=== PATIENT | female | born 1940 | race African-American/Black ===

== ENCOUNTER 2016-09-29 19:12 | Emergency (ER) | payer MEDICARE, MEDICAID ==
[~2016-09-29 19:12] MED LIST: QUET1TAB7 PO
[2016-09-29 19:15] VITALS: BP 174/69; PULSE 69; RESP 18; TEMP 98.4; O2SAT 95
[2016-09-29 19:36] VITALS: BP 223/105; PULSE 62; RESP 18; O2SAT 94
[2016-09-29] MEDS ORDERED: ASPI81CH37 PO (19:42)
[2016-09-29] MEDS ORDERED: METO100T PO (19:42)
[2016-09-29] MEDS ORDERED: SYNT25TA PO (19:42)
[2016-09-29] MEDS ORDERED: LISI40TA PO (19:42)
[2016-09-29] MEDS ORDERED: LIDOCAINE VISCOUS 2% SOLN 15 ML UDC SWISH-SWAL ONE (19:45)
[2016-09-29] MEDS ORDERED: METOPROLOL TARTRATE 100 MG TAB PO ONE (19:45)
--- NOTE | 2016-09-29 19:51 | PD ---
HPI Chief Complaint: ENT Complaint Time Seen by Provider: 19:39 Travel History International Travel<30 days: No Contact w/Intl Traveler<30days: No Traveled to known affect area: No History of Present Illness HPI Patient is a 76-year-old female brought in by her family for evaluation of a sore throat and painful swallowing. Patient states her throat has been sore for one week but today it started to become painful when she swallowed. She denies nasal congestion, fever, chills, nausea, vomiting, chest pain. She states that she is short of breath but reports that his a chronic issue for her. Patient has been able to control her secretions, she is eating and drinking normally. She last ate at 2 PM, based to and potato chips. Patient's primary care provider is Dr. Gonzalez. [facility] Past Medical History Arthritis: Yes Asthma: Yes Blood Disorders: No Anxiety: No Depression: No Cancer: No High Cholesterol: Yes Chemotherapy: No Chest Pain: Yes Congestive Heart Failure: Yes COPD: Yes Diabetes: Yes (INSULIN DEPENDENT) Diminished Hearing: No Gastrointestinal Disorders: No Genitourinary: No Hypertension: Yes Immune Disorder: No Implanted Vascular Access Dvce: Yes (LOOP RECORDER) Neurologic: No Psychiatric: No Reproductive: No Radiation Therapy: No Sleep Apnea: Yes (has machine at home) Thyroid Disease: Yes Menopausal: Yes Past Surgical History Cardiac Surgery: Yes (implanted loop recorder) Hysterectomy: Yes Neurologic Surgery: Yes (C-spine fusion) Pacemaker: No Thoracic Surgery: No Tonsillectomy: Yes Other Surgery: Yes (HERNIA) Social History Alcohol Use: Yes (occassionally) Tobacco Use: No Substance Use: No Allergies-Medications (Allergen,Severity, Reaction): Coded Allergies: Ceftriaxone (Verified Allergy, Intermediate, Rash, 09/29/16) Morphine (Verified Allergy, Intermediate, Hallucinations, 09/29/16) Moxifloxacin (Verified Allergy, Intermediate, Rash, 09/29/16) Sulfa (Verified Allergy, Intermediate, Rash, 09/29/16) Vancomycin (Verified Allergy, Intermediate, Diarrhea, 09/29/16) Azithromycin (Verified Allergy, Unknown, 09/29/16) Ciprofloxacin (Verified Allergy, Unknown, 09/29/16) Dobutamine (Verified Allergy, Unknown, 09/29/16) Methadone (Verified Allergy, Unknown, 09/29/16) Penicillin (Verified Allergy, Unknown, 09/29/16) Prochlorperazine (Verified Allergy, Unknown, 09/29/16) Venlafaxine (Verified Allergy, Unknown, 09/29/16) Reported Meds & Prescriptions Reported Meds & Active Scripts Active Quetiapine (Quetiapine Fumarate) 25 Mg Tab 50 Mg PO BID@,12 Reported Aspirin Low Dose (Aspirin) 81 Mg Chew 81 Mg PO DAILY Metoprolol Tartrate 100 Mg Tab 100 Mg PO DAILY Synthroid (Levothyroxine Sodium) 25 Mcg Tab Unknown Dose PO DAILY Lisinopril 40 Mg Tab 40 Mg PO DAILY Review of Systems Except as stated in HPI: all other systems reviewed are Neg General / Constitutional: No: Fever Eyes: No: Blurred Vision HENT: Positive: Sore Throat, Neck Pain, No: Congestion Cardiovascular: No: Chest Pain or Discomfort Respiratory: Positive: Shortness of Breath Gastrointestinal: No: Nausea, Abdominal Pain Genitourinary: No: Dysuria Musculoskeletal: No: Myalgias Physical Exam Narrative GENERAL: Obese, well-developed, alert female. Resting comfortably in no acute distress. SKIN: Warm and dry. HEAD: Atraumatic. Normocephalic. EYES: Pupils equal and round. No scleral icterus. No injection or drainage. ENT: No nasal bleeding or discharge. Mucous membranes pink and moist. Posterior pharynx with cobblestoning appearance. Airway is patent. NECK: Trachea midline. No JVD. No palpable masses. Full range of motion with flexion, extension, rotation. No stridor noted. CARDIOVASCULAR: Regular rate and rhythm. RESPIRATORY: No accessory muscle use. Clear to auscultation. Breath sounds equal bilaterally. GASTROINTESTINAL: Abdomen soft, non-tender, nondistended. Hepatic and splenic margins not palpable. MUSCULOSKELETAL: Extremities without clubbing, cyanosis, or edema. No obvious deformities. NEUROLOGICAL: Awake and alert. No obvious cranial nerve deficits. Motor grossly within normal limits. Five out of 5 muscle strength in the arms and legs. Normal speech. PSYCHIATRIC: Appropriate mood and affect; insight and judgment normal. Data Data Last Documented VS Vital Signs Date Time Temp Pulse Resp B/P Pulse Ox O2 Delivery O2 Flow Rate FiO2 09/29/16 19:36 62 18 223/105 94 Nasal Cannula 3 09/29/16 19:15 98.4 Orders Lidocaine 2% Viscous (Xylocaine 2% Visco (09/29/16 19:45) Metoprolol Tartrate (Lopressor) (09/29/16 19:45) Group A Rapid Strep Screen (09/29/16 19:37) Strep Culture (Group A) (09/29/16 19:45) MDM Medical Decision Making Medical Screen Exam Complete: Yes Emergency Medical Condition: Yes Interpretation(s) Vital Signs Date Time Temp Pulse Resp B/P Pulse Ox O2 Delivery O2 Flow Rate FiO2 09/29/16 19:36 62 18 223/105 94 Nasal Cannula 3 09/29/16 19:15 98.4 69 18 174/69 95 Room Air Differential Diagnosis Pharyngitis versus esophageal strictures versus postnasal drip versus other Narrative Course Patient is a 76-year-old female presenting to emergency department evaluation of 1 week of sore throat with increased pain today. Patient is able tolerate food and fluids, she is controlling her secretions. Airway is patent on exam. Blood pressure is elevated, patient has not taken her nighttime dose of metoprolol. Patient is questioning whether or not she took her morning dose of metoprolol as well. Blood pressure has improved significantly after administration of metoprolol. Patient states that it continues to be irritated when she swallows after administration of viscous lidocaine. Strep was negative. Patient will be given antibiotics as well as ipratropium nasal spray as the areas has cobblestone appearance consistent with postnasal drip which is likely irritating her throat. Patient has been controlling her secretions and tolerating food and fluids. She has appointment with her primary doctor on Saturday. She is advised to keep this appointment. She was further advised to return to emergency department for any new or worsening symptoms in the interim. Patient and daughter verbalized understanding of these instructions. Patient is stable for discharge. Patient has multiple allergies to antibiotics, discussed with daughter at bedside. Daughter states the patient has tolerated Keflex in the past. Keflex was prescribed. Dr. Gonzalez called while patient was in the emergency department and stated that he would see patient on Saturday. Diagnosis Primary Impression: Sore throat Referrals: Ghassan Gonzalez MD 3 days As scheduled Patient Instructions: General Instructions, Pharyngitis (ED) Additional Instructions: Follow-up with Dr. Gonzalez on Saturday as scheduled Take medications as directed Return to emergency department for any new or worsening symptoms Med/Other Pt SpecificInfo: Prescription(s) given Scripts Cephalexin (Keflex)500 Mg Vop543 Mg PO Q12H 7 Days Ref 0 Prov:Oneyda Paige 09/29/16 Ipratropium Nasal 0.06% Spray1 [place] EACH NARE TID #1 BOTTLE Ref 0 Prov:Oneyda Paige 09/29/16 Disposition: 01 DISCHARGE HOME Condition: Stable Oneyda Paige Sep 29, 2016 19:51
[2016-09-29 20:30] VITALS: BP 158/104; PULSE 68; RESP 18; O2SAT 95
[2016-09-29] MEDS ORDERED: FURO40TA PO (20:35)
[2016-09-29] MEDS ORDERED: MECL-62 PO (20:35)
[2016-09-29] MEDS ORDERED: GABA300C5 PO (20:35)
[2016-09-29] MEDS ORDERED: ISOS30TA15 PO (20:35)
[2016-09-29] MEDS ORDERED: NOVOLOGP2 SQ (20:35)
[2016-09-29] MEDS ORDERED: POTA10CA PO (20:35)
[2016-09-29] MEDS ORDERED: NITR1SUB3 SL (20:35)
[2016-09-29] MEDS ORDERED: LANTUS2P SQ (20:35)
[2016-09-29] MEDS ORDERED: PARO30TA2 PO (20:35)
[2016-09-29] MEDS ORDERED: CEPH-460 PO (20:41)
[2016-09-29] MEDS ORDERED: IPRA0.06 EACH NARE (20:41)
== END 2016-09-29 21:00 | disposition home or self-care (01) ==
LOC: NEPA 19:12
DX: J02.9 Acute pharyngitis, unspecified (principal); J45.909 Unspecified asthma, uncomplicated; E78.00 Pure hypercholesterolemia, unspecified; I50.9 Heart failure, unspecified; J44.9 Chronic obstructive pulmonary disease, unspecified; E11.9 Type 2 diabetes mellitus without complications; I10 Essential (primary) hypertension; E07.9 Disorder of thyroid, unspecified
CPT/HCPCS: 87081; 87880

== ENCOUNTER 2016-12-05 12:03 | Emergency (ER) | payer MEDICARE, MEDICAID ==
[~2016-12-05] VITALS: Ht 160 cm; Wt 113.5 kg
[~2016-12-05 12:03] MED LIST changes: +ASPI81CH37 PO; +CEPH-460 PO; +FURO40TA PO; +GABA300C5 PO; +IPRA0.06 EACH NARE; +ISOS30TA15 PO; +LANTUS2P SQ; +LISI40TA PO; +MECL-62 PO; +METO100T PO; +NITR1SUB3 SL; +NOVOLOGP2 SQ; +PARO30TA2 PO; +POTA10CA PO; +SYNT25TA PO
[2016-12-05 12:05] VITALS: BP 160/70; PULSE 64; RESP 24; TEMP 98.1; O2SAT 96
--- NOTE | 2016-12-05 12:12 | PD ---
Physical Exam Time Seen by Provider: 12:10 Narrative 76yo F c/o R lower back pain, L arm pain, and headache after falling off her bed Saturday night. Hit her head. Unknown loss of consciousness. Patient seen in triage. VS reviewed. Awaiting bed placement. Data Data Last Documented VS Vital Signs Date Time Temp Pulse Resp B/P Pulse Ox O2 Delivery O2 Flow Rate FiO2 12/05/16 12:05 98.1 64 24 160/70 96 Nasal Cannula MDM Supervised Visit with ELLIE: Julite Bower December 05, 2016 12:12
--- NOTE | 2016-12-05 12:43 | PD ---
HPI Chief Complaint: Back/ Neck Pain or Injury Time Seen by Provider: 12:32 Travel History International Travel<30 days: No Contact w/Intl Traveler<30days: No Traveled to known affect area: No History of Present Illness HPI 76 her old female on aspirin presents with family member for evaluation after a fall. 2 days ago the patient was sleeping, rolled out of her bed, hit her head on the nightstand. According to the patient's daughter she sleeps on the very edge of the bed in order to let her dog have plenty of room on the bed. This is been causing her to fall out of bed a few different times and for this reason they're trying to get a hospital bed with railings installed in her house. Since then the patient has been complaining of some left-sided headache as well as left forearm pain, right flank pain and this is what prompted evaluation today. Pain is mild, aggravated by movement of the left forearm, palpation of the skin in the left nondenominational region. Denies any loss of consciousness, confusion or amnesia, nausea or vomiting, chest pain, abdominal pain, numbness or tingling or weakness in extremities. Last tetanus vaccination unknown. No other complaints. PFSH Past Medical History Arthritis: Yes Asthma: Yes Blood Disorders: No Anxiety: No Depression: No Cancer: No Cardiovascular Problems: Yes (CHF, HIGH CHOLESTEROL) High Cholesterol: Yes Chemotherapy: No Chest Pain: Yes Congestive Heart Failure: Yes COPD: Yes Diabetes: Yes Patient Takes Glucophage: No Diminished Hearing: No Gastrointestinal Disorders: No Genitourinary: No Hypertension: Yes Immune Disorder: No Implanted Vascular Access Dvce: Yes (LOOP RECORDER) Neurologic: No Psychiatric: No Reproductive: No Respiratory: Yes (COPD) Radiation Therapy: No Sleep Apnea: Yes (has machine at home) Thyroid Disease: Yes ?: Not Menopausal: Yes Past Surgical History Cardiac Surgery: Yes (implanted loop recorder) Hysterectomy: Yes Neurologic Surgery: Yes (C-spine fusion) Pacemaker: No Thoracic Surgery: No Tonsillectomy: Yes Other Surgery: Yes (HERNIA) Social History Alcohol Use: No Tobacco Use: No Substance Use: No Allergies-Medications (Allergen,Severity, Reaction): Coded Allergies: Ceftriaxone (Verified Allergy, Intermediate, Rash, 12/05/16) Morphine (Verified Allergy, Intermediate, Hallucinations, 12/05/16) Moxifloxacin (Verified Allergy, Intermediate, Rash, 12/05/16) Sulfa (Verified Allergy, Intermediate, Rash, 12/05/16) Vancomycin (Verified Allergy, Intermediate, Diarrhea, 12/05/16) Azithromycin (Verified Allergy, Unknown, 12/05/16) Ciprofloxacin (Verified Allergy, Unknown, 12/05/16) Dobutamine (Verified Allergy, Unknown, 12/05/16) Methadone (Verified Allergy, Unknown, 12/05/16) Penicillin (Verified Allergy, Unknown, 12/05/16) Prochlorperazine (Verified Allergy, Unknown, 12/05/16) Venlafaxine (Verified Allergy, Unknown, 12/05/16) Reported Meds & Prescriptions Reported Meds & Active Scripts Active Lidocaine Patch 12 HR (Lidocaine) 5 % Patch 1 Patch TOPICAL DAILY PRN Remove patch after 12 hours Reported Omeprazole 40 Mg Cap 40 Mg PO DAILY Gabapentin 100 Mg Cap 100 Mg PO TID Amlodipine (Amlodipine Besylate) 5 Mg Tab 5 Mg PO DAILY Paxil (Paroxetine HCl) 30 Mg Tab 30 Mg PO DAILY Novolog Inj (Insulin Aspart) 1,000 Unit/10 Ml Vial 0 SQ DIRECTED Sliding Scale as directed. Isosorbide Dinitrate 30 Mg Tab 30 Mg PO DAILY Potassium Chloride ER (Potassium Chloride) 10 Meq Cap 10 Meq PO DAILY Furosemide 40 Mg Tab 40 Mg PO DAILY Nitroglycerin SL (Nitroglycerin) 0.4 Mg Subl 0.4 Mg SL DIRECTED PRN ONE TABLET UNDER THE TONGUE NEEDED FOR CHEST PAIN, MAY REPEAT EVERY FIVE MINUTES FOR A TOTAL OF 3 DOSES OR CALL 911 IF NO RELIEF Meclizine (Meclizine HCl) 25 Mg Tab 25 Mg PO TID PRN Lantus Inj (Insulin Glargine) 1,000 Unit/10 Ml Vial 18 Units SQ BID Aspirin Low Dose (Aspirin) 81 Mg Chew 81 Mg PO DAILY Metoprolol Tartrate 100 Mg Tab 100 Mg PO DAILY Synthroid (Levothyroxine Sodium) 25 Mcg Tab 150 PO DAILY Lisinopril 40 Mg Tab 40 Mg PO DAILY Review of Systems Except as stated in HPI: all other systems reviewed are Neg Physical Exam Narrative GENERAL: Pleasant well-developed well-nourished female in no acute distress SKIN: Warm and dry. There is an abrasion to the left nondenominational, abrasion to the right flank. No significant ecchymosis or hematoma formation. HEAD: Normocephalic. Skin as noted above. EYES: Pupils equal and round. No scleral icterus. No injection or drainage. ENT: No nasal bleeding or discharge. Mucous membranes pink and moist. NECK: Trachea midline. No JVD. CARDIOVASCULAR: Regular rate and rhythm. No murmur appreciated. RESPIRATORY: No accessory muscle use. Clear to auscultation. Breath sounds equal bilaterally. GASTROINTESTINAL: Abdomen soft, non-tender, nondistended. Hepatic and splenic margins not palpable. MUSCULOSKELETAL: No obvious deformities. Tender to palpation right posterior rib cage. There is no tenderness to palpation along the cervical thoracic or lumbar midline spine. There is some tenderness to palpation to the mid left forearm with no obvious deformity. NEUROLOGICAL: Awake and alert. No obvious cranial nerve deficits. Motor grossly within normal limits. Normal speech. PSYCHIATRIC: Appropriate mood and affect; insight and judgment normal. Data Data Last Documented VS Vital Signs Date Time Temp Pulse Resp B/P Pulse Ox O2 Delivery O2 Flow Rate FiO2 12/05/16 12:05 98.1 64 24 160/[address] Brain W/O Iv Contrast(Rout) (12/05/16 ) Ribs, Uni (W/Exp Cxr-Min 3vw) (12/05/16 ) Tetanus/Diphtheria Tox Adult (Tetanus/Di (12/05/16 12:45) Forearm (2vws) (12/05/16 ) Acetaminophen (Tylenol) (12/05/16 14:00) MDM Medical Decision Making Medical Screen Exam Complete: Yes Emergency Medical Condition: Yes Medical Record Reviewed: Yes Differential Diagnosis Closed head injury, abrasion, contusion, skull fracture, intracranial hemorrhage , rib fracture, pneumothorax, hemothorax, retroperitoneal hematoma Narrative Course 76 year old female presents after mechanical fall 2 days ago with abrasion, pain on left side of her head, right posterior rib cage, left forearm. Plan is for x-ray imaging the ribs, left forearm, CT of the brain. Tetanus status updated. X-rays, CT imaging is negative. The patient is being discharged with Lidoderm patches for her posterior rib cage pain. Tylenol was administered here. Diagnosis Primary Impression: Abrasions of multiple sites Additional Impression: Multiple contusions Additional Instructions: Keep the wounds clean with soap and water and apply antibiotic cream daily. Take [id number] Tylenol as needed for discomfort per dosing instructions on the bottle. Lidoderm patches as needed. Follow up closely with primary care physician and return for any emergent medical conditions. Med/Other Pt SpecificInfo: Prescription(s) given Scripts Lidocaine Patch 12 HR 5 % Patch1 Patch TOPICAL DAILY PRN (PAIN) #1 BOX Ref 1 Remove patch after 12 hours Prov:Hipolito Kaminski MD 12/05/16 Disposition: 01 DISCHARGE HOME Condition: Stable Kadne Mijares December 05, 2016 12:43
[2016-12-05] MEDS ORDERED: TETANUS/DIPHTHERIA TOXOID ADULT 0.5 ML VIAL IM ONE (12:45)
[2016-12-05] MEDS ORDERED: PAXI30TA7 PO (12:57)
[2016-12-05] MEDS ORDERED: AMLO5TAB2 PO (12:57)
[2016-12-05] MEDS ORDERED: GABA100C4 PO (12:57)
[2016-12-05] MEDS ORDERED: OMEP40CA2 PO (12:57)
--- NOTE | 2016-12-05 13:45 | RADRPT ---
EXAM DATE/TIME: 12/05/2016 13:34 [facility] COMPARISON: CT BRAIN W/O CONTRAST, May 31, 2016, 17:35. INDICATIONS : Evaluate for contusion. RADIATION DOSE: 33.14 CTDIvol (mGy) MEDICAL HISTORY : Hypertension. Cardiovascular disease Diabetes mellitus type 2.CHF SURGICAL HISTORY : None. ENCOUNTER: Initial ACUITY: 3 days PAIN SCALE: 2/10 LOCATION: Bilateral cranial TECHNIQUE: Multiple contiguous axial images were obtained of the head. Using automated exposure control and adj ustment of the mA and/or kV according to patient size, radiation dose was kept as low as reasonably a chievable to obtain optimal diagnostic quality images. FINDINGS: CEREBRUM: The ventricles are normal for age. No evidence of midline shift, mass lesion, hemorrhage or acute in farction. No extra-axial fluid collections are seen. POSTERIOR FOSSA: The cerebellum and brainstem are intact. The 4th ventricle is midline. The cerebellopontine angle i s unremarkable. EXTRACRANIAL: The visualized portion of the orbits is intact. SKULL: The calvaria is intact. No evidence of skull fracture. CONCLUSION: Negative for acute process. Gerry Multani MD FACR on December 05, 2016 at 13:42 Board Certified Radiologist. This report was verified electronically.
--- NOTE | 2016-12-05 13:51 | RADRPT ---
EXAM DATE/TIME: 12/05/2016 13:21 [facility] COMPARISON: No previous studies available for comparison. INDICATIONS : Right rib pain after falling today. MEDICAL HISTORY : Congestive heart failure. Hypertension. Diabetes. SURGICAL HISTORY : Tonsillectomy. ENCOUNTER: Initial ACUITY: 1 day PAIN SCORE: 4/10 LOCATION: Right rib. FINDINGS: Cardiac event monitor is evident. The heart is enlarged. There is mild interstitial prominence. Th ere is no pneumothorax. I do not see displaced rib fractures. CONCLUSION: Mild interstitial prominence. There are no displaced rib fractures. Gerry Multani MD FACR on December 05, 2016 at 13:38 Board Certified Radiologist. This report was verified electronically.
--- NOTE | 2016-12-05 13:52 | RADRPT ---
EXAM DATE/TIME: 12/05/2016 13:26 [facility] COMPARISON: No previous studies available for comparison. INDICATIONS : Left forearm pain after falling today. MEDICAL HISTORY : Congestive heart failure. Hypertension. Diabetes. SURGICAL HISTORY : Tonsillectomy. ENCOUNTER: Initial ACUITY: 1 day PAIN SCORE: 3/10 LOCATION: Left forearm. FINDINGS: Degenerative changes are present in the carpus. Alignment is anatomic. Fracture is not appreciated. CONCLUSION: Degenerative change without fracture. Gerry Multani MD FACR on December 05, 2016 at 13:38 Board Certified Radiologist. This report was verified electronically.
[2016-12-05] MEDS ORDERED: LIDO1PAD52 TOPICAL (13:55)
[2016-12-05] MEDS ORDERED: ACETAMINOPHEN 325 MG TAB PO ONE (14:00)
== END 2016-12-05 14:15 | disposition home or self-care (01) ==
LOC: NEPD 12:03
DX: S00.81XA Abrasion of other part of head, initial encounter (principal); S30.811A Abrasion of abdominal wall, initial encounter; W06.XXXA Fall from bed, initial encounter; Y93.84 Activity, sleeping; Y92.009 Unspecified place in unspecified non-institutional (private) residence as the place of occurrence of the external cause; Z23 Encounter for immunization
CPT/HCPCS: 70450; 71101; 73090; 90471; 90714

== ENCOUNTER 2016-12-23 21:59 | Emergency (ER) | payer MEDICARE, MEDICAID ==
[~2016-12-23] VITALS: Ht 160 cm; Wt 114.0 kg
[~2016-12-23 21:59] MED LIST changes: +AMLO5TAB2 PO; -CEPH-460 PO; +GABA100C4 PO; -GABA300C5 PO; -IPRA0.06 EACH NARE; +LIDO1PAD52 TOPICAL; +OMEP40CA2 PO; -PARO30TA2 PO; +PAXI30TA7 PO; -QUET1TAB7 PO
[2016-12-23 22:00] VITALS: PULSE 60; RESP 18; TEMP 98.5; O2SAT 98
[2016-12-23 23:31] LABS: BASOPHIL % 0.5 % (0.0-2.0); EOSINOPHIL # 0.3 TH/MM3 (0-0.4); EOSINOPHIL % 3.9 % (0.0-4.0); HEMATOCRIT 31.5 % (35.0-46.0); HEMO FLAGS DIFF FINAL; LYMPH % 17.8 % (9.0-44.0); LYMPHOCYTE # 1.3 TH/MM3 (1.0-4.8); MEAN CELL VOLUME 76.5 FL (80.0-100.0); MEAN CORPUSCULAR HEMOGLOBIN 24.6 PG (27.0-34.0); MEAN CORPUSCULAR HGB CONC 32.2 % (32.0-36.0); NEUT % 71.8 % (16.0-70.0); PLATELET COUNT 164 TH/MM3 (150-450); RED BLOOD COUNT 4.12 MIL/MM3 (4.00-5.30); RED CELL DISTRIBUTION WIDTH 16.5 % (11.6-17.2)
--- NOTE | 2016-12-23 23:45 | RADRPT ---
EXAM DATE/TIME: 12/23/2016 23:17 [facility] COMPARISON: CHEST SINGLE AP, May 31, 2016, 17:07. INDICATIONS : Abdominal pain. MEDICAL HISTORY : Hypertension. Cardiovascular disease. Diabetes mellitus type II. CHF SURGICAL HISTORY : None. ENCOUNTER: Initial ACUITY: 1 day PAIN SCORE: 0/10 LOCATION: Bilateral chest FINDINGS: No infiltrate, effusion or pneumothorax demonstrated. Heart size stable, mildly enlarged. Implanted c ardiac loop recorder again seen. CONCLUSION: No acute cardiopulmonary disease demonstrated. Arpan Rust MD on December 23, 2016 at 23:43 Board Certified Radiologist. This report was verified electronically.
[2016-12-23 23:50] LABS: ANION GAP 10 MEQ/L (5-15); BICARBONATE 26.9 MEQ/L (21.0-32.0); BLOOD UREA NITROGEN 52 MG/DL (7-18); CHLORIDE 99 MEQ/L (98-107); GLOMERULAR FILTRATION RATE 27 ML/MIN (>89); SODIUM (NA) 136 MEQ/L (136-145)
[2016-12-23 23:51] LABS: POTASSIUM 4.7 MEQ/L (3.5-5.1)
[2016-12-24 00:02] LABS: ALKALINE PHOSPHATASE 111 U/L (45-117); ALT (GPT) 17 U/L (10-53); AST (GOT) 24 U/L (15-37); CREATINE KINASE 184 U/L (26-192); TOTAL BILIRUBIN ADULT 0.3 MG/DL (0.2-1.0)
--- NOTE | 2016-12-24 00:02 | PD ---
HPI Chief Complaint: Dizziness Time Seen by Provider: 23:00 Travel History International Travel<30 days: No Contact w/Intl Traveler<30days: No Traveled to known affect area: No History of Present Illness HPI The patient is a 76 year old female who presents to the [facility] emergency department with a history of shortness of breath, dizziness, nausea, and tremors that her daughter reports began again today. From reviewing the patient's electronic medical record, the patient has had similar complaints in the past. The patient's family reports that she has not recently been seen by the neurologist. From reviewing the electronic medical record in May she was admitted for similar concerns and was seen by Dr. Valdez. By the time she was seen by him, the dizziness and tremulousness seem to be resolving, therefore he recommended follow-up of her symptoms recurred. According to the patient's daughter the patient intermittently has chronic dizziness. She also has a history of congestive heart failure. She is unsure whether she had any increase in her weight recently. She reports that her shortness of breath does get worse when she tries to lie down. She denies having any vomiting. She denies having any chest pain or pressure. She denies having any calf pain or erythema. The patient reports that she is always cold and is concerned that she may be anemic. She reports that she has been anemic in the past, however she has not currently on an iron supplement. The patient denies any recent fevers, cough, congestion, neck pain, chest pain, abdominal pain, diarrhea, urinary symptoms, or other neurologic symptoms. FORMERLY [facility] Past Medical History Narrative Medical The patient's past medical history is significant for dizziness, bipolar disorder, renal insufficiency, COPD, obstructive sleep apnea, hypertension, diabetes mellitus, history of congestive heart failure, history of hypothyroid disorder, hyperlipidemia, insulin-dependent diabetes, peripheral diabetic neuropathy. Arthritis: Yes Asthma: Yes Blood Disorders: No Anxiety: No Depression: No Cancer: No Cardiovascular Problems: Yes (CHF) High Cholesterol: Yes Chemotherapy: No Chest Pain: Yes Congestive Heart Failure: Yes COPD: Yes Diabetes: Yes Patient Takes Glucophage: No Diminished Hearing: No Gastrointestinal Disorders: No Genitourinary: No Hypertension: Yes Immune Disorder: No Implanted Vascular Access Dvce: Yes (LOOP RECORDER) Neurologic: No Psychiatric: No Reproductive: No Respiratory: Yes (COPD) Radiation Therapy: No Sleep Apnea: Yes (has machine at home) Thyroid Disease: Yes Tetanus Vaccination: < 5 Years Influenza Vaccination: Yes Menopausal: Yes Past Surgical History Narrative Surgical The patient's past surgical history is significant for having a hernia repair, an implanted loop recorder, history of C-spine fusion, tonsillectomy, hysterectomy. Cardiac Surgery: Yes (implanted loop recorder) Hysterectomy: Yes Neurologic Surgery: Yes (C-spine fusion) Pacemaker: No Thoracic Surgery: No Tonsillectomy: Yes Other Surgery: Yes (HERNIA) Social History Alcohol Use: Yes (OCC) Tobacco Use: No (40YR AGO) Substance Use: No Allergies-Medications (Allergen,Severity, Reaction): Coded Allergies: Ceftriaxone (Verified Allergy, Intermediate, Rash, 12/23/16) Morphine (Verified Allergy, Intermediate, Hallucinations, 12/23/16) Moxifloxacin (Verified Allergy, Intermediate, Rash, 12/23/16) Sulfa (Verified Allergy, Intermediate, Rash, 12/23/16) Vancomycin (Verified Allergy, Intermediate, Diarrhea, 12/23/16) Azithromycin (Verified Allergy, Unknown, 12/23/16) Ciprofloxacin (Verified Allergy, Unknown, 12/23/16) Dobutamine (Verified Allergy, Unknown, 12/23/16) Methadone (Verified Allergy, Unknown, 12/23/16) Penicillin (Verified Allergy, Unknown, 12/23/16) Prochlorperazine (Verified Allergy, Unknown, 12/23/16) Venlafaxine (Verified Allergy, Unknown, 12/23/16) Reported Meds & Prescriptions Reported Meds & Active Scripts Active Lidocaine Patch 12 HR (Lidocaine) 5 % Patch 1 Patch TOPICAL DAILY PRN Remove patch after 12 hours Reported Omeprazole 40 Mg Cap 40 Mg PO DAILY Gabapentin 100 Mg Cap 100 Mg PO TID Amlodipine (Amlodipine Besylate) 5 Mg Tab 5 Mg PO DAILY Paxil (Paroxetine HCl) 30 Mg Tab 30 Mg PO DAILY Novolog Inj (Insulin Aspart) 1,000 Unit/10 Ml Vial 0 SQ DIRECTED Sliding Scale as directed. Isosorbide Dinitrate 30 Mg Tab 30 Mg PO DAILY Potassium Chloride ER (Potassium Chloride) 10 Meq Cap 10 Meq PO DAILY Furosemide 40 Mg Tab 40 Mg PO DAILY Nitroglycerin SL (Nitroglycerin) 0.4 Mg Subl 0.4 Mg SL DIRECTED PRN ONE TABLET UNDER THE TONGUE NEEDED FOR CHEST PAIN, MAY REPEAT EVERY FIVE MINUTES FOR A TOTAL OF 3 DOSES OR CALL 911 IF NO RELIEF Meclizine (Meclizine HCl) 25 Mg Tab 25 Mg PO TID PRN Lantus Inj (Insulin Glargine) 1,000 Unit/10 Ml Vial 18 Units SQ BID Aspirin Low Dose (Aspirin) 81 Mg Chew 81 Mg PO DAILY Metoprolol Tartrate 100 Mg Tab 100 Mg PO DAILY Synthroid (Levothyroxine Sodium) 25 Mcg Tab 150 PO DAILY Lisinopril 40 Mg Tab 40 Mg PO DAILY Review of Systems Except as stated in HPI: all other systems reviewed are Neg General / Constitutional: No: Fever Eyes: No: Visual changes HENT: No: Headaches, Rhinorrhea, Congestion, Neck Stiffness, Neck Pain Cardiovascular: Positive: Dyspnea on exertion, No: Chest Pain or Discomfort, Edema Respiratory: Positive: Shortness of Breath, No: Cough Gastrointestinal: Positive: Nausea, No: Vomiting, Diarrhea, Abdominal Pain, Changes in Bowel Habits, Indigestion, Loss of Appetite Genitourinary: No: Urgency, Frequency, Dysuria, Flank Pain Musculoskeletal: No: Pain Skin: No Rash Neurologic: Positive: Tremor, No: Weakness, Focal Abnormalities, Change in Mentation, Slurred Speech Psychiatric: No: Depression Endocrine: No: Polydipsia Hematologic/Lymphatic: No: Easy Bruising Physical Exam Narrative General: The patient is a well-developed well-nourished female in no acute distress. Head and Neck exam: Head is normocephalic atraumatic. Eyes: EOMI, pupils are equal round and reactive to light. Nose: Midline septum with pink mucous membranes Mouth: Dentition unremarkable. Moist mucus membranes. Posterior oropharynx is not erythematous. No tonsillar hypertrophy. Uvula midline. Airway patent. Neck: No palpable lymphadenopathy. No nuchal rigidity. No thyromegaly. Cardiovascular: Regular rate and rhythm without murmurs, gallops, or rubs. No pulse deficit to the extremities and simultaneous auscultation and palpation of her radial artery. Lungs: Clear to auscultation bilaterally. No wheezes, rhonchi, or rales. Abdomen: Soft, without tenderness to palpation in all 4 quadrants of the abdomen. No guarding, rebound, or rigidity. Normal bowel sounds are audible. No tenderness on palpation of McBurney's point. Negative Lance's sign. Extremities: No clubbing, cyanosis, or edema. 2+ pulses in all 4 extremities. No calf tenderness on palpation. Back: No costovertebral angle tenderness to palpation. Neurologic Exam: Cranial nerves 2-12 were intact on exam. Strength is 5/5 in all 4 extremities. No sensory deficits noted. No dysdiadochokinesis. Good finger to nose and Heel to nunez bilaterally. No tremor noted on examination at this time. Skin Exam: No rash noted. Intact skin that is warm and dry. Data Data Last Documented VS Vital Signs Date Time Temp Pulse Resp B/P Pulse Ox O2 Delivery O2 Flow Rate FiO2 12/23/16 22:00 98.5 60 18 98 Nasal Cannula Orders Electrocardiogram (12/23/16 23:12) Complete Blood Count With Diff (12/23/16 23:12) Comprehensive Metabolic Panel (12/23/16 23:12) Creatine Kinase (Cpk) (12/23/16 23:12) Ckmb (Isoenzyme) Profile (12/23/16 23:12) Troponin I (12/23/16 23:12) B-Type Natriuretic Peptide (12/23/16 23:12) Lipase (12/23/16 23:12) Urinalysis - C+S If Indicated (12/23/16 23:12) Magnesium (Mg) (12/23/16 23:12) Thyroid Stimulating Hormone (12/23/16 23:12) Chest, Single Ap (12/23/16 23:12) Iv Access Insert/Monitor (12/23/16 23:12) Ecg Monitoring (12/23/16 23:12) Oximetry (12/23/16 23:12) Ct Brain W/O Iv Contrast(Rout) (12/23/16 23:42) Orthostatic Vital Signs (12/23/16 23:42) CKMB (12/23/16 23:21) CKMB% (12/23/16 23:21) Ondansetron Inj (Zofran Inj) (12/24/16 00:15) Sodium Chlor 0.9% 250 Ml Inj (Ns 250 Ml (12/24/16 00:45) Cath For Specimen (12/24/16 00:38) Labs Laboratory Tests Test 12/23/16 23:21 B-Type Natriuretic Peptide 117 PG/ML White Blood Count 7.0 TH/MM3 Red Blood Count 4.12 MIL/MM3 Hemoglobin 10.2 GM/DL Hematocrit 31.5 % Mean Corpuscular Volume 76.5 FL Mean Corpuscular Hemoglobin 24.6 PG Mean Corpuscular Hemoglobin 32.2 % Concent Red Cell Distribution Width 16.5 % Platelet Count 164 TH/MM3 Mean Platelet Volume 9.5 FL Neutrophils (%) (Auto) 71.8 % Lymphocytes (%) (Auto) 17.8 % Monocytes (%) (Auto) 6.0 % Eosinophils (%) (Auto) 3.9 % Basophils (%) (Auto) 0.5 % Neutrophils # (Auto) 5.0 TH/MM3 Lymphocytes # (Auto) 1.3 TH/MM3 Monocytes # (Auto) 0.4 TH/MM3 Eosinophils # (Auto) 0.3 TH/MM3 Basophils # (Auto) 0.0 TH/MM3 CBC Comment DIFF FINAL Differential Comment Sodium Level 136 MEQ/L Potassium Level 4.7 MEQ/L Chloride Level 99 MEQ/L Carbon Dioxide Level 26.9 MEQ/L Anion Gap 10 MEQ/L Blood Urea Nitrogen 52 MG/DL Creatinine 2.13 MG/DL Estimat Glomerular Filtration 27 ML/MIN Rate Random Glucose 161 MG/DL Calcium Level 9.5 MG/DL Magnesium Level 2.0 MG/DL Total Bilirubin 0.3 MG/DL Aspartate Amino Transf 24 U/L (AST/SGOT) Alanine Aminotransferase 17 U/L (ALT/SGPT) Alkaline Phosphatase 111 U/L Total Creatine Kinase 184 U/L Creatine Kinase MB 1.0 NG/ML Troponin I LESS THAN 0.02 NG/ML Total Protein 8.3 GM/DL Albumin 3.6 GM/DL Lipase 87 U/L Thyroid Stimulating Hormone 0.921 uIU/ML [address] [place] [address] Medical Decision Making Medical Screen Exam Complete: Yes Emergency Medical Condition: Yes Medical Record Reviewed: Yes Interpretation(s) Last Impressions Head CT 12/23/162 Signed Impressions: Service Date/Time: Saturday, December 24, 2016 00:02 - CONCLUSION: Negative noncontrast head CT. Arpan Rust MD Chest X-Ray 12/23/16 2312 Signed Impressions: Service Date/Time: Friday, December 23, 2016 23:17 - CONCLUSION: No acute cardiopulmonary disease demonstrated. Arpan Rust MD Differential Diagnosis Congestive heart failure exacerbation, versus pneumonia, versus acute coronary syndrome, versus medication side effect, versus exacerbation of psychiatric disorder, versus symptomatic anemia, versus endocrine disorder Narrative Course During the course of the patients emergency department visit, the patients history, examination, and differential diagnosis were reviewed with the patient. The patient had IV access obtained and blood work sent for analysis. The patient was placed on a bus driver/monitor with oximetry and blood pressure monitoring. An EKG was done on arrival. The patient's EKG shows a sinus bradycardia with occasional supraventricular premature complexes, heart rate of 52, T waves inverted in lead 3, no acute ST segment elevation. QRS duration is 92 ms, QTc is 424 ms. Orthostatic vital signs were ordered. A CT scan of the brain was ordered. The patient was initially provided Zofran 4 mg IV times one for nausea. The patient has a history of renal sufficiency, however her renal function was slightly worse due to decreased by mouth intake today and her BMP was 117, therefore the patient was given a normal saline 250 mL bolus 1. The patients laboratory studies were reviewed and remarkable for a white count of 7, hemoglobin 10.2 which is at her baseline, however with a MCV of 76.5, therefore was recommended that the patient started on iron supplement again, neutrophils 71.8, CMP is remarkable for a BUN of 52, creatinine 2.13, glucose 161, CPK 184, troponin I less than 0.02, BNP 117, TSH 0.92, lipase 87. Radiology studies were reviewed and remarkable for a CT scan of the brain that shows no acute abnormality. A chest x-ray that shows no acute abnormality. The patient has remained stable during her evaluation. The patient was started back on an iron supplement. The patient was given a prescription for nausea. The patient was instructed to follow-up with the neurologist for consideration of additional testing. The patient is resting comfortably and feels better, is alert and in no distress. The patients results and examination findings were discussed with the patient. The repeat examination is unremarkable and benign. The history, exam, diagnostic testing, and current condition do not suggest any significant pathology to warrant further testing, continued ED treatment, admission, or surgical evaluation at this point. The vital signs have been stable. The patient does not have uncontrollable pain, intractable vomiting, or other significant symptoms. The patient's condition is stable and appropriate for discharge. The patient will pursue further outpatient evaluation with a primary care physician or other designated or consulting physician as indicated in the discharge instructions. The patient expressed understanding and was agreeable with this plan. Diagnosis Primary Impression: Dizziness, nonspecific Additional Impressions: Nausea alone Dyspnea on exertion Referrals: Min Valdez MD 1 week Primary Care Physician 2 days Patient Instructions: Dizziness (ED), General Instructions Med/Other Pt SpecificInfo: Prescription(s) given Scripts Ferrous Sulfate (Ferrousul)325 Mg Tab1 Tab PO q day 30 Days Prov:Maddi Rivas MD 12/24/16 Ondansetron Odt (Zofran Odt)4 Mg Tab4 Mg SL Q6HR PRN (Nausea/Vomiting) #7 TAB Ref 0 Prov:Maddi Rivas MD 12/24/16 Disposition: 01 DISCHARGE HOME Condition: Stable Maddi Rivas MD Dec 24, 2016 00:02
[2016-12-24] MEDS ORDERED: ONDANSETRON HCL 4 MG/2 ML VIAL IV ONE (00:15)
--- NOTE | 2016-12-24 00:25 | RADRPT ---
EXAM DATE/TIME: 12/24/2016 00:02 [facility] COMPARISON: CT BRAIN W/O CONTRAST, December 05, 2016, 13:34. INDICATIONS : Dizziness. RADIATION DOSE: 38.35 CTDIvol (mGy) MEDICAL HISTORY : Congestive heart failure. Hypertension. Chronic obstructive pulmonary disease.Diabetes. SURGICAL HISTORY : Tonsillectomy. Hysterectomy.Cervical fusion. ENCOUNTER: Initial ACUITY: 1 day PAIN SCALE: 0/10 LOCATION: cranial TECHNIQUE: Multiple contiguous axial images were obtained of the head. Using automated exposure control and adj ustment of the mA and/or kV according to patient size, radiation dose was kept as low as reasonably a chievable to obtain optimal diagnostic quality images. FINDINGS: CEREBRUM: The ventricles are normal for age. No evidence of midline shift, mass lesion, hemorrhage or acute in farction. No extra-axial fluid collections are seen. POSTERIOR FOSSA: The cerebellum and brainstem are intact. The 4th ventricle is midline. The cerebellopontine angle i s unremarkable. EXTRACRANIAL: The visualized portion of the orbits is intact. SKULL: The calvaria is intact. No evidence of skull fracture. CONCLUSION: Negative noncontrast head CT. Arpan Rust MD on December 24, 2016 at 0:22 Board Certified Radiologist. This report was verified electronically.
[2016-12-24] MEDS ORDERED: SODIUM CHLOR 0.9% 250 ML INJ 250 ML IV ONE (00:45)
[2016-12-24] MEDS ORDERED: FERR325T86 PO (01:38)
[2016-12-24] MEDS ORDERED: ZOFR4TAB3 SL (01:38)
[2016-12-24 02:25] VITALS: BP_SYST 189; BP_SYST 199; BP_DIAS 77; BP_DIAS 88; PULSE 54; PULSE 56; RESP 18; RESP 19; O2SAT 100; O2SAT 95
[2016-12-24 02:57] VITALS: O2SAT 95
[2016-12-24 02:58] VITALS: BP_SYST 191; BP_SYST 198; BP_DIAS 89; BP_DIAS 90; RESP 18
--- NOTE | 2016-12-24 14:27 | EKG ---
Date Performed: 12/23/2016 Time Performed: 23:18:16 PTAGE: 76 years EKG: SINUS BRADYCARDIA WITH OCCASIONAL SUPRAVENTRICULAR PREMATURE COMPLEXES NONSPECIFIC T-WAVE A BNORMALITY BORDERLINE ECG Since prior tracing, nonspecific changes are more prominent. PREVIOUS TRACING : 05/31/2016 18.25 DOCTOR: Satish Esqueda Interpretating Date/Time 12/24/2016 14:25:44
== END 2016-12-24 02:56 | disposition home or self-care (01) ==
LOC: NEPE 21:59
DX: R42 Dizziness and giddiness (principal); R11.0 Nausea; R06.00 Dyspnea, unspecified; R00.1 Bradycardia, unspecified; R06.02 Shortness of breath; I50.9 Heart failure, unspecified; J44.9 Chronic obstructive pulmonary disease, unspecified; E11.9 Type 2 diabetes mellitus without complications; I10 Essential (primary) hypertension
CPT/HCPCS: 70450; 71010; 80053; 82550; 82552; 83690; 83735; 83880; 84443; 84484; 85025; 93005; 96374; 99285; J2405; J7050; P9612

== ENCOUNTER 2016-12-31 21:00 | Emergency (ER) | payer MEDICARE, MEDICAID ==
[~2016-12-31 21:00] MED LIST changes: +FERR325T86 PO; +ZOFR4TAB3 SL
[2016-12-31 21:02] VITALS: BP 207/88; PULSE 67; RESP 16; TEMP 98.4; O2SAT 98
--- NOTE | 2016-12-31 21:24 | PD ---
Physical Exam Time Seen by Provider: 21:23 Narrative 76yo F c/o abd pain and blood in stool since yesterday. +N w/o vomiting. Denies fever. Patient seen in triage. VS reviewed. Awaiting bed placement. Data Data Last Documented VS Vital Signs Date Time Temp Pulse Resp B/P Pulse Ox O2 Delivery O2 Flow Rate FiO2 12/31/16 21:02 98.4 67 16 207/88 98 Room Air MDM Supervised Visit with ELLIE: Juliet Bower Dec 31, 2016 21:24
[2016-12-31] MEDS ORDERED: FAMOTIDINE 20 MG/2 ML VIAL IV PUSH ONE (21:45)
[2016-12-31] MEDS ORDERED: SODIUM CHLORIDE 0.9% FLUSH 10 ML FLUSH IVF PRN (21:45)
[2016-12-31 21:49] VITALS: RESP 16
--- NOTE | 2016-12-31 21:50 | PD ---
HPI Chief Complaint: GI Complaint Time Seen by Provider: 21:30 Travel History International Travel<30 days: No Contact w/Intl Traveler<30days: No Traveled to known affect area: No History of Present Illness HPI The patient is a 76-year-old [place] female who presents to the emergency department for rectal bleeding. The patient states that she had some bright red blood per rectum yesterday and then noticed some bright red blood per rectum today that was on top of the stool and appeared to be mixed with the stool. She also complained of a few darker clots in her stool. She does complain of some generalized abdominal pain and cramping. She does have a history of previous lower GI bleed with a history of diverticulosis and previous transfusion. The patient called her primary physician, Dr. Gonzalez, however did not hear back from him. Therefore, she came to the emergency department for further evaluation. She does complain of mild nausea but denies any vomiting. Her last normal bowel movement was earlier today, however, did have some bright red blood with her stool. She denies any painful defecation. She does note intermittent chest pain and shortness of breath which is been ongoing for several months, denies any acute orthostatic changes. She does take aspirin on a daily basis. PFSH Past Medical History Arthritis: Yes Asthma: Yes Blood Disorders: No Anxiety: No Depression: No Cancer: No Cardiovascular Problems: Yes (CHF) High Cholesterol: Yes Chemotherapy: No Chest Pain: Yes Congestive Heart Failure: Yes COPD: Yes Diabetes: Yes Patient Takes Glucophage: Yes Diminished Hearing: No Gastrointestinal Disorders: No Genitourinary: No Hypertension: Yes Immune Disorder: No Implanted Vascular Access Dvce: Yes (LOOP RECORDER) Neurologic: No Psychiatric: No Reproductive: No Respiratory: Yes (COPD) Radiation Therapy: No Sleep Apnea: Yes (has machine at home) Thyroid Disease: Yes Tetanus Vaccination: < 5 Years Influenza Vaccination: Yes Menopausal: Yes Past Surgical History Cardiac Surgery: Yes (implanted loop recorder) Hysterectomy: Yes Neurologic Surgery: Yes (C-spine fusion) Pacemaker: No Thoracic Surgery: No Tonsillectomy: Yes Other Surgery: Yes (HERNIA) Social History Alcohol Use: Yes (OCC) Tobacco Use: No (40YR AGO) Substance Use: No Allergies-Medications (Allergen,Severity, Reaction): Coded Allergies: Ceftriaxone (Verified Allergy, Intermediate, Rash, 12/31/16) Morphine (Verified Allergy, Intermediate, Hallucinations, 12/31/16) Moxifloxacin (Verified Allergy, Intermediate, Rash, 12/31/16) Sulfa (Verified Allergy, Intermediate, Rash, 12/31/16) Vancomycin (Verified Allergy, Intermediate, Diarrhea, 12/31/16) Azithromycin (Verified Allergy, Unknown, 12/31/16) Ciprofloxacin (Verified Allergy, Unknown, 12/31/16) Dobutamine (Verified Allergy, Unknown, 12/31/16) Methadone (Verified Allergy, Unknown, 12/31/16) Penicillin (Verified Allergy, Unknown, 12/31/16) Prochlorperazine (Verified Allergy, Unknown, 12/31/16) Venlafaxine (Verified Allergy, Unknown, 12/31/16) Reported Meds & Prescriptions Reported Meds & Active Scripts Active Ferrousul (Ferrous Sulfate) 325 Mg Tab 1 Tab PO Q DAY 30 Days Zofran Odt (Ondansetron Odt) 4 Mg Tab 4 Mg SL Q6HR PRN Lidocaine Patch 12 HR (Lidocaine) 5 % Patch 1 Patch TOPICAL DAILY PRN Remove patch after 12 hours Reported Omeprazole 40 Mg Cap 40 Mg PO DAILY Gabapentin 100 Mg Cap 100 Mg PO TID Amlodipine (Amlodipine Besylate) 5 Mg Tab 5 Mg PO DAILY Paxil (Paroxetine HCl) 30 Mg Tab 30 Mg PO DAILY Novolog Inj (Insulin Aspart) 1,000 Unit/10 Ml Vial 0 SQ DIRECTED Sliding Scale as directed. Isosorbide Dinitrate 30 Mg Tab 30 Mg PO DAILY Potassium Chloride ER (Potassium Chloride) 10 Meq Cap 10 Meq PO DAILY Furosemide 40 Mg Tab 40 Mg PO DAILY Nitroglycerin SL (Nitroglycerin) 0.4 Mg Subl 0.4 Mg SL DIRECTED PRN ONE TABLET UNDER THE TONGUE NEEDED FOR CHEST PAIN, MAY REPEAT EVERY FIVE MINUTES FOR A TOTAL OF 3 DOSES OR CALL 911 IF NO RELIEF Meclizine (Meclizine HCl) 25 Mg Tab 25 Mg PO TID PRN Lantus Inj (Insulin Glargine) 1,000 Unit/10 Ml Vial 18 Units SQ BID Aspirin Low Dose (Aspirin) 81 Mg Chew 81 Mg PO DAILY Metoprolol Tartrate 100 Mg Tab 100 Mg PO DAILY Synthroid (Levothyroxine Sodium) 25 Mcg Tab 150 PO DAILY Lisinopril 40 Mg Tab 40 Mg PO DAILY Review of Systems Except as stated in HPI: all other systems reviewed are Neg General / Constitutional: No: Fever HENT: No: Lightheadedness Cardiovascular: Positive: Chest Pain or Discomfort (intermittent) Respiratory: Positive: Shortness of Breath (intermittent) Gastrointestinal: Positive: Nausea, Abdominal Pain, Hematochezia, No: Vomiting Musculoskeletal: No: Weakness Neurologic: No: Dizziness Physical Exam Narrative GENERAL: Awake, alert, pleasant 76-year-old female who appears her stated age and is in no acute respiratory distress. SKIN: Focused skin assessment warm/dry. HEAD: Atraumatic. Normocephalic. EYES: Pupils equal and round. No scleral icterus. No injection or drainage. ENT: No nasal bleeding or discharge. Mucous membranes pink and moist. NECK: Trachea midline. No JVD. CARDIOVASCULAR: Regular rate and rhythm. No murmur appreciated. RESPIRATORY: No accessory muscle use. Clear to auscultation. Breath sounds equal bilaterally. GASTROINTESTINAL: Abdomen soft, obese, mild generalized tenderness. Rectal: The exam was performed in the presence of a female nurse. No gross blood. Guaiac negative. MUSCULOSKELETAL: No obvious deformities. No clubbing. No cyanosis. No edema. NEUROLOGICAL: Awake and alert. No obvious cranial nerve deficits. Motor grossly within normal limits. Normal speech. PSYCHIATRIC: Appropriate mood and affect; insight and judgment normal. Data Data Last Documented VS Vital Signs Date Time Temp Pulse Resp B/P Pulse Ox O2 Delivery O2 Flow Rate FiO2 12/31/16 21:49 16 12/31/16 21:02 98.4 67 207/88 98 Room Air Orders Complete Blood Count With Diff (12/31/16 21:38) Comprehensive Metabolic Panel (12/31/16 21:38) Lipase (12/31/16 21:38) Prothrombin Time / Inr (Pt) (12/31/16 21:38) Act Partial Throm Time (Ptt) (12/31/16 21:38) Ecg Monitoring (12/31/16 21:38) Iv Access Insert/Monitor (12/31/16 21:38) Oximetry (12/31/16 21:38) Sodium Chloride 0.9% Flush (Ns Flush) (12/31/16 21:45) Famotidine Inj (Pepcid Inj) (12/31/16 21:45) Ct Abd/Pel W/O Iv Contrast (12/31/16 ) Labs Laboratory Tests Test 12/31/16 21:45 White Blood Count 6.7 TH/MM3 Red Blood Count 4.33 MIL/MM3 Hemoglobin 10.7 GM/DL Hematocrit 33.5 % Mean Corpuscular Volume 77.4 FL Mean Corpuscular Hemoglobin 24.8 PG Mean Corpuscular Hemoglobin 32.0 % Concent Red Cell Distribution Width 16.5 % Platelet Count 168 TH/MM3 Mean Platelet Volume 9.3 FL Neutrophils (%) (Auto) 68.0 % Lymphocytes (%) (Auto) 21.0 % Monocytes (%) (Auto) 7.3 % Eosinophils (%) (Auto) 2.8 % Basophils (%) (Auto) 0.9 % Neutrophils # (Auto) 4.5 TH/MM3 Lymphocytes # (Auto) 1.4 TH/MM3 Monocytes # (Auto) 0.5 TH/MM3 Eosinophils # (Auto) 0.2 TH/MM3 Basophils # (Auto) 0.1 TH/MM3 CBC Comment DIFF FINAL Differential Comment Prothrombin Time 11.2 SEC Prothromb Time International 1.0 RATIO Ratio Activated Partial 26.2 SEC Thromboplast Time Sodium Level 136 MEQ/L Potassium Level 4.5 MEQ/L Chloride Level 101 MEQ/L Carbon Dioxide Level 28.0 MEQ/L Anion Gap 7 MEQ/L Blood Urea Nitrogen 28 MG/DL Creatinine 1.63 MG/DL Estimat Glomerular Filtration 37 ML/MIN Rate Random Glucose 148 MG/DL Calcium Level 10.1 MG/DL Total Bilirubin 0.5 MG/DL Aspartate Amino Transf 23 U/L (AST/SGOT) Alanine Aminotransferase 14 U/L (ALT/SGPT) Alkaline Phosphatase 105 U/L Total Protein 8.7 GM/DL Albumin 3.9 GM/DL Lipase 128 U/L [facility] Medical Decision Making Medical Screen Exam Complete: Yes Emergency Medical Condition: Yes Medical Record Reviewed: Yes Interpretation(s) Laboratory Tests Test 12/31/16 21:45 White Blood Count 6.7 TH/MM3 Red Blood Count 4.33 MIL/MM3 Hemoglobin 10.7 GM/DL Hematocrit 33.5 % Mean Corpuscular Volume 77.4 FL Mean Corpuscular Hemoglobin 24.8 PG Mean Corpuscular Hemoglobin 32.0 % Concent Red Cell Distribution Width 16.5 % Platelet Count 168 TH/MM3 Mean Platelet Volume 9.3 FL Neutrophils (%) (Auto) 68.0 % Lymphocytes (%) (Auto) 21.0 % Monocytes (%) (Auto) 7.3 % Eosinophils (%) (Auto) 2.8 % Basophils (%) (Auto) 0.9 % Neutrophils # (Auto) 4.5 TH/MM3 Lymphocytes # (Auto) 1.4 TH/MM3 Monocytes # (Auto) 0.5 TH/MM3 Eosinophils # (Auto) 0.2 TH/MM3 Basophils # (Auto) 0.1 TH/MM3 CBC Comment DIFF FINAL Differential Comment Prothrombin Time 11.2 SEC Prothromb Time International 1.0 RATIO Ratio Activated Partial 26.2 SEC Thromboplast Time Sodium Level 136 MEQ/L Potassium Level 4.5 MEQ/L Chloride Level 101 MEQ/L Carbon Dioxide Level 28.0 MEQ/L Anion Gap 7 MEQ/L Blood Urea Nitrogen 28 MG/DL Creatinine 1.63 MG/DL Estimat Glomerular Filtration 37 ML/MIN Rate Random Glucose 148 MG/DL Calcium Level 10.1 MG/DL Total Bilirubin 0.5 MG/DL Aspartate Amino Transf 23 U/L (AST/SGOT) Alanine Aminotransferase 14 U/L (ALT/SGPT) Alkaline Phosphatase 105 U/L Total Protein 8.7 GM/DL Albumin 3.9 GM/DL Lipase 128 U/L Last Impressions Abdomen/Pelvis CT 12/31/16 0000 Signed Impressions: Service Date/Time: Saturday, December 31, 2016 21:50 - CONCLUSION: 1. Mildly nonspecific, nonobstructive bowel gas pattern which may represent a mild ileus. No oral contrast was given limiting the sensitivity. 2. Small hiatal hernia. 3. Renal cysts. Filemon Regan MD Differential Diagnosis Differential diagnosis includes anal fissure, internal hemorrhoids, external hemorrhoids, diverticulosis, upper GI bleed, AV malformation, medication side effect. Narrative Course IV was established, labs are drawn and sent, and the patient was placed on cardiac telemetry monitoring and continuous pulse oximetry monitoring. Rectal exam was performed, there is no gross blood and exam was guaiac-negative. CBC was sent to lab. CT of the abdomen and pelvis was ordered. The patient's creatinine is mildly elevated 1.63, hemoglobin is 10.7, and an improvement from previous hemoglobin this month that was 10.2. CT reveals nonspecific gas bowel pattern, possibly early ileus. However patient had a normal bowel movement this morning, she was guaiac-negative, may have internal hemorrhoids versus diverticulosis. She is not tachycardic and has no orthostatic symptoms. Patient will be advised to follow-up with her primary physician, Dr. Gonzalez in the morning. She will be provided a copy of her CT results and lab results at discharge. HemaPrompt Point of Care Internal Pos. & Neg. Controls: Passed Fecal Specimen Occult Blood: Negative Diagnosis Primary Impression: Hematochezia Referrals: Awilda Bethea MD as needed Patient Instructions: General Instructions Additional Instructions: Please provide the patient a copy of her CT results and lab results at discharge. Follow-up with your primary physician, Dr. Gonzalez, tomorrow. Return if symptoms worsen or progress. Med/Other Pt SpecificInfo: No Change to Meds Disposition: 01 DISCHARGE HOME Condition: Stable Rustam Hinds MD Dec 31, 2016 21:50
[2016-12-31 21:52] LABS: AUTOMATED NEUTROPHIL # 4.5 TH/MM3 (1.8-7.7); BASOPHIL # 0.1 TH/MM3 (0-0.2); BASOPHIL % 0.9 % (0.0-2.0); EOSINOPHIL # 0.2 TH/MM3 (0-0.4); EOSINOPHIL % 2.8 % (0.0-4.0); HEMATOCRIT 33.5 % (35.0-46.0); HEMO FLAGS DIFF FINAL; LYMPHOCYTE # 1.4 TH/MM3 (1.0-4.8); MEAN CELL VOLUME 77.4 FL (80.0-100.0); MEAN CORPUSCULAR HEMOGLOBIN 24.8 PG (27.0-34.0); MONO % 7.3 % (0.0-8.0); PLATELET COUNT 168 TH/MM3 (150-450); RED BLOOD COUNT 4.33 MIL/MM3 (4.00-5.30); RED CELL DISTRIBUTION WIDTH 16.5 % (11.6-17.2); WHITE BLOOD COUNT 6.7 TH/MM3 (4.0-11.0)
[2016-12-31 22:07] LABS: APTT (PATIENT) 26.2 SEC (24.3-30.1); PROTHROMBIN TIME - PATIENT 11.2 SEC (9.8-11.6)
--- NOTE | 2016-12-31 22:10 | RADRPT ---
EXAM DATE/TIME: 12/31/2016 21:50 [facility] COMPARISON: No previous studies available for comparison. INDICATIONS : Blood in stool today. ORAL CONTRAST: No oral contrast ingested. RADIATION DOSE: 25.93 CTDIvol (mGy) MEDICAL HISTORY : Cardiovascular disease. Congestive heart failure. Chronic obstructive pulmonary disease.Hypertension. Chronic kidney disease. Diabetes. SURGICAL HISTORY : Tonsillectomy. Hysterectomy.Cervical fusion. ENCOUNTER: Initial ACUITY: 1 day PAIN SCALE: 0/10 LOCATION: Bilateral abdomen TECHNIQUE: Volumetric scanning of the abdomen and pelvis was performed. Using automated exposure control and ad justment of the mA and/or kV according to patient size, radiation dose was kept as low as reasonably achievable to obtain optimal diagnostic quality images. DICOM format image data is available electro nically for review and comparison. FINDINGS: LOWER LUNGS: The visualized lower lungs are clear. LIVER: Homogeneous density without lesion. There is no dilation of the biliary tree. No calcified gallston es. SPLEEN: Normal size without lesion. PANCREAS: Within normal limits. KIDNEYS: Normal in size and shape. There is no solid mass, stone, or hydronephrosis. There is a simple cyst i n left mid kidney. There is a smaller simple cyst in the lower pole the right kidney. ADRENAL GLANDS: Within normal limits. VASCULAR: There is no aortic aneurysm. BOWEL/MESENTERY: There is a small hiatal hernia. The stomach, small bowel, and colon demonstrate no acute abnormality. There is no free intraperitoneal air or fluid. ABDOMINAL WALL: Within normal limits. RETROPERITONEUM: There is no lymphadenopathy. BLADDER: No wall thickening or mass. REPRODUCTIVE: Within normal limits. INGUINAL: There is no lymphadenopathy or hernia. MUSCULOSKELETAL: Within normal limits for patient age. CONCLUSION: 1. Mildly nonspecific, nonobstructive bowel gas pattern which may represent a mild ileus. No oral con trast was given limiting the sensitivity. 2. Small hiatal hernia. 3. Renal cysts. Filemon Regan MD on December 31, 2016 at 22:05 Board Certified Radiologist. This report was verified electronically.
[2016-12-31 22:22] LABS: ALT (GPT) 14 U/L (10-53)
[2016-12-31 22:25] LABS: ALKALINE PHOSPHATASE 105 U/L (45-117); TOTAL BILIRUBIN ADULT 0.5 MG/DL (0.2-1.0)
[2016-12-31 22:29] LABS: ANION GAP 7 MEQ/L (5-15); AST (GOT) 23 U/L (15-37); BLOOD UREA NITROGEN 28 MG/DL (7-18); CHLORIDE 101 MEQ/L (98-107); GLOMERULAR FILTRATION RATE 37 ML/MIN (>89); POTASSIUM 4.5 MEQ/L (3.5-5.1); SODIUM (NA) 136 MEQ/L (136-145)
== END 2016-12-31 23:10 | disposition home or self-care (01) ==
LOC: NEPC 21:00
DX: K92.1 Melena (principal); K44.9 Diaphragmatic hernia without obstruction or gangrene; E11.9 Type 2 diabetes mellitus without complications; I10 Essential (primary) hypertension; J44.9 Chronic obstructive pulmonary disease, unspecified; I50.9 Heart failure, unspecified; J45.909 Unspecified asthma, uncomplicated; E78.00 Pure hypercholesterolemia, unspecified; M13.80 Other specified arthritis, unspecified site
CPT/HCPCS: 74176; 80053; 83690; 85025; 85610; 85730; 96374

== ENCOUNTER 2017-02-26 18:32 | Emergency (ER) | payer MEDICARE, MEDICAID ==
[~2017-02-26] VITALS: Ht 160 cm; Wt 111.5 kg
[2017-02-26 18:33] VITALS: BP 225/97; PULSE 63; RESP 18; TEMP 99.2; O2SAT 97
[2017-02-26 18:47] VITALS: O2SAT 95
--- NOTE | 2017-02-26 18:49 | PD ---
Physical Exam Date Seen by Provider: Feb 26, 2017 Time Seen by Provider: 18:47 Data Data Last Documented VS Vital Signs Date Time Temp Pulse Resp B/P (MAP) Pulse Ox O2 Delivery O2 Flow Rate FiO2 02/26/17 18:33 99.2 63 18 225/97 (139) 97 Room Air MDM Supervised Visit with LELIE: No Narrative Course 76 YO F with complaint of SOB, NICOLE x 4 days. Hx COPD, ARF, on nasal O2 continuously. + increased cough. --F/C, LE edema. Eloisa Moya Feb 26, 2017 18:49
[2017-02-26 19:20] VITALS: BP 177/74; PULSE 55; RESP 16; O2SAT 98
[2017-02-26] MEDS ORDERED: RESP: BUDESONIDE 0.5 MG/2 ML NEB NEB ONE (19:30)
[2017-02-26] MEDS ORDERED: SODIUM CHLORIDE 0.9% FLUSH 10 ML FLUSH IVF PRN (19:30)
[2017-02-26 19:35] VITALS: PULSE 57; RESP 16; O2SAT 97; O2SAT 98
[2017-02-26] MEDS: RESP: ALBUTEROL 2.5 MG/IPRATROPIUM 0.5 MG NEB (SCH) INH ×2 (19:35→19:36)
--- NOTE | 2017-02-26 19:41 | PD ---
HPI Chief Complaint: Respiratory Distress Time Seen by Provider: 19:15 Travel History International Travel<30 days: No Contact w/Intl Traveler<30days: No Traveled to known affect area: No History of Present Illness HPI Patient is a 76-year-old female presenting with her daughter for evaluation of shortness of breath. Daughter states that her symptoms started on Saturday or Saturday and since that time has felt progressively more short of breath. She short of breath with exertion and her activity tolerance has significantly decreased per daughter's report. Denies any fever, chills, chest pain,, nausea , vomiting. She does report a headache which is dull and intermittent in nature. Patient has a history of the same. PFSH Past Medical History Arthritis: Yes Asthma: Yes Heart Rhythm Problems: Yes (has loop recorder) High Cholesterol: Yes Chest Pain: Yes Congestive Heart Failure: Yes COPD: Yes Coronary Artery Disease: Yes Diabetes: Yes Hypertension: Yes Renal Failure: Yes (chronic kidney disease) Sleep Apnea: Yes (CPAP) Thyroid Disease: Yes Menopausal: Yes Past Surgical History Cardiac Surgery: Yes (implanted loop recorder) Hysterectomy: Yes Neurologic Surgery: Yes (C-spine fusion) Pacemaker: No Thoracic Surgery: No Tonsillectomy: Yes Other Surgery: Yes (HERNIA) Social History Alcohol Use: Yes (OCC) Tobacco Use: No (40YR AGO) Substance Use: No Allergies-Medications (Allergen,Severity, Reaction): Coded Allergies: Sulfa (Sulfonamide Antibiotics) (Unverified Allergy, Intermediate, Rash, ) ceftriaxone (Unverified Allergy, Intermediate, Rash, 02/26/17) morphine (Unverified Allergy, Intermediate, Hallucinations, 02/26/17) moxifloxacin (Unverified Allergy, Intermediate, Rash, 02/26/17) vancomycin (Unverified Allergy, Intermediate, Diarrhea, 02/26/17) azithromycin (Unverified Allergy, Unknown, 02/26/17) ciprofloxacin (Unverified Allergy, Unknown, 02/26/17) dobutamine (Unverified Allergy, Unknown, 02/26/17) methadone (Unverified Allergy, Unknown, 02/26/17) penicillin G (Unverified Allergy, Unknown, 02/26/17) prochlorperazine (Unverified Allergy, Unknown, 02/26/17) venlafaxine (Unverified Allergy, Unknown, 02/26/17) Reported Meds & Prescriptions Reported Meds & Active Scripts Active Reported Qnasl Nasal (Beclomethasone Nasal) 80 Mcg/Act Aero 2 [place] NASAL DAILY To each nostril. Norvasc (Amlodipine Besylate) 5 Mg Tab 5 Mg PO DAILY Albuterol Neb (Albuterol Sulfate) 2.5 Mg/0.5 Ml Neb 2.5 Mg NEB TID NEB PRN Note: The Albuterol Sulfate Inhalation Solution is concentrated and must be diluted. Read complete instructions carefully before using. Lorazepam 0.5 Mg Tab 0.5 Mg PO DAILY PRN Risperidone 0.5 Mg Tab 0.5 Mg PO DAILY Gabapentin 100 Mg Cap 100 Mg PO TID Paxil (Paroxetine HCl) 30 Mg Tab 30 Mg PO DAILY Furosemide 40 Mg Tab 40 Mg PO DAILY Nitroglycerin SL (Nitroglycerin) 0.4 Mg Subl 0.4 Mg SL DIRECTED PRN ONE TABLET UNDER THE TONGUE NEEDED FOR CHEST PAIN, MAY REPEAT EVERY FIVE MINUTES FOR A TOTAL OF 3 DOSES OR CALL 911 IF NO RELIEF Lantus Inj (Insulin Glargine) 1,000 Unit/10 Ml Vial 18 Units SQ BID Aspirin Low Dose (Aspirin) 81 Mg Chew 81 Mg PO DAILY Metoprolol Tartrate 100 Mg Tab 100 Mg PO DAILY Synthroid (Levothyroxine Sodium) 25 Mcg Tab 150 PO DAILY Review of Systems Except as stated in HPI: all other systems reviewed are Neg HENT: Positive: Headaches Cardiovascular: Positive: Dyspnea on exertion, No: Chest Pain or Discomfort Respiratory: Positive: Shortness of Breath, Wheezing Gastrointestinal: No: Nausea, Abdominal Pain Musculoskeletal: No: Myalgias Physical Exam Narrative GENERAL: Obese, well-developed, alert female. Resting comfortably in no acute distress. SKIN: Warm and dry. HEAD: Atraumatic. Normocephalic. EYES: Pupils equal and round. No scleral icterus. No injection or drainage. ENT: No nasal bleeding or discharge. Mucous membranes pink and moist. NECK: Trachea midline. No JVD. CARDIOVASCULAR: Regular rate and rhythm. RESPIRATORY: No accessory muscle use. Scattered expiratory wheezing throughout , diminished in bases. No increased work of breathing, no nasal flaring. GASTROINTESTINAL: Abdomen obese, soft, non-tender, nondistended. Hepatic and splenic margins not palpable. MUSCULOSKELETAL: Extremities without clubbing, cyanosis, or edema. No obvious deformities. NEUROLOGICAL: Awake and alert. No obvious cranial nerve deficits. Motor grossly within normal limits. Five out of 5 muscle strength in the arms and legs. Normal speech. PSYCHIATRIC: Appropriate mood and affect; insight and judgment normal. Data Data Last Documented VS Vital Signs Date Time Temp Pulse Resp B/P (MAP) Pulse Ox O2 Delivery O2 Flow Rate FiO2 02/26/17 19:35 98 Nasal Cannula 3.00 02/26/17 19:35 57 16 02/26/17 18:33 99.2 Orders Orders Complete Blood Count With Diff (02/26/17 19:22) Comprehensive Metabolic Panel (02/26/17 19:22) B-Type Natriuretic Peptide (02/26/17 19:22) Magnesium (Mg) (02/26/17:22) Iv Access Insert/Monitor (02/26/17 19:22) Ecg Monitoring (02/26/17 19:22) Oximetry (02/26/17 19:22) Oxygen Administration (02/26/17:22) Chest, Single Ap (02/26/17 19:22) Sodium Chloride 0.9% Flush (Ns Flush) (02/26/17 19:30) Albuterol-Ipratropium Neb (Duoneb Neb) (02/26/17 19:30) Budesonide Neb (Pulmicort Respule Neb) (02/26/17 19:30) Labs Laboratory Tests Test 02/26/17 19:45 White Blood Count 7.4 TH/MM3 Red Blood Count 3.81 MIL/MM3 Hemoglobin 9.6 GM/DL Hematocrit 30.6 % Mean Corpuscular Volume 80.3 FL Mean Corpuscular Hemoglobin 25.2 PG Mean Corpuscular Hemoglobin Concent 31.4 % Red Cell Distribution Width 18.6 % Platelet Count 203 TH/MM3 Mean Platelet Volume 9.1 FL Neutrophils (%) (Auto) 68.8 % Lymphocytes (%) (Auto) 20.6 % Monocytes (%) (Auto) 5.8 % Eosinophils (%) (Auto) 4.0 % Basophils (%) (Auto) 0.8 % Neutrophils # (Auto) 5.1 TH/MM3 Lymphocytes # (Auto) 1.5 TH/MM3 Monocytes # (Auto) 0.4 TH/MM3 Eosinophils # (Auto) 0.3 TH/MM3 Basophils # (Auto) 0.1 TH/MM3 CBC Comment DIFF FINAL Differential Comment MDM Medical Decision Making Medical Screen Exam Complete: Yes Emergency Medical Condition: Yes Medical Record Reviewed: Yes Interpretation(s) Vital Signs Date Time Temp Pulse Resp B/P (MAP) Pulse Ox O2 Delivery O2 Flow Rate FiO2 02/26/17 19:20 55 16 177/74 (108) 98 Nasal Cannula 3.00 02/26/17 18:47 95 02/26/17 18:33 99.2 63 18 225/97 (139) 97 Room Air Differential Diagnosis COPD exacerbation versus pneumonia versus CHF versus other Narrative Course Patient is a 76-year-old female presenting for evaluation of shortness breath and dyspnea with exertion. Patient's vital signs are stable, she is resting comfortably in no acute distress. She is oxygen dependent normally on 3 L via nasal cannula. Labs and imaging ordered and pending. IV access established, patient placed on telemetry monitoring and continuous pulse oximetry. Care of patient transferred to Dr. Garcia who will determine patients disposition. Oneyda Paige ENTRY MANAGER Feb 26, 2017 19:41
[2017-02-26] MEDS ORDERED: BECL80AE NASAL ×2 (19:45)
[2017-02-26] MEDS ORDERED: ALBU.5I NEB ×2 (19:45)
[2017-02-26] MEDS ORDERED: RISP0.5T2 PO ×2 (19:45)
[2017-02-26] MEDS ORDERED: LORA-373 PO ×2 (19:45)
[2017-02-26] MEDS ORDERED: AMLO5 PO ×2 (19:45)
[2017-02-26 20:18] LABS: AUTOMATED NEUTROPHIL # 5.1 TH/MM3 (1.8-7.7); BASOPHIL # 0.1 TH/MM3 (0-0.2); BASOPHIL % 0.8 % (0.0-2.0); EOSINOPHIL # 0.3 TH/MM3 (0-0.4); HEMATOCRIT 30.6 % (35.0-46.0); HEMO FLAGS DIFF FINAL; LYMPH % 20.6 % (9.0-44.0); LYMPHOCYTE # 1.5 TH/MM3 (1.0-4.8); MEAN CELL VOLUME 80.3 FL (80.0-100.0); MEAN CORPUSCULAR HEMOGLOBIN 25.2 PG (27.0-34.0); MEAN CORPUSCULAR HGB CONC 31.4 % (32.0-36.0); MONO % 5.8 % (0.0-8.0); NEUT % 68.8 % (16.0-70.0); PLATELET COUNT 203 TH/MM3 (150-450); RED BLOOD COUNT 3.81 MIL/MM3 (4.00-5.30); RED CELL DISTRIBUTION WIDTH 18.6 % (11.6-17.2); WHITE BLOOD COUNT 7.4 TH/MM3 (4.0-11.0)
--- NOTE | 2017-02-26 20:34 | RADRPT ---
EXAM DATE/TIME: 02/26/2017 19:53 [facility] COMPARISON: CHEST SINGLE AP, December 23, 2016, 23:17. INDICATIONS : Short of breath for 4 days. MEDICAL HISTORY : Cardiovascular disease. Congestive heart failure. Chronic obstructive pulmonary disease.Hypertension. Chronic kidney disease. Diabetes. SURGICAL HISTORY : Tonsillectomy. Hysterectomy.Cervical fusion. ENCOUNTER: Initial ACUITY: 4 - 6 days PAIN SCORE: 0/10 LOCATION: Bilateral chest FINDINGS: Portable AP view of the chest demonstrates enlargement of the cardiac silhouette. Lungs are underinfl ated. No effusion, consolidation, or pneumothorax is identified. There is interstitial prominence in the lung bases bilaterally. Bones and soft tissues demonstrate no acute finding. CONCLUSION: 1. Interstitial opacities in the lower lung zones bilaterally could represent atelectasis given the u nderinflation or could represent interstitial edema in the appropriate clinical setting. 2. Stable enlargement of the cardiac silhouette. Arpan Rolon MD on February 26, 2017 at 20:31 Board Certified Radiologist. This report was verified electronically.
[2017-02-26 20:36] LABS: ALT (GPT) 15 U/L (10-53)
[2017-02-26 20:39] LABS: ALKALINE PHOSPHATASE 133 U/L (45-117); TOTAL BILIRUBIN ADULT 0.4 MG/DL (0.2-1.0)
--- NOTE | 2017-02-26 20:40 | PD ---
Data Data Last Documented VS Vital Signs Date Time Temp Pulse Resp B/P (MAP) Pulse Ox O2 Delivery O2 Flow Rate FiO2 02/26/17 21:53 02/26/17 19:35 98 Nasal Cannula 3.00 02/26/17 19:35 57 16 02/26/17 18:33 99.2 Orders Orders Complete Blood Count With Diff (02/26/17 19:22) Comprehensive Metabolic Panel (02/26/17 19:22) B-Type Natriuretic Peptide (02/26/17 19:22) Magnesium (Mg) (02/26/17 19:22) Iv Access Insert/Monitor (02/26/17 19:22) Ecg Monitoring (02/26/17:22) Oximetry (02/26/17 19:22) Oxygen Administration (02/26/17:22) Chest, Single Ap (02/26/17 19:22) Sodium Chloride 0.9% Flush (Ns Flush) (02/26/17 19:30) Albuterol-Ipratropium Neb (Duoneb Neb) (02/26/17 19:30) Budesonide Neb (Pulmicort Respule Neb) (02/26/17 19:30) Albuterol Hfa Inh (Proair Hfa Inh) (02/26/17 21:30) Albuterol Hfa Inh (Ventolin Hfa Inh) (02/26/17 22:00) Albuterol Hfa Inh (Proair Hfa Inh) (02/26/17 22:30) Labs Laboratory Tests Test 02/26/17 19:45 White Blood Count 7.4 TH/MM3 Red Blood Count 3.81 MIL/MM3 Hemoglobin 9.6 GM/DL Hematocrit 30.6 % Mean Corpuscular Volume 80.3 FL Mean Corpuscular Hemoglobin 25.2 PG Mean Corpuscular Hemoglobin Concent 31.4 % Red Cell Distribution Width 18.6 % Platelet Count 203 TH/MM3 Mean Platelet Volume 9.1 FL Neutrophils (%) (Auto) 68.8 % Lymphocytes (%) (Auto) 20.6 % Monocytes (%) (Auto) 5.8 % Eosinophils (%) (Auto) 4.0 % Basophils (%) (Auto) 0.8 % Neutrophils # (Auto) 5.1 TH/MM3 Lymphocytes # (Auto) 1.5 TH/MM3 Monocytes # (Auto) 0.4 TH/MM3 Eosinophils # (Auto) 0.3 TH/MM3 Basophils # (Auto) 0.1 TH/MM3 CBC Comment DIFF FINAL Differential Comment Blood Urea Nitrogen 13 MG/DL Creatinine 1.41 MG/DL Random Glucose 112 MG/DL Total Protein 8.0 GM/DL Albumin 3.5 GM/DL Calcium Level 9.3 MG/DL Magnesium Level 1.7 MG/DL Alkaline Phosphatase 133 U/L Aspartate Amino Transf (AST/SGOT) 35 U/L Alanine Aminotransferase (ALT/SGPT) 15 U/L Total Bilirubin 0.4 MG/DL Sodium Level 138 MEQ/L Potassium Level 4.1 MEQ/L Chloride Level 102 MEQ/L Carbon Dioxide Level 28.3 MEQ/L Anion Gap 8 MEQ/L Estimat Glomerular Filtration Rate 44 ML/MIN B-Type Natriuretic Peptide 189 PG/ML MDM Supervised Visit with ELLIE: Yes Narrative Course Patient care assumed from Oneyda Paige at 2100. This is a 76-year-old female who is oxygen dependent at home 2 L usually presents emergency department short of breath. She followed by Dr. Palacios who recommended that she come into the emergency department to be seen for her shortness of breath. At this time the patient is feeling better after breathing treatments. Minimal pleural edema on chest x-ray BMP is at baseline. Patient is saturating 98% of the liters nasal cannula. Discussed that she could be admitted for further workup and she would like to go home to follow-up with her primary care physicians. We'll treat empirically for pneumonia. She is stable for discharge. She was issued albuterol inhaler as she is out. Diagnosis Primary Impression: COPD exacerbation Med/Other Pt SpecificInfo: Prescription(s) given Scripts Doxycycline (Monohydrate) (Doxycycline) 100 Mg Cap 100 MG PO BID for 7 Days Prov: Harry Garcia MD 02/26/17 Albuterol 8.5 GM Inh (Proair Hfa 8.5 GM Inh) 90 Mcg/Act Aer 2 PUFF INH Q4-6H Y for SHORTNESS OF BREATH, #1 INHALER 1 Refill 108 mcg/actuation Prov: Harry Garcia MD 02/26/17 Disposition: 01 DISCHARGE HOME Condition: Stable Harry Garcia MD Feb 26, 2017 20:40
[2017-02-26 20:49] LABS: ANION GAP 8 MEQ/L (5-15); AST (GOT) 35 U/L (15-37); BICARBONATE 28.3 MEQ/L (21.0-32.0); BLOOD UREA NITROGEN 13 MG/DL (7-18); CHLORIDE 102 MEQ/L (98-107); GLOMERULAR FILTRATION RATE 44 ML/MIN (>89); MAGNESIUM 1.7 MG/DL (1.5-2.5); POTASSIUM 4.1 MEQ/L (3.5-5.1); SODIUM (NA) 138 MEQ/L (136-145)
[2017-02-26] MEDS ORDERED: DOXY1CAP91 PO (21:29)
[2017-02-26] MEDS ORDERED: ALBUAER3 INH (21:29)
[2017-02-26] MEDS ORDERED: ALBUTEROL SULFATE 90 MCG/ACT HFA 8 GM INHALER INH ONE ×2 (21:30→22:30)
[2017-02-26] MEDS ORDERED: ALBUTEROL SULFATE 90 MCG/ACT HFA 18 GM INHALER INH ONE (22:00)
== END 2017-02-26 22:29 | disposition home or self-care (01) ==
LOC: NEPD 18:32
DX: J44.1 Chronic obstructive pulmonary disease with (acute) exacerbation (principal); E11.22 Type 2 diabetes mellitus with diabetic chronic kidney disease; I12.9 Hypertensive chronic kidney disease with stage 1 through stage 4 chronic kidney disease, or unspecified chronic kidney disease; N18.9 Chronic kidney disease, unspecified; E78.00 Pure hypercholesterolemia, unspecified; I25.10 Atherosclerotic heart disease of native coronary artery without angina pectoris; E07.9 Disorder of thyroid, unspecified
CPT/HCPCS: 71010; 80053; 83735; 83880; 85025; 94640; 94664; 99285; J7626

== ENCOUNTER 2017-03-01 17:00 | Inpatient (IN) | payer MEDICARE, MEDICAID ==
[~2017-03-01] VITALS: Ht 160 cm; Wt 109.0 kg
[2017-03-01] VITALS (7 sets, daily range): BP systolic 167–230; BP diastolic 71–98; PULSE 57–62; RESP 16–20; TEMP 97.6–97.7; O2SAT 94–100
[~2017-03-01 17:00] MED LIST changes: +ALBU.5I NEB; +ALBUAER3 INH; +AMLO5 PO; +BECL80AE NASAL; +DOXY1CAP91 PO; +LORA-373 PO; +RISP0.5T2 PO
--- NOTE | 2017-03-01 17:12 | PD ---
Physical Exam Date Seen by Provider: Mar 01, 2017 Time Seen by Provider: 17:11 Narrative 76- year old female complaining of a cough and chills, but denies any fever. States that she is having trouble breathing, has a history of CHF and COPD. She uses 3L of oxygen. Awaiting bed placement. Chest x-ray ordered in triage. Data Data Last Documented VS Vital Signs Date Time Temp Pulse Resp B/P (MAP) Pulse Ox O2 Delivery O2 Flow Rate FiO2 03/01/17 17:04 97.7 62 17 230/98 (142) 96 Nasal Cannula 3.00 MDM Medical Record Reviewed: Yes Supervised Visit with ELLIE: No Condition: Stable Taty Celeste Mar 01, 2017 17:12
--- NOTE | 2017-03-01 18:11 | PD ---
HPI Chief Complaint: Respiratory Symptoms Time Seen by Provider: 18:02 Travel History International Travel<30 days: No Contact w/Intl Traveler<30days: No Traveled to known affect area: No History of Present Illness HPI 76-year-old female with history of COPD, CHF, on 3 L nasal cannula home O2, here for evaluation of shortness of breath. The patient was seen here 3 days ago for the same and was discharged home with a prescription for doxycycline as well as albuterol for empiric treatment of pneumonia. She reports that her shortness of breath is not improving. Short use of breath is at rest, worse with exertion. She is also having orthopnea. Cough is nonproductive. No history of DVT or PE. PFSH Past Medical History Arthritis: Yes Asthma: Yes Heart Rhythm Problems: Yes (has loop recorder) Cardiovascular Problems: Yes High Cholesterol: Yes Chest Pain: Yes Congestive Heart Failure: Yes COPD: Yes Coronary Artery Disease: Yes Diabetes: Yes Patient Takes Glucophage: No Diminished Hearing: No Endocrine: Yes (diabetic) Hypertension: Yes Implanted Vascular Access Dvce: Yes (LOOP RECORDER) Musculoskeletal: Yes Respiratory: Yes Renal Failure: Yes (chronic kidney disease) Sleep Apnea: Yes (CPAP) Thyroid Disease: Yes ?: Not Menopausal: Yes Past Surgical History AICD: Yes (loop recorder to left chest) Cardiac Surgery: Yes (implanted loop recorder) Hysterectomy: Yes Neurologic Surgery: Yes (C-spine fusion) Pacemaker: No Thoracic Surgery: No Tonsillectomy: Yes Other Surgery: Yes (HERNIA) Social History Alcohol Use: Yes (OCC) Tobacco Use: No (40YR AGO) Substance Use: No Allergies-Medications (Allergen,Severity, Reaction): Coded Allergies: Sulfa (Sulfonamide Antibiotics) (Unverified Allergy, Intermediate, Rash, ) ceftriaxone (Unverified Allergy, Intermediate, Rash, 03/01/17) morphine (Unverified Allergy, Intermediate, Hallucinations, 03/01/17) moxifloxacin (Unverified Allergy, Intermediate, Rash, 03/01/17) vancomycin (Unverified Allergy, Intermediate, Diarrhea, 03/01/17) azithromycin (Unverified Allergy, Unknown, 03/01/17) ciprofloxacin (Unverified Allergy, Unknown, 03/01/17) dobutamine (Unverified Allergy, Unknown, 03/01/17) methadone (Unverified Allergy, Unknown, 03/01/17) penicillin G (Unverified Allergy, Unknown, 03/01/17) prochlorperazine (Unverified Allergy, Unknown, 03/01/17) venlafaxine (Unverified Allergy, Unknown, 03/01/17) Reported Meds & Prescriptions Reported Meds & Active Scripts Active Proair Hfa 8.5 GM Inh (Albuterol Sulfate) 90 Mcg/Act Aer 2 Puff INH Q4-6H PRN 108 mcg/actuation Doxycycline (Doxycycline (Monohydrate)) 100 Mg Cap 100 Mg PO BID 7 Days Reported Qnasl Nasal (Beclomethasone Nasal) 80 Mcg/Act Aero 2 Sikes NASAL DAILY To each nostril. Norvasc (Amlodipine Besylate) 5 Mg Tab 5 Mg PO DAILY Albuterol Neb (Albuterol Sulfate) 2.5 Mg/0.5 Ml Neb 2.5 Mg NEB TID NEB PRN Note: The Albuterol Sulfate Inhalation Solution is concentrated and must be diluted. Read complete instructions carefully before using. Lorazepam 0.5 Mg Tab 0.5 Mg PO DAILY PRN Risperidone 0.5 Mg Tab 0.5 Mg PO DAILY Gabapentin 100 Mg Cap 100 Mg PO TID Paxil (Paroxetine HCl) 30 Mg Tab 30 Mg PO DAILY Furosemide 40 Mg Tab 40 Mg PO DAILY Nitroglycerin SL (Nitroglycerin) 0.4 Mg Subl 0.4 Mg SL DIRECTED PRN ONE TABLET UNDER THE TONGUE NEEDED FOR CHEST PAIN, MAY REPEAT EVERY FIVE MINUTES FOR A TOTAL OF 3 DOSES OR CALL 911 IF NO RELIEF Lantus Inj (Insulin Glargine) 1,000 Unit/10 Ml Vial 18 Units SQ BID Aspirin Low Dose (Aspirin) 81 Mg Chew 81 Mg PO DAILY Metoprolol Tartrate 100 Mg Tab 100 Mg PO DAILY Synthroid (Levothyroxine Sodium) 25 Mcg Tab 150 PO DAILY Review of Systems Except as stated in HPI: all other systems reviewed are Neg Physical Exam Narrative GENERAL: Well-developed, well-nourished, overweight, sitting comfortably at end of stretcher, no apparent distress. SKIN: Focused skin assessment warm/dry. HEAD: Atraumatic. Normocephalic. EYES: Pupils equal and round. No scleral icterus. No injection or drainage. ENT: Mucous membranes pink and moist. NECK: Trachea midline. No JVD. CARDIOVASCULAR: Regular rate and rhythm. No murmur appreciated. RESPIRATORY: No accessory muscle use. Slight bibasilar rales. No wheezes or rhonchi. Breath sounds equal bilaterally. GASTROINTESTINAL: Abdomen soft, non-tender, nondistended. Hepatic and splenic margins not palpable. MUSCULOSKELETAL: No obvious deformities. No clubbing. No cyanosis. No edema. NEUROLOGICAL: Awake and alert. No obvious cranial nerve deficits. Motor grossly within normal limits. Normal speech. PSYCHIATRIC: Appropriate mood and affect; insight and judgment normal. Data Data Last Documented VS Vital Signs Date Time Temp Pulse Resp B/P (MAP) Pulse Ox O2 Delivery O2 Flow Rate FiO2 03/01/17 19:14 61 17 98 Room Air 03/01/17 19:13 182/77 (112) 3.00 03/01/17 17:04 97.7 Orders Orders Chest, Pa & Lat (03/01/17 17:13) Complete Blood Count With Diff (03/01/17 18:05) Comprehensive Metabolic Panel (03/01/17 18:05) B-Type Natriuretic Peptide (03/01/17 18:05) Act Partial Throm Time (Ptt) (03/01/17 18:05) Prothrombin Time / Inr (Pt) (03/01/17 18:05) Ckmb (Isoenzyme) Profile (03/01/17 18:05) Troponin I (03/01/17 18:05) Blood Culture (03/01/17 18:05) Iv Access Insert/Monitor (03/01/17 18:05) Electrocardiogram (03/01/17 18:05) Ecg Monitoring (03/01/17 18:05) Oximetry (03/01/17 18:05) Oxygen Administration (03/01/17 18:05) Sodium Chloride 0.9% Flush (Ns Flush) (03/01/17 18:15) Methylprednisolone So Succ Inj (Solumedr (03/01/17 18:15) Albuterol-Ipratropium Neb (Duoneb Neb) (03/01/17 18:15) Clindamycin Inj (Cleocin Inj) (03/01/17 20:45) Aztreonam Inj (Azactam Inj) (03/01/17 20:45) Labs Laboratory Tests Test 03/01/17 18:50 White Blood Count 7.7 TH/MM3 Red Blood Count 3.91 MIL/MM3 Hemoglobin 10.1 GM/DL Hematocrit 31.1 % Mean Corpuscular Volume 79.6 FL Mean Corpuscular Hemoglobin 25.8 PG Mean Corpuscular Hemoglobin Concent 32.4 % Red Cell Distribution Width 18.3 % Platelet Count 209 TH/MM3 Mean Platelet Volume 9.1 FL Neutrophils (%) (Auto) 66.9 % Lymphocytes (%) (Auto) 23.5 % Monocytes (%) (Auto) 6.7 % Eosinophils (%) (Auto) 2.4 % Basophils (%) (Auto) 0.5 % Neutrophils # (Auto) 5.1 TH/MM3 Lymphocytes # (Auto) 1.8 TH/MM3 Monocytes # (Auto) 0.5 TH/MM3 Eosinophils # (Auto) 0.2 TH/MM3 Basophils # (Auto) 0.0 TH/MM3 CBC Comment DIFF FINAL Differential Comment Prothrombin Time 11.0 SEC Prothromb Time International Ratio 1.0 RATIO Activated Partial Thromboplast Time 26.8 SEC Blood Urea Nitrogen 11 MG/DL Creatinine 1.18 MG/DL Random Glucose 119 MG/DL Total Protein 7.7 GM/DL Albumin 3.5 GM/DL Calcium Level 8.7 MG/DL Alkaline Phosphatase 122 U/L Aspartate Amino Transf (AST/SGOT) 12 U/L Alanine Aminotransferase (ALT/SGPT) 13 U/L Total Bilirubin 0.4 MG/DL Sodium Level 139 MEQ/L Potassium Level 3.4 MEQ/L Chloride Level 103 MEQ/L Carbon Dioxide Level 27.3 MEQ/L Anion Gap 9 MEQ/L Estimat Glomerular Filtration Rate 54 ML/MIN Total Creatine Kinase 88 U/L Troponin I LESS THAN 0.02 NG/ML B-Type Natriuretic Peptide 234 PG/ML [facility] Medical Decision Making Medical Screen Exam Complete: Yes Emergency Medical Condition: Yes Medical Record Reviewed: Yes Differential Diagnosis CHF exacerbation, COPD exacerbation, pneumonia, pneumothorax, PE, ACS Narrative Course Vital signs show heart rate 62, blood pressure 182/77, pulse ox 98% on 3 L nasal cannula, oral temp of 97.7F. CBC shows WBC 7.7, hemoglobin 10.1, hematocrit 31.1, platelets 209. CMP is remarkable for creatinine 1.1, GFR 54. Cardiac enzymes are negative. BNP is 234. Chest x-ray: Modestly improved bilateral perihilar and right midlung infiltrates. Patient was given 3 DuoNeb treatments and IV Solu-Medrol. On reassessment she states she feels somewhat improved. She still feels too short of breath to be able to go home. She has been on doxycycline for 3 days. She will be admitted for bilateral pneumonia with failed outpatient therapy. The patient is a patient of Dr. Gonzalez, however because it is the weekend, the patient will be admitted to the [facility] service. Case discussed with hospitalist Dr. Decker who will admit the patient to her service. Diagnosis Primary Impression: Pneumonia Qualified Codes: J18.9 - Pneumonia, unspecified organism Additional Impression: COPD exacerbation Admitting Information Admitting Physician Requests: Admit Condition: Stable Caleb Frnaklin MD Mar 01, 2017 18:11
[2017-03-01] MEDS ORDERED: SODIUM CHLORIDE 0.9% FLUSH 10 ML FLUSH IVF PRN (18:15)
[2017-03-01] MEDS ORDERED: methylPREDNISolone SOD SUCC 125 MG/2 ML VIAL IVP ONE (18:15)
--- NOTE | 2017-03-01 18:17 | RADRPT ---
EXAM DATE/TIME: 03/01/2017 17:42 [facility] COMPARISON: CHEST SINGLE AP, February 26, 2017, 19:53. INDICATIONS : Cough and short of breath. MEDICAL HISTORY : Chronic obstructive pulmonary disease. Hypertension Congestive heart failure. Chronic kidney dise ase. Diabetes.Cardiovascular disease. SURGICAL HISTORY : Tonsillectomy. Hysterectomy.Cervical fusion. Heart recorder. ENCOUNTER: Initial ACUITY: 1 day PAIN SCORE: 0/10 LOCATION: Bilateral chest FINDINGS: Bilateral perihilar and right midlung infiltrates are slightly improved. No pleural effusion seen. No pneumothorax. Heart size stable, within normal limits. CONCLUSION: Modestly improved bilateral perihilar and right midlung infiltrates. Arpan Rust MD on March 01, 2017 at 18:14 Board Certified Radiologist. This report was verified electronically.
[2017-03-01] MEDS: RESP: ALBUTEROL 2.5 MG/IPRATROPIUM 0.5 MG NEB (SCH) INH ×2 (18:25→18:30)
[2017-03-01 19:05] LABS: AUTOMATED NEUTROPHIL # 5.1 TH/MM3 (1.8-7.7); BASOPHIL % 0.5 % (0.0-2.0); EOSINOPHIL # 0.2 TH/MM3 (0-0.4); EOSINOPHIL % 2.4 % (0.0-4.0); HEMATOCRIT 31.1 % (35.0-46.0); HEMO FLAGS DIFF FINAL; LYMPH % 23.5 % (9.0-44.0); LYMPHOCYTE # 1.8 TH/MM3 (1.0-4.8); MEAN CELL VOLUME 79.6 FL (80.0-100.0); MEAN CORPUSCULAR HEMOGLOBIN 25.8 PG (27.0-34.0); MEAN CORPUSCULAR HGB CONC 32.4 % (32.0-36.0); MONO % 6.7 % (0.0-8.0); NEUT % 66.9 % (16.0-70.0); PLATELET COUNT 209 TH/MM3 (150-450); RED BLOOD COUNT 3.91 MIL/MM3 (4.00-5.30); RED CELL DISTRIBUTION WIDTH 18.3 % (11.6-17.2); WHITE BLOOD COUNT 7.7 TH/MM3 (4.0-11.0)
[2017-03-01 19:18] LABS: APTT (PATIENT) 26.8 SEC (24.3-30.1)
[2017-03-01 19:24] LABS: ANION GAP 9 MEQ/L (5-15); AST (GOT) 12 U/L (15-37); BICARBONATE 27.3 MEQ/L (21.0-32.0); BLOOD UREA NITROGEN 11 MG/DL (7-18); CHLORIDE 103 MEQ/L (98-107); GLOMERULAR FILTRATION RATE 54 ML/MIN (>89); POTASSIUM 3.4 MEQ/L (3.5-5.1); SODIUM (NA) 139 MEQ/L (136-145)
[2017-03-01 19:25] LABS: ALT (GPT) 13 U/L (10-53)
[2017-03-01 19:28] LABS: ALKALINE PHOSPHATASE 122 U/L (45-117); TOTAL BILIRUBIN ADULT 0.4 MG/DL (0.2-1.0)
[2017-03-01 19:35] LABS: CREATINE KINASE 88 U/L (26-192)
[2017-03-01] MEDS ORDERED: DEXTROSE 50% IN WATER 50 ML VIAL(D50) IV PRN (20:45)
[2017-03-01] MEDS ORDERED: CLINDAMYCIN INJ 600 MG in SODIUM CHLORIDE 0.9% INJ 100 ML IV ONE (20:45)
[2017-03-01] MEDS ORDERED: LORazepam 0.5 MG TAB PO PRN (20:45)
[2017-03-01] MEDS ORDERED: BISACODYL 10 MG SUPP RECTAL PRN (20:45)
[2017-03-01] MEDS ORDERED: SODIUM CHLORIDE 0.9% FLUSH 10 ML FLUSH IV FLUSH PRN (20:45)
[2017-03-01] MEDS ORDERED: LACTULOSE SYRUP 20 GM/30 ML CUP PO PRN (20:45)
[2017-03-01] MEDS ORDERED: GLUCAGON 1 MG/ML VIAL OTHER PRN (20:45)
[2017-03-01] MEDS ORDERED: ONDANSETRON HCL 4 MG/2 ML VIAL IVP PRN (20:45)
[2017-03-01] MEDS ORDERED: AZTREONAM INJ 1,000 MG in SODIUM CHLORIDE 0.9% INJ 100 ML IV ONE (20:45)
[2017-03-01] MEDS ORDERED: SENNOSIDES 8.6 MG TAB PO PRN (20:45)
[2017-03-01] MEDS ORDERED: RESP: ALBUTEROL 2.5 MG/IPRATROPIUM 0.5 MG NEB (PRN) NEB (20:45)
[2017-03-01] MEDS ORDERED: ACETAMINOPHEN 325 MG TAB PO PRN (20:45)
[2017-03-01] MEDS ORDERED: MAGNESIUM HYDROXIDE SUSP 30 ML CUP PO PRN (20:45)
--- NOTE | 2017-03-01 20:45 | HHI.HP ---
[facility] Ghass[facility] MD Admission Diagnosis pneumonia with failed outpatient therapy, COPD exacerbation Diagnoses: (1) COPD (chronic obstructive pulmonary disease) Diagnosis: Principal (2) PNA (pneumonia) Diagnosis: Principal (3) Failure of outpatient treatment Diagnosis: Principal (4) Renal insufficiency Diagnosis: Principal (5) HTN (hypertension) Diagnosis: Principal (6) Bipolar disorder Diagnosis: Principal (7) DM (diabetes mellitus) Diagnosis: Principal Travel History International Travel<30 Days: No Contact w/Intl Traveler <30 Da: No Traveled to Known Affected Are: No History of Present Illness This is a 76-year-old female with a PMH of HTN, CHF (Echo 01/01/16 w/ EF 55-60%) , COPD, O2 Dependent on 3L NC, Bipolar Disorder, DM and CKD who presented to the ER secondary to c/o SOB. Recent ER presentation on 02/26/17 for similar complaints, CXR 02/26/17 w/ bilateral lower lobe opacities, d/c'd home on Doxycycline 100mg bid. Returns now w/ ongoing complaints. Denies fever or chills. On arrival, BP 230/98, HR 62, O2 sat 96% on 3LC, Afebrile. CBC at baseline. Creatinine 1.18, previously 1.41 on 02/26/17. Troponin negative. BNP 234. INR 1.0. CXR with modestly improved bilateral perihilar and right midlung infiltrates. S/p Clinda/Azactam in ER. Review of Systems Except as stated in HPI: all other systems reviewed are Neg ROS: 14 point review of systems otherwise negative. Past Family Social History Past Medical History PMH: HTN, CHF (Echo 01/01/16 w/ EF 55-60%), COPD, O2 Dependent on 3L NC, Bipolar Disorder, DM and CKD Past Surgical History PAST SURGICAL HISTORY: Loop Recorder, Hysterectomy, Cervical Spine Fusion, Tonsillectomy, Hernia Repair Allergies: Coded Allergies: Sulfa (Sulfonamide Antibiotics) (Unverified Allergy, Intermediate, Rash, ) ceftriaxone (Unverified Allergy, Intermediate, Rash, 03/01/17) morphine (Unverified Allergy, Intermediate, Hallucinations, 03/01/17) moxifloxacin (Unverified Allergy, Intermediate, Rash, 03/01/17) vancomycin (Unverified Allergy, Intermediate, Diarrhea, 03/01/17) azithromycin (Unverified Allergy, Unknown, 03/01/17) ciprofloxacin (Unverified Allergy, Unknown, 03/01/17) dobutamine (Unverified Allergy, Unknown, 03/01/17) methadone (Unverified Allergy, Unknown, 03/01/17) penicillin G (Unverified Allergy, Unknown, 03/01/17) prochlorperazine (Unverified Allergy, Unknown, 03/01/17) venlafaxine (Unverified Allergy, Unknown, 03/01/17) Family History PAST FAMILY HISTORY: Reviewed, positive for DM and CAD. Social History PAST SOCIAL HISTORY: Occasional alcohol. Negative for tobacco or drugs. Physical Exam Vital Signs Vital Signs Date Time Temp Pulse Resp B/P (MAP) Pulse Ox O2 Delivery O2 Flow Rate FiO2 03/01/17 19:14 61 17 98 Room Air 03/01/17 19:13 62 17 182/77 (112) 98 Nasal Cannula 3.00 03/01/17 18:55 59 20 186/84 (118) 97 Nasal Cannula 3.00 03/01/17 18:55 97 Nasal Cannula 3.00 03/01/17 18:15 100 Nasal Cannula 3.00 03/01/17 17:56 61 20 97 Nasal Cannula 3.00 03/01/17 17:04 97.7 62 17 230/98 (142) 96 Nasal Cannula 3.00 Physical Exam PE: GENERAL: Very pleasant elderly black female in no acute distress. HEENT: PERRLA, EOMI. No scleral icterus or conjunctival pallor. No lid lag or facial droop. CARDIOVASCULAR: Regular rate and rhythm. No obvious murmurs to auscultation. No chest tenderness to palpation. RESPIRATORY: No obvious rhonchi or wheezing. Clear to auscultation. Breath sounds equal bilaterally. GASTROINTESTINAL: Abdomen soft, non-tender, nondistended. BS normal. MUSCULOSKELETAL: Extremities without clubbing, cyanosis, or edema. No obvious deformities. NEUROLOGICAL: Awake, alert and oriented x4. No focal neurologic deficits. Moving both upper and lower extremities spontaneously. Laboratory Laboratory Tests Test 03/01/17 18:50 White Blood Count 7.7 Red Blood Count 3.91 Hemoglobin 10.1 Hematocrit 31.1 Mean Corpuscular Volume 79.6 Mean Corpuscular Hemoglobin 25.8 Mean Corpuscular Hemoglobin Concent 32.4 Red Cell Distribution Width 18.3 Platelet Count 209 Mean Platelet Volume 9.1 Neutrophils (%) (Auto) 66.9 Lymphocytes (%) (Auto) 23.5 Monocytes (%) (Auto) 6.7 Eosinophils (%) (Auto) 2.4 Basophils (%) (Auto) 0.5 Neutrophils # (Auto) 5.1 Lymphocytes # (Auto) 1.8 Monocytes # (Auto) 0.5 Eosinophils # (Auto) 0.2 Basophils # (Auto) 0.0 CBC Comment DIFF FINAL Differential Comment Prothrombin Time 11.0 Prothromb Time International Ratio 1.0 Activated Partial Thromboplast Time 26.8 Blood Urea Nitrogen 11 Creatinine 1.18 Random Glucose 119 Total Protein 7.7 Albumin 3.5 Calcium Level 8.7 Alkaline Phosphatase 122 Aspartate Amino Transf (AST/SGOT) 12 Alanine Aminotransferase (ALT/SGPT) 13 Total Bilirubin 0.4 Sodium Level 139 Potassium Level 3.4 Chloride Level 103 Carbon Dioxide Level 27.3 Anion Gap 9 Estimat Glomerular Filtration Rate 54 Total Creatine Kinase 88 Troponin I LESS THAN 0.02 B-Type Natriuretic Peptide 234 Date/Time Source Procedure Growth Status 03/01/17 18:55 Blood Peripheral Aerobic Blood Culture Pending Received 03/01/17 18:55 Blood Peripheral Anaerobic Blood Culture Pending Received Result Diagram: 03/01/17184903/01/171849 Caprini VTE Risk Assessment Caprini VTE Risk Assessment: Mod/High Risk (score >= 2) Caprini Risk Assessment Model Point Value = 1 Point Value = 2 Point Value = 3 Point Value = 5 Age 41-60 Minor surgery BMI > 25 kg/m2 Swollen legs Varicose veins or History of unexplained or recurrent spontaneous Oral contraceptives or hormone replacement Sepsis (< 1 month) Serious lung disease, including pneumonia (< 1 month) Abnormal pulmonary function Acute myocardial infarction Congestive heart failure (< 1 month) History of inflammatory bowel disease Medical patient at bed rest Age 61-74 Arthroscopic surgery Major open surgery (> 45 min) Laparoscopic surgery (> 45 min) Malignancy Confined to bed (> 72 hours) Immobilizing plaster cast Central venous access Age >= 75 History of VTE Family history of VTE Factor V Leiden Prothrombin [id number] Lupus anticoagulant Anticardiolipin antibodies Elevated serum homocysteine Heparin-induced thrombocytopenia Other congenital or acquired thrombophilia Stroke (< 1 month) Elective arthroplasty Hip, pelvis, or leg fracture Acute spinal cord injury (< 1 month) Prophylaxis Regimen Total Risk Factor Score Risk Level Prophylaxis Regimen 0-1 Low Early ambulation 2 Moderate Order ONE of the following: *Sequential Compression Device (SCD) *Heparin 5000 units SQ BID 3-4 Higher Order ONE of the following medications: *Heparin 5000 units SQ TID *Enoxaparin/Lovenox 40 mg SQ daily (WT < 150 kg, CrCl > 30 mL/min) *Enoxaparin/Lovenox 30 mg SQ daily (WT < 150 kg, CrCl > 10-29 mL/min) *Enoxaparin/Lovenox 30 mg SQ BID (WT < 150 kg, CrCl > 30 mL/min) AND/OR *Sequential Compression Device (SCD) 5 or more Highest Order ONE of the following medications: *Heparin 5000 units SQ TID (Preferred with Epidurals) *Enoxaparin/Lovenox 40 mg SQ daily (WT < 150 kg, CrCl > 30 mL/min) *Enoxaparin/Lovenox 30 mg SQ daily (WT < 150 kg, CrCl > 10-29 mL/min) *Enoxaparin/Lovenox 30 mg SQ BID (WT < 150 kg, CrCl > 30 mL/min) AND *Sequential Compression Device (SCD) Assessment and Plan Problem List: (1) COPD (chronic obstructive pulmonary disease) ICD Code: J44.9 - Chronic obstructive pulmonary disease, unspecified Status: Acute (2) PNA (pneumonia) ICD Code: J18.9 - Pneumonia, unspecified organism (3) Failure of outpatient treatment ICD Code: Z78.9 - Other specified health status (4) Bipolar disorder ICD Code: F31.9 - Bipolar disorder, unspecified (5) Renal insufficiency ICD Code: N28.9 - Disorder of kidney and ureter, unspecified (6) HTN (hypertension) ICD Code: I10 - Essential (primary) hypertension Status: Acute (7) DM (diabetes mellitus) ICD Code: E11.9 - Type 2 diabetes mellitus without complications Status: Acute Assessment and Plan A/P: 1. COPD: Chronic Respiratory Failure w/ Acute Exacerbation, O2 Dependent on 3L NC. S/p Solu-Medrol and DuoNeb in ER, will continue w/ Solu-Medrol, DuoNeb, Symbicort, Mucinex, monitor O2. 2. PNA: CXR w/ modestly improved infiltrates in comparison to previous CXR from 02/26/17, images reviewed by me. Pt w/ Multiple ALLERGIES to antibiotics, s /p Azactam/Clinda in ER, will continue w/ IV Abx. 3. Failed Outpt Tx: Recent ER presentation 02/26/17 for similar complaints, CXR w/ bilateral opacities, possibly infiltrates, d/c'd home on Doxycycline 100mg bid, now w/ improved but persistent PNA. Continue w/ treatment as above. 4. Renal Insufficiency: Chronic. Creatinine 1.18, producing 1.41 on 02/26/17. Repeat labs in a.m. 5. HTN: Uncontrolled. BP on arrival to 30/98, HR 62, likely compounded by SOB. BP currently 167/71, HR 58. Resume home medications. Monitor BP. 6. DM: Sliding scale with Accu-Cheks. Resume home Lantus. 7. Bipolar Disorder: Stable. Resume home medications. 8. DVT Prophylaxis: Heparin sq 9. Social work for DC planning as needed. 10. Case discussed at length with ER physician. Physician Certification 2 Midnight Certification Type: Admission for Inpatient Services Order for Inpatient Services The services are ordered in accordance with Medicare regulations or non- Medicare payer requirements, as applicable. In the case of services not specified as inpatient-only, they are appropriately provided as inpatient services in accordance with the 2-midnight benchmark. Estimated LOS (days): 2 days is the estimated time the patient will need to remain in the hospital, assuming treatment plan goals are met and no additional complications. Post-Hospital Plan: Home Felicita Decker MD Mar 01, 2017 20:45
[2017-03-01] MEDS: HEPARIN SODIUM - SQ 10,000 UNITS/ML VIAL SQ SCH (22:59)
[2017-03-01] MEDS: DOCUSATE SODIUM 50 MG/SENNA 8.6 MG TAB PO SCH (23:00)
[2017-03-01] MEDS: guaiFENesin E.R. 600 MG TAB PO SCH (23:00)
[2017-03-01] MEDS: BUDESONIDE-FORMOTEROL 160/4.5 MCG INHALER INH SCH (23:00)
[2017-03-01] MEDS: SODIUM CHLORIDE 0.9% FLUSH 10 ML FLUSH IV FLUSH SCH (23:01)
[2017-03-01] MEDS: INSULIN DETEMIR 100 UNITS/ML VIAL SQ SCH (23:01)
[2017-03-01] MEDS: INSULIN ASPART SUPPLEMENTAL SCALE SQ SCH (23:07)
[2017-03-02] VITALS (10 sets, daily range): BP systolic 156–209; BP diastolic 72–92; PULSE 61–64; RESP 17–19; TEMP 96.1–97.9; O2SAT 94–99
[2017-03-02] MEDS: methylPREDNISolone SOD SUCC 40 MG/1 ML VIAL IV PUSH SCH ×4 (00:09→18:10)
[2017-03-02] MEDS: CLINDAMYCIN INJ 900 MG in SODIUM CHLORIDE 0.9% INJ 100 ML IV SCH ×3 (04:57→20:46)
[2017-03-02] MEDS: AZTREONAM INJ 1,000 MG in SODIUM CHLORIDE 0.9% INJ 100 ML IV SCH ×3 (04:57→21:07)
[2017-03-02 06:44] LABS: AUTOMATED NEUTROPHIL # 6.8 TH/MM3 (1.8-7.7); BASOPHIL % 0.3 % (0.0-2.0); HEMO FLAGS DIFF FINAL; LYMPH % 5.9 % (9.0-44.0); LYMPHOCYTE # 0.4 TH/MM3 (1.0-4.8); MEAN CELL VOLUME 79.4 FL (80.0-100.0); MEAN CORPUSCULAR HGB CONC 31.5 % (32.0-36.0); MONO % 0.6 % (0.0-8.0); NEUT % 93.2 % (16.0-70.0); PLATELET COUNT 237 TH/MM3 (150-450); RED BLOOD COUNT 4.16 MIL/MM3 (4.00-5.30); RED CELL DISTRIBUTION WIDTH 18.6 % (11.6-17.2); WHITE BLOOD COUNT 7.3 TH/MM3 (4.0-11.0)
[2017-03-02 07:22] LABS: ALKALINE PHOSPHATASE 138 U/L (45-117); ALT (GPT) 13 U/L (10-53); ANION GAP 11 MEQ/L (5-15); AST (GOT) 11 U/L (15-37); BICARBONATE 25.8 MEQ/L (21.0-32.0); BLOOD UREA NITROGEN 15 MG/DL (7-18); CHLORIDE 103 MEQ/L (98-107); GLOMERULAR FILTRATION RATE 44 ML/MIN (>89); POTASSIUM 3.7 MEQ/L (3.5-5.1); SODIUM (NA) 140 MEQ/L (136-145); TOTAL BILIRUBIN ADULT 0.5 MG/DL (0.2-1.0)
[2017-03-02] MEDS: GABAPENTIN 100 MG CAP PO SCH ×3 (08:08→18:10)
[2017-03-02] MEDS: DOCUSATE SODIUM 50 MG/SENNA 8.6 MG TAB PO SCH ×2 (08:08→20:47)
[2017-03-02] MEDS: guaiFENesin E.R. 600 MG TAB PO SCH ×2 (08:08→20:47)
[2017-03-02] MEDS: ASPIRIN 81 MG CHEW TAB PO SCH (08:08)
[2017-03-02] MEDS: PARoxetine HCL 20 MG TAB PO SCH (08:09)
[2017-03-02] MEDS: SODIUM CHLORIDE 0.9% FLUSH 10 ML FLUSH IV FLUSH SCH ×2 (08:09→20:48)
[2017-03-02] MEDS: BUDESONIDE-FORMOTEROL 160/4.5 MCG INHALER INH SCH ×2 (08:13→21:07)
--- NOTE | 2017-03-02 08:20 | HHI.PR ---
Subjective Remarks This is a pleasant 76-year-old female with Hypertension, CHF Echocardiogram EF 55-60%, COPD on Oxygen dependency Bipolar disorder, DM II, CKD who came to ER on 02/26/17 for similar complaint of SOB, CXR 02/26/17 w/ bilateral lower lobe opacities, d/c'd home on Doxycycline 100mg bid. Returns now w/ ongoing complaints. Denies fever or chills. On arrival, BP 230/98, HR 62, O2 sat 96% on 3LC, Afebrile. CBC at baseline. Creatinine 1.18, previously 1.41 on 02/26/17. Troponin negative. BNP 234. INR 1.0. CXR with modestly improved bilateral perihilar and right midlung infiltrates. S/p Clinda/Azactam in ER. 03/02/17: Stable in her bedroom seen in the presence of her Daughter Mrs. Brittney Torrez, she has confusion, also Issues with blood pressure for months, she is not able to walk at home, has obesity and continuous Oxygen dependency, came to ER with Hypertensive Urgency, continued her home Medicines and following, continue management for Hypothyroidism, optimize her respiratory medicines and follow blood pressure closely. Objective Vital Signs Date Time Temp Pulse Resp B/P (MAP) Pulse Ox O2 Delivery O2 Flow Rate FiO2 03/02/17 03:00 97.9 61 17 172/88 (116) 94 03/01/17 22:14 03/01/17 21:55 97.6 57 16 184/78 (113) 94 03/01/17 21:34 58 18 167/71 (103) 98 Nasal Cannula 3.00 03/01/17 21:10 97 Nasal Cannula 3.00 03/01/17 19:14 61 17 98 Room Air 03/01/17 19:13 62 17 182/77 (112) 98 Nasal Cannula 3.00 03/01/17 18:55 59 20 186/84 (118) 97 Nasal Cannula 3.00 03/01/17 18:55 97 Nasal Cannula 3.00 03/01/17 18:15 100 Nasal Cannula 3.00 03/01/17 17:56 61 20 97 Nasal Cannula 3.00 03/01/17 17:04 97.7 62 17 230/98 (142) 96 Nasal Cannula 3.00 I/O 8/25/17 03/01/17 03/01/17 03/02/17 03/02/17 03/02/17 07:00 15:00 23:00 07:00 15:00 23:00 Intake Total 240 ml Balance 240 ml Intake Oral 240 ml # Voids 1 Result Diagram: 03/02/17 0604 03/02/17 0604 Imaging Last Impressions Chest X-Ray 03/01/17 1713 Signed Impressions: Service Date/Time: Wednesday, March 01, 2017 17:42 - CONCLUSION: Modestly improved bilateral perihilar and right midlung infiltrates. Arpan Rust MD Procedures None Other Results Laboratory Tests Test 03/01/17 18:50 03/02/17 06:04 Prothrombin Time 11.0 SEC Prothromb Time International Ratio 1.0 RATIO Activated Partial Thromboplast Time 26.8 SEC Total Creatine Kinase 88 U/L Troponin I LESS THAN 0.02 NG/ML B-Type Natriuretic Peptide 234 PG/ML White Blood Count 7.3 TH/MM3 Red Blood Count 4.16 MIL/MM3 Hemoglobin 10.4 GM/DL Hematocrit 33.0 % Mean Corpuscular Volume 79.4 FL Mean Corpuscular Hemoglobin 25.0 PG Mean Corpuscular Hemoglobin Concent 31.5 % Red Cell Distribution Width 18.6 % Platelet Count 237 TH/MM3 Mean Platelet Volume 9.2 FL Neutrophils (%) (Auto) 93.2 % Lymphocytes (%) (Auto) 5.9 % Monocytes (%) (Auto) 0.6 % Eosinophils (%) (Auto) 0.0 % Basophils (%) (Auto) 0.3 % Neutrophils # (Auto) 6.8 TH/MM3 Lymphocytes # (Auto) 0.4 TH/MM3 Monocytes # (Auto) 0.0 TH/MM3 Eosinophils # (Auto) 0.0 TH/MM3 Basophils # (Auto) 0.0 TH/MM3 CBC Comment DIFF FINAL Differential Comment Blood Urea Nitrogen 15 MG/DL Creatinine 1.42 MG/DL Random Glucose 263 MG/DL Total Protein 8.8 GM/DL Albumin 3.7 GM/DL Calcium Level 9.3 MG/DL Alkaline Phosphatase 138 U/L Aspartate Amino Transf (AST/SGOT) 11 U/L Alanine Aminotransferase (ALT/SGPT) 13 U/L Total Bilirubin 0.5 MG/DL Sodium Level 140 MEQ/L Potassium Level 3.7 MEQ/L Chloride Level 103 MEQ/L Carbon Dioxide Level 25.8 MEQ/L Anion Gap 11 MEQ/L Estimat Glomerular Filtration Rate 44 ML/MIN Objective Remarks PE: No acute distress. obesity. GENERAL: Very pleasant elderly black female in no acute distress. HEENT: PERRLA, EOMI. No scleral icterus or conjunctival pallor. No lid lag or facial droop. CARDIOVASCULAR: Regular rate and rhythm. No obvious murmurs to auscultation. No chest tenderness to palpation. RESPIRATORY: No obvious rhonchi or wheezing. Clear to auscultation. Breath sounds equal bilaterally. GASTROINTESTINAL: Abdomen soft, non-tender, nondistended. BS normal. MUSCULOSKELETAL: Extremities without clubbing, cyanosis, or edema. No obvious deformities. NEUROLOGICAL: Awake, alert and oriented x4. No focal neurologic deficits. Moving both upper and lower extremities spontaneously. Medications and IVs Current Medications Medications (Trade) Dose Ordered Sig/Bo Route Start Time Stop Time Status Last Admin (NS Flush) 2 ml UNSCH PRN IVF 03/01/17 18:15 (SoluMEDROL INJ) 40 mg Q6HR IV PUSH 03/02/17 00:00 03/02/17 05:52 (Duoneb Neb) 1 ampule Q4HR WHILE AWAKE NEB NEB 03/02/17 08:00 (Duoneb Neb) 1 ampule Q2HR NEB PRN NEB 03/01/17 20:45 (Mucinex Er) 600 mg BID PO 03/01/17 21:00 03/01/17 23:00 (Symbicort 160-4.5 Inh) 2 puff Q12HR INH 03/01/17 21:00 03/01/17 23:00 (D50w (Vial) Inj) 50 ml UNSCH PRN IV 03/01/17 20:45 (Glucagon Inj) 1 mg UNSCH PRN OTHER 03/01/17 20:45 (NovoLOG SUPPLEMENTAL SCALE) 1 ACHS SLIDING SCALE SQ 03/01/17 21:00 03/01/17 23:07 (NS Flush) 2 ml UNSCH PRN IV FLUSH 03/01/17 20:45 (NS Flush) 2 ml BID IV FLUSH 03/01/17 21:00 03/01/17 23:01 (Zofran Inj) 4 mg Q6H PRN IVP 03/01/17 20:45 (Heparin Inj) 5,000 units Q12H SQ 03/01/17 22:00 03/01/17 22:59 (Tylenol) 650 mg Q6H PRN PO 03/01/17 20:45 (Irina-Colace) 1 tab BID PO 03/01/17 21:00 (Milk Of Magnesia Liq) 30 ml Q12H PRN PO 03/01/17 20:45 (Senokot) 17.2 mg Q12H PRN PO 03/01/17 20:45 (Dulcolax Supp) 10 mg DAILY PRN RECTAL 03/01/17 20:45 (Lactulose Liq) 30 ml DAILY PRN PO 03/01/17 20:45 (Aspirin Chew) 81 mg DAILY PO 03/02/17 09:00 (Neurontin) 100 mg TID PO 03/02/17 09:00 (Levemir Inj) 18 units BID SQ 03/01/17 21:00 03/01/17 23:01 (Ativan) 0.5 mg DAILY PRN PO 03/01/17 20:45 (risperDAL) 0.5 mg DAILY PO 03/02/17 09:00 (Paxil) 30 mg DAILY PO 03/02/17 09:00 Clindamycin Phosphate 900 mg/ Sodium Chloride 106 ml @ 212 mls/hr Q8H IV 03/02/17 05:00 03/02/17 04:57 Aztreonam 1000 mg/ Sodium Chloride 100 ml @ 200 mls/hr Q8H IV 03/02/17 05:00 03/02/17 04:57 (Norvasc) 5 mg DAILY PO 03/02/17 09:00 UNV (Lasix) 40 mg DAILY PO 03/02/17 09:00 UNV (Lopressor) 100 mg DAILY PO 03/02/17 09:00 UNV A/P Assessment and Plan 1. COPD: Chronic Respiratory Failure w/ Acute Exacerbation, O2 Dependent on 3L NC. S/p Solu-Medrol and DuoNeb in ER, will continue w/ Solu-Medrol, DuoNeb, Symbicort, Mucinex, monitor O2. continue Bronchodilator, Mucolytic and incentive spirometry. 2. PNA: CXR w/ modestly improved infiltrates in comparison to previous CXR from 02/26/17, images reviewed by me. Pt w/ Multiple ALLERGIES to antibiotics, s /p Azactam/Clinda in ER, will continue w/ IV Abx. 3. Failed Outpt Tx: Recent ER presentation 02/26/17 for similar complaints, CXR w/ bilateral opacities, possibly infiltrates, d/c'd home on Doxycycline 100mg bid, now w/ improved but persistent PNA. Continue w/ treatment as above. 4. Renal Insufficiency: Chronic. Creatinine 1.18, producing 1.41 on 02/26/17. worsening today will follow in am tomorrow. 5. Hypertensive Urgency continue Home medicines, will switch from Metoprolol to Coreg 3.125 mg bid. 6. DM: Sliding scale with Accu-Cheks. Resume Levemir today switched from low dose to medium dose sliding scale. Hemoglobin A1C 7. Bipolar Disorder: Stable. Resume home medications. she states she does not take Risperdal but uses Seroquel 100 mg at bedtime. 8. CARMEN on CPAP Respiratory therapy to follow. 9. Obesity strongly recommended diet and exercise manager supply PT eval RT optimize respiratory therapy Optimize blood pressure medicines. follow closely renal function may need Nephrology consult if continue worsening renal function Follow Chest x ray PA and Lateral in am tomorrow. DVT Prophylaxis: Heparin sq Discussed with Patient, Nurse Miss Song and her Daughter Mrs. Brittney Torrez. Discharge Planning Expected in two to three days. Josh Berkowitz MD Mar 02, 2017 8:20 am
[2017-03-02] MEDS: INSULIN ASPART SUPPLEMENTAL SCALE SQ SCH (08:41)
[2017-03-02] MEDS: RESP: ALBUTEROL 2.5 MG/IPRATROPIUM 0.5 MG NEB (SCH) INH (08:52)
[2017-03-02] MEDS: INSULIN DETEMIR 100 UNITS/ML VIAL SQ SCH ×2 (09:00→20:56)
[2017-03-02] MEDS ORDERED: risperiDONE 0.5 MG TAB PO SCH (09:00)
[2017-03-02] MEDS: amLODIPine BESYLATE 5 MG TAB PO SCH (09:24)
[2017-03-02] MEDS: FUROSEMIDE 40 MG TAB PO SCH (09:24)
[2017-03-02] MEDS: METOPROLOL TARTRATE 100 MG TAB PO SCH (09:25)
[2017-03-02] MEDS: HEPARIN SODIUM - SQ 10,000 UNITS/ML VIAL SQ SCH ×2 (09:25→22:01)
[2017-03-02] MEDS ORDERED: SERO100T PO ×2 (09:36)
[2017-03-02] MEDS ORDERED: INSULIN DETEMIR 100 UNITS/ML VIAL SQ SCH (10:15)
[2017-03-02] MEDS: INSULIN NovoLIN REGULAR SUPPLEMENTAL SCALE SQ SCH ×3 (11:00→21:00)
[2017-03-02] MEDS: RESP: ALBUTEROL 2.5 MG/IPRATROPIUM 0.5 MG NEB (SCH) NEB ×4 (11:42→20:36)
[2017-03-02] MEDS: cloNIDine HCL 0.1 MG TAB PO PRN (12:38)
[2017-03-02] MEDS: LEVOTHYROXINE SODIUM 150 MCG TAB PO SCH (12:38)
[2017-03-02 13:29] LABS: HEMOGLOBIN A1a 1.1 %; HEMOGLOBIN A1b 1.1 %; HEMOGLOBIN Ao 82.2 %; HEMOGLOBIN F 1.3 %; HEMOGLOBIN LA1C 3.4 %; HEMOGLOBIN P3 4.4 %
--- NOTE | 2017-03-02 18:26 | EKG ---
Date Performed: 03/01/2017 Time Performed: 19:01:33 PTAGE: 76 years EKG: Sinus rhythm WITH FIRST DEGREE AV BLOCK NONSPECIFIC ST & T-WAVE ABNORMALITY ABNORMAL ECG PREVIOUS TRACING : 12/23/2016 23.18 Compared to the previous tracing rate faster DOCTOR: Karen Kelly Interpretating Date/Time 03/02/2017 18:25:24
[2017-03-02] MEDS: QUEtiapine FUMARATE 100 MG TAB PO SCH (20:47)
[2017-03-03] MEDS: methylPREDNISolone SOD SUCC 40 MG/1 ML VIAL IV PUSH SCH ×3 (00:01→12:28)
[2017-03-03 00:15] VITALS: BP 125/56; PULSE 58; RESP 19; TEMP 98.2; O2SAT 93
[2017-03-03 04:10] VITALS: BP 169/71; PULSE 59; RESP 18; TEMP 98.2; O2SAT 94
[2017-03-03] MEDS: CLINDAMYCIN INJ 900 MG in SODIUM CHLORIDE 0.9% INJ 100 ML IV SCH ×3 (05:33→21:35)
[2017-03-03] MEDS: LEVOTHYROXINE SODIUM 150 MCG TAB PO SCH (05:34)
[2017-03-03] MEDS: AZTREONAM INJ 1,000 MG in SODIUM CHLORIDE 0.9% INJ 100 ML IV SCH ×3 (06:31→21:46)
[2017-03-03] MEDS: INSULIN NovoLIN REGULAR SUPPLEMENTAL SCALE SQ SCH ×4 (06:34→21:41)
[2017-03-03 08:00] VITALS: BP_SYST 166; BP_SYST 193; BP_DIAS 68; BP_DIAS 79; PULSE 53; RESP 18; TEMP 97.2; O2SAT 94
[2017-03-03] MEDS: RESP: ALBUTEROL 2.5 MG/IPRATROPIUM 0.5 MG NEB (SCH) NEB ×4 (08:00→20:00)
[2017-03-03] MEDS: PARoxetine HCL 20 MG TAB PO SCH (08:46)
[2017-03-03] MEDS: ASPIRIN 81 MG CHEW TAB PO SCH (08:46)
[2017-03-03] MEDS: METOPROLOL TARTRATE 100 MG TAB PO SCH (08:47)
[2017-03-03] MEDS: amLODIPine BESYLATE 5 MG TAB PO SCH (08:47)
[2017-03-03] MEDS: GABAPENTIN 100 MG CAP PO SCH ×3 (08:47→18:00)
[2017-03-03] MEDS: SODIUM CHLORIDE 0.9% FLUSH 10 ML FLUSH IV FLUSH SCH ×2 (08:47→21:35)
[2017-03-03] MEDS: guaiFENesin E.R. 600 MG TAB PO SCH ×2 (08:47→21:34)
[2017-03-03] MEDS: FUROSEMIDE 40 MG TAB PO SCH (08:47)
[2017-03-03] MEDS: HEPARIN SODIUM - SQ 10,000 UNITS/ML VIAL SQ SCH ×2 (08:47→21:34)
[2017-03-03] MEDS: DOCUSATE SODIUM 50 MG/SENNA 8.6 MG TAB PO SCH ×2 (08:48→21:34)
[2017-03-03] MEDS: BUDESONIDE-FORMOTEROL 160/4.5 MCG INHALER INH SCH ×2 (08:48→21:35)
[2017-03-03] MEDS: INSULIN DETEMIR 100 UNITS/ML VIAL SQ SCH ×2 (08:55→21:42)
[2017-03-03 08:58] LABS: BICARBONATE 25.1 MEQ/L (21.0-32.0); MAGNESIUM 2.1 MG/DL (1.5-2.5); POTASSIUM 3.8 MEQ/L (3.5-5.1)
--- NOTE | 2017-03-03 09:35 | HHI.PR ---
Subjective Remarks This is a pleasant 76-year-old female with Hypertension, CHF Echocardiogram EF 55-60%, COPD on Oxygen dependency Bipolar disorder, DM II, CKD who came to ER on 02/26/17 for similar complaint of SOB, CXR 02/26/17 w/ bilateral lower lobe opacities, d/c'd home on Doxycycline 100mg bid. Returns now w/ ongoing complaints. Denies fever or chills. On arrival, BP 230/98, HR 62, O2 sat 96% on 3LC, Afebrile. CBC at baseline. Creatinine 1.18, previously 1.41 on 02/26/17. Troponin negative. BNP 234. INR 1.0. CXR with modestly improved bilateral perihilar and right midlung infiltrates. S/p Clinda/Azactam in ER. 03/02/17: Stable in her bedroom seen in the presence of her Daughter Mrs. Brittney Torrez, she has confusion, also Issues with blood pressure for months, she is not able to walk at home, has obesity and continuous Oxygen dependency, came to ER with Hypertensive Urgency, continued her home Medicines and following, continue management for Hypothyroidism, optimize her respiratory medicines and follow blood pressure closely. 03/03: Again today in her bedroom in the presence of her Daughter, she states increased her Oxygen demand for this admission also she has a new Pneumonia, she has Doctor Harry Miller and she wants to see her Primary plant controls specialist while hospitalized I agree was consulted. no nausea, vomit or diarrhea, at this time in sitting position is more active. Objective Vital Signs Date Time Temp Pulse Resp B/P (MAP) Pulse Ox O2 Delivery O2 Flow Rate FiO2 03/03/17 04:10 98.2 59 18 169/71 (103) 94 03/03/17 00:15 98.2 58 19 125/56 (79) 93 03/02/17 20:36 99 Nasal Cannula 2.00 03/02/17 19:20 97.0 64 19 156/77 (103) 98 03/02/17 16:00 97.7 62 18 177/75 (109) 94 03/02/17 12:30 160/79 (106) 03/02/17 11:52 96.1 62 18 183/72 (109) 95 03/02/17 10:10 185/77 (113) I/O 03/02/17 03/02/17 03/02/17 03/03/17 03/03/17 03/03/17 07:00 15:00 23:00 07:00 15:00 23:00 Intake Total 445 ml 720 ml 240 ml 240 ml Balance 445 ml 720 ml 240 ml 240 ml Intake Oral 240 ml 720 ml 240 ml 240 ml IV Total 205 ml # Voids 1 5 4 1 # Bowel Movements 0 0 0 Result Diagram: 03/02/17 0604 03/03/17 0650 Imaging Last Impressions Chest X-Ray 03/01/17 1713 Signed Impressions: Service Date/Time: Wednesday, March 01, 2017 17:42 - CONCLUSION: Modestly improved bilateral perihilar and right midlung infiltrates. Arpan Rust MD Procedures None Other Results Laboratory Tests Test 03/01/17 18:50 03/02/17 06:04 03/03/17 06:50 Prothrombin Time 11.0 SEC Prothromb Time International Ratio 1.0 RATIO Activated Partial Thromboplast Time 26.8 SEC Total Creatine Kinase 88 U/L Troponin I LESS THAN 0.02 NG/ML B-Type Natriuretic Peptide 234 PG/ML White Blood Count 7.3 TH/MM3 Red Blood Count 4.16 MIL/MM3 Hemoglobin 10.4 GM/DL Hematocrit 33.0 % Mean Corpuscular Volume 79.4 FL Mean Corpuscular Hemoglobin 25.0 PG Mean Corpuscular Hemoglobin Concent 31.5 % Red Cell Distribution Width 18.6 % Platelet Count 237 TH/MM3 Mean Platelet Volume 9.2 FL Neutrophils (%) (Auto) 93.2 % Lymphocytes (%) (Auto) 5.9 % Monocytes (%) (Auto) 0.6 % Eosinophils (%) (Auto) 0.0 % Basophils (%) (Auto) 0.3 % Neutrophils # (Auto) 6.8 TH/MM3 Lymphocytes # (Auto) 0.4 TH/MM3 Monocytes # (Auto) 0.0 TH/MM3 Eosinophils # (Auto) 0.0 TH/MM3 Basophils # (Auto) 0.0 TH/MM3 CBC Comment DIFF FINAL Differential Comment Hemoglobin A1c 6.3 % Blood Urea Nitrogen 15 MG/DL 23 MG/DL Creatinine 1.42 MG/DL 1.50 MG/DL Random Glucose 263 MG/DL 193 MG/DL Total Protein 8.8 GM/DL Albumin 3.7 GM/DL Calcium Level 9.3 MG/DL 8.7 MG/DL Alkaline Phosphatase 138 U/L Aspartate Amino Transf (AST/SGOT) 11 U/L Alanine Aminotransferase (ALT/SGPT) 13 U/L Total Bilirubin 0.5 MG/DL Sodium Level 140 MEQ/L 141 MEQ/L Potassium Level 3.7 MEQ/L 3.8 MEQ/L Chloride Level 103 MEQ/L 104 MEQ/L Carbon Dioxide Level 25.8 MEQ/L 25.1 MEQ/L Phosphorus Level 3.9 MG/DL Magnesium Level 2.1 MG/DL Anion Gap 12 MEQ/L Estimat Glomerular Filtration Rate 41 ML/MIN Objective Remarks PE: No acute distress. obesity. GENERAL: Very pleasant elderly black female in no acute distress. HEENT: PERRLA, EOMI. No scleral icterus or conjunctival pallor. No lid lag or facial droop. CARDIOVASCULAR: Regular rate and rhythm. No obvious murmurs to auscultation. No chest tenderness to palpation. RESPIRATORY: No obvious rhonchi or wheezing. Clear to auscultation. Breath sounds equal bilaterally. GASTROINTESTINAL: Abdomen soft, non-tender, nondistended. BS normal. MUSCULOSKELETAL: Extremities without clubbing, cyanosis, or edema. No obvious deformities. NEUROLOGICAL: Awake, alert and oriented x4. No focal neurologic deficits. Moving both upper and lower extremities spontaneously. Medications and IVs Current Medications Medications (Trade) Dose Ordered Sig/Bo Route Start Time Stop Time Status Last Admin (SoluMEDROL INJ) 40 mg Q6HR IV PUSH 03/02/17 00:00 03/03/17 05:35 (Duoneb Neb) 1 ampule Q4HR WHILE AWAKE NEB NEB 03/02/17 08:00 03/02/17 20:36 (Duoneb Neb) 1 ampule Q2HR NEB PRN NEB 03/01/17 20:45 (Mucinex Er) 600 mg BID PO 03/01/17 21:00 03/03/17 08:47 (Symbicort 160-4.5 Inh) 2 puff Q12HR INH 03/01/17 21:00 03/03/17 08:48 (D50w (Vial) Inj) 50 ml UNSCH PRN IV 03/01/17 20:45 (Glucagon Inj) 1 mg UNSCH PRN OTHER 03/01/17 20:45 (NS Flush) 2 ml UNSCH PRN IV FLUSH 03/01/17 20:45 (NS Flush) 2 ml BID IV FLUSH 03/01/17 21:00 03/03/17 08:47 (Zofran Inj) 4 mg Q6H PRN IVP 03/01/17 20:45 03/02/17 08:09 (Heparin Inj) 5,000 units Q12H SQ 03/01/17 22:00 03/03/17 08:47 (Tylenol) 650 mg Q6H PRN PO 03/01/17 20:45 03/02/17 08:09 (Irina-Colace) 1 tab BID PO 03/01/17 21:00 03/02/17 20:47 (Milk Of Magnesia Liq) 30 ml Q12H PRN PO 03/01/17 20:45 (Senokot) 17.2 mg Q12H PRN PO 03/01/17 20:45 (Dulcolax Supp) 10 mg DAILY PRN RECTAL 03/01/17 20:45 (Lactulose Liq) 30 ml DAILY PRN PO 03/01/17 20:45 (Aspirin Chew) 81 mg DAILY PO 03/02/17 09:00 03/03/17 08:46 (Neurontin) 100 mg TID PO 03/02/17 09:00 03/03/17 08:47 (Levemir Inj) 18 units BID SQ 03/01/17 21:00 03/03/17 08:55 (Ativan) 0.5 mg DAILY PRN PO 03/01/17 20:45 03/02/17 09:24 (Paxil) 30 mg DAILY PO 03/02/17 09:00 03/03/17 08:46 Clindamycin Phosphate 900 mg/ Sodium Chloride 106 ml @ 212 mls/hr Q8H IV 03/02/17 05:00 03/03/17 05:33 Aztreonam 1000 mg/ Sodium Chloride 100 ml @ 200 mls/hr Q8H IV 03/02/17 05:00 03/03/17 06:31 (Lasix) 40 mg DAILY PO 03/02/17 09:00 03/03/17 08:47 (Catapres) 0.1 mg Q6H PRN PO 03/02/17 09:45 03/02/17 12:38 (Synthroid) 150 mcg DAILY@0600 PO 03/02/17 10:00 03/03/17 05:34 (SEROquel) 100 mg HS PO 03/02/17 21:00 03/02/17 20:47 (NovoLIN R SUPPLEMENTAL SCALE) 1 ACHS SLIDING SCALE SQ 03/02/17 11:00 03/03/17 06:34 (Coreg) 3.125 mg Q12HR PO 03/04/17 09:00 (Norvasc) 10 mg DAILY PO 03/04/17 09:00 A/P Assessment and Plan 1. COPD: Chronic Respiratory Failure w/ Acute Exacerbation, O2 Dependent on 3L NC. S/p Solu-Medrol and DuoNeb in ER, will continue w/ Solu-Medrol, DuoNeb, Symbicort, Mucinex, monitor O2. continue Bronchodilator, Mucolytic and incentive spirometry. titrate down Steroids, and consulted her Primary plant controls specialist physician Doctor Miller. 2. PNA: CXR w/ modestly improved infiltrates in comparison to previous CXR from 02/26/17, images reviewed by me. Pt w/ Multiple ALLERGIES to antibiotics, s /p Azactam/Clinda in ER. 3. Failed Outpt Tx: Recent ER presentation 02/26/17 for similar complaints, CXR w/ bilateral opacities, possibly infiltrates, d/c'd home on Doxycycline 100mg bid, now w/ improved but persistent PNA. Continue w/ treatment as above. 4. Renal Insufficiency: Chronic. Creatinine 1.18, producing 1.41 on 02/26/17. worsening today will follow in am tomorrow. 5. Hypertensive Urgency continue Home medicines, will switch from Metoprolol to Coreg 3.125 mg bid. 6. DM: Sliding scale with Accu-Cheks. Resume Levemir today switched from low dose to medium dose sliding scale. Hemoglobin A1C 6.3 she is uncontrolled due to the use of Steroids, will decrease steroids to 40 mg BID and also increased and adjusted Insulin Levemir to 22 units BID and continue sliding scale medium and 5 units pre meal. 7. Bipolar Disorder: Stable. Resume home medications. she states she does not take Risperdal but uses Seroquel 100 mg at bedtime. 8. CARMEN on CPAP Respiratory therapy to follow. 9. Obesity strongly recommended diet and exercise Continue PT Consult plant controls specialist Doctor Gerry Miller. DVT Prophylaxis: Heparin sq Discussed with Patient, Nurse Miss Mcbride and her Daughter Mrs. Brittney Torrez. all questions answered to the best of my abilities. Discharge Planning Expected in two to three days. Josh Berkowitz MD Mar 03, 2017 09:35
[2017-03-03] MEDS ORDERED: amLODIPine BESYLATE 5 MG TAB PO ONE (14:15)
[2017-03-03 16:00] VITALS: BP 154/73; PULSE 61; RESP 18; TEMP 98.1; O2SAT 97
[2017-03-03] MEDS: INSULIN ASPART 1,000 UNITS/10 ML VIAL SQ SCH (17:00)
--- NOTE | 2017-03-03 17:39 | MB ---
cc: KATYA CRUM DATE OF CONSULTATION 03/03/[address] Mace REASON FOR CONSULTATION COPD exacerbation. HISTORY OF PRESENT ILLNESS Ms. Nava is a 76-year-old -Turkish female with history of hypertension, COPD, bipolar disorder, diabetes mellitus. The patient was living in [place]. She moved over here to live with her daughter. She came to the hospital with a history of worsening of shortness of breath for at least 1-2 weeks. The patient was seen in the emergency room twice and was given antibiotic and sent home. She was complaining of increasing shortness of breath, occasional wheezing. Does not have fever or chills. No night sweats. The patient was using inhaler treatment which she quit using four months ago because she felt that she was doing well. She had a workup done in the hospital. Her chest x-ray shows she has a moderately improved perihilar and right mid lung infiltrate. LABORATORY DATA WBC was 7.3, hemoglobin 10.3, hematocrit 33, MCV 79, platelet count 237. Sodium 141, potassium 3.8, chloride 104, CO2 25, BUN 23, creatinine 1.50. INR 1.0. PAST MEDICAL HISTORY Significant for: 1. A history of COPD. 2. Hypertension. 3. Diabetes mellitus. 4. Multiple episodes of passing out. 5. She had a device in her chest to monitor her heart. 6. History of myoclonus disorder. 7. History of knee surgery. 8. History of both hands surgery. MEDICATIONS She is currently takin. Coreg 3.125 mg twice a day. 2. Amlodipine 10 mg a day. 3. Solu-Medrol 40 mg q.12 h. 4. She is on insulin Levemir 22 units twice a day. 5. NovoLog 5 units three times a day. 6. Seroquel 100 milligrams at nighttime. 7. Levothyroxine 150 micrograms daily. 8. Flonase 0.1 milligrams as needed. 9. Neurontin 100 mg 3 times a day. 10. Paxil 30 milligrams daily. 11. Lasix 40 milligrams daily. 12. Albuterol Atrovent nebulizer treatment. 13. Clindamycin IV. 14. Aztreonam 1 gram q.8h. 15. Symbicort 160/4.5 two puffs twice a day. ALLERGIES SHE IS ALLERGIC TO AZITHROMYCIN, ROCEPHIN, CIPROFLOXACIN, DOBUTAMINE, METHADONE, MORPHINE, MOXIFLOXACIN, PENICILLIN, PROCHLORPERAZINE, VANCOMYCIN, VENLAFAXINE AND SULFA. SOCIAL HISTORY She is . 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 FAMILY HISTORY She had three children, one son with inflammation in the brain. She has two daughters. The patient lives with her daughter. REVIEW OF SYSTEMS Normally she is up, around and active. Denies any weight loss. No malignancy. No DVT or pulmonary embolism. No seizure, stroke, epilepsy. PHYSICAL EXAMINATION GENERAL: Obese female, anxious, not in any acute distress. VITAL SIGNS: Blood pressure 166/68, heart rate 53, respirations 18, temperature 97.2. HEENT: Pupils are equal and reactive to light. Oral mucosa, nasal mucosa normal. NECK: Supple. JVP not raised. CHEST: Air entry equal bilaterally. No rhonchi. CARDIOVASCULAR: S1, S2 normal. ABDOMEN: Benign. EXTREMITIES: No edema. IMPRESSION 1. COPD with mild exacerbation, it is improving. 2. Right lung infiltrate. 3. Chronic obstructive pulmonary disease. 4. Bipolar disorder. 5. Hypertension. 6. Diabetes mellitus. PLAN I discussed with the patient. We will continue her antibiotics. Aerosol treatment with albuterol and Atrovent. Supplement her oxygen. She uses oxygen 3 liters at home. Monitor her blood sugar and electrolytes. She is on insulin. Continue Symbicort twice a day. Albuterol/Atrovent nebulizer four times a day. Further treatment will depend on the course in the hospital. The patient is known to Dr. Gerry Miller who will follow the patient tomorrow. MD MARIE Vivas/JAMEEL /3:04 PM /5:16 PM ROLANDO
[2017-03-03 19:50] VITALS: BP 168/60; PULSE 67; RESP 20; TEMP 97.1; O2SAT 95
[2017-03-03 20:59] VITALS: O2SAT 94
[2017-03-03] MEDS ORDERED: methylPREDNISolone SOD SUCC 40 MG/1 ML VIAL IV PUSH SCH (21:00)
[2017-03-03] MEDS: QUEtiapine FUMARATE 100 MG TAB PO SCH (21:34)
[2017-03-04] VITALS (8 sets, daily range): BP systolic 138–178; BP diastolic 60–80; PULSE 55–65; RESP 17–20; TEMP 97.3–97.6; O2SAT 94–100
[2017-03-04] MEDS: CLINDAMYCIN INJ 900 MG in SODIUM CHLORIDE 0.9% INJ 100 ML IV SCH ×3 (04:48→22:57)
[2017-03-04] MEDS: LEVOTHYROXINE SODIUM 150 MCG TAB PO SCH (06:29)
[2017-03-04] MEDS: INSULIN NovoLIN REGULAR SUPPLEMENTAL SCALE SQ SCH ×4 (06:35→21:00)
[2017-03-04] MEDS: AZTREONAM INJ 1,000 MG in SODIUM CHLORIDE 0.9% INJ 100 ML IV SCH ×3 (06:36→21:30)
--- NOTE | 2017-03-04 07:08 | HHI.FPPN ---
Subjective Remarks C/O UNABLE TO STAND C/O COUGH C/O WEAKNESS Objective Vitals Vital Signs Date Time Temp Pulse Resp B/P (MAP) Pulse Ox O2 Delivery O2 Flow Rate FiO2 03/04/17 00:00 97.6 57 20 145/80 (101) 94 03/03/17 20:59 94 Nasal Cannula 2.00 03/03/17 19:50 97.1 67 20 168/60 (96) 95 03/03/17 16:00 98.1 61 18 154/73 (100) 97 03/03/17 11:50 Nasal Cannula 2.00 03/03/17 08:00 97.2 53 18 193/79 (117) 94 166/68 (100) I/O 03/03/17 03/03/17 03/03/17 03/04/17 03/04/17 03/04/17 07:00 15:00 23:00 07:00 15:00 23:00 Intake Total 240 ml 205 ml 1440 ml 240 ml Balance 240 ml 205 ml 1440 ml 240 ml Intake Oral 240 ml 1440 ml 240 ml IV Total 205 ml # Voids 1 7 1 # Bowel Movements 0 1 0 Result Diagram: 03/02/17 0604 03/03/17 0650 Objective Remarks GENERAL: SKIN: Warm and dry. HEAD: Atraumatic. Normocephalic. EYES: Pupils equal and round. No scleral icterus. No injection or drainage. ENT: No nasal bleeding or discharge. Mucous membranes pink and moist. NECK: Trachea midline. No JVD. CARDIOVASCULAR: Regular rate and rhythm. RESPIRATORY: No accessory muscle use. B R/R. Breath sounds equal bilaterally. GASTROINTESTINAL: Abdomen soft, non-tender, nondistended. Hepatic and splenic margins not palpable. MUSCULOSKELETAL: Extremities without clubbing, cyanosis, or edema. No obvious deformities. NEUROLOGICAL: Awake and alert. No obvious cranial nerve deficits. Motor grossly within normal limits. Five out of 5 muscle strength in the arms and legs. Normal speech. PSYCHIATRIC: Appropriate mood and affect; insight and judgment normal. Medications and IVs Current Medications Medications (Trade) Dose Ordered Sig/Bo Route Start Time Stop Time Status Last Admin (Duoneb Neb) 1 ampule Q4HR WHILE AWAKE NEB NEB 03/02/17 08:00 03/03/17 11:49 (Duoneb Neb) 1 ampule Q2HR NEB PRN NEB 03/01/17 20:45 (Mucinex Er) 600 mg BID PO 03/01/17 21:00 03/03/17 21:34 (Symbicort 160-4.5 Inh) 2 puff Q12HR INH 03/01/17 21:00 03/03/17 21:35 (D50w (Vial) Inj) 50 ml UNSCH PRN IV 03/01/17 20:45 (Glucagon Inj) 1 mg UNSCH PRN OTHER 03/01/17 20:45 (NS Flush) 2 ml UNSCH PRN IV FLUSH 03/01/17 20:45 (NS Flush) 2 ml BID IV FLUSH 03/01/17 21:00 03/03/17 21:35 (Zofran Inj) 4 mg Q6H PRN IVP 03/01/17 20:45 03/02/17 08:09 (Heparin Inj) 5,000 units Q12H SQ 03/01/17 22:00 03/03/17 21:34 (Tylenol) 650 mg Q6H PRN PO 03/01/17 20:45 03/02/17 08:09 (Irina-Colace) 1 tab BID PO 03/01/17 21:00 03/03/17 21:34 (Milk Of Magnesia Liq) 30 ml Q12H PRN PO 03/01/17 20:45 (Senokot) 17.2 mg Q12H PRN PO 03/01/17 20:45 (Dulcolax Supp) 10 mg DAILY PRN RECTAL 03/01/17 20:45 (Lactulose Liq) 30 ml DAILY PRN PO 03/01/17 20:45 (Aspirin Chew) 81 mg DAILY PO 03/02/17 09:00 03/03/17 08:46 (Neurontin) 100 mg TID PO 03/02/17 09:00 03/03/17 18:00 (Ativan) 0.5 mg DAILY PRN PO 03/01/17 20:45 03/02/17 09:24 (Paxil) 30 mg DAILY PO 03/02/17 09:00 03/03/17 08:46 Clindamycin Phosphate 900 mg/ Sodium Chloride 106 ml @ 212 mls/hr Q8H IV 03/02/17 05:00 03/04/17 04:48 Aztreonam 1000 mg/ Sodium Chloride 100 ml @ 200 mls/hr Q8H IV 03/02/17 05:00 03/04/17 06:36 (Lasix) 40 mg DAILY PO 03/02/17 09:00 03/03/17 08:47 (Catapres) 0.1 mg Q6H PRN PO 03/02/17 09:45 03/02/17 12:38 (Synthroid) 150 mcg DAILY@0600 PO 03/02/17 10:00 03/04/17 06:29 (SEROquel) 100 mg HS PO 03/02/17 21:00 03/03/17 21:34 (NovoLIN R SUPPLEMENTAL SCALE) 1 ACHS SLIDING SCALE SQ 03/02/17 11:00 03/04/17 06:35 (Coreg) 3.125 mg Q12HR PO 03/04/17 09:00 (Norvasc) 10 mg DAILY PO 03/04/17 09:00 (SoluMEDROL INJ) 40 mg Q12HR IV PUSH 03/03/17 21:00 03/07/17 23:59 03/03/17 21:36 (NovoLOG INJ) 5 units TIDAC SQ 03/03/17 17:00 03/03/17 17:00 (Levemir Inj) 22 units BID SQ 03/03/17 21:00 03/03/17 21:42 A/P Assessment and Plan 1. COPD: Chronic Respiratory Failure w/ Acute Exacerbation, O2 Dependent on 3L NC. S/p Solu-Medrol and DuoNeb in ER, will continue w/ Solu-Medrol, DuoNeb, Symbicort, Mucinex, monitor O2. continue Bronchodilator, Mucolytic and incentive spirometry. Steroids, consulted Primary account management specialist physician Doctor Miller. 2. PNA: Pt w/ Multiple ALLERGIES to antibiotics, s/p Azactam/Clinda in ER. 3. Failed Outpt Tx: Recent ER presentation 02/26/17 for similar complaints, CXR w/ bilateral opacities, possibly infiltrates, d/c'd home on Doxycycline 100mg bid, now w/ improved but persistent PNA. Continue w/ treatment as above. 4. Renal Insufficiency: Chronic. Creatinine 1.18, producing 1.41 on 02/26/17. follow in am tomorrow. 5. Hypertensive Urgency continue Home medicines, will switch from Metoprolol to Coreg 3.125 mg bid. 6. DM: Sliding scale with Accu-Cheks. medium dose sliding scale. uncontrolled due to the use of Steroids 7. Bipolar Disorder: Stable. Seroquel 100 mg at bedtime. 8. CARMEN on CPAP Respiratory therapy to follow. 9. Obesity - diet and exercise PT Ghassan Gonzalez MD Mar 04, 2017 07:08
[2017-03-04] MEDS: CARVEDILOL 3.125 MG TAB PO SCH ×2 (09:00→21:31)
[2017-03-04] MEDS: DOCUSATE SODIUM 50 MG/SENNA 8.6 MG TAB PO SCH ×2 (09:00→21:00)
--- NOTE | 2017-03-04 09:13 | HHI.PR ---
Subjective Remarks This is a pleasant 76-year-old female with Hypertension, CHF Echocardiogram EF 55-60%, COPD on Oxygen dependency Bipolar disorder, DM II, CKD who came to ER on 02/26/17 for similar complaint of SOB, CXR 02/26/17 w/ bilateral lower lobe opacities, d/c'd home on Doxycycline 100mg bid. Returns now w/ ongoing complaints. Denies fever or chills. On arrival, BP 230/98, HR 62, O2 sat 96% on 3LC, Afebrile. CBC at baseline. Creatinine 1.18, previously 1.41 on 02/26/17. Troponin negative. BNP 234. INR 1.0. CXR with modestly improved bilateral perihilar and right midlung infiltrates. S/p Clinda/Azactam in ER. 03/02/17: Stable in her bedroom seen in the presence of her Daughter Mrs. Brittney Torrez, she has confusion, also Issues with blood pressure for months, she is not able to walk at home, has obesity and continuous Oxygen dependency, came to ER with Hypertensive Urgency, continued her home Medicines and following, continue management for Hypothyroidism, optimize her respiratory medicines and follow blood pressure closely. 03/03: Again today in her bedroom in the presence of her Daughter, she states increased her Oxygen demand for this admission also she has a new Pneumonia, she has Doctor Harry Miller and she wants to see her Primary range management specialist while hospitalized I agree was consulted. more active today. 03/04: Seen in her bedroom no nausea, vomit or diarrhea. Objective Vital Signs Date Time Temp Pulse Resp B/P (MAP) Pulse Ox O2 Delivery O2 Flow Rate FiO2 03/04/17 04:20 97.4 60 20 168/70 (102) 94 03/04/17 00:00 97.6 57 20 145/80 (101) 94 03/03/17 20:59 94 Nasal Cannula 2.00 03/03/17 19:50 97.1 67 20 168/60 (96) 95 03/03/17 16:00 98.1 61 18 154/73 (100) 97 03/03/17 11:50 Nasal Cannula 2.00 I/O 03/03/17 03/03/17 03/03/17 03/04/17 03/04/17 03/04/17 06:59 14:59 22:59 06:59 14:59 22:59 Intake Total 240 ml 205 ml 1440 ml 240 ml Balance 240 ml 205 ml 1440 ml 240 ml Intake Oral 240 ml 1440 ml 240 ml IV Total 205 ml # Voids 1 7 1 # Bowel Movements 0 1 0 Result Diagram: 03/02/17 0604 03/03/17 0650 Imaging Last Impressions Chest X-Ray 03/01/17 1753 Signed Impressions: Service Date/Time: Wednesday, March 01, 2017 17:42 - CONCLUSION: Modestly improved bilateral perihilar and right midlung infiltrates. Arpan Rust MD Procedures None Other Results Laboratory Tests Test 03/01/17 18:50 03/02/17 06:04 03/03/17 06:50 Prothrombin Time 11.0 SEC Prothromb Time International Ratio 1.0 RATIO Activated Partial Thromboplast Time 26.8 SEC Total Creatine Kinase 88 U/L Troponin I LESS THAN 0.02 NG/ML B-Type Natriuretic Peptide 234 PG/ML White Blood Count 7.3 TH/MM3 Red Blood Count 4.16 MIL/MM3 Hemoglobin 10.4 GM/DL Hematocrit 33.0 % Mean Corpuscular Volume 79.4 FL Mean Corpuscular Hemoglobin 25.0 PG Mean Corpuscular Hemoglobin Concent 31.5 % Red Cell Distribution Width 18.6 % Platelet Count 237 TH/MM3 Mean Platelet Volume 9.2 FL Neutrophils (%) (Auto) 93.2 % Lymphocytes (%) (Auto) 5.9 % Monocytes (%) (Auto) 0.6 % Eosinophils (%) (Auto) 0.0 % Basophils (%) (Auto) 0.3 % Neutrophils # (Auto) 6.8 TH/MM3 Lymphocytes # (Auto) 0.4 TH/MM3 Monocytes # (Auto) 0.0 TH/MM3 Eosinophils # (Auto) 0.0 TH/MM3 Basophils # (Auto) 0.0 TH/MM3 CBC Comment DIFF FINAL Differential Comment Hemoglobin A1c 6.3 % Blood Urea Nitrogen 15 MG/DL 23 MG/DL Creatinine 1.42 MG/DL 1.50 MG/DL Random Glucose 263 MG/DL 193 MG/DL Total Protein 8.8 GM/DL Albumin 3.7 GM/DL Calcium Level 9.3 MG/DL 8.7 MG/DL Alkaline Phosphatase 138 U/L Aspartate Amino Transf (AST/SGOT) 11 U/L Alanine Aminotransferase (ALT/SGPT) 13 U/L Total Bilirubin 0.5 MG/DL Sodium Level 140 MEQ/L 141 MEQ/L Potassium Level 3.7 MEQ/L 3.8 MEQ/L Chloride Level 103 MEQ/L 104 MEQ/L Carbon Dioxide Level 25.8 MEQ/L 25.1 MEQ/L Phosphorus Level 3.9 MG/DL Magnesium Level 2.1 MG/DL Anion Gap 12 MEQ/L Estimat Glomerular Filtration Rate 41 ML/MIN Objective Remarks PE: No acute distress. obesity. GENERAL: Very pleasant elderly black female in no acute distress. HEENT: PERRLA, EOMI. No scleral icterus or conjunctival pallor. No lid lag or facial droop. CARDIOVASCULAR: Regular rate and rhythm. No obvious murmurs to auscultation. No chest tenderness to palpation. RESPIRATORY: No obvious rhonchi or wheezing. Clear to auscultation. Breath sounds equal bilaterally. GASTROINTESTINAL: Abdomen soft, non-tender, nondistended. BS normal. MUSCULOSKELETAL: Extremities without clubbing, cyanosis, or edema. No obvious deformities. NEUROLOGICAL: Awake, alert and oriented x4. No focal neurologic deficits. Moving both upper and lower extremities spontaneously. Medications and IVs Current Medications Medications (Trade) Dose Ordered Sig/Bo Route Start Time Stop Time Status Last Admin (Duoneb Neb) 1 ampule Q4HR WHILE AWAKE NEB NEB 03/02/17 08:00 03/03/17 11:49 (Duoneb Neb) 1 ampule Q2HR NEB PRN NEB 03/01/17 20:45 (Mucinex Er) 600 mg BID PO 03/01/17 21:00 03/03/17 21:34 (Symbicort 160-4.5 Inh) 2 puff Q12HR INH 03/01/17 21:00 03/03/17 21:35 (D50w (Vial) Inj) 50 ml UNSCH PRN IV 03/01/17 20:45 (Glucagon Inj) 1 mg UNSCH PRN OTHER 03/01/17 20:45 (NS Flush) 2 ml UNSCH PRN IV FLUSH 03/01/17 20:45 (NS Flush) 2 ml BID IV FLUSH 03/01/17 21:00 03/03/17 21:35 (Zofran Inj) 4 mg Q6H PRN IVP 03/01/17 20:45 03/02/17 08:09 (Heparin Inj) 5,000 units Q12H SQ 03/01/17 22:00 03/03/17 21:34 (Tylenol) 650 mg Q6H PRN PO 03/01/17 20:45 03/02/17 08:09 (Irina-Colace) 1 tab BID PO 03/01/17 21:00 03/03/17 21:34 (Milk Of Magnesia Liq) 30 ml Q12H PRN PO 03/01/17 20:45 (Senokot) 17.2 mg Q12H PRN PO 03/01/17 20:45 (Dulcolax Supp) 10 mg DAILY PRN RECTAL 03/01/17 20:45 (Lactulose Liq) 30 ml DAILY PRN PO 03/01/17 20:45 (Aspirin Chew) 81 mg DAILY PO 03/02/17 09:00 03/03/17 08:46 (Neurontin) 100 mg TID PO 03/02/17 09:00 03/03/17 18:00 (Ativan) 0.5 mg DAILY PRN PO 03/01/17 20:45 03/02/17 09:24 (Paxil) 30 mg DAILY PO 03/02/17 09:00 03/03/17 08:46 Clindamycin Phosphate 900 mg/ Sodium Chloride 106 ml @ 212 mls/hr Q8H IV 03/02/17 05:00 03/04/17 04:48 Aztreonam 1000 mg/ Sodium Chloride 100 ml @ 200 mls/hr Q8H IV 03/02/17 05:00 03/04/17 06:36 (Lasix) 40 mg DAILY PO 03/02/17 09:00 03/03/17 08:47 (Catapres) 0.1 mg Q6H PRN PO 03/02/17 09:45 03/02/17 12:38 (Synthroid) 150 mcg DAILY@0600 PO 03/02/17 10:00 03/04/17 06:29 (SEROquel) 100 mg HS PO 03/02/17 21:00 03/03/17 21:34 (NovoLIN R SUPPLEMENTAL SCALE) 1 ACHS SLIDING SCALE SQ 03/02/17 11:00 03/04/17 06:35 (Coreg) 3.125 mg Q12HR PO 03/04/17 09:00 (Norvasc) 10 mg DAILY PO 03/04/17 09:00 (SoluMEDROL INJ) 40 mg Q12HR IV PUSH 03/03/17 21:00 03/07/17 23:59 03/03/17 21:36 (NovoLOG INJ) 5 units TIDAC SQ 03/03/17 17:00 03/03/17 17:00 (Levemir Inj) 22 units BID SQ 03/03/17 21:00 03/03/17 21:42 A/P Assessment and Plan 1. COPD: Chronic Respiratory Failure w/ Acute Exacerbation, O2 Dependent on 3L NC. S/p Solu-Medrol and DuoNeb in ER, will continue w/ Solu-Medrol, DuoNeb, Symbicort, Mucinex, monitor O2. continue Bronchodilator, Mucolytic and incentive spirometry. titrate down Steroids, and consulted her Primary range management specialist physician Doctor Miller. 2. PNA: CXR w/ modestly improved infiltrates in comparison to previous CXR from 02/26/17, images reviewed by me. Pt w/ Multiple ALLERGIES to antibiotics, s /p Azactam/Clinda in ER. 3. Failed Outpt Tx: Recent ER presentation 02/26/17 for similar complaints, CXR w/ bilateral opacities, possibly infiltrates, d/c'd home on Doxycycline 100mg bid, now w/ improved but persistent PNA. Continue w/ treatment as above. 4. Renal Insufficiency: Chronic. Creatinine 1.18, producing 1.41 on 02/26/17. worsening today will follow in am tomorrow. 5. Hypertensive Urgency continue Home medicines, will switch from Metoprolol to Coreg 3.125 mg bid. 6. DM: Sliding scale with Accu-Cheks. Resume Levemir today switched from low dose to medium dose sliding scale. Hemoglobin A1C 6.3 she is uncontrolled due to the use of Steroids, will decrease steroids to 40 mg BID and also increased and adjusted Insulin Levemir to 22 units BID and continue sliding scale medium and 5 units pre meal. 7. Bipolar Disorder: Stable. Resume home medications. she states she does not take Risperdal but uses Seroquel 100 mg at bedtime. 8. CARMEN on CPAP Respiratory therapy to follow. 9. Obesity strongly recommended diet and exercise Continue PT Consult range management specialist Doctor Gerry Miller. DVT Prophylaxis: Heparin sq Discussed with Patient, Nurse Miss Mcbride and her Daughter Mrs. Brittney Torrez. all questions answered to the best of my abilities. Discharge Planning Expected by tomorrow. Josh Berkowitz MD Mar 04, 2017 09:13
[2017-03-04] MEDS: RESP: ALBUTEROL 2.5 MG/IPRATROPIUM 0.5 MG NEB (SCH) NEB ×2 (09:20→12:07)
[2017-03-04] MEDS: GABAPENTIN 100 MG CAP PO SCH ×3 (09:33→17:56)
[2017-03-04] MEDS: guaiFENesin E.R. 600 MG TAB PO SCH ×2 (09:34→21:31)
[2017-03-04] MEDS: PARoxetine HCL 20 MG TAB PO SCH (09:34)
[2017-03-04] MEDS: amLODIPine BESYLATE 5 MG TAB PO SCH (09:35)
[2017-03-04] MEDS: SODIUM CHLORIDE 0.9% FLUSH 10 ML FLUSH IV FLUSH SCH ×2 (09:35→21:32)
[2017-03-04] MEDS: HEPARIN SODIUM - SQ 10,000 UNITS/ML VIAL SQ SCH ×2 (09:36→21:31)
[2017-03-04] MEDS: BUDESONIDE-FORMOTEROL 160/4.5 MCG INHALER INH SCH (09:39)
[2017-03-04] MEDS: ASPIRIN 81 MG CHEW TAB PO SCH (09:39)
[2017-03-04] MEDS: FUROSEMIDE 40 MG TAB PO SCH (09:41)
[2017-03-04] MEDS: INSULIN ASPART 1,000 UNITS/10 ML VIAL SQ SCH ×3 (09:45→17:58)
[2017-03-04] MEDS: INSULIN DETEMIR 100 UNITS/ML VIAL SQ SCH ×2 (09:46→21:00)
[2017-03-04] MEDS: predniSONE 20 MG TAB PO SCH (13:26)
[2017-03-04] MEDS ORDERED: RESP: ALBUTEROL 2.5 MG/IPRATROPIUM 0.5 MG NEB (SCH) INH (14:00)
[2017-03-04] MEDS: RESP: ALBUTEROL 2.5 MG/IPRATROPIUM 0.5 MG NEB (SCH) INH (20:28)
[2017-03-04] MEDS: QUEtiapine FUMARATE 100 MG TAB PO SCH (21:31)
[2017-03-05] VITALS: BP 141/62; PULSE 103; RESP 19; TEMP 97.6; O2SAT 92
[2017-03-05 04:00] VITALS: BP 162/63; PULSE 118; RESP 19; TEMP 98.6; O2SAT 92
[2017-03-05] MEDS: AZTREONAM INJ 1,000 MG in SODIUM CHLORIDE 0.9% INJ 100 ML IV SCH (04:15)
[2017-03-05] MEDS: CLINDAMYCIN INJ 900 MG in SODIUM CHLORIDE 0.9% INJ 100 ML IV SCH (05:54)
[2017-03-05] MEDS: LEVOTHYROXINE SODIUM 150 MCG TAB PO SCH (05:54)
[2017-03-05] MEDS: cloNIDine HCL 0.1 MG TAB PO PRN (05:54)
[2017-03-05] MEDS: INSULIN NovoLIN REGULAR SUPPLEMENTAL SCALE SQ SCH (07:00)
[2017-03-05 08:00] VITALS: BP 185/83; PULSE 60; RESP 18; TEMP 97.7; O2SAT 93
[2017-03-05] MEDS: RESP: ALBUTEROL 2.5 MG/IPRATROPIUM 0.5 MG NEB (SCH) INH (08:00)
[2017-03-05 08:05] LABS: AUTOMATED NEUTROPHIL # 5.8 TH/MM3 (1.8-7.7); BASOPHIL % 0.2 % (0.0-2.0); EOSINOPHIL % 0.2 % (0.0-4.0); HEMATOCRIT 28.3 % (35.0-46.0); LYMPH % 18.3 % (9.0-44.0); LYMPHOCYTE # 1.5 TH/MM3 (1.0-4.8); MEAN CORPUSCULAR HEMOGLOBIN 25.7 PG (27.0-34.0); MEAN CORPUSCULAR HGB CONC 32.5 % (32.0-36.0); MONO % 9.9 % (0.0-8.0); NEUT % 71.4 % (16.0-70.0); PLATELET COUNT 174 TH/MM3 (150-450); RED BLOOD COUNT 3.58 MIL/MM3 (4.00-5.30); WHITE BLOOD COUNT 8.1 TH/MM3 (4.0-11.0)
[2017-03-05 08:18] LABS: HEMO FLAGS AUTO DIFF
[2017-03-05 08:33] LABS: BICARBONATE 29.1 MEQ/L (21.0-32.0); POTASSIUM 3.1 MEQ/L (3.5-5.1)
--- NOTE | 2017-03-05 08:56 | HHI.DCPOC ---
Discharge Care Plan Diagnosis: (1) Cough (2) CHF (congestive heart failure) (3) Hyperglycemia (4) Bipolar and related disorder due to another medical condition with manic features (5) PNA (pneumonia) (6) Failure of outpatient treatment (7) Hypertensive urgency, malignant Goals to Promote Your Health * To prevent worsening of your condition and complications * To maintain your health at the optimal level Directions to Meet Your Goals Take your medications as prescribed Follow your dietary instruction Follow activity as directed Keep your appointments as scheduled Take your immunizations and boosters as scheduled If your symptoms worsen call your PCP, if no PCP go to Urgent Care Center or Emergency Room Smoking is Dangerous to Your Health. Avoid second hand smoke Call the 24-hour hour crisis hotline for domestic abuse at Ghassan Gonzalez MD Mar 05, 2017 08:56
--- NOTE | 2017-03-05 08:57 | HHI.DS ---
Discharge Summary Admission Date Mar 01, 2017 at 20:44 Discharge Date: Mar 05, 2017 Admitting Diagnosis pneumonia with failed outpatient therapy, COPD exacerbation (1) COPD (chronic obstructive pulmonary disease) ICD Codes: J44.9 - Chronic obstructive pulmonary disease, unspecified Status: Acute (2) PNA (pneumonia) ICD Codes: J18.9 - Pneumonia, unspecified organism (3) Failure of outpatient treatment ICD Codes: Z78.9 - Other specified health status (4) Bipolar disorder ICD Codes: F31.9 - Bipolar disorder, unspecified (5) Renal insufficiency ICD Codes: N28.9 - Disorder of kidney and ureter, unspecified (6) HTN (hypertension) ICD Codes: I10 - Essential (primary) hypertension Status: Acute (7) DM (diabetes mellitus) ICD Codes: E11.9 - Type 2 diabetes mellitus without complications Status: Acute Procedures None CBC/BMP: 03/05/17 0739 03/05/17 0739 Significant Findings Laboratory Tests Test 03/03/17 06:50 03/05/17 07:39 Blood Urea Nitrogen 23 MG/DL (7-18) 23 MG/DL (7-18) Creatinine 1.50 MG/DL (0.50-1.00) 1.09 MG/DL (0.50-1.00) Random Glucose 193 MG/DL (74-106) Estimat Glomerular Filtration Rate 41 ML/MIN (>89) 59 ML/MIN (>89) Red Blood Count 3.58 MIL/MM3 (4.00-5.30) Hemoglobin 9.2 GM/DL (11.6-15.3) Hematocrit 28.3 % (35.0-46.0) Mean Corpuscular Volume 79.0 FL (80.0-100.0) Mean Corpuscular Hemoglobin 25.7 PG (27.0-34.0) Red Cell Distribution Width 19.0 % (11.6-17.2) Neutrophils (%) (Auto) 71.4 % (16.0-70.0) Monocytes (%) (Auto) 9.9 % (0.0-8.0) Calcium Level 7.9 MG/DL (8.5-10.1) Potassium Level 3.1 MEQ/L (3.5-5.1) PE at Discharge GENERAL: SKIN: Warm and dry. HEAD: Atraumatic. Normocephalic. EYES: Pupils equal and round. No scleral icterus. No injection or drainage. ENT: No nasal bleeding or discharge. Mucous membranes pink and moist. NECK: Trachea midline. No JVD. CARDIOVASCULAR: Regular rate and rhythm. RESPIRATORY: No accessory muscle use. Clear to auscultation. Breath sounds equal bilaterally. GASTROINTESTINAL: Abdomen soft, non-tender, nondistended. Hepatic and splenic margins not palpable. MUSCULOSKELETAL: Extremities without clubbing, cyanosis, or edema. No obvious deformities. NEUROLOGICAL: Awake and alert. No obvious cranial nerve deficits. Motor grossly within normal limits. Five out of 5 muscle strength in the arms and legs. Normal speech. PSYCHIATRIC: Appropriate mood and affect; insight and judgment normal. Hospital Course 1. COPD: Chronic Respiratory Failure w/ Acute Exacerbation, O2 Dependent on 3L NC. S/p Solu-Medrol and DuoNeb in ER, will continue w/ Solu-Medrol, DuoNeb, Symbicort, Mucinex, monitor O2. continue Bronchodilator, Mucolytic and incentive spirometry. Steroids, consulted Primary exhibition specialist physician Doctor Miller. 2. PNA: Pt w/ Multiple ALLERGIES to antibiotics, s/p Azactam/Clinda in ER. 3. Failed Outpt Tx: Recent ER presentation 02/26/17 for similar complaints, CXR w/ bilateral opacities, possibly infiltrates, d/c'd home on Doxycycline 100mg bid, now w/ improved but persistent PNA. Continue w/ treatment as above. 4. Renal Insufficiency: Chronic. Creatinine 1.18, producing 1.41 on 02/26/17. follow in am tomorrow. 5. Hypertensive Urgency continue Home medicines, will switch from Metoprolol to Coreg 3.125 mg bid. 6. DM: Sliding scale with Accu-Cheks. medium dose sliding scale. uncontrolled due to the use of Steroids 7. Bipolar Disorder: Stable. Seroquel 100 mg at bedtime. 8. CARMEN on CPAP Respiratory therapy to follow. 9. Obesity - diet and exercise HYPO K, REPLACE K. DC HOME W PT Discharge Disposition: Disch w/ Home Health Serv Discharge Instructions DIET: Follow Instructions for: Diabetic Diet Activities you can perform: Regular-No Restrictions Continued Medications: Albuterol 8.5 GM Inh (Proair Hfa 8.5 GM Inh) 90 Mcg/Act Aer 2 PUFF INH Q4-6H PRN for SHORTNESS OF BREATH, #1 INHALER 1 Refill 108 mcg/actuation Albuterol Neb (Albuterol Neb) 2.5 Mg/0.5 Ml Neb 2.5 MG NEB TID NEB PRN for SHORTNESS OF BREATH, #90 NEBULE 0 Refills Note: The Albuterol Sulfate Inhalation Solution is concentrated and must be diluted. Read complete instructions carefully before using. Amlodipine (Norvasc) 5 Mg Tab 5 MG PO DAILY for Blood Pressure Management, #30 TAB 0 Refills Aspirin (Aspirin Low Dose) 81 Mg Chew 81 MG PO DAILY, TAB 0 Refills Beclomethasone Nasal (Qnasl Nasal) 80 Mcg/Act Aero 2 SPRAY NASAL DAILY for Allergies, #1 INHALER 0 Refills To each nostril. Furosemide (Furosemide) 40 Mg Tab 40 MG PO DAILY, #30 TAB 0 Refills Gabapentin (Gabapentin) 100 Mg Cap 100 MG PO TID, #90 CAP 0 Refills Insulin Glargine Inj (Lantus Inj) 1,000 Unit/10 Ml Vial 18 UNITS SQ BID for Blood Sugar Management, VIAL 0 Refills Levothyroxine (Synthroid) 25 Mcg Tab 150 PO DAILY for Thyroid, #30 TAB 0 Refills Lorazepam (Lorazepam) 0.5 Mg Tab 0.5 MG PO DAILY PRN for ANXIETY, TAB 0 Refills Metoprolol Tartrate (Metoprolol Tartrate) 100 Mg Tab 100 MG PO DAILY, #30 TAB 0 Refills Nitroglycerin SL (Nitroglycerin SL) 0.4 Mg Subl 0.4 MG SL DIRECTED PRN for CHEST PAIN, #100 TAB.SL 0 Refills ONE TABLET UNDER THE TONGUE NEEDED FOR CHEST PAIN, MAY REPEAT EVERY FIVE MINUTES FOR A TOTAL OF 3 DOSES OR CALL 911 IF NO RELIEF Paroxetine (Paxil) 30 Mg Tab 30 MG PO DAILY, #30 TAB 0 Refills Quetiapine (Seroquel) 100 Mg Tab 100 MG PO HS, TAB 0 Refills Risperidone (Risperidone) 0.5 Mg Tab 0.5 MG PO DAILY, #30 TAB 0 Refills Ghassan Gonzalez MD Mar 05, 2017 08:57
[2017-03-05] MEDS ORDERED: POTASSIUM CHLORIDE 20 MEQ CONTROLLED RELEASE TAB PO ONE (09:00)
--- NOTE | 2017-03-05 09:01 | HHI.FF ---
Face to Face Verification Diagnosis: (1) Pneumonia (2) COPD exacerbation (3) Bipolar disorder (4) Renal insufficiency (5) Cough (6) CHF (congestive heart failure) (7) Hyperglycemia (8) Hypertensive urgency Physical Therapy Order: Evaluate and Treat, Improve ambulation, Strength and gait training Occupational Therapy Order: Evaluate and Treat, Improve ADL, Gross motor coordination Home Health Nursing Order: Medical education Diabetic education CHF education Medication education-adverse effect Nursing assessment with vital signs Telehealth Home Health Aide Order: To Assist In: Bathing and personal care, supervisor of guidance and testing and meal prep Check Embosser Order: To Evaluate: Living conditions/environment, Support services Order: To Provide: Long range planning, Community services I have seen patient Rylee Nava on 03/05/17. My clinical findings support the need for the requested home health care services because: Ltd mobility - disease progression Patient has SOB Deconditioned w/ increased weakness Med compliance is questionable Limited ability to care for self Need for psychosocial assistance Impaired cognition/judgement High risk of falls Infection w/ risk of complications I certify that my clinical findings support that this patient is homebound because: Impaired cognitive ability/safety Hx COPD- exertion dyspnea/weakness Unsteady gait/balance Unsafe to leave home unassisted Need for psychosocial assistance Unable to use public transportation Poor cardiac reserve Ghassan Gonzalez MD Mar 05, 2017 09:01
[2017-03-05 09:02] LABS: SCAN/DIFF AUTO DIFF CONFIRMED
[2017-03-05] MEDS: FUROSEMIDE 40 MG TAB PO SCH (09:27)
[2017-03-05] MEDS: ASPIRIN 81 MG CHEW TAB PO SCH (09:27)
[2017-03-05] MEDS: amLODIPine BESYLATE 5 MG TAB PO SCH (09:28)
[2017-03-05] MEDS: PARoxetine HCL 20 MG TAB PO SCH (09:28)
[2017-03-05] MEDS: predniSONE 20 MG TAB PO SCH (09:28)
[2017-03-05] MEDS: guaiFENesin E.R. 600 MG TAB PO SCH (09:28)
[2017-03-05] MEDS: DOCUSATE SODIUM 50 MG/SENNA 8.6 MG TAB PO SCH (09:29)
[2017-03-05] MEDS: CARVEDILOL 3.125 MG TAB PO SCH (09:29)
[2017-03-05] MEDS: GABAPENTIN 100 MG CAP PO SCH (09:29)
[2017-03-05] MEDS: HEPARIN SODIUM - SQ 10,000 UNITS/ML VIAL SQ SCH (09:29)
[2017-03-05] MEDS: INSULIN DETEMIR 100 UNITS/ML VIAL SQ SCH (09:31)
[2017-03-05] MEDS: INSULIN ASPART 1,000 UNITS/10 ML VIAL SQ SCH (09:32)
[2017-03-05] MEDS: SODIUM CHLORIDE 0.9% FLUSH 10 ML FLUSH IV FLUSH SCH (09:33)
== END 2017-03-05 12:10 | disposition home health service (06) | DRG 190 ==
LOC: NEPD 17:00 → NEDA 20:44 → N06B 21:50
PROVIDERS: ADMIT Family Medicine; ATTEND Family Medicine
PROC: 3E0F7GC Introduction of Other Therapeutic Substance into Respiratory Tract, Via Natural or Artificial Opening (ICD-10-PCS; principal; 2017-03-01)
DX: J44.0 Chronic obstructive pulmonary disease with (acute) lower respiratory infection (principal); J18.9 Pneumonia, unspecified organism; J96.20 Acute and chronic respiratory failure, unspecified whether with hypoxia or hypercapnia; I13.0 Hypertensive heart and chronic kidney disease with heart failure and stage 1 through stage 4 chronic kidney disease, or unspecified chronic kidney disease; E11.22 Type 2 diabetes mellitus with diabetic chronic kidney disease; I50.9 Heart failure, unspecified; E11.65 Type 2 diabetes mellitus with hyperglycemia; J44.1 Chronic obstructive pulmonary disease with (acute) exacerbation; N18.9 Chronic kidney disease, unspecified; I25.10 Atherosclerotic heart disease of native coronary artery without angina pectoris; Z99.81 Dependence on supplemental oxygen; M19.90 Unspecified osteoarthritis, unspecified site; E78.00 Pure hypercholesterolemia, unspecified; Z98.1 Arthrodesis status; Z87.891 Personal history of nicotine dependence; F31.9 Bipolar disorder, unspecified; Z88.1 Allergy status to other antibiotic agents; E66.9 Obesity, unspecified; G47.33 Obstructive sleep apnea (adult) (pediatric); I16.0 Hypertensive urgency; E03.9 Hypothyroidism, unspecified; E87.6 Hypokalemia
CPT/HCPCS: 71010; 71020; 80048; 80053; 82550; 82948; 83036; 83735; 83880; 84100; 84484; 85025; 85610; 85730; 86403; 87040; 87186; 87205; 93005; 94640; 94664; 96374; 99285; J1644; J1815; J2405; J2920; J2930; J7512; J7626

== ENCOUNTER 2017-03-19 14:16 | Emergency (ER) | payer MEDICARE, MEDICAID ==
[~2017-03-19 14:16] MED LIST changes: -AMLO5TAB2 PO; -DOXY1CAP91 PO; -FERR325T86 PO; -ISOS30TA15 PO; -LIDO1PAD52 TOPICAL; -LISI40TA PO; -MECL-62 PO; -NOVOLOGP2 SQ; -OMEP40CA2 PO; -POTA10CA PO; +SERO100T PO; -ZOFR4TAB3 SL
[2017-03-19 14:17] VITALS: BP 204/92; PULSE 89; RESP 20; TEMP 97.8; O2SAT 97
--- NOTE | 2017-03-19 14:22 | PD ---
HPI Chief Complaint: Medical Clearance Time Seen by Provider: 14:22 Travel History International Travel<30 days: No Contact w/Intl Traveler<30days: No Traveled to known affect area: No History of Present Illness HPI 76-year-old female with history of COPD, oxygen dependent, presents to the emergency department requesting oxygen refill. Patient has contacted her company but they have been unable to deliver oxygen and did not know when they will be able to. She denies any acute symptoms at this time. Patient states she is on 3 L nasal cannula at home and her take is about to run empty. She has no other symptoms reported. Patient does states she forgot to take her antihypertensives this morning. History Past Medical Histgory Menopausal: Yes Hx Cancer: No Hx Chemotherapy: No Hx Radiation Therapy: No Social History Alcohol Use: Yes (OCC) Tobacco Use: No (40YR AGO) Allergies-Medications (Allergen,Severity, Reaction): Coded Allergies: Sulfa (Sulfonamide Antibiotics) (Unverified Allergy, Intermediate, Rash, ) ceftriaxone (Unverified Allergy, Intermediate, Rash, 03/01/17) morphine (Unverified Allergy, Intermediate, Hallucinations, 03/01/17) moxifloxacin (Unverified Allergy, Intermediate, Rash, 03/01/17) vancomycin (Unverified Allergy, Intermediate, Diarrhea, 03/01/17) azithromycin (Unverified Allergy, Unknown, 03/01/17) ciprofloxacin (Unverified Allergy, Unknown, 03/01/17) dobutamine (Unverified Allergy, Unknown, 03/01/17) methadone (Unverified Allergy, Unknown, 03/01/17) penicillin G (Unverified Allergy, Unknown, 03/01/17) prochlorperazine (Unverified Allergy, Unknown, 03/01/17) venlafaxine (Unverified Allergy, Unknown, 03/01/17) Reported Meds & Prescriptions Reported Meds & Active Scripts Active Proair Hfa 8.5 GM Inh (Albuterol Sulfate) 90 Mcg/Act Aer 2 Puff INH Q4-6H PRN 108 mcg/actuation Reported Seroquel (Quetiapine Fumarate) 100 Mg Tab 100 Mg PO HS Qnasl Nasal (Beclomethasone Nasal) 80 Mcg/Act Aero 2 [place] NASAL DAILY To each nostril. Norvasc (Amlodipine Besylate) 5 Mg Tab 5 Mg PO DAILY Albuterol Neb (Albuterol Sulfate) 2.5 Mg/0.5 Ml Neb 2.5 Mg NEB TID NEB PRN Note: The Albuterol Sulfate Inhalation Solution is concentrated and must be diluted. Read complete instructions carefully before using. Lorazepam 0.5 Mg Tab 0.5 Mg PO DAILY PRN Risperidone 0.5 Mg Tab 0.5 Mg PO DAILY Gabapentin 100 Mg Cap 100 Mg PO TID Paxil (Paroxetine HCl) 30 Mg Tab 30 Mg PO DAILY Furosemide 40 Mg Tab 40 Mg PO DAILY Nitroglycerin SL (Nitroglycerin) 0.4 Mg Subl 0.4 Mg SL DIRECTED PRN ONE TABLET UNDER THE TONGUE NEEDED FOR CHEST PAIN, MAY REPEAT EVERY FIVE MINUTES FOR A TOTAL OF 3 DOSES OR CALL 911 IF NO RELIEF Lantus Inj (Insulin Glargine) 1,000 Unit/10 Ml Vial 18 Units SQ BID Aspirin Low Dose (Aspirin) 81 Mg Chew 81 Mg PO DAILY Metoprolol Tartrate 100 Mg Tab 100 Mg PO DAILY Synthroid (Levothyroxine Sodium) 25 Mcg Tab 150 PO DAILY Review of Systems Except as stated in HPI: all other systems reviewed are Neg Physical Exam Narrative GENERAL: Well-nourished, well-developed elderly female patient, sitting in a wheelchair, in no acute distress SKIN: Focused skin assessment warm/dry. HEAD: Normocephalic. EYES: No scleral icterus. No injection or drainage. NECK: Supple, trachea midline. No JVD or lymphadenopathy. CARDIOVASCULAR: Regular rate and rhythm without murmurs, gallops, or rubs. RESPIRATORY: Breath sounds diminished equal bilaterally. No accessory muscle use. GASTROINTESTINAL: Abdomen soft, non-tender, nondistended. MUSCULOSKELETAL: No cyanosis, or edema. BACK: Nontender without obvious deformity. No CVA tenderness. Data Data Last Documented VS Vital Signs Date Time Temp Pulse Resp B/P (MAP) Pulse Ox O2 Delivery O2 Flow Rate FiO2 03/19/17 14:17 97.8 89 20 204/92 (129) 97 Nasal Cannula 3.00 MDM Medical Screen Exam Complete: Yes Emergency Medical Condition: No Differential Diagnosis Oxygen refill Narrative Course 76 year female presents to emergency department requesting a refill of her oxygen. Patient appears without distress. She is on 3 L nasal cannula at home and is about to run out. I have discussed the patient with my attending as well as directed the ED. We'll be able to supply patient with an oxygen tank. With no significant need for medical intervention identify, patient will be screened out nonemergency, to follow-up with her primary care provider and return immediately with any acute worsening of symptoms. A medical screening exam was performed: At the time of evaluation the presenting medical condition was determined not to be of an emergent nature. The patient was given the option of receiving additional care, but declined. Patient was given options for additional community resources from which to obtain care. The Patient Has Been advised to seek medical attention for their presenting complaint. The patient has been advised to return to the ER at any time if an emergent condition develops. Primary Impression: Encounter for medical screening examination Condition: Kayleen Wayne Mar 19, 2017 14:22
== END 2017-03-19 15:34 | disposition left against medical advice (07) ==
LOC: NETRI 14:16
DX: Z76.0 Encounter for issue of repeat prescription (principal); J44.9 Chronic obstructive pulmonary disease, unspecified; Z99.81 Dependence on supplemental oxygen; Z79.51 Long term (current) use of inhaled steroids; Z79.899 Other long term (current) drug therapy; Z88.2 Allergy status to sulfonamides; Z88.5 Allergy status to narcotic agent; Z88.0 Allergy status to penicillin; Z88.8 Allergy status to other drugs, medicaments and biological substances
CPT/HCPCS: 99281

== ENCOUNTER 2017-06-11 00:27 | Emergency (ER) | payer MEDICARE, MEDICAID ==
[~2017-06-11] VITALS: Ht 160 cm; Wt 110.0 kg
[~2017-06-11 00:27] MED LIST changes: -ASPI81CH37 PO; +ASPI81CH6 PO; -LORA-373 PO; +LORA0.5T PO
[2017-06-11 00:30] VITALS: BP 185/74; PULSE 56; RESP 22; TEMP 97.8; O2SAT 96
--- NOTE | 2017-06-11 02:05 | PD ---
HPI Chief Complaint: Respiratory Symptoms Time Seen by Provider: 01:59 Travel History International Travel<30 days: No Contact w/Intl Traveler<30days: No Traveled to known affect area: No History of Present Illness HPI 76 showed female with history of COPD, CHF, here for evaluation of shortness of breath and cough. The patient reports his symptoms have been going on for last 2 days, and has kept her from sleeping tonight. No chest pain. Cough is productive, however she states she has been swallowing the sputum and has not seen what it looks like. No fevers or chills. PFSH Past Medical History Arthritis: Yes Asthma: Yes Anxiety: No Depression: No Heart Rhythm Problems: Yes (has loop recorder) Cancer: No Cardiovascular Problems: Yes High Cholesterol: Yes Chemotherapy: No Chest Pain: Yes Congestive Heart Failure: Yes COPD: Yes Coronary Artery Disease: Yes Diabetes: Yes Patient Takes Glucophage: Yes Diminished Hearing: No Endocrine: Yes (diabetic) Genitourinary: No Hypertension: Yes Immune Disorder: No Implanted Vascular Access Dvce: Yes (LOOP RECORDER) Musculoskeletal: Yes Neurologic: No Psychiatric: No Reproductive: No Respiratory: Yes Radiation Therapy: No Renal Failure: Yes (chronic kidney disease) Sleep Apnea: Yes (CPAP) Thyroid Disease: Yes Tetanus Vaccination: < 5 Years Influenza Vaccination: Yes Menopausal: Yes Past Surgical History AICD: Yes (loop recorder to left chest) Cardiac Surgery: Yes (implanted loop recorder) Hysterectomy: Yes Neurologic Surgery: Yes (C-spine fusion) Pacemaker: No Thoracic Surgery: No Tonsillectomy: Yes Other Surgery: Yes (HERNIA) Social History Alcohol Use: Yes (OCC) Tobacco Use: No (40YR AGO) Substance Use: No Allergies-Medications (Allergen,Severity, Reaction): Coded Allergies: Sulfa (Sulfonamide Antibiotics) (Unverified Allergy, Intermediate, Rash, 06/11/17) ceftriaxone (Unverified Allergy, Intermediate, Rash, 06/11/17) morphine (Unverified Allergy, Intermediate, Hallucinations, 06/11/17) moxifloxacin (Unverified Allergy, Intermediate, Rash, 06/11/17) vancomycin (Unverified Allergy, Intermediate, Diarrhea, 06/11/17) azithromycin (Unverified Allergy, Unknown, 06/11/17) ciprofloxacin (Unverified Allergy, Unknown, 06/11/17) dobutamine (Unverified Allergy, Unknown, 06/11/17) methadone (Unverified Allergy, Unknown, 06/11/17) penicillin G (Unverified Allergy, Unknown, 06/11/17) prochlorperazine (Unverified Allergy, Unknown, 06/11/17) venlafaxine (Unverified Allergy, Unknown, 06/11/17) Reported Meds & Prescriptions Reported Meds & Active Scripts Active Proair Hfa 8.5 GM Inh (Albuterol Sulfate) 90 Mcg/Act Aer 2 Puff INH Q4-6H PRN 108 mcg/actuation Reported Seroquel (Quetiapine Fumarate) 100 Mg Tab 100 Mg PO HS Qnasl Nasal (Beclomethasone Nasal) 80 Mcg/Act Aero 2 [place] NASAL DAILY To each nostril. Norvasc (Amlodipine Besylate) 5 Mg Tab 5 Mg PO DAILY Albuterol Neb (Albuterol Sulfate) 2.5 Mg/0.5 Ml Neb 2.5 Mg NEB TID NEB PRN Note: The Albuterol Sulfate Inhalation Solution is concentrated and must be diluted. Read complete instructions carefully before using. Lorazepam 0.5 Mg Tab 0.5 Mg PO DAILY PRN Risperidone 0.5 Mg Tab 0.5 Mg PO DAILY Gabapentin 100 Mg Cap 100 Mg PO TID Paxil (Paroxetine HCl) 30 Mg Tab 30 Mg PO DAILY Furosemide 40 Mg Tab 40 Mg PO DAILY Nitroglycerin SL (Nitroglycerin) 0.4 Mg Subl 0.4 Mg SL DIRECTED PRN ONE TABLET UNDER THE TONGUE NEEDED FOR CHEST PAIN, MAY REPEAT EVERY FIVE MINUTES FOR A TOTAL OF 3 DOSES OR CALL 911 IF NO RELIEF Lantus Inj (Insulin Glargine) 1,000 Unit/10 Ml Vial 18 Units SQ BID Aspirin Low Dose (Aspirin) 81 Mg Chew 81 Mg PO DAILY Metoprolol Tartrate 100 Mg Tab 100 Mg PO DAILY Synthroid (Levothyroxine Sodium) 25 Mcg Tab 150 PO DAILY Review of Systems Except as stated in HPI: all other systems reviewed are Neg Physical Exam Narrative GENERAL: Well-developed, well-nourished, overweight, coughing SKIN: Focused skin assessment warm/dry. HEAD: Atraumatic. Normocephalic. EYES: Pupils equal and round. No scleral icterus. No injection or drainage. ENT: Mucous membranes pink and moist. NECK: Trachea midline. No JVD. CARDIOVASCULAR: Regular rate and rhythm. No murmur appreciated. RESPIRATORY: No accessory muscle use. Mild intertriginous returned wheezes bilaterally. No rales or rhonchi. Breath sounds equal bilaterally. GASTROINTESTINAL: Abdomen soft, non-tender, nondistended. Hepatic and splenic margins not palpable. MUSCULOSKELETAL: No obvious deformities. No clubbing. No cyanosis. No edema. NEUROLOGICAL: Awake and alert. No obvious cranial nerve deficits. Motor grossly within normal limits. Normal speech. PSYCHIATRIC: Appropriate mood and affect; insight and judgment normal. Data Data Last Documented VS Vital Signs Date Time Temp Pulse Resp B/P (MAP) Pulse Ox O2 Delivery O2 Flow Rate FiO2 06/11/17 02:32 95 Nasal Cannula 2.00 06/11/17 02:32 55 23 190/89 (122) 06/11/17 00:30 97.8 Orders Orders Complete Blood Count With Diff (06/11/17 02:02) Comprehensive Metabolic Panel (06/11/17 02:02) B-Type Natriuretic Peptide (06/11/17 02:02) Act Partial Throm Time (Ptt) (06/11/17 02:02) Prothrombin Time / Inr (Pt) (06/11/17 02:02) Ckmb (Isoenzyme) Profile (06/11/17 02:02) Troponin I (06/11/17 02:02) Influenzae A/B Antigen (06/11/17 02:02) Iv Access Insert/Monitor (06/11/17 02:02) Electrocardiogram (06/11/17 02:02) Ecg Monitoring (06/11/17 02:02) Oximetry (06/11/17 02:02) Oxygen Administration (06/11/17 02:02) Chest, Single Ap (06/11/17 02:02) Sodium Chloride 0.9% Flush (Ns Flush) (06/11/17 02:15) Methylprednisolone So Succ Inj (Solumedr (06/11/17 02:15) Albuterol-Ipratropium Neb (Duoneb Neb) (06/11/17 02:15) CKMB (06/11/17 02:25) CKMB% (06/11/17 02:25) Labs Laboratory Tests Test 06/11/17 02:25 White Blood Count 6.5 TH/MM3 Red Blood Count 4.04 MIL/MM3 Hemoglobin 10.1 GM/DL Hematocrit 31.7 % Mean Corpuscular Volume 78.5 FL Mean Corpuscular Hemoglobin 25.0 PG Mean Corpuscular Hemoglobin Concent 31.9 % Red Cell Distribution Width 16.4 % Platelet Count 166 TH/MM3 Mean Platelet Volume 9.6 FL Neutrophils (%) (Auto) 59.7 % Lymphocytes (%) (Auto) 28.5 % Monocytes (%) (Auto) 7.3 % Eosinophils (%) (Auto) 4.1 % Basophils (%) (Auto) 0.4 % Neutrophils # (Auto) 3.9 TH/MM3 Lymphocytes # (Auto) 1.9 TH/MM3 Monocytes # (Auto) 0.5 TH/MM3 Eosinophils # (Auto) 0.3 TH/MM3 Basophils # (Auto) 0.0 TH/MM3 CBC Comment DIFF FINAL Differential Comment Prothrombin Time 10.2 SEC Prothromb Time International Ratio 1.0 RATIO Activated Partial Thromboplast Time 25.4 SEC Blood Urea Nitrogen 24 MG/DL Creatinine 1.38 MG/DL Random Glucose 90 MG/DL Total Protein 7.8 GM/DL Albumin 3.5 GM/DL Calcium Level 9.1 MG/DL Alkaline Phosphatase 184 U/L Aspartate Amino Transf (AST/SGOT) 18 U/L Alanine Aminotransferase (ALT/SGPT) 16 U/L Total Bilirubin 0.2 MG/DL Sodium Level 143 MEQ/L Potassium Level 4.0 MEQ/L Chloride Level 107 MEQ/L Carbon Dioxide Level 29.9 MEQ/L Anion Gap 6 MEQ/L Estimat Glomerular Filtration Rate 45 ML/MIN Total Creatine Kinase 202 U/L Creatine Kinase MB 2.4 NG/ML Creatine Kinase MB % 1.2 % Troponin I LESS THAN 0.02 NG/ML B-Type Natriuretic Peptide 175 PG/ML [facility] Medical Decision Making Medical Screen Exam Complete: Yes Emergency Medical Condition: Yes Medical Record Reviewed: Yes Differential Diagnosis COPD exacerbation, pneumonia, pneumothorax, PE, ACS, pulmonary edema/CHF Narrative Course Initial vital signs show heart rate 56, blood pressure 185/74, pulse ox 96% on room air, oral temp of 97.8F. CBC is remarkable for hemoglobin 10.1, hematocrit 31.7 which is around her baseline, otherwise unremarkable. CMP is essentially unremarkable. BNP is 175. Cardiac enzymes are negative. Influenza is negative. Chest x-ray: Moderate cardiomegaly again noted with no definite evidence of pulmonary edema or pneumonia. The patient was given 3 DuoNeb treatments and IV Solu-Medrol, and on reassessment she is sleeping comfortably. She is no longer wheezing and his not in any respiratory distress. Both the patient and the patient's family member were made aware of all findings. She is stable for discharge home with outpatient follow-up with her primary care physician whom she has an appointment with this Saturday. She was informed on when to return to the emergency department. She verbalizes understanding and agreement with plan. Diagnosis Primary Impression: COPD exacerbation Referrals: Primary Care Physician 3 days Additional Instructions: Follow-up with your primary care physician this week as scheduled. Return to the emergency department for worsening symptoms or any other concerns. Scripts Prednisone (Prednisone) 50 Mg Tab 50 MG PO DAILY for 5 Days, #5 TAB 0 Refills Prov: Caleb Franklin MD 06/11/17 Disposition: 01 DISCHARGE HOME Condition: Stable Caleb Franklin MD Jun 11, 2017 02:05
[2017-06-11] MEDS ORDERED: methylPREDNISolone SOD SUCC 125 MG/2 ML VIAL IV PUSH ONE (02:15)
[2017-06-11] MEDS ORDERED: SODIUM CHLORIDE 0.9% FLUSH 10 ML FLUSH IVF PRN (02:15)
[2017-06-11] MEDS: RESP: ALBUTEROL 2.5 MG/IPRATROPIUM 0.5 MG NEB (SCH) INH (02:29)
[2017-06-11 02:32] VITALS: BP 190/89; PULSE 55; RESP 23
--- NOTE | 2017-06-11 02:36 | RADRPT ---
EXAM DATE/TIME: 06/11/2017 02:16 [facility] COMPARISON: CHEST SINGLE AP, February 26, 2017, 19:53. INDICATIONS : Cough. MEDICAL HISTORY : Chronic obstructive pulmonary disease. Congestive heart failure. SURGICAL HISTORY : Tonsillectomy. Hysterectomy. Cervical fusion. ENCOUNTER: Initial ACUITY: 1 day PAIN SCORE: 0/10 LOCATION: Bilateral chest FINDINGS: A single view of the chest demonstrates the lungs to be symmetrically aerated without evidence of mas s, infiltrate or effusion. The heart size remains moderately enlarged with globular heart configurat ion. Osseous structures are intact. CONCLUSION: Moderate cardiomegaly again noted with no definite evidence of pulmonary edema or pne umonia. Filemon Regan MD on June 11, 2017 at 2:34 Board Certified Radiologist. This report was verified electronically.
[2017-06-11 03:12] LABS: AUTOMATED NEUTROPHIL # 3.9 TH/MM3 (1.8-7.7); BASOPHIL % 0.4 % (0.0-2.0); EOSINOPHIL # 0.3 TH/MM3 (0-0.4); EOSINOPHIL % 4.1 % (0.0-4.0); HEMATOCRIT 31.7 % (35.0-46.0); HEMO FLAGS DIFF FINAL; LYMPH % 28.5 % (9.0-44.0); LYMPHOCYTE # 1.9 TH/MM3 (1.0-4.8); MEAN CELL VOLUME 78.5 FL (80.0-100.0); MEAN CORPUSCULAR HGB CONC 31.9 % (32.0-36.0); MONO % 7.3 % (0.0-8.0); NEUT % 59.7 % (16.0-70.0); PLATELET COUNT 166 TH/MM3 (150-450); RED BLOOD COUNT 4.04 MIL/MM3 (4.00-5.30); RED CELL DISTRIBUTION WIDTH 16.4 % (11.6-17.2); WHITE BLOOD COUNT 6.5 TH/MM3 (4.0-11.0)
[2017-06-11 03:34] LABS: APTT (PATIENT) 25.4 SEC (24.3-30.1); PROTHROMBIN TIME - PATIENT 10.2 SEC (9.8-11.6)
[2017-06-11 03:37] LABS: ALKALINE PHOSPHATASE 184 U/L (45-117); ALT (GPT) 16 U/L (10-53); AST (GOT) 18 U/L (15-37); BLOOD UREA NITROGEN 24 MG/DL (7-18); CHLORIDE 107 MEQ/L (98-107); CREATINE KINASE 202 U/L (26-192); GLOMERULAR FILTRATION RATE 45 ML/MIN (>89); TOTAL BILIRUBIN ADULT 0.2 MG/DL (0.2-1.0)
[2017-06-11 03:38] LABS: ANION GAP 6 MEQ/L (5-15); BICARBONATE 29.9 MEQ/L (21.0-32.0); SODIUM (NA) 143 MEQ/L (136-145)
[2017-06-11 03:48] LABS: CKMB 2.4 NG/ML (0.5-3.6)
[2017-06-11] MEDS ORDERED: PRED50 PO (04:12)
--- NOTE | 2017-06-11 14:40 | EKG ---
Date Performed: 06/11/2017 Time Performed: 02:32:20 PTAGE: 76 years EKG: SINUS BRADYCARDIA WITH SINUS ARRHYTHMIA WITH FIRST DEGREE AV BLOCK NONSPECIFIC T-WAVE ABNOR MALITY ABNORMAL ECG Compared to prior tracing no significant change PREVIOUS TRACING : 03/01/2017 19.01 DOCTOR: Mirella Aldridge Interpretating Date/Time 06/11/2017 14:35:38
== END 2017-06-11 04:46 | disposition home or self-care (01) ==
LOC: NEPE 00:27
DX: J44.1 Chronic obstructive pulmonary disease with (acute) exacerbation (principal); R00.1 Bradycardia, unspecified; I49.8 Other specified cardiac arrhythmias; I44.0 Atrioventricular block, first degree; R94.31 Abnormal electrocardiogram [ECG] [EKG]; I13.0 Hypertensive heart and chronic kidney disease with heart failure and stage 1 through stage 4 chronic kidney disease, or unspecified chronic kidney disease; I50.9 Heart failure, unspecified; N18.9 Chronic kidney disease, unspecified; E11.22 Type 2 diabetes mellitus with diabetic chronic kidney disease
CPT/HCPCS: 71010; 80053; 82550; 82552; 83880; 84484; 85025; 85610; 85730; 87804; 93005; 94640; 94664; 96374; 99285; J2930

== ENCOUNTER 2017-09-06 05:01 | Observation (INO) | payer MEDICARE, MEDICAID ==
[~2017-09-06] VITALS: Ht 160 cm; Wt 5.0 kg
[2017-09-06] VITALS (15 sets, daily range): BP systolic 141–216; BP diastolic 63–90; PULSE 49–68; RESP 14–22; TEMP 97.5–98.5; O2SAT 96–100
[~2017-09-06 05:01] MED LIST changes: +PRED50 PO
[2017-09-06] MEDS ORDERED: PERC10TA27 PO (05:29)
[2017-09-06 05:52] LABS: BASOPHIL % 0.4 % (0.0-2.0); EOSINOPHIL # 0.3 TH/MM3 (0-0.4); EOSINOPHIL % 3.7 % (0.0-4.0); HEMATOCRIT 32.7 % (35.0-46.0); HEMOGLOBIN 10.4 GM/DL (11.6-15.3); LYMPH % 19.2 % (9.0-44.0); LYMPHOCYTE # 1.4 TH/MM3 (1.0-4.8); MEAN CELL VOLUME 78.8 FL (80.0-100.0); MEAN CORPUSCULAR HEMOGLOBIN 25.1 PG (27.0-34.0); MEAN CORPUSCULAR HGB CONC 31.9 % (32.0-36.0); MEAN PLATELET VOLUME 9.3 FL (7.0-11.0); MONO % 8.3 % (0.0-8.0); MONOCYTE # 0.6 TH/MM3 (0-0.9); NEUT % 68.4 % (16.0-70.0); PLATELET COUNT 161 TH/MM3 (150-450); RED BLOOD COUNT 4.15 MIL/MM3 (4.00-5.30); RED CELL DISTRIBUTION WIDTH 16.8 % (11.6-17.2); WHITE BLOOD COUNT 7.3 TH/MM3 (4.0-11.0)
[2017-09-06 06:14] LABS: ALBUMIN 3.8 GM/DL (3.4-5.0); AST (GOT) 21 U/L (15-37); BICARBONATE 25.1 MEQ/L (21.0-32.0); BLOOD UREA NITROGEN 42 MG/DL (7-18); CALCIUM 9.3 MG/DL (8.5-10.1); CHLORIDE 104 MEQ/L (98-107); CREATININE 2.24 MG/DL (0.50-1.00); GLOMERULAR FILTRATION RATE 26 ML/MIN (>89); GLUCOSE,RANDOM 89 MG/DL (74-106); SODIUM (NA) 139 MEQ/L (136-145)
[2017-09-06 06:15] LABS: ALT (GPT) 13 U/L (10-53)
[2017-09-06 06:25] LABS: ALKALINE PHOSPHATASE 124 U/L (45-117); TOTAL BILIRUBIN ADULT 0.3 MG/DL (0.2-1.0); TROPONIN I LESS THAN 0.02 NG/ML (0.02-0.05)
--- NOTE | 2017-09-06 06:44 | RADRPT ---
EXAM DATE/TIME: 09/06/2017 06:03 [facility] COMPARISON: CHEST SINGLE AP, June 11, 2017, 2:16. INDICATIONS : Short of breath. MEDICAL HISTORY : Diabetes mellitus type II. Hypertension Chronic obstructive pulmonary disease. Hypothyroid.Conges tive heart failure. SURGICAL HISTORY : Tonsillectomy. Hysterectomy. Cervical fusion. Loop recorder. ENCOUNTER: Initial ACUITY: 1 day PAIN SCORE: 0/10 LOCATION: Bilateral chest FINDINGS: Moderately severe cardiomegaly is stable from prior. There is some indistinctness of bronchopulmonar y markings in the right infrahilar region which is unchanged from prior exam. Mild amount of fluid t racking along the right minor fissure. Both hemidiaphragms are well delineated. Left lung is clear. Loop recorder device in place. CONCLUSION: 1. Stable cardiomegaly. 2. Small right infrahilar infiltrate and possible fluid tracking along the right minor fissure. Fredo Alcocer MD on September 06, 2017 at 6:41 Board Certified Radiologist. This report was verified electronically.
--- NOTE | 2017-09-06 07:11 | PD ---
HPI Chief Complaint: Edema Time Seen by Provider: 05:27 Travel History International Travel<30 days: No Contact w/Intl Traveler<30days: No Traveled to known affect area: No History of Present Illness HPI Patient is a 77-year-old female with multiple allergies to medications she is insulin-dependent diabetic with hypertension and she is for the last few days not been very well feeling listless not hungry not urinating very much not wanting to eat daughter is worried that she is not doing well patient is home O2 2 L constantly for COPD she uses inhalers she does not have a nebulizer patient sleeps with a CPAP machine and patient in the ER is listless but awake and alert and able to give full history daughter provides better history of pt having listless and poor po intake and these symptoms have been progressively getting worse over the last 3 days PFSH Past Medical History Arthritis: Yes Asthma: Yes Anxiety: No Depression: No Heart Rhythm Problems: Yes Cancer: No Cardiovascular Problems: Yes (HTN, CHF) High Cholesterol: Yes Chemotherapy: No Chest Pain: Yes Congestive Heart Failure: Yes COPD: Yes Coronary Artery Disease: Yes Diabetes: Yes Patient Takes Glucophage: No Diminished Hearing: No Endocrine: Yes (diabetic) Genitourinary: No Hypertension: Yes Immune Disorder: No Implanted Vascular Access Dvce: Yes (LOOP RECORDER) Musculoskeletal: Yes Neurologic: No Psychiatric: No Reproductive: No Radiation Therapy: No Renal Failure: Yes (chronic kidney disease) Sleep Apnea: Yes (CPAP) Thyroid Disease: Yes Tetanus Vaccination: < 5 Years Influenza Vaccination: Yes Menopausal: Yes Past Surgical History AICD: Yes (loop recorder to left chest) Cardiac Surgery: Yes (implanted loop recorder) Hysterectomy: Yes Neurologic Surgery: Yes (C-spine fusion) Pacemaker: No Thoracic Surgery: No Tonsillectomy: Yes Other Surgery: Yes (HERNIA) Social History Alcohol Use: Yes (OCC) Tobacco Use: No (40YR AGO) Substance Use: No Allergies-Medications (Allergen,Severity, Reaction): Coded Allergies: Sulfa (Sulfonamide Antibiotics) (Unverified Allergy, Intermediate, Rash, 06/11/17) ceftriaxone (Unverified Allergy, Intermediate, Rash, 06/11/17) morphine (Unverified Allergy, Intermediate, Hallucinations, 06/11/17) moxifloxacin (Unverified Allergy, Intermediate, Rash, 06/11/17) vancomycin (Unverified Allergy, Intermediate, Diarrhea, 06/11/17) azithromycin (Unverified Allergy, Unknown, 06/11/17) ciprofloxacin (Unverified Allergy, Unknown, 06/11/17) dobutamine (Unverified Allergy, Unknown, 06/11/17) methadone (Unverified Allergy, Unknown, 06/11/17) penicillin G (Unverified Allergy, Unknown, 06/11/17) prochlorperazine (Unverified Allergy, Unknown, 06/11/17) venlafaxine (Unverified Allergy, Unknown, 06/11/17) Reported Meds & Prescriptions Reported Meds & Active Scripts Active Proair Hfa 8.5 GM Inh (Albuterol Sulfate) 90 Mcg/Act Aer 2 Puff INH Q4-6H PRN 108 mcg/actuation Reported Percocet (Oxycodone-Acetaminophen) 10-325 mg Tab 1 Tab PO Q4H PRN Seroquel (Quetiapine Fumarate) 100 Mg Tab 100 Mg PO HS Norvasc (Amlodipine Besylate) 5 Mg Tab 5 Mg PO DAILY Lorazepam 0.5 Mg Tab 0.5 Mg PO DAILY PRN Gabapentin 100 Mg Cap 100 Mg PO TID Paxil (Paroxetine HCl) 30 Mg Tab 30 Mg PO DAILY Nitroglycerin SL (Nitroglycerin) 0.4 Mg Subl 0.4 Mg SL DIRECTED PRN ONE TABLET UNDER THE TONGUE NEEDED FOR CHEST PAIN, MAY REPEAT EVERY FIVE MINUTES FOR A TOTAL OF 3 DOSES OR CALL 911 IF NO RELIEF Lantus Inj (Insulin Glargine) 1,000 Unit/10 Ml Vial 18 Units SQ BID Aspirin Low Dose (Aspirin) 81 Mg Chew 81 Mg PO DAILY Metoprolol Tartrate 100 Mg Tab 100 Mg PO DAILY Synthroid (Levothyroxine Sodium) 25 Mcg Tab 150 PO DAILY Physical Exam Narrative GENERAL: Awake alert nontoxic appearing SKIN: Warm and dry. HEAD: Atraumatic. Normocephalic. EYES: Pupils equal and round. No scleral icterus. No injection or drainage. ENT: No nasal bleeding or discharge. Mucous membranes pink and moist. NECK: Trachea midline. No JVD. CARDIOVASCULAR: Regular rate and rhythm. RESPIRATORY: No accessory muscle use. Clear to auscultation. Breath sounds equal bilaterally. GASTROINTESTINAL: Abdomen soft, non-tender, nondistended. Hepatic and splenic margins not palpable. MUSCULOSKELETAL: Extremities without clubbing, cyanosis, or edema. No obvious deformities. NEUROLOGICAL: Awake and alert. No obvious cranial nerve deficits. Motor grossly within normal limits. Five out of 5 muscle strength in the arms and legs. Normal speech. PSYCHIATRIC: Appropriate mood and affect; insight and judgment normal. Data Data Last Documented VS Orders Orders Complete Blood Count With Diff (09/06/17 05:27) Comprehensive Metabolic Panel (09/06/17 05:27) Ckmb (Isoenzyme) Profile (09/06/17 05:27) Troponin I (09/06/17 05:27) Lipase (09/06/17 05:27) Ua Includes Microscopic (09/06/17 05:27) Thyroid Stimulating Hormone (09/06/17 05:27) Chest, Single Ap (09/06/17 05:27) B-Type Natriuretic Peptide (09/06/17 05:31) CKMB (09/06/17 05:20) CKMB% (09/06/17 05:20) Clonidine (Catapres) (09/06/17 07:15) Amlodipine (Norvasc) (09/06/17 07:15) Sodium Chlor 0.9% 250 Ml Inj (Ns 250 Ml (09/06/17 07:30) Aztreonam Inj (Azactam Inj) (09/06/17 07:30) Albuterol-Ipratropium Neb (Duoneb Neb) (09/06/17 07:30) Admit Order (Ed Use Only) (09/06/17 07:26) Labs Laboratory Tests Test 09/06/17 05:20 White Blood Count 7.3 TH/MM3 Red Blood Count 4.15 MIL/MM3 Hemoglobin 10.4 GM/DL Hematocrit 32.7 % Mean Corpuscular Volume 78.8 FL Mean Corpuscular Hemoglobin 25.1 PG Mean Corpuscular Hemoglobin Concent 31.9 % Red Cell Distribution Width 16.8 % Platelet Count 161 TH/MM3 Mean Platelet Volume 9.3 FL Neutrophils (%) (Auto) 68.4 % Lymphocytes (%) (Auto) 19.2 % Monocytes (%) (Auto) 8.3 % Eosinophils (%) (Auto) 3.7 % Basophils (%) (Auto) 0.4 % Neutrophils # (Auto) 5.0 TH/MM3 Lymphocytes # (Auto) 1.4 TH/MM3 Monocytes # (Auto) 0.6 TH/MM3 Eosinophils # (Auto) 0.3 TH/MM3 Basophils # (Auto) 0.0 TH/MM3 CBC Comment DIFF FINAL Differential Comment Blood Urea Nitrogen 42 MG/DL Creatinine 2.24 MG/DL Random Glucose 89 MG/DL Total Protein 8.0 GM/DL Albumin 3.8 GM/DL Calcium Level 9.3 MG/DL Alkaline Phosphatase 124 U/L Aspartate Amino Transf (AST/SGOT) 21 U/L Alanine Aminotransferase (ALT/SGPT) 13 U/L Total Bilirubin 0.3 MG/DL Sodium Level 139 MEQ/L Potassium Level 3.8 MEQ/L Chloride Level 104 MEQ/L Carbon Dioxide Level 25.1 MEQ/L Anion Gap 10 MEQ/L Estimat Glomerular Filtration Rate 26 ML/MIN Total Creatine Kinase 352 U/L Creatine Kinase MB 2.4 NG/ML Creatine Kinase MB % 0.7 % Troponin I LESS THAN 0.02 NG/ML B-Type Natriuretic Peptide 276 PG/ML Lipase 56 U/L Thyroid Stimulating Hormone 3rd Gen 0.990 uIU/ML MDM Medical Decision Making Medical Screen Exam Complete: Yes Emergency Medical Condition: Yes Differential Diagnosis dehydration , vs CVA issue vs UTI with listless , vs other infection causing failure to thrive Narrative Course fluid hydration , UA and CXR evaluated and admitted to Dr Gonzalez Diagnosis Primary Impression: Dehydration, mild Admitting Information Admitting Physician Requests: Observation Scripts Doxycycline Hyclate (Doxycycline Hyclate) 100 Mg Cap 100 MG PO BID for Infection for 5 Days, #10 CAP 0 Refills Prov: Ghassan Gonzalez MD 09/10/17 Jerald Tellez MD Sep 06, 2017 07:11
[2017-09-06] MEDS ORDERED: amLODIPine BESYLATE 5 MG TAB PO ONE (07:15)
[2017-09-06] MEDS: cloNIDine HCL 0.2 MG TAB PO ONE ×2 (07:15→11:17)
[2017-09-06] MEDS ORDERED: RESP: ALBUTEROL 2.5 MG/IPRATROPIUM 0.5 MG NEB (SCH) NEB ONE (07:30)
[2017-09-06] MEDS ORDERED: SODIUM CHLOR 0.9% 250 ML INJ 250 ML IV ONE (07:30)
[2017-09-06] MEDS ORDERED: AZTREONAM INJ 1,000 MG in SODIUM CHLORIDE 0.9% INJ 100 ML IV ONE (07:30)
[2017-09-06] MEDS ORDERED: ACETAMINOPHEN 325 MG TAB PO PRN (07:45)
[2017-09-06] MEDS ORDERED: BISACODYL 10 MG SUPP RECTAL PRN (07:45)
[2017-09-06] MEDS ORDERED: NALOXONE HCL 0.4 MG/ML AMP IV PUSH PRN (07:45)
[2017-09-06] MEDS ORDERED: LACTULOSE SYRUP 20 GM/30 ML CUP PO PRN (07:45)
[2017-09-06] MEDS ORDERED: SODIUM CHLORIDE 0.9% FLUSH 10 ML FLUSH IV FLUSH PRN (07:45)
[2017-09-06] MEDS ORDERED: MAGNESIUM HYDROXIDE SUSP 30 ML CUP PO PRN (07:45)
[2017-09-06] MEDS ORDERED: SENNOSIDES 8.6 MG TAB PO PRN (07:45)
[2017-09-06] MEDS ORDERED: ONDANSETRON HCL 4 MG/2 ML VIAL IVP PRN (07:45)
[2017-09-06] MEDS: DOCUSATE SODIUM 50 MG/SENNA 8.6 MG TAB PO SCH ×2 (09:00→21:00)
[2017-09-06 09:09] LABS: BACTERIA, URINE RARE /hpf; BILIRUBIN, URINE NEG (NEG); BLOOD, URINE TRACE (NEG); GLUCOSE,URINE NEG (NEG); KETONE, URINE NEG (NEG); NITRITE,URINE NEG (NEG); SQUAMOUS EPITHELIAL CELL URINE <1 /hpf (0-5); URINE COLOR LIGHT-YELLOW (YELLW/STRAW); URINE LEUKOCYTE ESTERASE NEG (NEG)
[2017-09-06] MEDS: HEPARIN SODIUM - SQ 10,000 UNITS/ML VIAL SQ SCH ×2 (09:30→23:25)
[2017-09-06] MEDS: SODIUM CHLORIDE 0.9% FLUSH 10 ML FLUSH IV FLUSH SCH ×2 (09:30→21:00)
[2017-09-06] MEDS ORDERED: LORazepam 0.5 MG TAB PO PRN ×2 (09:45)
[2017-09-06] MEDS ORDERED: hydrALAZINE HCL 20 MG/ML VIAL IV PUSH PRN (10:00)
--- NOTE | 2017-09-06 11:09 | MH ---
cc: Ghassan Gonzalez MD DATE OF ADMISSION: 09/06/2017 CHIEF COMPLAINT: Shortness of breath and weakness. HISTORY OF PRESENT ILLNESS: Rylee Nava is a 77-year-old female with severe bipolar disease, who lives at home with her daughter. She has a recurrent history of altered mental status and syncopal reports and admissions for COPD. She has been in my office every few weeks, mainly for bipolar exacerbations and recurrent COPD and congestion. She had been pretty stable recently on Ativan and Seroquel at home. She apparently, for the last several days, has been not eating or urinating much. She presented to the emergency room and was found to be in renal failure and with pneumonia. She was given by the emergency room physician aztreonam and clindamycin. Patient now seen in the emergency room and she appears much weaker. She is able to sit up and she states that she feels like she is dehydrated and has been coughing more. PAST MEDICAL HISTORY: 1. COPD with chronic respiratory failure, on home O2. 2. Pneumonia. 3. Chronic kidney disease. 4. Diabetes. 5. Bipolar. 6. Sleep apnea. 7. Obesity. 8. Hypokalemia. SURGICAL HISTORY: 1. Loop recorder in the left chest. 2. Cervical spine fusion. 3. Hysterectomy. 4. Tonsillectomy. 5. Herniorrhaphy. SOCIAL HISTORY: No alcohol, tobacco or illicit drug usage. She drinks an occasional beer. She lives at home with her daughter, has help from other family members and is overall retired and/or disabled from bipolar and COPD. ALLERGIES: SULFA, ROCEPHIN, MORPHINE, MOXIFLOXACIN, VANCOMYCIN, AZITHROMYCIN, CIPRO, DOBUTAMINE, METHADONE, PENICILLIN G, PROCHLORPERAZINE, VENLAFAXINE. HOME MEDICATIONS: 1. Percocet 10 mg p.r.n. 2. Seroquel 100 at bedtime. 3. Norvasc 5 mg daily. 4. Lorazepam 0.5 daily p.r.n. 5. Gabapentin 100 t.i.d. 6. Paxil 30 daily. 7. Furosemide 40 daily. 8. Nitroglycerin p.r.n. 9. Lantus. 10. Aspirin 81. 11. Metoprolol tartrate 100 daily. 12. Levothyroxine 25 mcg daily. REVIEW OF SYSTEMS: Shortness of breath, weakness and dehydration. She has had variable mood changes. Negative 14-point review of systems otherwise. LABORATORIES: WBC is 7.3, hemoglobin 10.4, platelets 161. INR 1.0. Creatinine 2.24, BUN 42, alk phos 124. CK 352. BNP 276. IMAGING: Chest x-ray shows cardiomegaly, right side infiltrate. VITALS: Pulse 64, respirations 18. Blood pressure was 216/89, now recheck 162/83. O2 is 99% on 2 L. PHYSICAL EXAMINATION: GENERAL: She is an alert elder female. She is sleeping. She arouses to voice. She is able to sit up with some assistance. HEENT: Oropharynx is clear. No JVD. Normocephalic, atraumatic. CHEST: Right mid and lower crackles and patchy rhonchi otherwise in all robles. Slight end expiratory wheeze. Harsh weak cough. CARDIOVASCULAR: Regular rate and rhythm. No murmurs, rubs, clicks or gallops. ABDOMEN: Obese, nontender. Normoactive bowel sounds. No organomegaly. EXTREMITIES: No edema. Good pulses. SKIN: Clear. NEUROLOGIC: A and O x 3. She is in slight distress due to coughing. Cranial nerves are intact. Sensation is intact. Strength is 5/5 in the upper and lower extremities. MUSCULOSKELETAL: Pain with range of motion of her neck, mid and low back. ASSESSMENT: 1. Healthcare-associated pneumonia. 2. Acute kidney injury on chronic kidney disease stage III. 3. Rhabdomyolysis. 4. Chronic obstructive pulmonary disease. 5. Sleep apnea. 6. Dehydration. 7. Uncontrolled diabetes. 8. Bipolar. 9. Urgent hypertension. PLAN: 1. IV fluids and monitor for fluid overload. 2. Check a.m. BMP and CBC. 3. IV doxycycline b.i.d. as she has numerous drug allergies and are quite limited due to her numerous allergies. 4. IV Solu-Medrol. 5. Consult pulmonology. 6. DuoNeb q.i.d. 7. P.r.n. antihypertensives for her urgent hypertension. 8. GI prophylaxis, Protonix 40 IV q.12 hours. 9. DVT prophylaxis, heparin 5000 units b.i.d. 10. Seroquel 100 mg at bedtime and p.r.n. Ativan. 11. Telemetry. 12. Physical therapy. 13. Observation admission. If patient rapidly improves, she could possibly go home within 1-2 days, if her kidney function turns around and her chest is clear. MD DAXA Mcintyre/MERCEDEZ , 09:58 AM , 11:07 AM
[2017-09-06] MEDS: METOPROLOL TARTRATE 100 MG TAB PO SCH (13:45)
[2017-09-06] MEDS: amLODIPine BESYLATE 5 MG TAB PO SCH (13:45)
[2017-09-06] MEDS: GABAPENTIN 100 MG CAP PO SCH ×2 (13:45→17:29)
[2017-09-06] MEDS ORDERED: PILL SPLITTER OTHER PRN (14:15)
[2017-09-06] MEDS: methylPREDNISolone SOD SUCC 40 MG/1 ML VIAL IV PUSH SCH ×2 (14:51→23:25)
[2017-09-06] MEDS: PANTOPRAZOLE SODIUM 40 MG VIAL IV PUSH SCH (14:51)
[2017-09-06] MEDS: SODIUM CHLOR 0.9% 1000 ML INJ 1,000 ML IV SCH (14:51)
[2017-09-06] MEDS: RESP: ALBUTEROL 2.5 MG/IPRATROPIUM 0.5 MG NEB (SCH) NEB ×2 (15:36→19:33)
[2017-09-06] MEDS: DOXYCYCLINE INJ 100 MG in SODIUM CHLORIDE 0.9% INJ 100 ML IV SCH (15:52)
[2017-09-06] MEDS: QUEtiapine FUMARATE 100 MG TAB PO SCH (23:23)
[2017-09-06] MEDS: INSULIN DETEMIR 100 UNITS/ML VIAL SQ SCH (23:24)
[2017-09-07] VITALS (19 sets, daily range): BP systolic 162–210; BP diastolic 70–90; PULSE 52–66; RESP 17–20; TEMP 97.7–98.7; O2SAT 97–100
[2017-09-07] MEDS: cloNIDine HCL 0.1 MG TAB PO PRN ×2 (01:09→18:04)
[2017-09-07] MEDS ORDERED: hydrALAZINE HCL 25 MG TAB PO ONE (02:45)
[2017-09-07] MEDS: DOXYCYCLINE INJ 100 MG in SODIUM CHLORIDE 0.9% INJ 100 ML IV SCH ×2 (02:51→15:17)
[2017-09-07] MEDS ORDERED: cloNIDine HCL 0.1 MG TAB PO ONE (05:30)
[2017-09-07] MEDS: methylPREDNISolone SOD SUCC 40 MG/1 ML VIAL IV PUSH SCH ×3 (05:55→23:05)
[2017-09-07] MEDS: RESP: ALBUTEROL 2.5 MG/IPRATROPIUM 0.5 MG NEB (SCH) NEB ×4 (08:00→20:11)
[2017-09-07 08:19] LABS: ALBUMIN 3.4 GM/DL (3.4-5.0); ALKALINE PHOSPHATASE 106 U/L (45-117); ALT (GPT) 13 U/L (10-53); AST (GOT) 16 U/L (15-37); BICARBONATE 23.9 MEQ/L (21.0-32.0); BLOOD UREA NITROGEN 36 MG/DL (7-18); CALCIUM 9.2 MG/DL (8.5-10.1); CHLORIDE 107 MEQ/L (98-107); CREATININE 1.81 MG/DL (0.50-1.00); GLOMERULAR FILTRATION RATE 33 ML/MIN (>89); GLUCOSE,RANDOM 233 MG/DL (74-106); SODIUM (NA) 139 MEQ/L (136-145); TOTAL BILIRUBIN ADULT 0.4 MG/DL (0.2-1.0); TOTAL PROTEIN 7.5 GM/DL (6.4-8.2)
[2017-09-07] MEDS: INSULIN ASPART SUPPLEMENTAL SCALE SQ SCH ×4 (10:55→20:53)
[2017-09-07] MEDS: INSULIN DETEMIR 100 UNITS/ML VIAL SQ SCH ×2 (10:55→20:43)
[2017-09-07] MEDS: DOCUSATE SODIUM 50 MG/SENNA 8.6 MG TAB PO SCH ×2 (10:56→20:43)
[2017-09-07] MEDS: ASPIRIN 81 MG CHEW TAB PO SCH (10:56)
[2017-09-07] MEDS: HEPARIN SODIUM - SQ 10,000 UNITS/ML VIAL SQ SCH ×2 (10:56→20:42)
[2017-09-07] MEDS: PARoxetine HCL 20 MG TAB PO SCH (10:56)
[2017-09-07] MEDS: GABAPENTIN 100 MG CAP PO SCH ×3 (10:56→18:05)
[2017-09-07] MEDS: amLODIPine BESYLATE 5 MG TAB PO SCH (10:57)
[2017-09-07] MEDS: METOPROLOL TARTRATE 100 MG TAB PO SCH (10:57)
[2017-09-07] MEDS: SODIUM CHLORIDE 0.9% FLUSH 10 ML FLUSH IV FLUSH SCH ×2 (10:57→20:44)
[2017-09-07] MEDS: PANTOPRAZOLE SODIUM 40 MG VIAL IV PUSH SCH (14:27)
[2017-09-07] MEDS: SODIUM CHLOR 0.9% 1000 ML INJ 1,000 ML IV SCH (14:35)
--- NOTE | 2017-09-07 14:45 | HHI.PR ---
Subjective Remarks Follow-up visit H CAP pneumonia, COPD, bipolar disorder. Patient seen and examined today lying in bed. On 2 L nasal cannula. Reports she is tired but doing okay. Patient was very conversant talking about how she moved to [place] from [place] and how she loves low-salt food and we could and also [employer] donuts. The patient started to cry talking about how her son Quinton' s had happened prior to his . Patient complains about food and how she wants her dinner to be done. Denies any fevers, chills, nausea, vomiting, diarrhea. Denies increasing shortness of breath or dyspnea. Denies chest pain or palpitations. Objective Vitals Vital Signs Date Time Temp Pulse Resp B/P (MAP) Pulse Ox O2 Delivery O2 Flow Rate FiO2 09/07/17 11:28 98.7 63 20 199/86 (123) 100 09/07/17 08:56 65 09/07/17 07:21 97.7 60 20 189/85 (119) 100 09/07/17 05:21 17 178/74 (108) 09/07/17 05:17 () 09/07/17 04:58 162/70 (100) 09/07/17 04:54 61 20 210/90 (130) 97 09/07/17 03:31 66 20 189/82 (117) 99 09/07/17 03:30 62 194/83 (120) 98 09/07/17 02:49 59 20 195/82 (119) 98 09/07/17 02:22 61 175/79 (111) 100 09/07/17 00:59 60 186/77 (113) 97 09/07/17 00:56 206/85 (125) 09/07/17 00:11 63 09/06/17 23:46 97.9 60 17 162/70 (100) 96 09/06/17 20:10 68 09/06/17 20:07 98.0 68 19 151/67 (95) 98 09/06/17 19:33 98 Nasal Cannula 2.00 09/06/17 15:59 97.5 52 20 154/65 (94) 100 I/O 09/06/17 09/06/17 09/06/17 09/07/17 09/07/17 09/07/17 07:00 15:00 23:00 07:00 15:00 23:00 Intake Total 350 ml 100 ml 250 ml Balance 350 ml 100 ml 250 ml Intake Oral 250 ml IV Total 350 ml 100 ml # Voids 1 2 # Bowel Movements 1 Result Diagram: 09/06/17 0520 09/07/17 0630 Imaging Last Impressions Chest X-Ray 09/06/17 0527 Signed Impressions: Service Date/Time: Wednesday, September 06, 2017 06:03 - CONCLUSION: 1. Stable cardiomegaly. 2. Small right infrahilar infiltrate and possible fluid tracking along the right minor fissure. Fredo Alcocer MD Objective Remarks GENERAL: This is an obese, well-developed patient, in no apparent distress. SKIN: Warm and dry. HEENT: Normocephalic. Pupils equal round and reactive. Nose without bleeding. Airway patent. NECK: Trachea midline. CARDIOVASCULAR: Regular rate and rhythm without murmurs, gallops, or rubs. RESPIRATORY: Diminished bases. No wheezes, rales, or rhonchi. 2 L nasal cannula. GASTROINTESTINAL: Abdomen soft, non-tender, obese. Bowel Sounds normoactive x4. MUSCULOSKELETAL: Extremities without clubbing, cyanosis, or edema. NEUROLOGICAL: Awake and alert. Moves all extremities. Normal speech. A/P Problem List: (1) DM (diabetes mellitus) ICD Code: E11.9 - Type 2 diabetes mellitus without complications Status: Acute (2) HTN (hypertension) ICD Code: I10 - Essential (primary) hypertension Status: Acute (3) Hypertensive urgency ICD Code: I16.0 - Hypertensive urgency Status: Acute (4) Bipolar and related disorder due to another medical condition with manic features ICD Code: F06.33 - Mood disorder due to known physiological condition with manic features Status: Acute Assessment and Plan Patient is a 77-year-old -[place] female with severe bipolar disease who lives at home with her daughter who came into the hospital for renal failure and pneumonia. Pneumonia Underlying COPD -Chest x-ray showed 1. Stable cardiomegaly. 2. Small right infrahilar infiltrate and possible fluid tracking along the right minor fissure -Patient was placed on Solu-Medrol IV, IV doxycycline, DuoNeb's schedule and as needed -O2 dependent continue nasal cannula. -Monitor respiratory status -Pulmonology consulted for further recommendation -Physical therapy eval and treat Acute renal failure -IV fluid for hydration. Monitor for fluid overload. History of CHF -Avoid nephrotoxins. Monitor renal indices. Bipolar disorder -Continue with home medications Seroquel, Ativan HTN -Continue with antihypertensives, including as needed DVT prop heparin Discharge Planning If patient clinically improves will DC in 1-2 days. Dk Delaney Sep 07, 2017 2:45 pm
--- NOTE | 2017-09-07 16:16 | HHI.PR ---
Subjective Remarks 77 YOAA female with SOB,DM,HTN,Pn Breathing better On NC No fever, cough or sp No CP Objective Vital Signs Vital Signs Date Time Temp Pulse Resp B/P (MAP) Pulse Ox O2 Delivery O2 Flow Rate FiO2 09/07/17 15:36 98.6 56 20 180/72 (108) 100 09/07/17 11:28 98.7 63 20 199/86 (123) 100 09/07/17 08:56 65 09/07/17 07:21 97.7 60 20 189/85 (119) 100 09/07/17 05:21 17 178/74 (108) 09/07/17 05:17 () 09/07/17 04:58 162/70 (100) 09/07/17 04:54 61 20 210/90 (130) 97 09/07/17 03:31 66 20 189/82 (117) 99 09/07/17 03:30 62 194/83 (120) 98 09/07/17 02:49 59 20 195/82 (119) 98 09/07/17 02:22 61 175/79 (111) 100 09/07/17 00:59 60 186/77 (113) 97 09/07/17 00:56 206/85 (125) 09/07/17 00:11 63 09/06/17 23:46 97.9 60 17 162/70 (100) 96 09/06/17 20:10 68 09/06/17 20:07 98.0 68 19 151/67 (95) 98 09/06/17 19:33 98 Nasal Cannula 2.00 I/O 09/06/17 09/06/17 09/06/17 09/07/17 09/07/17 09/07/17 07:00 15:00 23:00 07:00 15:00 23:00 Intake Total 350 ml 100 ml 250 ml Balance 350 ml 100 ml 250 ml Intake Oral 250 ml IV Total 350 ml 100 ml # Voids 1 2 # Bowel Movements 1 Result Diagram: 09/06/17 0520 09/07/17 0630 Objective Remarks GENERAL: Morbidly obese AA female,NAD SKIN: Warm and dry. HEAD: Normocephalic. EYES: No scleral icterus. No injection or drainage. NECK: Supple, trachea midline. No JVD or lymphadenopathy. CARDIOVASCULAR: Regular rate and rhythm without murmurs, gallops, or rubs. RESPIRATORY: Breath sounds equal bilaterally. No accessory muscle use. GASTROINTESTINAL: Abdomen soft, non-tender, nondistended. MUSCULOSKELETAL: No cyanosis, or edema. BACK: Nontender without obvious deformity. No CVA tenderness. A/P Assessment and Plan Pneumonia DM HTN ANTONINO Morbid obesity Bipolar disorder PLAN: Aerosol nebs Cont abx monitor BS Monitor Lytes Supplement 02 to keep sat >90% Loco Lua MD Sep 07, 2017 16:16
[2017-09-07] MEDS: oxyCODONE/ACETAMINOPHEN 10 MG/325 MG TAB PO PRN (18:09)
[2017-09-07] MEDS: hydrALAZINE HCL 25 MG TAB PO SCH (20:42)
[2017-09-07] MEDS: QUEtiapine FUMARATE 100 MG TAB PO SCH (20:43)
[2017-09-08] VITALS (10 sets, daily range): BP systolic 130–199; BP diastolic 58–81; PULSE 51–58; RESP 17–18; TEMP 97.7–98; O2SAT 95–99
[2017-09-08] MEDS: DOXYCYCLINE INJ 100 MG in SODIUM CHLORIDE 0.9% INJ 100 ML IV SCH ×2 (03:03→16:28)
[2017-09-08] MEDS: methylPREDNISolone SOD SUCC 40 MG/1 ML VIAL IV PUSH SCH ×3 (07:25→20:55)
[2017-09-08] MEDS: hydrALAZINE HCL 25 MG TAB PO SCH (07:26)
[2017-09-08] MEDS: RESP: ALBUTEROL 2.5 MG/IPRATROPIUM 0.5 MG NEB (SCH) NEB ×4 (07:54→19:42)
[2017-09-08] MEDS: INSULIN ASPART SUPPLEMENTAL SCALE SQ SCH ×4 (08:58→21:00)
[2017-09-08] MEDS: INSULIN DETEMIR 100 UNITS/ML VIAL SQ SCH ×2 (08:58→21:00)
[2017-09-08] MEDS: DOCUSATE SODIUM 50 MG/SENNA 8.6 MG TAB PO SCH ×2 (08:59→20:56)
[2017-09-08] MEDS: HEPARIN SODIUM - SQ 10,000 UNITS/ML VIAL SQ SCH ×2 (08:59→20:56)
[2017-09-08] MEDS: METOPROLOL TARTRATE 100 MG TAB PO SCH (08:59)
[2017-09-08] MEDS: ASPIRIN 81 MG CHEW TAB PO SCH (08:59)
[2017-09-08] MEDS: PARoxetine HCL 20 MG TAB PO SCH (08:59)
[2017-09-08] MEDS: GABAPENTIN 100 MG CAP PO SCH ×3 (08:59→18:24)
[2017-09-08] MEDS: amLODIPine BESYLATE 5 MG TAB PO SCH (08:59)
[2017-09-08] MEDS: SODIUM CHLORIDE 0.9% FLUSH 10 ML FLUSH IV FLUSH SCH ×2 (09:00→20:56)
[2017-09-08] MEDS: SODIUM CHLOR 0.9% 1000 ML INJ 1,000 ML IV SCH (09:09)
--- NOTE | 2017-09-08 09:24 | HHI.PR ---
Subjective Remarks Follow-up visit H CAP pneumonia, COPD, bipolar disorder. Patient seen and examined today. States she is feeling okay. No worsening shortness of breath or dyspnea. Denies any chest pain, palpitations, headaches, dizziness. Denies any abdominal pain, nausea, vomiting, diarrhea. Denies any fevers or chills. Denies dysuria. Continued on O2 nasal cannula. Objective Vitals Vital Signs Date Time Temp Pulse Resp B/P (MAP) Pulse Ox O2 Delivery O2 Flow Rate FiO2 09/08/17 07:54 97 Nasal Cannula 2.00 09/08/17 07:36 97.7 54 18 199/81 (120) 98 09/08/17 03:07 98.0 54 17 170/75 (106) 97 09/07/17 22:15 98.2 56 18 168/72 (104) 97 09/07/17 20:12 98 Nasal Cannula 2.00 09/07/17 20:08 98.2 52 18 193/72 (112) 97 09/07/17 19:00 59 09/07/17 15:36 98.6 56 20 180/72 (108) 100 09/07/17 11:28 98.7 63 20 199/86 (123) 100 I/O 09/07/17 09/07/17 09/07/17 09/08/17 09/08/17 09/08/17 07:00 15:00 23:00 07:00 15:00 23:00 Intake Total 250 ml 100 ml Balance 250 ml 100 ml Intake Oral 250 ml IV Total 100 ml # Voids 2 # Bowel Movements 1 Result Diagram: 09/06/17 0520 09/07/17 0630 Imaging Last Impressions Chest X-Ray 09/06/17 0527 Signed Impressions: Service Date/Time: Wednesday, September 06, 2017 06:03 - CONCLUSION: 1. Stable cardiomegaly. 2. Small right infrahilar infiltrate and possible fluid tracking along the right minor fissure. Fredo Alcocer MD Objective Remarks GENERAL: This is an obese, well-developed patient, in no apparent distress. SKIN: Warm and dry. HEENT: Normocephalic. Pupils equal round and reactive. Nose without bleeding. Airway patent. NECK: Trachea midline. CARDIOVASCULAR: Regular rate and rhythm without murmurs, gallops, or rubs. RESPIRATORY: CTA. No wheezes, rales, or rhonchi. 2 L nasal cannula. GASTROINTESTINAL: Abdomen soft, non-tender, obese. Bowel Sounds normoactive x4. MUSCULOSKELETAL: Extremities without clubbing, cyanosis, or edema. NEUROLOGICAL: Awake and alert. Moves all extremities. Normal speech. 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 Pneumonia Underlying COPD -Chest x-ray showed 1. Stable cardiomegaly. 2. Small right infrahilar infiltrate and possible fluid tracking along the right minor fissure -Patient was placed on Solu-Medrol IV, IV doxycycline, DuoNeb's schedule and as needed -O2 dependent continue nasal cannula. -Monitor respiratory status -Pulmonology consulted for further recommendation -Physical therapy eval and treat Acute renal failure -IV fluid for hydration. Monitor for fluid overload. History of CHF -Avoid nephrotoxins. Monitor renal indices. 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 Will increase amlodipine to 10 mg daily. Add hydralazine if necessary. Limited metoprolol use as patient has bradycardia -Noncompliant with diet. DVT prop heparin Discharge Planning May possibly DC tomorrow Dk Delaney Sep 08, 2017 09:24
[2017-09-08] MEDS: oxyCODONE/ACETAMINOPHEN 10 MG/325 MG TAB PO PRN (12:18)
[2017-09-08] MEDS: PANTOPRAZOLE SODIUM 40 MG VIAL IV PUSH SCH (13:48)
[2017-09-08] MEDS ORDERED: hydrALAZINE HCL 25 MG TAB PO SCH (14:00)
--- NOTE | 2017-09-08 17:53 | HHI.PR ---
Subjective Remarks 77 YOAA female with SOB,DM,HTN,Pn Breathing better On NC No fever, cough or sp No CP Anxious to go home Objective Vital Signs Vital Signs Date Time Temp Pulse Resp B/P (MAP) Pulse Ox O2 Delivery O2 Flow Rate FiO2 09/08/17 16:51 51 09/08/17 16:40 98.0 52 18 147/72 (97) 98 09/08/17 10:55 97.8 58 18 130/58 (82) 99 09/08/17 08:45 55 09/08/17 07:54 97 Nasal Cannula 2.00 09/08/17 07:36 97.7 54 18 199/81 (120) 98 09/08/17 03:07 98.0 54 17 170/75 (106) 97 09/07/17 22:15 98.2 56 18 168/72 (104) 97 09/07/17 20:12 98 Nasal Cannula 2.00 09/07/17 20:08 98.2 52 18 193/72 (112) 97 09/07/17 19:00 59 I/O 09/07/17 09/07/17 09/07/17 09/08/17 09/08/17 09/08/17 07:00 15:00 23:00 07:00 15:00 23:00 Intake Total 250 ml 100 ml Balance 250 ml 100 ml Intake Oral 250 ml IV Total 100 ml # Voids 2 1 # Bowel Movements 1 Result Diagram: 09/06/17 0520 09/07/17 0630 Objective Remarks GENERAL: Morbidly obese AA female,NAD SKIN: Warm and dry. HEAD: Normocephalic. EYES: No scleral icterus. No injection or drainage. NECK: Supple, trachea midline. No JVD or lymphadenopathy. CARDIOVASCULAR: Regular rate and rhythm without murmurs, gallops, or rubs. RESPIRATORY: Breath sounds equal bilaterally. No accessory muscle use. GASTROINTESTINAL: Abdomen soft, non-tender, nondistended. MUSCULOSKELETAL: No cyanosis, or edema. BACK: Nontender without obvious deformity. No CVA tenderness. A/P Assessment and Plan Pneumonia DM HTN ANTONINO Morbid obesity Bipolar disorder PLAN: Aerosol nebs Cont abx monitor BS Monitor Lytes Supplement 02 to keep sat >90% DC Plans for home. Loco Lua MD Sep 08, 2017 17:53
[2017-09-08] MEDS: QUEtiapine FUMARATE 100 MG TAB PO SCH (20:56)
[2017-09-08] MEDS: hydrALAZINE HCL 25 MG TAB PO PRN (20:56)
[2017-09-08] MEDS ORDERED: METOPROLOL TARTRATE 100 MG TAB PO SCH (21:00)
[2017-09-09] VITALS (9 sets, daily range): BP systolic 153–224; BP diastolic 69–93; PULSE 49–61; RESP 15–20; TEMP 97.4–98.2; O2SAT 96–100
[2017-09-09] MEDS: DOXYCYCLINE INJ 100 MG in SODIUM CHLORIDE 0.9% INJ 100 ML IV SCH ×2 (03:12→17:11)
[2017-09-09] MEDS: methylPREDNISolone SOD SUCC 40 MG/1 ML VIAL IV PUSH SCH ×3 (05:35→23:18)
[2017-09-09] MEDS: RESP: ALBUTEROL 2.5 MG/IPRATROPIUM 0.5 MG NEB (SCH) NEB ×4 (07:10→20:00)
[2017-09-09] MEDS: hydrALAZINE HCL 25 MG TAB PO PRN (07:29)
[2017-09-09] MEDS: GABAPENTIN 100 MG CAP PO SCH ×3 (09:05→19:15)
[2017-09-09] MEDS: amLODIPine BESYLATE 5 MG TAB PO SCH (09:06)
[2017-09-09] MEDS: METOPROLOL TARTRATE 100 MG TAB PO SCH (09:06)
[2017-09-09] MEDS: ASPIRIN 81 MG CHEW TAB PO SCH (09:06)
[2017-09-09] MEDS: PARoxetine HCL 20 MG TAB PO SCH (09:07)
[2017-09-09] MEDS: HEPARIN SODIUM - SQ 10,000 UNITS/ML VIAL SQ SCH ×2 (09:07→23:21)
[2017-09-09] MEDS: INSULIN DETEMIR 100 UNITS/ML VIAL SQ SCH ×2 (09:08→23:23)
[2017-09-09] MEDS: DOCUSATE SODIUM 50 MG/SENNA 8.6 MG TAB PO SCH ×2 (09:08→19:43)
[2017-09-09] MEDS: INSULIN ASPART SUPPLEMENTAL SCALE SQ SCH ×4 (09:08→23:23)
[2017-09-09] MEDS: SODIUM CHLORIDE 0.9% FLUSH 10 ML FLUSH IV FLUSH SCH ×2 (09:08→19:44)
--- NOTE | 2017-09-09 09:42 | HHI.FPPN ---
Subjective Remarks c/o SOB C/O COUGH C/O WEAKNESS D/W RN Objective Vitals Vital Signs Date Time Temp Pulse Resp B/P (MAP) Pulse Ox O2 Delivery O2 Flow Rate FiO2 09/09/17 07:20 97.4 61 18 215/88 (130) 99 224/93 (136) 09/09/17 07:11 Nasal Cannula 2.00 09/09/17 04:13 97.8 54 16 190/81 (117) 98 09/09/17 04:00 54 09/09/17 00:02 97.6 54 15 171/72 (105) 96 09/09/17 00:00 60 09/08/17 20:01 54 09/08/17 19:53 97.9 56 17 183/77 (112) 95 09/08/17 19:42 96 Nasal Cannula 2.00 09/08/17 16:51 51 09/08/17 16:40 98.0 52 18 147/72 (97) 98 09/08/17 10:55 97.8 58 18 130/58 (82) 99 I/O 09/08/17 09/08/17 09/08/17 09/09/17 09/09/17 09/09/17 07:00 15:00 23:00 07:00 15:00 23:00 Intake Total 100 ml Balance 100 ml IV Total 100 ml # Voids 1 Result Diagram: 09/06/17 0520 09/07/17 0630 Objective Remarks GENERAL: SKIN: Warm and dry. HEAD: Atraumatic. Normocephalic. EYES: Pupils equal and round. No scleral icterus. No injection or drainage. ENT: No nasal bleeding or discharge. Mucous membranes pink and moist. NECK: Trachea midline. No JVD. CARDIOVASCULAR: Regular rate and rhythm. RESPIRATORY: bibasilar ronchi, harsh cough, GASTROINTESTINAL: Abdomen soft, non-tender, nondistended. Hepatic and splenic margins not palpable. MUSCULOSKELETAL: Extremities without clubbing, cyanosis, or edema. No obvious deformities. NEUROLOGICAL: Awake and alert. No obvious cranial nerve deficits. Motor grossly within normal limits. 3 out of 5 muscle strength in the arms and legs. Normal speech. PSYCHIATRIC: Appropriate mood and affect; insight and judgment normal. Medications and IVs Current Medications Medications (Trade) Dose Ordered Sig/Bo Route Start Time Stop Time Status Last Admin (NS Flush) 2 ml UNSCH PRN IV FLUSH 09/06/17 07:45 (NS Flush) 2 ml BID IV FLUSH 09/06/17 09:00 09/09/17 09:08 (Tylenol) 650 mg Q4H PRN PO 09/06/17 07:45 09/07/17 11:32 (Zofran Inj) 4 mg Q6H PRN IVP 09/06/17 07:45 (Heparin Inj) 5,000 units Q12H SQ 09/06/17 09:00 09/09/17 09:07 (Narcan Inj) 0.4 mg UNSCH PRN IV PUSH 09/06/17 07:45 (Irina-Colace) 1 tab BID PO 09/06/17 09:00 09/08/17 20:56 (Milk Of Magnesia Liq) 30 ml Q12H PRN PO 09/06/17 07:45 (Senokot) 17.2 mg Q12H PRN PO 09/06/17 07:45 (Dulcolax Supp) 10 mg DAILY PRN RECTAL 09/06/17 07:45 (Lactulose Liq) 30 ml DAILY PRN PO 09/06/17 07:45 (Aspirin Chew) 81 mg DAILY PO 09/07/17 09:00 09/09/17 09:06 (Neurontin) 100 mg TID PO 09/06/17 13:45 09/09/17 09:05 (Levemir Inj) 18 units BID SQ 09/06/17 21:00 09/09/17 09:08 (Ativan) 0.5 mg DAILY PRN PO 09/06/17 09:45 (Percocet 10-325 Mg) 1 tab Q4H PRN PO 09/06/17 09:45 09/08/17 12:18 (SEROquel) 100 mg HS PO 09/06/17 21:00 09/08/17 20:56 (Paxil) 30 mg DAILY PO 09/07/17 09:00 09/09/17 09:07 (Duoneb Neb) 1 ampule QID NEB NEB 09/06/17 16:00 09/09/17 07:10 (Ativan) 0.5 mg Q8H PRN PO 09/06/17 09:45 (Catapres) 0.1 mg Q6H PRN PO 09/06/17 09:45 09/07/17 18:04 (SoluMEDROL INJ) 40 mg Q8HR IV PUSH 09/06/17 14:00 09/09/17 05:35 (Protonix Inj) 40 mg Q24H IV PUSH 09/06/17 14:00 09/08/17 13:48 Doxycycline Hyclate 100 mg/ Sodium Chloride 100 ml @ 100 mls/hr Q12H IV 09/06/17 15:00 09/09/17 03:12 Sodium Chloride 1,000 ml @ 30 mls/hr Q24H IV 09/06/17 14:00 09/08/17 09:09 (Pill Splitter) 1 ea UNSCH PRN OTHER 09/06/17 14:15 (NovoLOG SUPPLEMENTAL SCALE) 1 ACHS SLIDING SCALE SQ 09/07/17 08:00 09/09/17 09:08 (Norvasc) 10 mg DAILY PO 09/09/17 09:00 09/09/17 09:06 (Apresoline) 25 mg Q8HR PRN PO 09/08/17 14:00 09/09/17 07:29 (Lopressor) 100 mg DAILY PO 09/09/17 09:00 09/09/17 09:06 A/P Assessment and Plan Patient is a 77-year-old -English female with severe bipolar disease who lives at home with her daughter who came into the hospital for renal failure and pneumonia. Pneumonia Underlying COPD -Chest x-ray showed 1. Stable cardiomegaly. 2. Small right infrahilar infiltrate and possible fluid tracking along the right minor fissure -Patient was placed on Solu-Medrol IV, IV doxycycline, DuoNeb's schedule and as needed -O2 dependent continue nasal cannula. -Monitor respiratory status -Pulmonology consulted for further recommendation -Physical therapy eval and treat Acute renal failure -IV fluid for hydration. Monitor for fluid overload. History of CHF. check labs... -Avoid nephrotoxins. Monitor renal indices. 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 Will increase amlodipine to 10 mg daily. Add hydralazine if necessary. Limited metoprolol use as patient has bradycardia -Noncompliant with diet. DVT prop heparin Discharge Planning May possibly DC tomorrow Ghassan Gonzalez MD Sep 09, 2017 09:42
[2017-09-09 12:56] LABS: BICARBONATE 24.4 MEQ/L (21.0-32.0); CALCIUM 9.2 MG/DL (8.5-10.1); CREATININE 1.92 MG/DL (0.50-1.00)
[2017-09-09] MEDS: cloNIDine HCL 0.1 MG TAB PO PRN (13:11)
[2017-09-09] MEDS: PANTOPRAZOLE SODIUM 40 MG VIAL IV PUSH SCH (13:12)
[2017-09-09] MEDS: oxyCODONE/ACETAMINOPHEN 10 MG/325 MG TAB PO PRN (13:12)
--- NOTE | 2017-09-09 13:56 | MB ---
cc: Loco Lua MD DATE OF CONSULT: 09/06/2017 REQUESTING PHYSICIAN: Dr. Ghassan Gonzalez REASON FOR CONSULTATION: Evaluation for pneumonia. HISTORY OF PRESENT ILLNESS: Rylee Nava is a 77-year-old obese female with history of bipolar disorder, COPD. She is oxygen dependent, uses oxygen 2 L nasal cannula. She was brought to the hospital and admitted for shortness of breath as well as symptoms of bipolar disorder. She has cough, has some chills. Did not have any fever. No nausea and vomiting. She is not able to bring up any phlegm. She was admitted to the hospital. She had a workup done. Her chest x-ray shows small right infrahilar infiltrate, possible fluid in the minor fissure. Her WBC count is 7.3, hemoglobin 10.4, hematocrit 32.7, MCV 78, platelet count 161. Sodium 139, potassium 3.8, chloride 104, CO2 25, BUN 42, creatinine 2.24. PAST MEDICAL HISTORY: Significant for history of COPD. She is oxygen dependent. Bipolar disorder, diabetes mellitus, sleep apnea, loop recorder placement, tonsillectomy, hernia surgery and hysterectomy. MEDICATIONS: She is currently taking aspirin 81 mg a day, Paxil 30 mg a day, levemir insulin 18 units twice a day, Seroquel 100 mg at nighttime, albuterol and Atrovent nebulizer treatment, doxycycline 100 mg q. 12 hours, Solu-Medrol 40 mg q. 8 hours, Protonix 40 mg a day, amlodipine 5 mg, Neurontin 400 mg 3x a day, hydralazine p.r.n., heparin 5000 q. 12 hours. ALLERGIES: SHE IS ALLERGIC TO SULFA, AZITHROMYCIN, CEFTRIAXONE, CIPROFLOXACIN, DOBUTAMINE, METHADONE, MORPHINE, MOXIFLOXACIN AND PENICILLIN, PROCHLORPERAZINE, VANCOMYCIN, VENLAFAXINE. SOCIAL HISTORY: She has history of smoking in the past, no alcohol abuse. She used to work for [employer]. FAMILY HISTORY: She has 3 children, 1 recently from heart disease. She lives with her daughter and grandchildren. REVIEW OF SYSTEMS: Patient is able to ambulate, she uses oxygen. No headache or dizziness, no seizure or epilepsy. PHYSICAL EXAMINATION: GENERAL: Morbidly obese female, not in any acute distress. VITAL SIGNS: Blood pressure 151/67, heart rate 60, respirations 19, temperature 98. HEENT: Unremarkable. She has prominent eyes. NECK: Supple, JVP not raised. CHEST: Air entry equal bilaterally, no rhonchi. CARDIOVASCULAR: S1 and S2 normal. ABDOMEN: Benign. EXTREMITIES: No edema. IMPRESSION: 1. Basal infiltrate likely pneumonia. 2. Small pleural effusion. 3. Hypertension. 4. Diabetes mellitus. 5. Bipolar disorder. PLAN: Will continue the antibiotics. Supplement the oxygen and aerosol treatments. Subcu heparin for DVT prophylaxis. She is on IV Solu-Medrol. Further treatment will depend on the course in the hospital. Thank you very much Dr. Ghassan Gonzalez for this consult. Loco Lua MD ADA/rt , 08:19 PM , 01:26 AM
[2017-09-09] MEDS: SODIUM CHLOR 0.9% 1000 ML INJ 1,000 ML IV SCH (17:11)
--- NOTE | 2017-09-09 19:10 | HHI.PR ---
Subjective Remarks 77 YOAA female with SOB,DM,HTN,Pn Breathing better On NC No fever, cough or sp No CP renal functions improving Objective Vital Signs Vital Signs Date Time Temp Pulse Resp B/P (MAP) Pulse Ox O2 Delivery O2 Flow Rate FiO2 09/09/17 15:07 98.2 49 18 171/72 (105) 98 09/09/17 12:48 98.0 53 20 180/79 (112) 100 Manual Cuff/Auscultation 09/09/17 07:20 97.4 61 18 215/88 (130) 99 224/93 (136) 09/09/17 07:11 Nasal Cannula 2.00 09/09/17 04:13 97.8 54 16 190/81 (117) 98 09/09/17 04:00 54 09/09/17 00:02 97.6 54 15 171/72 (105) 96 09/09/17 00:00 60 09/08/17 20:01 54 09/08/17 19:53 97.9 56 17 183/77 (112) 95 09/08/17 19:42 96 Nasal Cannula 2.00 I/O 09/08/17 09/08/17 09/08/17 09/09/17 09/09/17 09/09/17 07:00 15:00 23:00 07:00 15:00 23:00 Intake Total 100 ml Balance 100 ml IV Total 100 ml # Voids 1 Result Diagram: 09/06/17 0520 09/09/17 1226 Objective Remarks GENERAL: Morbidly obese AA female,NAD SKIN: Warm and dry. HEAD: Normocephalic. EYES: No scleral icterus. No injection or drainage. NECK: Supple, trachea midline. No JVD or lymphadenopathy. CARDIOVASCULAR: Regular rate and rhythm without murmurs, gallops, or rubs. RESPIRATORY: Breath sounds equal bilaterally. No accessory muscle use. GASTROINTESTINAL: Abdomen soft, non-tender, nondistended. MUSCULOSKELETAL: No cyanosis, or edema. BACK: Nontender without obvious deformity. No CVA tenderness. A/P Assessment and Plan Pneumonia DM HTN ANTONINO Morbid obesity Bipolar disorder PLAN: Aerosol nebs Cont abx monitor BS Monitor Lytes Supplement 02 to keep sat >90% DW Dr.Potts Lua,Loco Pan MD Sep 09, 2017 19:10
[2017-09-09] MEDS: QUEtiapine FUMARATE 100 MG TAB PO SCH (23:22)
[2017-09-10] VITALS (7 sets, daily range): BP systolic 147–186; BP diastolic 65–80; PULSE 46–59; RESP 16; TEMP 97.7–97.9; O2SAT 98–99
[2017-09-10] MEDS: DOXYCYCLINE INJ 100 MG in SODIUM CHLORIDE 0.9% INJ 100 ML IV SCH (03:47)
[2017-09-10] MEDS: cloNIDine HCL 0.1 MG TAB PO PRN (05:12)
[2017-09-10] MEDS: methylPREDNISolone SOD SUCC 40 MG/1 ML VIAL IV PUSH SCH (05:13)
[2017-09-10] MEDS: hydrALAZINE HCL 25 MG TAB PO PRN (06:12)
[2017-09-10] MEDS: RESP: ALBUTEROL 2.5 MG/IPRATROPIUM 0.5 MG NEB (SCH) NEB ×2 (07:26→11:35)
[2017-09-10 08:11] LABS: AUTOMATED NEUTROPHIL # 5.5 TH/MM3 (1.8-7.7); BASOPHIL % 0.1 % (0.0-2.0); HEMATOCRIT 33.7 % (35.0-46.0); LYMPH % 9.2 % (9.0-44.0); LYMPHOCYTE # 0.6 TH/MM3 (1.0-4.8); MEAN CELL VOLUME 77.7 FL (80.0-100.0); MEAN CORPUSCULAR HEMOGLOBIN 25.4 PG (27.0-34.0); MEAN CORPUSCULAR HGB CONC 32.6 % (32.0-36.0); MEAN PLATELET VOLUME 9.1 FL (7.0-11.0); MONO % 3.6 % (0.0-8.0); MONOCYTE # 0.2 TH/MM3 (0-0.9); NEUT % 87.1 % (16.0-70.0); PLATELET COUNT 137 TH/MM3 (150-450); RED BLOOD COUNT 4.33 MIL/MM3 (4.00-5.30); RED CELL DISTRIBUTION WIDTH 16.2 % (11.6-17.2); WHITE BLOOD COUNT 6.3 TH/MM3 (4.0-11.0)
[2017-09-10 08:26] LABS: BICARBONATE 25.7 MEQ/L (21.0-32.0); CALCIUM 8.9 MG/DL (8.5-10.1); CREATININE 1.86 MG/DL (0.50-1.00)
[2017-09-10 08:47] LABS: OVALOCYTES 1+ (NORMAL)
--- NOTE | 2017-09-10 09:44 | HHI.DS ---
Discharge Summary Admission Date Sep 06, 2017 at 07:28 Discharge Date: Sep 10, 2017 Admitting Diagnosis PNA RLL , reanl insuffuciency weakness (1) DM (diabetes mellitus) ICD Codes: E11.9 - Type 2 diabetes mellitus without complications Status: Acute (2) HTN (hypertension) ICD Codes: I10 - Essential (primary) hypertension Status: Acute (3) Hypertensive urgency ICD Codes: I16.0 - Hypertensive urgency Status: Acute (4) Bipolar and related disorder due to another medical condition with manic features ICD Codes: F06.33 - Mood disorder due to known physiological condition with manic features Status: Acute CBC/BMP: 09/10/17 0755 09/10/17 0755 Significant Findings Laboratory Tests Test 09/09/17 12:26 09/10/17 07:55 Blood Urea Nitrogen 42 MG/DL (7-18) 46 MG/DL (7-18) Creatinine 1.92 MG/DL (0.50-1.00) 1.86 MG/DL (0.50-1.00) Random Glucose 240 MG/DL (74-106) 207 MG/DL (74-106) Chloride Level 108 MEQ/L (98-107) Estimat Glomerular Filtration Rate 31 ML/MIN (>89) 32 ML/MIN (>89) Hemoglobin 11.0 GM/DL (11.6-15.3) Hematocrit 33.7 % (35.0-46.0) Mean Corpuscular Volume 77.7 FL (80.0-100.0) Mean Corpuscular Hemoglobin 25.4 PG (27.0-34.0) Platelet Count 137 TH/MM3 (150-450) Neutrophils (%) (Auto) 87.1 % (16.0-70.0) Lymphocytes # (Auto) 0.6 TH/MM3 (1.0-4.8) Platelet Estimate LOW (NORMAL) Ovalocytes 1+ (NORMAL) PE at Discharge GENERAL: SKIN: Warm and dry. HEAD: Atraumatic. Normocephalic. EYES: Pupils equal and round. No scleral icterus. No injection or drainage. ENT: No nasal bleeding or discharge. Mucous membranes pink and moist. NECK: Trachea midline. No JVD. CARDIOVASCULAR: Regular rate and rhythm. RESPIRATORY: No accessory muscle use. Clear to auscultation. Breath sounds equal bilaterally. GASTROINTESTINAL: Abdomen soft, non-tender, nondistended. Hepatic and splenic margins not palpable. MUSCULOSKELETAL: Extremities without clubbing, cyanosis, or edema. No obvious deformities. NEUROLOGICAL: Awake and alert. No obvious cranial nerve deficits. Motor grossly within normal limits. Five out of 5 muscle strength in the arms and legs. Normal speech. PSYCHIATRIC: Appropriate mood and affect; insight and judgment normal. Hospital Course 77-year-old -[place] female with severe bipolar disease who lives at home with her daughter who came into the hospital for renal failure and pneumonia. Pneumonia Underlying COPD -Chest x-ray showed 1. Stable cardiomegaly. 2. Small right infrahilar infiltrate and possible fluid tracking along the right minor fissure -Patient was placed on Solu-Medrol IV, IV doxycycline, DuoNeb's schedule and as needed -O2 dependent continue nasal cannula. -Monitor respiratory status -Pulmonology consulted for further recommendation -Physical therapy eval and treat Acute renal failure -IV fluid for hydration. Monitor for fluid overload. History of CHF. check labs... -Avoid nephrotoxins. Monitor renal indices. 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 Will increase amlodipine to 10 mg daily. Add hydralazine if necessary. Limited metoprolol use as patient has bradycardia -Noncompliant with diet. DVT prop heparin Discharge Discharge Instructions Follow up Referrals: PCP Follow-up - 2-3 Days New Orders: BASIC METABOLIC PROF - 2 Days @ [facility] New Medications: Doxycycline Hyclate (Doxycycline Hyclate) 100 Mg Cap 100 MG PO BID for Infection for 5 Days, #10 CAP 0 Refills Continued Medications: Albuterol 8.5 GM Inh (Proair Hfa 8.5 GM Inh) 90 Mcg/Act Aer 2 PUFF INH Q4-6H PRN for SHORTNESS OF BREATH, #1 INHALER 1 Refill 108 mcg/actuation Amlodipine (Norvasc) 5 Mg Tab 5 MG PO DAILY for Blood Pressure Management, #30 TAB 0 Refills Aspirin (Aspirin Low Dose) 81 Mg Chew 81 MG PO DAILY, TAB 0 Refills Gabapentin (Gabapentin) 100 Mg Cap 100 MG PO TID, #90 CAP 0 Refills Insulin Glargine Inj (Lantus Inj) 1,000 Unit/10 Ml Vial 18 UNITS SQ BID for Blood Sugar Management, VIAL 0 Refills Levothyroxine (Synthroid) 25 Mcg Tab 150 PO DAILY for Thyroid, #30 TAB 0 Refills Lorazepam (Lorazepam) 0.5 Mg Tab 0.5 MG PO DAILY PRN for ANXIETY, TAB 0 Refills Metoprolol Tartrate (Metoprolol Tartrate) 100 Mg Tab 100 MG PO DAILY, #30 TAB 0 Refills Nitroglycerin SL (Nitroglycerin SL) 0.4 Mg Subl 0.4 MG SL DIRECTED PRN for CHEST PAIN, #100 TAB.SL 0 Refills ONE TABLET UNDER THE TONGUE NEEDED FOR CHEST PAIN, MAY REPEAT EVERY FIVE MINUTES FOR A TOTAL OF 3 DOSES OR CALL 911 IF NO RELIEF Oxycodone-Acetaminophen (Percocet) 10-325 mg Tab 1 TAB PO Q4H PRN for PAIN, TAB 0 Refills Paroxetine (Paxil) 30 Mg Tab 30 MG PO DAILY, #30 TAB 0 Refills Quetiapine (Seroquel) 100 Mg Tab 100 MG PO HS, TAB 0 Refills Discontinued Medications: Furosemide (Furosemide) 40 Mg Tab 40 MG PO DAILY, #30 TAB 0 Refills Ghassan Gonzalez MD Sep 10, 2017 09:44
[2017-09-10] MEDS ORDERED: DOXY100C PO (09:48)
--- NOTE | 2017-09-10 09:49 | HHI.DCPOC ---
Discharge Care Plan Diagnosis: (1) Acute renal failure (2) Dehydration, mild (3) Altered mental status, unspecified (4) Dizziness, nonspecific (5) COPD (chronic obstructive pulmonary disease) (6) Bipolar disorder (7) Renal insufficiency (8) PNA (pneumonia) (9) Cough (10) CHF (congestive heart failure) (11) Hyperglycemia (12) HTN (hypertension) (13) DM (diabetes mellitus) Goals to Promote Your Health * To prevent worsening of your condition and complications * To maintain your health at the optimal level Directions to Meet Your Goals Take your medications as prescribed Follow your dietary instruction Follow activity as directed Keep your appointments as scheduled Take your immunizations and boosters as scheduled If your symptoms worsen call your PCP, if no PCP go to Urgent Care Center or Emergency Room Smoking is Dangerous to Your Health. Avoid second hand smoke Call the 24-hour hour crisis hotline for domestic abuse at Ghassan Gonzalez MD Sep 10, 2017 09:49
[2017-09-10] MEDS: SODIUM CHLORIDE 0.9% FLUSH 10 ML FLUSH IV FLUSH SCH (09:50)
[2017-09-10] MEDS: DOCUSATE SODIUM 50 MG/SENNA 8.6 MG TAB PO SCH ×2 (09:51→09:57)
[2017-09-10] MEDS: HEPARIN SODIUM - SQ 10,000 UNITS/ML VIAL SQ SCH (09:51)
[2017-09-10] MEDS: GABAPENTIN 100 MG CAP PO SCH (09:51)
[2017-09-10] MEDS: PARoxetine HCL 20 MG TAB PO SCH (09:51)
--- NOTE | 2017-09-10 09:51 | HHI.FF ---
Face to Face Verification Diagnosis: (1) Hypertensive urgency, malignant (2) PNA (pneumonia) (3) Altered mental status, unspecified (4) Dizziness, nonspecific (5) Dehydration, mild (6) Renal insufficiency (7) Hyperglycemia (8) CHF (congestive heart failure) (9) Bipolar disorder Physical Therapy Order: Evaluate and Treat, Improve ambulation, Strength and gait training Home Health Nursing Order: Medical education Signs/symptoms of disease process Diabetic education CHF education Oxygen administration education Medication education-adverse effect Nursing assessment with vital signs Telehealth Home Health Aide Order: To Assist In: Bathing and personal care, mobile lounge driver and meal prep Acidizer Helper Order: To Evaluate: Living conditions/environment, Support services Order: To Provide: Long range planning, Community services I have seen patient Rylee Nava on 09/10/17. My clinical findings support the need for the requested home health care services because: Ltd mobility - disease progression Patient has SOB Deconditioned w/ increased weakness Med compliance is questionable Limited ability to care for self Need for psychosocial assistance Impaired cognition/judgement High risk of falls Infection w/ risk of complications I certify that my clinical findings support that this patient is homebound because: Impaired cognitive ability/safety Hx COPD- exertion dyspnea/weakness Unsteady gait/balance Unsafe to leave home unassisted Need for psychosocial assistance [id number] bed/chair Unable to use public transportation Poor cardiac reserve Ghassan Gonzalez MD Sep 10, 2017 09:51
[2017-09-10] MEDS: ASPIRIN 81 MG CHEW TAB PO SCH (09:52)
[2017-09-10] MEDS: amLODIPine BESYLATE 5 MG TAB PO SCH (09:52)
[2017-09-10] MEDS: INSULIN DETEMIR 100 UNITS/ML VIAL SQ SCH (09:53)
[2017-09-10] MEDS: INSULIN ASPART SUPPLEMENTAL SCALE SQ SCH (09:53)
[2017-09-10] MEDS: METOPROLOL TARTRATE 100 MG TAB PO SCH (09:53)
--- NOTE | 2017-09-10 11:19 | HHI.PR ---
Subjective Remarks 77 YOAA female with SOB,DM,HTN,Pn Breathing better On NC No fever, cough or sp No CP renal functions improving Objective Vital Signs Vital Signs Date Time Temp Pulse Resp B/P (MAP) Pulse Ox O2 Delivery O2 Flow Rate FiO2 09/10/17 08:26 97.8 59 16 178/80 (112) 99 09/10/17 07:29 99 Nasal Cannula 2.00 09/10/17 05:46 55 16 186/79 (114) 99 09/10/17 04:36 97.7 55 16 164/70 (101) 99 09/10/17 03:55 46 09/10/17 00:26 97.9 55 16 147/65 (92) 98 09/10/17 00:11 52 09/09/17 20:19 97.9 55 20 153/69 (97) 98 09/09/17 20:03 56 09/09/17 15:07 98.2 49 18 171/72 (105) 98 09/09/17 12:48 98.0 53 20 180/79 (112) 100 Manual Cuff/Auscultation I/O 09/09/17 09/09/17 09/09/17 09/10/17 09/10/17 09/10/17 07:00 15:00 23:00 07:00 15:00 23:00 Intake Total 750 ml Balance 750 ml Intake Oral 750 ml Result Diagram: 09/10/17 0755 09/10/17 0755 Objective Remarks GENERAL: Morbidly obese AA female,NAD SKIN: Warm and dry. HEAD: Normocephalic. EYES: No scleral icterus. No injection or drainage. NECK: Supple, trachea midline. No JVD or lymphadenopathy. CARDIOVASCULAR: Regular rate and rhythm without murmurs, gallops, or rubs. RESPIRATORY: Breath sounds equal bilaterally. No accessory muscle use. GASTROINTESTINAL: Abdomen soft, non-tender, nondistended. MUSCULOSKELETAL: No cyanosis, or edema. BACK: Nontender without obvious deformity. No CVA tenderness. A/P Assessment and Plan Pneumonia DM HTN ANTONINO Morbid obesity Bipolar disorder PLAN: Aerosol nebs Cont abx monitor BS Monitor Lytes Supplement 02 to keep sat >90% Stable from pulm standpoint DC plans underway Loco Lua MD Sep 10, 2017 11:19
== END 2017-09-10 12:29 | disposition home or self-care (01) ==
LOC: NEPC 05:01 → INTOOBSV 07:28 → NEDA 07:28 → NEPFCDU 13:51 → NEPGCP 09-08 17:25
PROVIDERS: ADMIT Family Medicine; ATTEND Family Medicine
DX: N17.9 Acute kidney failure, unspecified (principal); E86.0 Dehydration; I16.0 Hypertensive urgency; I13.0 Hypertensive heart and chronic kidney disease with heart failure and stage 1 through stage 4 chronic kidney disease, or unspecified chronic kidney disease; I50.9 Heart failure, unspecified; N18.3 Chronic kidney disease, stage 3 (moderate); E11.22 Type 2 diabetes mellitus with diabetic chronic kidney disease; J44.0 Chronic obstructive pulmonary disease with (acute) lower respiratory infection; J96.10 Chronic respiratory failure, unspecified whether with hypoxia or hypercapnia; F06.33 Mood disorder due to known physiological condition with manic features; M62.82 Rhabdomyolysis; J18.9 Pneumonia, unspecified organism; I25.10 Atherosclerotic heart disease of native coronary artery without angina pectoris; E78.00 Pure hypercholesterolemia, unspecified; F31.9 Bipolar disorder, unspecified; G47.30 Sleep apnea, unspecified; E66.01 Morbid (severe) obesity due to excess calories; Y95 Nosocomial condition; Z99.81 Dependence on supplemental oxygen; Z79.4 Long term (current) use of insulin; Z79.82 Long term (current) use of aspirin; Z79.899 Other long term (current) drug therapy; Z87.891 Personal history of nicotine dependence; Z91.11 Patient's noncompliance with dietary regimen; Z98.1 Arthrodesis status; Z90.710 Acquired absence of both cervix and uterus
CPT/HCPCS: 71045; 80048; 80053; 81001; 82550; 82552; 82948; 83690; 83880; 84443; 84484; 85025; 94640; 94664; 96361; 96365; 96366; 96367; 96372; 96375; 96376; 97163; 99285; C9113; G0378; G8987; G8988; J1644; J1815; J2920; J7030; J7050

== ENCOUNTER 2017-09-16 21:36 | Emergency (ER) | payer MEDICARE, MEDICAID ==
[~2017-09-16] VITALS: Ht 160 cm; Wt 110.5 kg
[~2017-09-16 21:36] MED LIST changes: -ALBU.5I NEB; -BECL80AE NASAL; +DOXY100C PO; -FURO40TA PO; +PERC10TA27 PO; -PRED50 PO; -RISP0.5T2 PO
[2017-09-16 21:46] VITALS: BP 178/77; PULSE 47; RESP 20; TEMP 98.3; O2SAT 97
--- NOTE | 2017-09-16 22:39 | RADRPT ---
EXAM DATE/TIME: 09/16/2017 22:02 [facility] COMPARISON: CHEST SINGLE AP, September 06, 2017, 6:03. CHEST SINGLE AP, December 23, 2016, 23:17. INDICATIONS : Short of breath MEDICAL HISTORY : Diabetes mellitus type II. Hypertension Chronic obstructive pulmonary disease. Hypothyroid.Congestive heart failure. SURGICAL HISTORY : Tonsillectomy. Hysterectomy. Cervical fusion. Loop recorder ENCOUNTER: Initial ACUITY: 1 week PAIN SCORE: 0/10 LOCATION: chest FINDINGS: PA and lateral views of the chest demonstrate the lungs to be symmetrically aerated without evidence of mass, infiltrate or effusion. Mild scarring in the right mid lung again noted. Mild, stable and compensated apparent cardiomegaly. CONCLUSION: No evidence of acute cardiopulmonary disease. Mild cardiomegaly and chronic right midlung scarring ag ain noted. Arpan Rust MD on September 16, 2017 at 22:36 Board Certified Radiologist. This report was verified electronically.
[2017-09-16 22:47] LABS: AUTOMATED NEUTROPHIL # 6.3 TH/MM3 (1.8-7.7); BASOPHIL # 0.1 TH/MM3 (0-0.2); BASOPHIL % 0.7 % (0.0-2.0); EOSINOPHIL # 0.3 TH/MM3 (0-0.4); EOSINOPHIL % 3.3 % (0.0-4.0); HEMATOCRIT 32.7 % (35.0-46.0); HEMOGLOBIN 10.6 GM/DL (11.6-15.3); LYMPH % 25.4 % (9.0-44.0); LYMPHOCYTE # 2.6 TH/MM3 (1.0-4.8); MEAN CELL VOLUME 79.3 FL (80.0-100.0); MEAN CORPUSCULAR HEMOGLOBIN 25.6 PG (27.0-34.0); MEAN CORPUSCULAR HGB CONC 32.3 % (32.0-36.0); MONOCYTE # 0.8 TH/MM3 (0-0.9); NEUT % 62.6 % (16.0-70.0); PLATELET COUNT 145 TH/MM3 (150-450); RED BLOOD COUNT 4.13 MIL/MM3 (4.00-5.30); RED CELL DISTRIBUTION WIDTH 17.1 % (11.6-17.2); WHITE BLOOD COUNT 10.1 TH/MM3 (4.0-11.0)
[2017-09-16 23:07] LABS: BICARBONATE 24.9 MEQ/L (21.0-32.0); BLOOD UREA NITROGEN 39 MG/DL (7-18); CHLORIDE 106 MEQ/L (98-107); CREATININE 1.94 MG/DL (0.50-1.00); GLOMERULAR FILTRATION RATE 30 ML/MIN (>89); GLUCOSE,RANDOM 129 MG/DL (74-106); MAGNESIUM 1.5 MG/DL (1.5-2.5); SODIUM (NA) 139 MEQ/L (136-145); TROPONIN I LESS THAN 0.02 NG/ML (0.02-0.05)
[2017-09-16 23:34] LABS: ACANTHOCYTES OCC (NORMAL); KERATOCYTES OCC (NORMAL); OVALOCYTES 1+ (NORMAL); TOXIC VACUOLATION PRESENT (NONE SEEN)
--- NOTE | 2017-09-17 19:53 | EKG ---
Date Performed: 09/16/2017 Time Performed: 22:28:01 PTAGE: 77 years EKG: SINUS BRADYCARDIA BORDERLINE ECG PREVIOUS TRACING : 06/11/2017 02.32 Since the previous tracing, no significant change noted DOCTOR: Karen Kelly Interpretating Date/Time 09/17/2017 19:53:01
--- NOTE | 2017-09-21 10:14 | PD ---
Physical Exam Date Seen by Provider: Sep 16, 2017 Time Seen by Provider: 21:46 Narrative 77-year-old female presents to the emergency department for evaluation of wheezing and shortness of breath. She states she was discharged last week from the hospital after being diagnosed with pneumonia. She states that her home healthcare nurse came today and instructed her to come the emergency department. She reports associated vomiting, chest pain, sore throat. She denies any pain at this time. Data Data Orders Orders Complete Blood Count With Diff (09/16/17:53) Basic Metabolic Panel (Bmp) (09/16/17 21:53) B-Type Natriuretic Peptide (09/16/17:53) Magnesium (Mg) (09/16/17:53) Ckmb (Isoenzyme) Profile (09/16/17:53) Troponin I (09/16/17:53) Electrocardiogram (09/16/17:53) Chest, Pa & Lat (09/16/17:53) CKMB (09/16/17 22:25) CKMB% (09/16/17 22:25) Labs Laboratory Tests Test 09/16/17 22:25 White Blood Count 10.1 TH/MM3 Red Blood Count 4.13 MIL/MM3 Hemoglobin 10.6 GM/DL Hematocrit 32.7 % Mean Corpuscular Volume 79.3 FL Mean Corpuscular Hemoglobin 25.6 PG Mean Corpuscular Hemoglobin Concent 32.3 % Red Cell Distribution Width 17.1 % Platelet Count 145 TH/MM3 Mean Platelet Volume 11.0 FL Neutrophils (%) (Auto) 62.6 % Lymphocytes (%) (Auto) 25.4 % Monocytes (%) (Auto) 8.0 % Eosinophils (%) (Auto) 3.3 % Basophils (%) (Auto) 0.7 % Neutrophils # (Auto) 6.3 TH/MM3 Lymphocytes # (Auto) 2.6 TH/MM3 Monocytes # (Auto) 0.8 TH/MM3 Eosinophils # (Auto) 0.3 TH/MM3 Basophils # (Auto) 0.1 TH/MM3 CBC Comment AUTO DIFF Differential Comment AUTO DIFF CONFIRMED Toxic Vacuolation PRESENT Platelet Estimate LOW Platelet Morphology Comment ENLARGED Ovalocytes 1+ Acanthocytes OCC Keratocytes OCC Blood Urea Nitrogen 39 MG/DL Creatinine 1.94 MG/DL Random Glucose 129 MG/DL Calcium Level 9.0 MG/DL Magnesium Level 1.5 MG/DL Sodium Level 139 MEQ/L Potassium Level 4.4 MEQ/L Chloride Level 106 MEQ/L Carbon Dioxide Level 24.9 MEQ/L Anion Gap 8 MEQ/L Estimat Glomerular Filtration Rate 30 ML/MIN Total Creatine Kinase 107 U/L Creatine Kinase MB 0.9 NG/ML Troponin I LESS THAN 0.02 NG/ML B-Type Natriuretic Peptide 102 PG/ML [facility] Supervised Visit with ELLIE: No Narrative Course 77-year-old female presents to the emergency department for evaluation of shortness of breath after being diagnosed with pneumonia. Patient is initially seen in triage and workup is initiated. The patient did leave AGAINST MEDICAL ADVICE before she could be moved to medical bed. Diagnosis Primary Impression: Left against medical advice Patient Instructions: General Instructions Departure Forms: Tests/Procedures Disposition: 07 AGAINST MEDICAL ADVICE Elham Ramirez Sep 21, 2017 10:14
== END 2017-09-17 00:20 | disposition left against medical advice (07) ==
LOC: NED 21:36
DX: J18.9 Pneumonia, unspecified organism (principal); R11.10 Vomiting, unspecified; R00.1 Bradycardia, unspecified; I51.7 Cardiomegaly; Z53.21 Procedure and treatment not carried out due to patient leaving prior to being seen by health care provider
CPT/HCPCS: 71046; 80048; 82550; 82552; 83735; 83880; 84484; 85025; 85610; 85730; 93005; 99281

== ENCOUNTER 2017-10-07 16:40 | Emergency (ER) | payer MEDICARE, MEDICAID ==
[~2017-10-07] VITALS: Ht 160 cm; Wt 110.5 kg
[2017-10-07 17:11] VITALS: BP 144/82; PULSE 64; RESP 24; TEMP 98; O2SAT 99
[2017-10-07 18:24] VITALS: BP 213/86; PULSE 61; RESP 20; O2SAT 99
[2017-10-07 18:53] LABS: AUTOMATED NEUTROPHIL # 3.3 TH/MM3 (1.8-7.7); BASOPHIL % 0.4 % (0.0-2.0); EOSINOPHIL # 0.2 TH/MM3 (0-0.4); EOSINOPHIL % 4.3 % (0.0-4.0); HEMATOCRIT 32.3 % (35.0-46.0); HEMOGLOBIN 10.6 GM/DL (11.6-15.3); LYMPH % 27.6 % (9.0-44.0); LYMPHOCYTE # 1.6 TH/MM3 (1.0-4.8); MEAN CORPUSCULAR HEMOGLOBIN 25.9 PG (27.0-34.0); MEAN CORPUSCULAR HGB CONC 32.8 % (32.0-36.0); MEAN PLATELET VOLUME 10.2 FL (7.0-11.0); MONO % 9.9 % (0.0-8.0); MONOCYTE # 0.6 TH/MM3 (0-0.9); NEUT % 57.8 % (16.0-70.0); PLATELET COUNT 171 TH/MM3 (150-450); RED BLOOD COUNT 4.09 MIL/MM3 (4.00-5.30); WHITE BLOOD COUNT 5.7 TH/MM3 (4.0-11.0)
--- NOTE | 2017-10-07 18:57 | RADRPT ---
EXAM DATE/TIME: 10/07/2017 17:25 [facility] COMPARISON: CHEST PA & LAT, September 16, 2017, 22:02. INDICATIONS : Shortness of breath. MEDICAL HISTORY : Chronic obstructive pulmonary disease. Congestive heart failure. SURGICAL HISTORY : None. ENCOUNTER: Initial ACUITY: 1 day PAIN SCORE: 0/10 LOCATION: Bilateral chest FINDINGS: PA and lateral views of the chest demonstrate linear atelectasis and scarring at the lung bases. No e ffusion. No pneumothorax. Cardiomegaly. Tortuous aorta. CONCLUSION: 1. Linear atelectasis and scarring at the lung bases. Tortuous aorta. Judson Madrid MD on October 07, 2017 at 18:53 Board Certified Radiologist. This report was verified electronically.
[2017-10-07 19:04] LABS: PROTHROMBIN TIME - PATIENT 10.2 SEC (9.8-11.6)
--- NOTE | 2017-10-07 19:12 | PD ---
HPI Chief Complaint: Respiratory Distress Time Seen by Provider: 18:15 Travel History International Travel<30 days: No Contact w/Intl Traveler<30days: No Traveled to known affect area: No History of Present Illness HPI Patient comes to the emergency department complaining of dyspnea ongoing for 4 days. Patient reports symptoms began after going out and running errands. Patient states her symptoms are better today but decided to come to the emergency department for treatment and evaluation. Patient also reports some swelling of her bilateral lower extremities. Patient reports she used to be on diuretic but was taken off secondary to her poor kidney function. Patient reports using her nebulizers at home with minimal improvement of symptoms. Patient wears 2 L O2 at home. Dyspnea is worse on exertion. Reports associated cough has been ongoing for several months. Patient denies any chest pain, fevers, nausea, vomiting, abdominal pain, back pain, or loss change in bowel or bladder. Severity mild. PFSH Past Medical History Arthritis: Yes Asthma: Yes Blood Disorders: No Anxiety: No Depression: No Heart Rhythm Problems: Yes Cancer: No Cardiovascular Problems: Yes (HTN, CHF) High Cholesterol: Yes Chemotherapy: No Chest Pain: Yes Congestive Heart Failure: Yes COPD: Yes Coronary Artery Disease: Yes Diabetes: Yes Patient Takes Glucophage: No Diminished Hearing: No Endocrine: Yes (diabetic) Genitourinary: No Hypertension: Yes Immune Disorder: No Implanted Vascular Access Dvce: Yes (LOOP RECORDER) Musculoskeletal: Yes Neurologic: No Psychiatric: No Reproductive: No Radiation Therapy: No Renal Failure: Yes (chronic kidney disease) Sleep Apnea: Yes (CPAP) Thyroid Disease: Yes Tetanus Vaccination: < 5 Years Influenza Vaccination: Yes Menopausal: Yes Past Surgical History AICD: Yes (loop recorder to left chest) Cardiac Surgery: Yes (implanted loop recorder) Hysterectomy: Yes Neurologic Surgery: Yes (C-spine fusion) Pacemaker: No Thoracic Surgery: No Tonsillectomy: Yes Other Surgery: Yes (HERNIA) Social History Alcohol Use: Yes (OCC) Tobacco Use: No (40YR AGO) Substance Use: No Allergies-Medications (Allergen,Severity, Reaction): Coded Allergies: Sulfa (Sulfonamide Antibiotics) (Unverified Allergy, Intermediate, Rash, 06/11/17) ceftriaxone (Unverified Allergy, Intermediate, Rash, 06/11/17) morphine (Unverified Allergy, Intermediate, Hallucinations, 06/11/17) moxifloxacin (Unverified Allergy, Intermediate, Rash, 06/11/17) vancomycin (Unverified Allergy, Intermediate, Diarrhea, 06/11/17) azithromycin (Unverified Allergy, Unknown, 06/11/17) ciprofloxacin (Unverified Allergy, Unknown, 06/11/17) dobutamine (Unverified Allergy, Unknown, 06/11/17) methadone (Unverified Allergy, Unknown, 06/11/17) penicillin G (Unverified Allergy, Unknown, 06/11/17) prochlorperazine (Unverified Allergy, Unknown, 06/11/17) venlafaxine (Unverified Allergy, Unknown, 06/11/17) Reported Meds & Prescriptions Reported Meds & Active Scripts Active Proair Hfa 8.5 GM Inh (Albuterol Sulfate) 90 Mcg/Act Aer 2 Puff INH Q4-6H PRN 108 mcg/actuation Reported Percocet (Oxycodone-Acetaminophen) 10-325 mg Tab 1 Tab PO Q4H PRN Seroquel (Quetiapine Fumarate) 100 Mg Tab 100 Mg PO HS Norvasc (Amlodipine Besylate) 5 Mg Tab 5 Mg PO DAILY Lorazepam 0.5 Mg Tab 0.5 Mg PO DAILY PRN Gabapentin 100 Mg Cap 100 Mg PO TID Paxil (Paroxetine HCl) 30 Mg Tab 30 Mg PO DAILY Nitroglycerin SL (Nitroglycerin) 0.4 Mg Subl 0.4 Mg SL DIRECTED PRN ONE TABLET UNDER THE TONGUE NEEDED FOR CHEST PAIN, MAY REPEAT EVERY FIVE MINUTES FOR A TOTAL OF 3 DOSES OR CALL 911 IF NO RELIEF Lantus Inj (Insulin Glargine) 1,000 Unit/10 Ml Vial 18 Units SQ BID Aspirin Low Dose (Aspirin) 81 Mg Chew 81 Mg PO DAILY Metoprolol Tartrate 100 Mg Tab 100 Mg PO DAILY Synthroid (Levothyroxine Sodium) 25 Mcg Tab 150 PO DAILY Review of Systems Except as stated in HPI: all other systems reviewed are Neg Physical Exam Narrative GENERAL: Well-developed, overly nourished, in no acute distress, and non-ill appearing. SKIN: Focused skin assessment warm and dry. HEAD: Atraumatic. Normocephalic. EYES: Pupils equal and round. EOMI. No scleral icterus. No injection or drainage. ENT: No nasal bleeding or discharge. Mucous membranes pink and moist. NECK: Trachea midline. Supple. No nuclear rigidity. CARDIOVASCULAR: Regular rate and rhythm. No murmur appreciated. RESPIRATORY: No accessory muscle use. No respiratory distress. Clear to auscultation. Breath sounds equal bilaterally. Patient speaking in full sentences without difficulty. GASTROINTESTINAL: Abdomen soft, non-tender, nondistended, and no guarding. Hepatic and splenic margins not palpable. Normal bowel sounds x4. No pulsatile mass. MUSCULOSKELETAL: No obvious deformities. No clubbing. No cyanosis. Bilateral lower extremity edema left greater than right. Full range of motion. NEUROLOGICAL: Awake and alert. No obvious cranial nerve deficits. Motor grossly within normal limits. Normal speech. PSYCHIATRIC: Appropriate mood and affect; insight and judgment normal. Data Data Last Documented VS Vital Signs Date Time Temp Pulse Resp B/P (MAP) Pulse Ox O2 Delivery O2 Flow Rate FiO2 10/07/17 22:58 10/07/17 18:24 63 18 99 Nasal Cannula 2.00 10/07/17 17:11 98.0 Orders Orders Complete Blood Count With Diff (10/07/17 17:14) Comprehensive Metabolic Panel (10/07/17 17:14) B-Type Natriuretic Peptide (10/07/17 17:14) Act Partial Throm Time (Ptt) (10/07/17 17:14) Prothrombin Time / Inr (Pt) (10/07/17 17:14) Magnesium (Mg) (10/07/17 17:14) Ckmb (Isoenzyme) Profile (10/07/17 17:14) Troponin I (10/07/17 17:14) Electrocardiogram (10/07/17 17:14) Chest, Pa & Lat (10/07/17 17:14) CKMB (10/07/17 19:20) CKMB% (10/07/17 19:20) Ct Pulmonary Angiogram (10/07/17 ) Us Leg Venous Doppler (10/07/17 20:28) Iohexol 350 Inj (Omnipaque 350 Inj) (10/07/17 21:22) Ed Discharge Order (10/07/17 22:26) Labs Laboratory Tests Test 10/07/17 18:00 10/07/17 19:20 White Blood Count 5.7 TH/MM3 Red Blood Count 4.09 MIL/MM3 Hemoglobin 10.6 GM/DL Hematocrit 32.3 % Mean Corpuscular Volume 79.0 FL Mean Corpuscular Hemoglobin 25.9 PG Mean Corpuscular Hemoglobin Concent 32.8 % Red Cell Distribution Width 17.0 % Platelet Count 171 TH/MM3 Mean Platelet Volume 10.2 FL Neutrophils (%) (Auto) 57.8 % Lymphocytes (%) (Auto) 27.6 % Monocytes (%) (Auto) 9.9 % Eosinophils (%) (Auto) 4.3 % Basophils (%) (Auto) 0.4 % Neutrophils # (Auto) 3.3 TH/MM3 Lymphocytes # (Auto) 1.6 TH/MM3 Monocytes # (Auto) 0.6 TH/MM3 Eosinophils # (Auto) 0.2 TH/MM3 Basophils # (Auto) 0.0 TH/MM3 CBC Comment DIFF FINAL Differential Comment Prothrombin Time 10.2 SEC Prothromb Time International Ratio 1.0 RATIO Activated Partial Thromboplast Time 25.5 SEC B-Type Natriuretic Peptide 110 PG/ML Blood Urea Nitrogen 21 MG/DL Creatinine 1.19 MG/DL Random Glucose 118 MG/DL Total Protein 7.7 GM/DL Albumin 3.5 GM/DL Calcium Level 9.0 MG/DL Magnesium Level 1.7 MG/DL Alkaline Phosphatase 142 U/L Aspartate Amino Transf (AST/SGOT) 19 U/L Alanine Aminotransferase (ALT/SGPT) 18 U/L Total Bilirubin 0.2 MG/DL Sodium Level 142 MEQ/L Potassium Level 4.2 MEQ/L Chloride Level 108 MEQ/L Carbon Dioxide Level 27.6 MEQ/L Anion Gap 6 MEQ/L Estimat Glomerular Filtration Rate 53 ML/MIN Total Creatine Kinase 117 U/L Creatine Kinase MB 1.4 NG/ML Troponin I LESS THAN 0.02 NG/ML MDM Medical Decision Making Medical Screen Exam Complete: Yes Emergency Medical Condition: Yes Interpretation(s) Last Impressions Lower Extremity Ultrasound 10/07/[id number] Signed Impressions: Service Date/Time: Saturday, October 07, 2017 21:37 - CONCLUSION: 1. Negative for deep venous thrombosis. Judson Madrid MD Chest X-Ray 10/07/[id number] Signed Impressions: Service Date/Time: Saturday, October 07, 2017 17:25 - CONCLUSION: 1. Linear atelectasis and scarring at the lung bases. Tortuous aorta. Judson Madrid MD CT Angiography 10/07/17 0000 Signed Impressions: Service Date/Time: Saturday, October 07, 2017 21:14 - CONCLUSION: 1. Negative for pulmonary embolus. 2. Minimal subsegmental atelectasis or scarring in the lungs. 3. Moderate coronary calcifications. Judson Madrid MD Differential Diagnosis COPD exacerbation of CHF exacerbation, acute coronary syndrome, pneumonia, PE, deconditioning Narrative Course Patient in no obvious distress upon re-evaluation. All pertinent laboratory/ Radiology result(s) discussed with patient/family. Discussed patient with Dr. Rivas, who saw and evaluated the patient and is in agreement with plan of care and disposition. Any questions/concerns in reference to patient diagnosis/ condition discussed and clarified prior to patient's discharge. Reinforced sheer importance of close follow up with patient's primary physician or primary care clinic. Instructed patient to return to ED immediately, if symptoms return/ worsen. Patient showed understanding of above instructions. Further instructions and recommendations were detailed in discharge paperwork. Patient ambulated without difficulty out of ED at discharge. Diagnosis Primary Impression: Dyspnea Qualified Codes: R06.00 - Dyspnea, unspecified Patient Instructions: Dyspnea (ED), General Instructions Additional Instructions: Follow-up with your primary care physician and/or swimming pool installer this week for reevaluation. Take all medication as prescribed. Return to the emergency department if symptoms get worse. Disposition: 01 DISCHARGE HOME Condition: Stable Tony Ferrera Oct 07, 2017 19:12
[2017-10-07 19:23] VITALS: BP 208/90
--- NOTE | 2017-10-07 20:11 | PD ---
Data Data Last Documented VS Vital Signs Date Time Temp Pulse Resp B/P (MAP) Pulse Ox O2 Delivery O2 Flow Rate FiO2 10/07/17 22:58 10/07/17 18:24 63 18 99 Nasal Cannula 2.00 10/07/17 17:11 98.0 Orders Orders Complete Blood Count With Diff (10/07/17 17:14) Comprehensive Metabolic Panel (10/07/17 17:14) B-Type Natriuretic Peptide (10/07/17 17:14) Act Partial Throm Time (Ptt) (10/07/17 17:14) Prothrombin Time / Inr (Pt) (10/07/17 17:14) Magnesium (Mg) (10/07/17 17:14) Ckmb (Isoenzyme) Profile (10/07/17 17:14) Troponin I (10/07/17 17:14) Electrocardiogram (10/07/17 17:14) Chest, Pa & Lat (10/07/17 17:14) CKMB (10/07/17 19:20) CKMB% (10/07/17 19:20) Ct Pulmonary Angiogram (10/07/17 ) Us Leg Venous Doppler (10/07/17 20:28) Iohexol 350 Inj (Omnipaque 350 Inj) (10/07/17 21:22) Ed Discharge Order (10/07/17 22:26) Labs Laboratory Tests Test 10/07/17 18:00 10/07/17 19:20 White Blood Count 5.7 TH/MM3 Red Blood Count 4.09 MIL/MM3 Hemoglobin 10.6 GM/DL Hematocrit 32.3 % Mean Corpuscular Volume 79.0 FL Mean Corpuscular Hemoglobin 25.9 PG Mean Corpuscular Hemoglobin Concent 32.8 % Red Cell Distribution Width 17.0 % Platelet Count 171 TH/MM3 Mean Platelet Volume 10.2 FL Neutrophils (%) (Auto) 57.8 % Lymphocytes (%) (Auto) 27.6 % Monocytes (%) (Auto) 9.9 % Eosinophils (%) (Auto) 4.3 % Basophils (%) (Auto) 0.4 % Neutrophils # (Auto) 3.3 TH/MM3 Lymphocytes # (Auto) 1.6 TH/MM3 Monocytes # (Auto) 0.6 TH/MM3 Eosinophils # (Auto) 0.2 TH/MM3 Basophils # (Auto) 0.0 TH/MM3 CBC Comment DIFF FINAL Differential Comment Prothrombin Time 10.2 SEC Prothromb Time International Ratio 1.0 RATIO Activated Partial Thromboplast Time 25.5 SEC B-Type Natriuretic Peptide 110 PG/ML Blood Urea Nitrogen 21 MG/DL Creatinine 1.19 MG/DL Random Glucose 118 MG/DL Total Protein 7.7 GM/DL Albumin 3.5 GM/DL Calcium Level 9.0 MG/DL Magnesium Level 1.7 MG/DL Alkaline Phosphatase 142 U/L Aspartate Amino Transf (AST/SGOT) 19 U/L Alanine Aminotransferase (ALT/SGPT) 18 U/L Total Bilirubin 0.2 MG/DL Sodium Level 142 MEQ/L Potassium Level 4.2 MEQ/L Chloride Level 108 MEQ/L Carbon Dioxide Level 27.6 MEQ/L Anion Gap 6 MEQ/L Estimat Glomerular Filtration Rate 53 ML/MIN Total Creatine Kinase 117 U/L Creatine Kinase MB 1.4 NG/ML Troponin I LESS THAN 0.02 NG/ML MDM Medical Record Reviewed: Yes Supervised Visit with ELLIE: Yes Narrative Course I, Dr. Rivas, have reviewed the advance practice practitioner's documentation and am in agreement, met with the patient face to face, made the diagnosis, and the medical decision making was done by me. The patient was initially evaluated by Siva, the physician wet process assistant head miller. Please see their complete history and physical. *My assessment and Findings: The patient presents with a history of shortness of breath on exertion that that began over the last 4 days. The patient reports that her left lower extremity has also been more swollen than usual over the last few months. She is unsure whether an ultrasound has been done of the leg to evaluate for DVT. She denies having any known prior history of DVT or PE. She denies having any increased shortness of breath with lying flat. She reports having an occasional cough that is nonproductive. The patient denies having any chest pain or chest pressure associated with this. During the course of the patient's emergency department visit, the patient's history, examination, and differential diagnosis were reviewed with the patient. The patient was placed on a coordinator skill training program with oximetry and frequent blood pressure monitoring. The patient had IV access obtained and blood work sent for analysis. The patient is normally on 2 L nasal cannula O2 which was continued during her emergency department evaluation. O2 saturation on 2 L is 99%. The patient's laboratory studies were reviewed and remarkable for a white count of 5.7, hemoglobin 10.6, platelets 171 with 9.9 monocytes, PT 10.2, PTT 25.5, CMP is remarkable for chloride of 108, BUN 21, creatinine 1.19, glucose 118, alk phos 142, cardiac enzymes within normal limits, BNP is 110, PT PTT unremarkable Radiology studies were reviewed and remarkable for a chest x-ray that shows linear atelectasis and scarring at the lung bases, tortuous aorta. An ultrasound of the left lower extremity to evaluate for DVT was negative. A CTA to rule out PE was ordered. The patient had no evidence of PE. Minimal subsegmental atelectasis or scarring in the lungs, moderate coronary calcifications. The patient is resting comfortably and feels better, is alert and in no distress. The patient's results and examination findings were discussed with the patient. The repeat examination is unremarkable and benign. The history, exam, diagnostic testing, and current condition do not suggest any significant pathology to warrant further testing, continued ED treatment, admission, or surgical evaluation at this point. The vital signs have been stable. The patient does not have uncontrollable pain, intractable vomiting, or other significant symptoms. The patient's condition is stable and appropriate for discharge. The patient will pursue further outpatient evaluation with a primary care physician or other designated or consulting physician as indicated in the discharge instructions. The patient expressed understanding and was agreeable with this plan. Maddi Rivas MD Oct 07, 2017 20:11
[2017-10-07 20:16] LABS: ALT (GPT) 18 U/L (10-53)
[2017-10-07 20:20] LABS: ALBUMIN 3.5 GM/DL (3.4-5.0); ALKALINE PHOSPHATASE 142 U/L (45-117); AST (GOT) 19 U/L (15-37); BICARBONATE 27.6 MEQ/L (21.0-32.0); BLOOD UREA NITROGEN 21 MG/DL (7-18); CHLORIDE 108 MEQ/L (98-107); CREATININE 1.19 MG/DL (0.50-1.00); GLOMERULAR FILTRATION RATE 53 ML/MIN (>89); GLUCOSE,RANDOM 118 MG/DL (74-106); MAGNESIUM 1.7 MG/DL (1.5-2.5); SODIUM (NA) 142 MEQ/L (136-145); TOTAL BILIRUBIN ADULT 0.2 MG/DL (0.2-1.0); TOTAL PROTEIN 7.7 GM/DL (6.4-8.2); TROPONIN I LESS THAN 0.02 NG/ML (0.02-0.05)
[2017-10-07] MEDS ORDERED: IOHEXOL 350 MG/ML 10 ML VIAL (for RAD DIAG) IVCONTRAST ONE (21:22)
--- NOTE | 2017-10-07 21:44 | RADRPT ---
EXAM DATE/TIME: 10/07/2017 21:14 [facility] COMPARISON: No previous studies available for comparison. INDICATIONS : Shortness of breath for four days. IV CONTRAST: 70 cc Omnipaque 350 (iohexol) IV RADIATION DOSE: 10.47 CTDIvol (mGy) MEDICAL HISTORY : Chronic obstructive pulmonary disease. Congestive heart failure. SURGICAL HISTORY : Fusion, cervical. cardiac loop recorder ENCOUNTER: Initial ACUITY: 1 day PAIN SCALE: 0/10 LOCATION: Bilateral chest TECHNIQUE: Volumetric scanning of the chest was performed using a pulmonary embolism protocol MIP images were re constructed. Using automated exposure control and adjustment of the mA and/or kV according to patien t size, radiation dose was kept as low as reasonably achievable to obtain optimal diagnostic quality images. DICOM format image data is available electronically for review and comparison. Follow-up recommendations for detected pulmonary nodules are based at a minimum on nodule size and pa tient risk factors according to Fleischner Society Guidelines. FINDINGS: No filling defects are seen to suggest pulmonary embolus. Scattered subsegmental atelectasis in the l ungs. Moderate coronary calcifications. No adenopathy. No acute findings in the upper abdomen. Mild e sophageal dilatation. CONCLUSION: 1. Negative for pulmonary embolus. 2. Minimal subsegmental atelectasis or scarring in the lungs. 3. Moderate coronary calcifications. Judson Madrid MD on October 07, 2017 at 21:37 Board Certified Radiologist. This report was verified electronically.
--- NOTE | 2017-10-07 22:18 | RADRPT ---
EXAM DATE/TIME: 10/07/2017 21:37 [facility] COMPARISON: No previous studies available for comparison. INDICATIONS : Left leg swelling and shortness of breath. MEDICAL HISTORY : Chronic obstructive pulmonary disease. Hypertension. Congestive heart failure. Coronary Artery Dis ease. Hypercholesterolemia. Emphysema. Sleep Apnea. Dyspnea. CKD. Arthritis. Diabetes. SURGICAL HISTORY : Fusion, cervical. Total knee replacement, left. Total knee replacement, right. Tonsillectomy. Loop Recorder Implant. ENCOUNTER: Initial ACUITY: 3 days PAIN SCORE: 2/10 LOCATION: Left leg. TECHNIQUE: Venous ultrasound of the leg was performed from the inguinal ligament to the proximal calf. Real-er[place] e, color Doppler and spectral tracing, compression and augmentation techniques were used. FINDINGS: There is normal compressibility of the deep venous system from the inguinal region to the proximal ca lf. No echogenic clot is seen in the lumen of the common femoral, femoral, popliteal, and posterior tibial veins. There is a normal response of the venous system to proximal and distal augmentation an d respiration. CONCLUSION: 1. Negative for deep venous thrombosis. Judson Madrid MD on October 07, 2017 at 22:14 Board Certified Radiologist. This report was verified electronically.
--- NOTE | 2017-10-08 15:52 | EKG ---
Date Performed: 10/07/2017 Time Performed: 18:12:47 PTAGE: 77 years EKG: SINUS BRADYCARDIA BORDERLINE ECG PREVIOUS TRACING : 09/16/[address]-T wave changes, but largely unchanged. DOCTOR: Clifford Edwards Interpretating Date/Time 10/08/2017 15:50:27
== END 2017-10-07 22:59 | disposition home or self-care (01) ==
LOC: NED 16:40 → NEPE 22:59
DX: R06.00 Dyspnea, unspecified (principal); I13.0 Hypertensive heart and chronic kidney disease with heart failure and stage 1 through stage 4 chronic kidney disease, or unspecified chronic kidney disease; I50.9 Heart failure, unspecified; E11.22 Type 2 diabetes mellitus with diabetic chronic kidney disease; N18.9 Chronic kidney disease, unspecified; E78.00 Pure hypercholesterolemia, unspecified; Z79.4 Long term (current) use of insulin; Z87.891 Personal history of nicotine dependence
CPT/HCPCS: 71046; 71275; 80053; 82550; 82552; 83735; 83880; 84484; 85025; 85610; 85730; 93005; 93971; 99285; Q9967

== ENCOUNTER 2017-11-29 18:32 | Emergency (ER) | payer MEDICARE, MEDICAID ==
[~2017-11-29 18:32] MED LIST changes: -DOXY100C PO
[2017-11-29 19:14] VITALS: BP 208/88; PULSE 61; RESP 22; TEMP 99.6; O2SAT 98
--- NOTE | 2017-11-29 19:25 | PD ---
HPI . Shortness of breath Chief Complaint: Respiratory Symptoms Time Seen by Provider: 19:21 Travel History International Travel<30 days: No Contact w/Intl Traveler<30days: No Traveled to known affect area: No History of Present Illness HPI Pt has hx of COPD Bipolar disorder has frequent admits for COPD exacerbation . She comes in complaining of shortness of breath cough getting worse over the last few weeks she had recently finished a course of prednisone from her primary care doctor Dr. Gonzalez without improvement daughter says she does not have a nebulizer she only uses the FA and her symptoms are getting worse not improving with the home treatment she saw Dr. Gonzalez put her on the prednisone taper finished over 3 weeks ago now symptoms are returning and getting worse PMHx includes COPD with chronic respiratory failure, on home O2. . Pneumonia. Chronic kidney disease. Diabetes.. Bipolar. Sleep apnea. Obesity. Hypokalemia. Patient is desaturating to 89% on room air DuoNeb started immediately after exam of her lungs and evaluation of her oxygen saturation PFSH Past Medical History Arthritis: Yes Asthma: Yes Blood Disorders: No Anxiety: No Depression: No Heart Rhythm Problems: Yes Cancer: No Cardiovascular Problems: Yes (HTN, CHF) High Cholesterol: Yes Chemotherapy: No Chest Pain: Yes Congestive Heart Failure: Yes COPD: Yes Coronary Artery Disease: Yes Diabetes: Yes Diminished Hearing: No Endocrine: Yes (diabetic) Genitourinary: No Hypertension: Yes Immune Disorder: No Implanted Vascular Access Dvce: Yes (LOOP RECORDER) Musculoskeletal: Yes Neurologic: No Psychiatric: No Reproductive: No Radiation Therapy: No Renal Failure: Yes (chronic kidney disease) Sleep Apnea: Yes (CPAP) Thyroid Disease: Yes Menopausal: Yes Past Surgical History AICD: Yes (loop recorder to left chest) Cardiac Surgery: Yes (implanted loop recorder) Hysterectomy: Yes Neurologic Surgery: Yes (C-spine fusion) Pacemaker: No Thoracic Surgery: No Tonsillectomy: Yes Other Surgery: Yes (HERNIA) Social History Alcohol Use: Yes (OCC) Tobacco Use: No (40YR AGO) Substance Use: No Allergies-Medications (Allergen,Severity, Reaction): Coded Allergies: Sulfa (Sulfonamide Antibiotics) (Verified Allergy, Intermediate, Rash, ) ceftriaxone (Verified Allergy, Intermediate, Rash, 12/02/17) morphine (Verified Allergy, Intermediate, Hallucinations, 12/02/17) moxifloxacin (Verified Allergy, Intermediate, Rash, 12/02/17) vancomycin (Verified Allergy, Intermediate, Diarrhea, 12/02/17) azithromycin (Verified Allergy, Unknown, 12/02/17) ciprofloxacin (Verified Allergy, Unknown, 12/02/17) dobutamine (Verified Allergy, Unknown, 12/02/17) methadone (Verified Allergy, Unknown, 12/02/17) penicillin G (Verified Allergy, Unknown, 12/02/17) prochlorperazine (Verified Allergy, Unknown, 12/02/17) venlafaxine (Verified Allergy, Unknown, 12/02/17) Reported Meds & Prescriptions Reported Meds & Active Scripts Active Prednisone 50 Mg Tab 50 Mg PO DAILY Ipratropium Neb (Ipratropium [place]) 0.5 Mg/2.5 Ml Amp 0.5 Mg NEB Q6HR NEB PRN Albuterol Neb (Albuterol Sulfate) 2.5 Mg/3 Ml Neb 2.5 Mg NEB Q4HR NEB PRN Nebulizer 1 Mis Mis Ea .XX DIRECTED Proair Hfa 8.5 GM Inh (Albuterol Sulfate) 90 Mcg/Act Aer 2 Puff INH Q4-6H PRN 108 mcg/actuation Reported Percocet (Oxycodone-Acetaminophen) 10-325 mg Tab 1 Tab PO Q4H PRN Seroquel (Quetiapine Fumarate) 100 Mg Tab 100 Mg PO HS Norvasc (Amlodipine Besylate) 5 Mg Tab 5 Mg PO DAILY Lorazepam 0.5 Mg Tab 0.5 Mg PO DAILY PRN Gabapentin 100 Mg Cap 100 Mg PO TID Paxil (Paroxetine HCl) 30 Mg Tab 30 Mg PO DAILY Nitroglycerin SL (Nitroglycerin) 0.4 Mg Subl 0.4 Mg SL DIRECTED PRN ONE TABLET UNDER THE TONGUE NEEDED FOR CHEST PAIN, MAY REPEAT EVERY FIVE MINUTES FOR A TOTAL OF 3 DOSES OR CALL 911 IF NO RELIEF Lantus Inj (Insulin Glargine) 1,000 Unit/10 Ml Vial 18 Units SQ BID Aspirin Low Dose (Aspirin) 81 Mg Chew 81 Mg PO DAILY Metoprolol Tartrate 100 Mg Tab 100 Mg PO DAILY Synthroid (Levothyroxine Sodium) 25 Mcg Tab 150 PO DAILY Review of Systems Except as stated in HPI: all other systems reviewed are Neg Respiratory: Positive: Shortness of Breath Physical Exam Narrative GENERAL: Nontoxic appearing awake alert mild respiratory distress coughing during exam SKIN: Warm and dry. HEAD: Atraumatic. Normocephalic. EYES: Pupils equal and round. No scleral icterus. No injection or drainage. ENT: No nasal bleeding or discharge. Mucous membranes pink and moist. NECK: Trachea midline. No JVD. CARDIOVASCULAR: Regular rate and rhythm. RESPIRATORY: No accessory muscle use. Diffuse expiratory wheeze in all robles GASTROINTESTINAL: Abdomen soft, abdomen is obese midline tenderness periumbilical MUSCULOSKELETAL: Extremities without clubbing, cyanosis, or edema. No obvious deformities. NEUROLOGICAL: Awake and alert. No obvious cranial nerve deficits. Motor grossly within normal limits. Five out of 5 muscle strength in the arms and legs. Normal speech. PSYCHIATRIC: Appropriate mood and affect; insight and judgment normal. Data Data Last Documented VS Vital Signs Date Time Temp Pulse Resp B/P (MAP) Pulse Ox O2 Delivery O2 Flow Rate FiO2 11/29/17 23:02 98 Nasal Cannula 2.00 11/29/17 19:14 99.6 61 22 208/88 (128) Orders Orders Electrocardiogram (11/29/17 19:45) Complete Blood Count With Diff (11/29/17 19:45) Comprehensive Metabolic Panel (11/29/17 19:45) Troponin I (11/29/17 19:45) B-Type Natriuretic Peptide (11/29/17 19:45) Lipase (11/29/17 19:45) Magnesium (Mg) (11/29/17 19:45) Chest, Single Ap (11/29/17 19:45) Influenzae A/B Antigen (11/29/17 19:49) Albuterol-Ipratropium Neb (Duoneb Neb) (11/29/17 22:30) Ed Discharge Order (11/30/17 00:18) Labs Laboratory Tests Test 11/29/17 19:49 White Blood Count 4.4 TH/MM3 Red Blood Count 3.98 MIL/MM3 Hemoglobin 10.4 GM/DL Hematocrit 32.0 % Mean Corpuscular Volume 80.5 FL Mean Corpuscular Hemoglobin 26.1 PG Mean Corpuscular Hemoglobin Concent 32.5 % Red Cell Distribution Width 18.1 % Platelet Count 131 TH/MM3 Mean Platelet Volume 9.8 FL Neutrophils (%) (Auto) 60.1 % Lymphocytes (%) (Auto) 17.9 % Monocytes (%) (Auto) 13.5 % Eosinophils (%) (Auto) 8.1 % Basophils (%) (Auto) 0.4 % Neutrophils # (Auto) 2.7 TH/MM3 Lymphocytes # (Auto) 0.8 TH/MM3 Monocytes # (Auto) 0.6 TH/MM3 Eosinophils # (Auto) 0.4 TH/MM3 Basophils # (Auto) 0.0 TH/MM3 CBC Comment DIFF FINAL Differential Comment Blood Urea Nitrogen 31 MG/DL Creatinine 1.56 MG/DL Random Glucose 139 MG/DL Total Protein 8.0 GM/DL Albumin 3.6 GM/DL Calcium Level 9.0 MG/DL Magnesium Level 2.1 MG/DL Alkaline Phosphatase 142 U/L Aspartate Amino Transf (AST/SGOT) 19 U/L Alanine Aminotransferase (ALT/SGPT) 18 U/L Total Bilirubin 0.2 MG/DL Sodium Level 141 MEQ/L Potassium Level 4.2 MEQ/L Chloride Level 107 MEQ/L Carbon Dioxide Level 25.2 MEQ/L Anion Gap 9 MEQ/L Estimat Glomerular Filtration Rate 39 ML/MIN Troponin I LESS THAN 0.02 NG/ML B-Type Natriuretic Peptide 213 PG/ML Lipase 57 U/L [facility] Medical Decision Making Medical Screen Exam Complete: Yes Emergency Medical Condition: Yes Medical Record Reviewed: Yes Differential Diagnosis Differential diagnosis includes upper respiratory infection with reactive airway versus COPD exacerbation versus brought colitis versus pneumonia versus PE Narrative Course pt is 77 year old female treated with DuoNeb's and chest x-ray EKG labs reviewed . pt wants to go home and ask for Nebulaizer Rx , I write her for Neb machine and ampules and prednisone Diagnosis Primary Impression: COPD exacerbation Patient Instructions: COPD (Chronic Obstructive Pulmonary Disease) (ED), General Instructions Scripts Prednisone (Prednisone) 50 Mg Tab 50 MG PO DAILY, #4 TAB 0 Refills Prov: Jerald Tellez MD 11/30/17 Ipratropium Neb (Ipratropium Neb) 0.5 Mg/2.5 Ml Amp 0.5 MG NEB Q6HR NEB Y for SHORTNESS OF BREATH, #120 NEBULE 0 Refills Prov: Jerald Tellez MD 11/30/17 Albuterol Neb (Albuterol Neb) 2.5 Mg/3 Ml Neb 2.5 MG NEB Q4HR NEB Y for SHORTNESS OF BREATH, #60 NEBULE 0 Refills Prov: Jerald Tellez MD 11/30/17 Nebulizer (Nebulizer) 1 Mis Mis EA .XX DIRECTED for Breathing Treatment, #1 0 Refills Prov: Jerald Tellez MD 11/30/17 Disposition: 01 DISCHARGE HOME Condition: Good Jerald Tellez MD November 29, 2017 19:25
[2017-11-29 20:14] LABS: AUTOMATED NEUTROPHIL # 2.7 TH/MM3 (1.8-7.7); BASOPHIL % 0.4 % (0.0-2.0); EOSINOPHIL # 0.4 TH/MM3 (0-0.4); EOSINOPHIL % 8.1 % (0.0-4.0); HEMOGLOBIN 10.4 GM/DL (11.6-15.3); LYMPH % 17.9 % (9.0-44.0); LYMPHOCYTE # 0.8 TH/MM3 (1.0-4.8); MEAN CELL VOLUME 80.5 FL (80.0-100.0); MEAN CORPUSCULAR HEMOGLOBIN 26.1 PG (27.0-34.0); MEAN CORPUSCULAR HGB CONC 32.5 % (32.0-36.0); MEAN PLATELET VOLUME 9.8 FL (7.0-11.0); MONO % 13.5 % (0.0-8.0); MONOCYTE # 0.6 TH/MM3 (0-0.9); NEUT % 60.1 % (16.0-70.0); PLATELET COUNT 131 TH/MM3 (150-450); RED BLOOD COUNT 3.98 MIL/MM3 (4.00-5.30); RED CELL DISTRIBUTION WIDTH 18.1 % (11.6-17.2); WHITE BLOOD COUNT 4.4 TH/MM3 (4.0-11.0)
--- NOTE | 2017-11-29 20:19 | RADRPT ---
EXAM DATE: 11/29/2017 8:16 PM EDT AGE/SEX: 77 years / Female INDICATIONS: Cough. CLINICAL DATA: This is the patient's initial encounter. Patient reports that signs and symptoms have been present for 1 month and indicates a pain score of 0/10. MEDICAL/SURGICAL HISTORY: Chronic obstructive pulmonary disease. Congestive heart failure. Non e. COMPARISON: [facility] – [place], CHEST SINGLE AP, 09/06/2017. . FINDINGS: The lungs are symmetrically aerated and clear. The heart is enlarged and the central pulmonary vessel s are prominent, stable from prior. Both hemidiaphragms are well delineated. Loop recorder device in place. CONCLUSION: 1. Stable cardiomegaly. 2. No infiltrates seen. Electronically signed by: Fredo Alcocer MD 11/29/2017 8:17 PM EDT
[2017-11-29 20:30] LABS: ALBUMIN 3.6 GM/DL (3.4-5.0); AST (GOT) 19 U/L (15-37); BICARBONATE 25.2 MEQ/L (21.0-32.0); BLOOD UREA NITROGEN 31 MG/DL (7-18); CHLORIDE 107 MEQ/L (98-107); CREATININE 1.56 MG/DL (0.50-1.00); GLOMERULAR FILTRATION RATE 39 ML/MIN (>89); GLUCOSE,RANDOM 139 MG/DL (74-106); MAGNESIUM 2.1 MG/DL (1.5-2.5); SODIUM (NA) 141 MEQ/L (136-145)
[2017-11-29 20:31] LABS: ALT (GPT) 18 U/L (10-53)
[2017-11-29 20:35] LABS: ALKALINE PHOSPHATASE 142 U/L (45-117); TOTAL BILIRUBIN ADULT 0.2 MG/DL (0.2-1.0); TROPONIN I LESS THAN 0.02 NG/ML (0.02-0.05)
[2017-11-29] MEDS ORDERED: RESP: ALBUTEROL 2.5 MG/IPRATROPIUM 0.5 MG NEB (SCH) NEB ONE (22:30)
[2017-11-29 23:02] VITALS: O2SAT 98
[2017-11-30] MEDS ORDERED: NEBULIZER1 MI1 (00:28)
[2017-11-30] MEDS ORDERED: ALBU0.08 NEB (00:29)
[2017-11-30] MEDS ORDERED: IPRA0.02 NEB (00:29)
[2017-11-30] MEDS ORDERED: PRED50 PO (00:31)
--- NOTE | 2017-11-30 13:42 | EKG ---
Date Performed: 11/29/2017 Time Performed: 20:10:54 PTAGE: 77 years EKG: Sinus rhythm WITH FIRST DEGREE AV BLOCK NONSPECIFIC T-WAVE ABNORMALITY BASELINE ARTIFACT ABNORMAL ECG Compared to PREVIOUS TRACING , other than baseline artifact, no change. PREVIOUS TRACIN10/07/2017 18.12 DOCTOR: Ghassan Saleem Interpretating Date/Time 11/30/2017 13:41:16
== END 2017-11-30 00:37 | disposition home or self-care (01) ==
LOC: NEPE 18:32
DX: J44.1 Chronic obstructive pulmonary disease with (acute) exacerbation (principal); I13.0 Hypertensive heart and chronic kidney disease with heart failure and stage 1 through stage 4 chronic kidney disease, or unspecified chronic kidney disease; E11.22 Type 2 diabetes mellitus with diabetic chronic kidney disease; N18.9 Chronic kidney disease, unspecified; I50.9 Heart failure, unspecified; Z87.891 Personal history of nicotine dependence; Z79.4 Long term (current) use of insulin
CPT/HCPCS: 71045; 80053; 83690; 83735; 83880; 84484; 85025; 87804; 93005; 94664; 99285

== ENCOUNTER 2017-12-02 00:25 | Inpatient (IN) | payer MEDICARE, MEDICAID ==
[2017-12-02] VITALS (31 sets, daily range): BP systolic 122–189; BP diastolic 56–97; PULSE 58–84; RESP 16–22; TEMP 97.7–98.6; O2SAT 92–100
[~2017-12-02] VITALS: Ht 160 cm; Wt 117.3 kg
[~2017-12-02 00:25] MED LIST changes: +ALBU0.08 NEB; +IPRA0.02 NEB; +NEBULIZER1 MI1; +PRED50 PO
[2017-12-02] MEDS: RESP: ALBUTEROL 2.5 MG/IPRATROPIUM 0.5 MG NEB (SCH) INH ×3 (00:45→01:10)
[2017-12-02] MEDS ORDERED: SODIUM CHLORIDE 0.9% FLUSH 10 ML FLUSH IVF PRN (00:45)
--- NOTE | 2017-12-02 01:08 | PD ---
HPI Chief Complaint: Respiratory Distress Time Seen by Provider: 00:38 Travel History International Travel<30 days: No Contact w/Intl Traveler<30days: No Traveled to known affect area: No History of Present Illness HPI The patient is a 77 year old female who presents to the [facility] emergency department with a history of shortness of breath that began to worsen on Saturday. The patient was seen in the emergency department at that time and discharged home after treatment. The patient resides with her daughter who is currently at the bedside and providing her history. She reports that yesterday the shortness of breath began to worsen again and since then she has not been eating, drinking, or sleeping. She reports that she is normally on 2 L nasal cannula O2 continuously. She has a history of sleep apnea, however she is noncompliant with the mask. Her primary care physician is Dr. Gonzalez. She has had a dry sounding cough. She has not had any productivity to her cough. She has not had any known fevers. She has not had any vomiting, however she did have one episode of diarrhea earlier today. The patient was brought in by ambulance services and was noted to have O2 saturations on her usual 2 L of 95% , however on arrival to this facility she has all lung robles and O2 saturations on 2 L of 92%. The patient was given Solu-Medrol 125 mg IV prior to arrival along with 2 nebulizer treatments. The patient's daughter reports that she does also have a history of congestive heart failure. She denies her ever having a history of myocardial infarction. She denies having any lower extremity edema. The patient reports that she has had intermittent chest pain that she describes as a tightness associated with her shortness of breath. On review of systems otherwise, she denies having any abdominal pain, urinary symptoms, or neurologic symptoms. [facility] Past Medical History Narrative Medical The patient's past medical history is significant for obesity, sleep apnea, COPD , congestive heart failure, hypothyroid disorder, diabetes mellitus, hypertension, psychiatric disorder, chronic pain Arthritis: Yes Asthma: Yes Blood Disorders: No Anxiety: No Depression: No Heart Rhythm Problems: Yes Cancer: No Cardiovascular Problems: Yes (HTN, CHF) High Cholesterol: Yes Chemotherapy: No Chest Pain: Yes Congestive Heart Failure: Yes COPD: Yes Coronary Artery Disease: Yes Diabetes: Yes Patient Takes Glucophage: No Diminished Hearing: No Endocrine: Yes (diabetic) Genitourinary: No Hypertension: Yes Immune Disorder: No Implanted Vascular Access Dvce: Yes (LOOP RECORDER) Musculoskeletal: Yes Neurologic: No Psychiatric: No Reproductive: No Radiation Therapy: No Renal Failure: Yes (chronic kidney disease) Sleep Apnea: Yes (CPAP) Thyroid Disease: Yes Menopausal: Yes Past Surgical History Narrative Surgical The patient's past surgical history is significant for an implanted loop recorder, cervical spine fusion, hernia repair, tonsillectomy, hysterectomy. AICD: Yes (loop recorder to left chest) Cardiac Surgery: Yes (implanted loop recorder) Hysterectomy: Yes Neurologic Surgery: Yes (C-spine fusion) Pacemaker: No Thoracic Surgery: No Tonsillectomy: Yes Other Surgery: Yes (HERNIA) Social History Alcohol Use: Yes (OCC) Tobacco Use: No (40YR AGO) Substance Use: No Allergies-Medications (Allergen,Severity, Reaction): Coded Allergies: Sulfa (Sulfonamide Antibiotics) (Verified Allergy, Intermediate, Rash, ) ceftriaxone (Verified Allergy, Intermediate, Rash, 12/02/17) morphine (Verified Allergy, Intermediate, Hallucinations, 12/02/17) moxifloxacin (Verified Allergy, Intermediate, Rash, 12/02/17) vancomycin (Verified Allergy, Intermediate, Diarrhea, 12/02/17) azithromycin (Verified Allergy, Unknown, 12/02/17) ciprofloxacin (Verified Allergy, Unknown, 12/02/17) dobutamine (Verified Allergy, Unknown, 12/02/17) methadone (Verified Allergy, Unknown, 12/02/17) penicillin G (Verified Allergy, Unknown, 12/02/17) prochlorperazine (Verified Allergy, Unknown, 12/02/17) venlafaxine (Verified Allergy, Unknown, 12/02/17) Reported Meds & Prescriptions Reported Meds & Active Scripts Active Prednisone 50 Mg Tab 50 Mg PO DAILY Ipratropium Neb (Ipratropium [place]) 0.5 Mg/2.5 Ml Amp 0.5 Mg NEB Q6HR NEB PRN Albuterol Neb (Albuterol Sulfate) 2.5 Mg/3 Ml Neb 2.5 Mg NEB Q4HR NEB PRN Nebulizer 1 Mis Mis Ea .XX DIRECTED Proair Hfa 8.5 GM Inh (Albuterol Sulfate) 90 Mcg/Act Aer 2 Puff INH Q4-6H PRN 108 mcg/actuation Reported Percocet (Oxycodone-Acetaminophen) 10-325 mg Tab 1 Tab PO Q4H PRN Seroquel (Quetiapine Fumarate) 100 Mg Tab 100 Mg PO HS Norvasc (Amlodipine Besylate) 5 Mg Tab 5 Mg PO DAILY Lorazepam 0.5 Mg Tab 0.5 Mg PO DAILY PRN Gabapentin 100 Mg Cap 100 Mg PO TID Paxil (Paroxetine HCl) 30 Mg Tab 30 Mg PO DAILY Nitroglycerin SL (Nitroglycerin) 0.4 Mg Subl 0.4 Mg SL DIRECTED PRN ONE TABLET UNDER THE TONGUE NEEDED FOR CHEST PAIN, MAY REPEAT EVERY FIVE MINUTES FOR A TOTAL OF 3 DOSES OR CALL 911 IF NO RELIEF Lantus Inj (Insulin Glargine) 1,000 Unit/10 Ml Vial 18 Units SQ BID Aspirin Low Dose (Aspirin) 81 Mg Chew 81 Mg PO DAILY Metoprolol Tartrate 100 Mg Tab 100 Mg PO DAILY Synthroid (Levothyroxine Sodium) 25 Mcg Tab 150 PO DAILY Review of Systems Except as stated in HPI: all other systems reviewed are Neg General / Constitutional: No: Fever Eyes: No: Visual changes HENT: No: Headaches Cardiovascular: Positive: Chest Pain or Discomfort (Generalized weakness), Dyspnea on exertion Respiratory: Positive: Cough, Shortness of Breath, Wheezing Gastrointestinal: Positive: Diarrhea, Changes in Bowel Habits, No: Nausea, Vomiting, Abdominal Pain Genitourinary: No: Dysuria Musculoskeletal: No: Pain Skin: No Rash Neurologic: Positive: Weakness, No: Focal Abnormalities, Change in Mentation, Slurred Speech, Sensory Disturbance Psychiatric: No: Depression Endocrine: No: Polydipsia Hematologic/Lymphatic: No: Easy Bruising Physical Exam Narrative General: The patient is a well-developed well-nourished female with shortness of breath noted on arrival, with conversational dyspnea, prolonged expiratory phase and wheezing noted. Head and Neck exam: Head is normocephalic atraumatic. Eyes: EOMI, pupils are equal round and reactive to light. Nose: Midline septum with pink mucous membranes Mouth: Dentition unremarkable. Moist mucus membranes. Posterior oropharynx is not erythematous. No tonsillar hypertrophy. Uvula midline. Airway patent. Neck: No palpable lymphadenopathy. No nuchal rigidity. No thyromegaly. Cardiovascular: Regular rate and rhythm without murmurs, gallops, or rubs. No pulse deficit to the extremities on simultaneous auscultation and palpation of her radial artery. Lungs: Soft expiratory wheezes audible bilaterally with prolonged expiratory phase of breathing, accessory muscle use is noted. Paroxysmal abdominal breathing is noted. No tripoding. The patient is noted to have conversational dyspnea. Abdomen: Soft, without tenderness to palpation in all 4 quadrants of the abdomen. No guarding, rebound, or rigidity. Normal bowel sounds are audible. No tenderness on palpation of McBurney's point. Extremities: No clubbing, cyanosis, or edema. 2+ pulses in all 4 extremities. No calf tenderness on palpation. Back: No costovertebral angle tenderness to palpation. Neurologic Exam: Grossly nonfocal. Skin Exam: No rash noted. Intact skin that is warm and dry. Data Data Last Documented VS Vital Signs Date Time Temp Pulse Resp B/P (MAP) Pulse Ox O2 Delivery O2 Flow Rate FiO2 12/02/17 04:13 62 16 137/72 (93) 94 BiPAP 12/02/17 04:05 40 12/02/17 00:32 98.6 Orders Orders Complete Blood Count With Diff (12/02/17 00:40) Comprehensive Metabolic Panel (12/02/17 00:40) B-Type Natriuretic Peptide (12/02/17 00:40) Act Partial Throm Time (Ptt) (12/02/17 00:40) Prothrombin Time / Inr (Pt) (12/02/17 00:40) Magnesium (Mg) (12/02/17 00:40) Ckmb (Isoenzyme) Profile (12/02/17 00:40) Troponin I (12/02/17 00:40) Iv Access Insert/Monitor (12/02/17 00:40) Electrocardiogram (12/02/17 00:40) Ecg Monitoring (12/02/17 00:40) Oximetry (12/02/17 00:40) Oxygen Administration (12/02/17 00:40) Chest, Single Ap (12/02/17 00:40) Sodium Chloride 0.9% Flush (Ns Flush) (12/02/17 00:45) Albuterol-Ipratropium Neb (Duoneb Neb) (12/02/17 00:45) Resp Bipap / Cpap Non Invas Vt (12/02/17 ) CKMB (12/02/17 02:40) CKMB% (12/02/17 02:40) Arterial Blood Gas (Abg) (12/02/17 ) Admit Order (Ed Use Only) (12/02/17 04:20) Labs Laboratory Tests Test 12/02/17 00:55 12/02/17 02:40 12/02/17 03:50 White Blood Count 4.2 TH/MM3 Red Blood Count 3.82 MIL/MM3 Hemoglobin 9.7 GM/DL Hematocrit 30.5 % Mean Corpuscular Volume 79.7 FL Mean Corpuscular Hemoglobin 25.5 PG Mean Corpuscular Hemoglobin Concent 32.0 % Red Cell Distribution Width 17.7 % Platelet Count 125 TH/MM3 Mean Platelet Volume 9.6 FL Neutrophils (%) (Auto) 51.9 % Lymphocytes (%) (Auto) 28.6 % Monocytes (%) (Auto) 13.6 % Eosinophils (%) (Auto) 5.4 % Basophils (%) (Auto) 0.5 % Neutrophils # (Auto) 2.2 TH/MM3 Lymphocytes # (Auto) 1.2 TH/MM3 Monocytes # (Auto) 0.6 TH/MM3 Eosinophils # (Auto) 0.2 TH/MM3 Basophils # (Auto) 0.0 TH/MM3 CBC Comment DIFF FINAL Differential Comment Prothrombin Time 10.5 SEC Prothromb Time International Ratio 1.0 RATIO Activated Partial Thromboplast Time 27.2 SEC B-Type Natriuretic Peptide 62 PG/ML Blood Urea Nitrogen 17 MG/DL Creatinine 1.43 MG/DL Random Glucose 106 MG/DL Total Protein 7.5 GM/DL Albumin 3.5 GM/DL Calcium Level 8.6 MG/DL Magnesium Level 1.8 MG/DL Alkaline Phosphatase 113 U/L Aspartate Amino Transf (AST/SGOT) 17 U/L Alanine Aminotransferase (ALT/SGPT) 15 U/L Total Bilirubin 0.3 MG/DL Sodium Level 141 MEQ/L Potassium Level 3.5 MEQ/L Chloride Level 107 MEQ/L Carbon Dioxide Level 25.5 MEQ/L Anion Gap 9 MEQ/L Estimat Glomerular Filtration Rate 43 ML/MIN Total Creatine Kinase 105 U/L Creatine Kinase MB 1.1 NG/ML Troponin I LESS THAN 0.02 NG/ML Blood Gas Puncture Site LT RADIAL Blood Gas Patient Temperature 98.6 Blood Gas HCO3 25 mmol/L Blood Gas Base Excess 0.1 mmol/L Blood Gas Oxygen Saturation 89 % Arterial Blood pH 7.38 Arterial Blood Partial Pressure CO2 42 mmHg Arterial Blood Partial Pressure O2 58 mmHG Arterial Blood Oxygen Content 12.5 Vol % Arterial Blood Carboxyhemoglobin 1.5 % Arterial Blood Methemoglobin 0.2 % Blood Gas Hemoglobin 9.9 G/DL Oxygen Delivery Device BiPAP Blood Gas Ventilator Setting 12IPAP/5EPAP Blood Gas Inspired Oxygen 30 % MDM Medical Decision Making Medical Screen Exam Complete: Yes Emergency Medical Condition: Yes Medical Record Reviewed: Yes Differential Diagnosis COPD exacerbation, versus pneumonia, versus congestive heart failure exacerbation, versus acute coronary syndrome Narrative Course During the course of the patient's emergency department visit, the patient's history, examination, and differential diagnosis were reviewed with the patient. The patient was placed on a bad credit collector with oximetry and frequent blood pressure monitoring. The patient had IV access obtained and blood work sent for analysis. The patient had an EKG done on arrival that shows a sinus rhythm heart rate is 63, QRS duration 81 ms, QTC [address] segment elevation is noted. Nonspecific ST-T wave abnormalities are noted. The patient will be placed on BiPAP. The patient will be given duo nebs 3. The patient's studies were reviewed and remarkable for A white count of 4.2, hemoglobin 9.7, platelets 125, monocytosis at 13.6. CMP is remarkable for creatinine 1.43, cardiac enzymes within normal limits, BNP is within normal limits at 62 ruling out congestive heart failure as a cause of the patient's respiratory distress. PT 10.5, PTT 27.2. An ABG was done after the patient had been on BiPAP and the patient's ABG revealed a pH of 7.38, PCO2 is 42, PO2 58 with 89% O2 saturation on vent BiPAP settings of 12/5 at 30%. The patient's FiO2 was increased to 40%. The patient is resting comfortably with improvement in her respiratory distress. Chest x-ray reveals artifact versus mild degree of pulmonary edema. I suspect that this is artifact due to the patient's size and increased respiratory rate as she has a normal BNP. The patient's results were discussed with the patient, including the plan of care. I explained that further testing and/ or monitoring is indicated based on the patient's history, examination, and/ or laboratory findings. Therefore, I recommended admission for additional evaluation. The patient expressed understanding and was agreeable with this plan. The patient was admitted to the hospital in guarded condition and sent to a bed under the care of the [facility] ([place], [place]) service. Critical Care Narrative Aggregate critical care time was 35 minutes. Time to perform other separately billable procedures was not included in the critical care time. My time did not include minutes spent treating any other patients simultaneously or on activities that did not directly contribute to the patient's treatment. The services I provided to this patient were to treat and/or prevent clinically significant deterioration that could result in: Hypoxemic encephalopathy, versus respiratory failure, versus hypercapnia I provided critical care services requiring my management, as noted below: Chart data review, documentation time, medication orders and management, vital sign assessments/reviewing monitor data, ordering and reviewing lab tests, ordering and interpreting/reviewing x-rays and diagnostic studies, care of the patient and discussion of the patient with the admitting physicians. Physician Communication Physician Communication The patient's case including history, pertinent physical examination findings, and laboratory studies were discussed with Dr. Decker. It was agreed that the patient would be admitted to the [facility] ([place], [place]) service. Diagnosis Primary Impression: COPD exacerbation Admitting Information Admitting Physician Requests: Admit Maddi Rivas MD December 02, 2017 01:08
[2017-12-02 01:15] LABS: AUTOMATED NEUTROPHIL # 2.2 TH/MM3 (1.8-7.7); BASOPHIL % 0.5 % (0.0-2.0); EOSINOPHIL # 0.2 TH/MM3 (0-0.4); EOSINOPHIL % 5.4 % (0.0-4.0); HEMATOCRIT 30.5 % (35.0-46.0); HEMOGLOBIN 9.7 GM/DL (11.6-15.3); LYMPH % 28.6 % (9.0-44.0); LYMPHOCYTE # 1.2 TH/MM3 (1.0-4.8); MEAN CELL VOLUME 79.7 FL (80.0-100.0); MEAN CORPUSCULAR HEMOGLOBIN 25.5 PG (27.0-34.0); MEAN PLATELET VOLUME 9.6 FL (7.0-11.0); MONO % 13.6 % (0.0-8.0); MONOCYTE # 0.6 TH/MM3 (0-0.9); NEUT % 51.9 % (16.0-70.0); PLATELET COUNT 125 TH/MM3 (150-450); RED BLOOD COUNT 3.82 MIL/MM3 (4.00-5.30); RED CELL DISTRIBUTION WIDTH 17.7 % (11.6-17.2); WHITE BLOOD COUNT 4.2 TH/MM3 (4.0-11.0)
[2017-12-02 01:23] LABS: PROTHROMBIN TIME - PATIENT 10.5 SEC (9.8-11.6)
--- NOTE | 2017-12-02 01:52 | RADRPT ---
EXAM DATE: 12/02/2017 1:49 AM EDT AGE/SEX: 77 years / Female INDICATIONS: Shortness of breath. CLINICAL DATA: This is the patient's initial encounter. Patient reports that signs and symptoms have been present for 1 day and indicates a pain score of 0/10. MEDICAL/SURGICAL HISTORY: Hypertension. Diabetes. Chronic obstructive pulmonary disease. Hyst erectomy. COMPARISON: [facility] [place], CHEST SINGLE AP, 11/29/2017. . FINDINGS: Cardiomegaly has not changed. There is mild prominence of the interstitial markings possibly technica l and due to motion artifact. Slight pulmonary edema is difficult to exclude. Focal consolidation is not seen. CONCLUSION: Artifact versus mild degree of pulmonary edema. Electronically signed by: Rossana Chang MD 12/02/2017 1:51 AM EDT
[2017-12-02 03:32] LABS: ALBUMIN 3.5 GM/DL (3.4-5.0); ALKALINE PHOSPHATASE 113 U/L (45-117); ALT (GPT) 15 U/L (10-53); AST (GOT) 17 U/L (15-37); BICARBONATE 25.5 MEQ/L (21.0-32.0); BLOOD UREA NITROGEN 17 MG/DL (7-18); CALCIUM 8.6 MG/DL (8.5-10.1); CHLORIDE 107 MEQ/L (98-107); CREATININE 1.43 MG/DL (0.50-1.00); GLOMERULAR FILTRATION RATE 43 ML/MIN (>89); GLUCOSE,RANDOM 106 MG/DL (74-106); MAGNESIUM 1.8 MG/DL (1.5-2.5); SODIUM (NA) 141 MEQ/L (136-145); TOTAL BILIRUBIN ADULT 0.3 MG/DL (0.2-1.0); TOTAL PROTEIN 7.5 GM/DL (6.4-8.2); TROPONIN I LESS THAN 0.02 NG/ML (0.02-0.05)
[2017-12-02] MEDS ORDERED: LACTULOSE SYRUP 20 GM/30 ML CUP PO PRN (04:30)
[2017-12-02] MEDS ORDERED: DEXTROSE 50% IN WATER 50 ML VIAL(D50) IV PUSH PRN (04:30)
[2017-12-02] MEDS ORDERED: SENNOSIDES 8.6 MG TAB PO PRN (04:30)
[2017-12-02] MEDS ORDERED: GLUCAGON 1 MG/ML VIAL OTHER PRN (04:30)
[2017-12-02] MEDS ORDERED: RESP: ALBUTEROL 2.5 MG/IPRATROPIUM 0.5 MG NEB (PRN) NEB (04:30)
[2017-12-02] MEDS ORDERED: MAGNESIUM HYDROXIDE SUSP 30 ML CUP PO PRN (04:30)
[2017-12-02] MEDS ORDERED: SODIUM CHLORIDE 0.9% FLUSH 10 ML FLUSH IV FLUSH PRN (04:30)
[2017-12-02] MEDS ORDERED: METOCLOPRAMIDE HCL 10 MG/2 ML VIAL IV PUSH PRN (04:30)
[2017-12-02] MEDS ORDERED: ACETAMINOPHEN/HYDROcodone 325 MG/5 MG TAB PO PRN (04:30)
[2017-12-02] MEDS ORDERED: BISACODYL 10 MG SUPP RECTAL PRN (04:30)
[2017-12-02] MEDS ORDERED: ACETAMINOPHEN 325 MG TAB PO PRN (04:30)
--- NOTE | 2017-12-02 04:42 | HHI.HP ---
[facility] Ghassan Gonzalez MD Admission Diagnosis COPD exacerbation, on Bipap Diagnoses: (1) COPD (chronic obstructive pulmonary disease) Diagnosis: Principal (2) Renal insufficiency Diagnosis: Principal (3) DM (diabetes mellitus) Diagnosis: Principal Travel History International Travel<30 Days: No Contact w/Intl Traveler <30 Da: No Traveled to Known Affected Are: No History of Present Illness This is a 77-year-old female with a PMH of HTN, COPD, Bipolar Disorder, CHF ( Echo 01/01/2016 with EF 55-60%), DM and Hypothyroidism who was brought to the ER by EMS with complaints of SOB. Has been following w/ PCP, Dr. Gonzalez, for similar complaints and was on Prednisone and MDI/Neb w/ no improvement, seen in ER on 11/29/17 s/p DuoNeb w/ improvement and discharged home. Returns now w/ ongoing complaints. S/p Solu-Medrol/DuoNeb by EMS. Denies fever, chills or cough. No complaints of chest pain. On arrival, BP 122/56, HR 93% on RA, Afebrile. While in the ER, patient with increased work of breathing, started on BiPAP. CBC unremarkable. Creatinine 1.43, previously 1.56 on 11/29/2017. Troponin negative. CXR with mild degree of pulmonary edema. S/p DuoNeb w/ some improvement. Review of Systems Except as stated in HPI: all other systems reviewed are Neg ROS: 14 point review of systems otherwise negative. Past Family Social History Past Medical History PMH: HTN, COPD, Bipolar Disorder, CHF (Echo 01/01/2016 with EF 55-60%), DM and Hypothyroidism Past Surgical History PAST SURGICAL HISTORY: Loop Recorder, C-spine Fusion, Hernia Repair, Tonsillectomy, Hysterectomy Allergies: Coded Allergies: Sulfa (Sulfonamide Antibiotics) (Verified Allergy, Intermediate, Rash, ) ceftriaxone (Verified Allergy, Intermediate, Rash, 12/02/17) morphine (Verified Allergy, Intermediate, Hallucinations, 12/02/17) moxifloxacin (Verified Allergy, Intermediate, Rash, 12/02/17) vancomycin (Verified Allergy, Intermediate, Diarrhea, 12/02/17) azithromycin (Verified Allergy, Unknown, 12/02/17) ciprofloxacin (Verified Allergy, Unknown, 12/02/17) dobutamine (Verified Allergy, Unknown, 12/02/17) methadone (Verified Allergy, Unknown, 12/02/17) penicillin G (Verified Allergy, Unknown, 12/02/17) prochlorperazine (Verified Allergy, Unknown, 12/02/17) venlafaxine (Verified Allergy, Unknown, 12/02/17) Family History PAST FAMILY HISTORY: Reviewed, positive for DM. Social History PAST SOCIAL HISTORY: Occasional alcohol. History of tobacco. Negative for drugs Physical Exam Vital Signs Vital Signs Date Time Temp Pulse Resp B/P (MAP) Pulse Ox O2 Delivery O2 Flow Rate FiO2 12/02/17 04:13 62 16 137/72 (93) 94 BiPAP 12/02/17 01:15 100 30 12/02/17 00:44 Nasal Cannula 12/02/17 00:44 122/56 (78) 12/02/17 00:39 93 Room Air 12/02/17 00:32 98.6 62 22 95 Physical Exam PE: GENERAL: Pleasant elderly black female in no acute distress. Currently on BiPAP. HEENT: PERRLA, EOMI. No scleral icterus or conjunctival pallor. No lid lag or facial droop. CARDIOVASCULAR: Regular rate and rhythm. No obvious murmurs to auscultation. No chest tenderness to palpation. RESPIRATORY: No obvious rhonchi, wheezing bilaterally. Clear to auscultation. Breath sounds equal bilaterally. GASTROINTESTINAL: Abdomen soft, non-tender, nondistended. BS normal. MUSCULOSKELETAL: Extremities without clubbing, cyanosis, or edema. No obvious deformities. NEUROLOGICAL: Awake, alert and oriented x4. No focal neurologic deficits. Moving both upper and lower extremities spontaneously. Laboratory Laboratory Tests Test 12/02/17 00:55 12/02/17 02:40 12/02/17 03:50 White Blood Count 4.2 Red Blood Count 3.82 Hemoglobin 9.7 Hematocrit 30.5 Mean Corpuscular Volume 79.7 Mean Corpuscular Hemoglobin 25.5 Mean Corpuscular Hemoglobin Concent 32.0 Red Cell Distribution Width 17.7 Platelet Count 125 Mean Platelet Volume 9.6 Neutrophils (%) (Auto) 51.9 Lymphocytes (%) (Auto) 28.6 Monocytes (%) (Auto) 13.6 Eosinophils (%) (Auto) 5.4 Basophils (%) (Auto) 0.5 Neutrophils # (Auto) 2.2 Lymphocytes # (Auto) 1.2 Monocytes # (Auto) 0.6 Eosinophils # (Auto) 0.2 Basophils # (Auto) 0.0 CBC Comment DIFF FINAL Differential Comment Prothrombin Time 10.5 Prothromb Time International Ratio 1.0 Activated Partial Thromboplast Time 27.2 B-Type Natriuretic Peptide 62 Blood Urea Nitrogen 17 Creatinine 1.43 Random Glucose 106 Total Protein 7.5 Albumin 3.5 Calcium Level 8.6 Magnesium Level 1.8 Alkaline Phosphatase 113 Aspartate Amino Transf (AST/SGOT) 17 Alanine Aminotransferase (ALT/SGPT) 15 Total Bilirubin 0.3 Sodium Level 141 Potassium Level 3.5 Chloride Level 107 Carbon Dioxide Level 25.5 Anion Gap 9 Estimat Glomerular Filtration Rate 43 Total Creatine Kinase 105 Creatine Kinase MB 1.1 Troponin I LESS THAN 0.02 Blood Gas Puncture Site LT RADIAL Blood Gas Patient Temperature 98.6 Blood Gas HCO3 25 Blood Gas Base Excess 0.1 Blood Gas Oxygen Saturation 89 Arterial Blood pH 7.38 Arterial Blood Partial Pressure CO2 42 Arterial Blood Partial Pressure O2 58 Arterial Blood Oxygen Content 12.5 Arterial Blood Carboxyhemoglobin 1.5 Arterial Blood Methemoglobin 0.2 Blood Gas Hemoglobin 9.9 Oxygen Delivery Device BiPAP Blood Gas Ventilator Setting 12IPAP/5EPAP Blood Gas Inspired Oxygen 30 Result Diagram: 12/02/17 0055 12/02/17 0240 Caprini VTE Risk Assessment Caprini VTE Risk Assessment: No/Low Risk (score <= 1) Caprini Risk Assessment Model Point Value = 1 Point Value = 2 Point Value = 3 Point Value = 5 Age 41-60 Minor surgery BMI > 25 kg/m2 Swollen legs Varicose veins or History of unexplained or recurrent spontaneous Oral contraceptives or hormone replacement Sepsis (< 1 month) Serious lung disease, including pneumonia (< 1 month) Abnormal pulmonary function Acute myocardial infarction Congestive heart failure (< 1 month) History of inflammatory bowel disease Medical patient at bed rest Age 61-74 Arthroscopic surgery Major open surgery (> 45 min) Laparoscopic surgery (> 45 min) Malignancy Confined to bed (> 72 hours) Immobilizing plaster cast Central venous access Age >= 75 History of VTE Family history of VTE Factor V Leiden Prothrombin [id number] Lupus anticoagulant Anticardiolipin antibodies Elevated serum homocysteine Heparin-induced thrombocytopenia Other congenital or acquired thrombophilia Stroke (< 1 month) Elective arthroplasty Hip, pelvis, or leg fracture Acute spinal cord injury (< 1 month) Prophylaxis Regimen Total Risk Factor Score Risk Level Prophylaxis Regimen 0-1 Low Early ambulation 2 Moderate Order ONE of the following: *Sequential Compression Device (SCD) *Heparin 5000 units SQ BID 3-4 Higher Order ONE of the following medications: *Heparin 5000 units SQ TID *Enoxaparin/Lovenox 40 mg SQ daily (WT < 150 kg, CrCl > 30 mL/min) *Enoxaparin/Lovenox 30 mg SQ daily (WT < 150 kg, CrCl > 10-29 mL/min) *Enoxaparin/Lovenox 30 mg SQ BID (WT < 150 kg, CrCl > 30 mL/min) AND/OR *Sequential Compression Device (SCD) 5 or more Highest Order ONE of the following medications: *Heparin 5000 units SQ TID (Preferred with Epidurals) *Enoxaparin/Lovenox 40 mg SQ daily (WT < 150 kg, CrCl > 30 mL/min) *Enoxaparin/Lovenox 30 mg SQ daily (WT < 150 kg, CrCl > 10-29 mL/min) *Enoxaparin/Lovenox 30 mg SQ BID (WT < 150 kg, CrCl > 30 mL/min) AND *Sequential Compression Device (SCD) Assessment and Plan Problem List: (1) COPD (chronic obstructive pulmonary disease) ICD Code: J44.9 - Chronic obstructive pulmonary disease, unspecified Status: Acute (2) Renal insufficiency ICD Code: N28.9 - Disorder of kidney and ureter, unspecified (3) DM (diabetes mellitus) ICD Code: E11.9 - Type 2 diabetes mellitus without complications Status: Acute Assessment and Plan A/P: 1. COPD: Chronic Respiratory Failure w/ Acute Exacerbation. Severe. Significant respiratory distress upon arrival, currently on BIPAP w/ some improvement, however persistent wheezing. O2 sat 94% on 40% FIO2, will wean as tolerated. Solu-Medrol, DuoNeb q4h and q2h prn, Mucinex, Symbicort. Monitor O2 closely. 2. Renal Insufficiency: Chronic. Creatinine 1.43, previously 1.56 on 11/29/17, monitor I/O, h/o CHF, CXR w/ mild congestion, hold diuresis for now, recheck labs in am. 3. DM: Sliding scale w/ Accu-Cheks. Resume home Insulin 4. DVT Prophylaxis: Heparin sq 5. Social work for d/c planning as needed. 6. Case discussed w/ ER physician at length, labs/records/imaging reviewed by me. Physician Certification 2 Midnight Certification Type: Admission for Inpatient Services Order for Inpatient Services The services are ordered in accordance with Medicare regulations or non- Medicare payer requirements, as applicable. In the case of services not specified as inpatient-only, they are appropriately provided as inpatient services in accordance with the 2-midnight benchmark. Estimated LOS (days): 2 days is the estimated time the patient will need to remain in the hospital, assuming treatment plan goals are met and no additional complications. Post-Hospital Plan: Not yet determined Felicita Decker MD December 02, 2017 04:42
[2017-12-02] MEDS: methylPREDNISolone SOD SUCC 40 MG/1 ML VIAL IV PUSH SCH ×4 (06:20→23:19)
[2017-12-02] MEDS: RESP: ALBUTEROL 2.5 MG/IPRATROPIUM 0.5 MG NEB (SCH) NEB ×4 (07:23→19:39)
[2017-12-02] MEDS: INSULIN ASPART SUPPLEMENTAL SCALE SQ SCH ×4 (08:00→20:58)
--- NOTE | 2017-12-02 08:04 | EKG ---
Date Performed: 12/02/2017 Time Performed: 00:34:20 PTAGE: 77 years EKG: Sinus rhythm NONSPECIFIC ST & T-WAVE ABNORMALITY BORDERLINE ECG PREVIOUS TRACING : 11/29/2017 20.10 No significant change from previous tracing noted. DOCTOR: Myron Murcia Interpretating Date/Time 12/02/2017 08:02:38
[2017-12-02] MEDS: ASPIRIN 81 MG CHEW TAB PO SCH (08:40)
[2017-12-02] MEDS: PARoxetine HCL 20 MG TAB PO SCH (08:40)
[2017-12-02] MEDS: GABAPENTIN 100 MG CAP PO SCH ×3 (08:40→16:56)
[2017-12-02] MEDS: SODIUM CHLORIDE 0.9% FLUSH 10 ML FLUSH IV FLUSH SCH ×2 (08:40→21:00)
[2017-12-02] MEDS: guaiFENesin E.R. 600 MG TAB PO SCH ×2 (08:40→20:58)
[2017-12-02] MEDS: DOCUSATE SODIUM 50 MG/SENNA 8.6 MG TAB PO SCH ×2 (08:40→20:58)
[2017-12-02] MEDS: INSULIN DETEMIR 100 UNITS/ML VIAL SQ SCH ×2 (08:42→20:57)
[2017-12-02] MEDS: HEPARIN SODIUM - SQ 10,000 UNITS/ML VIAL SQ SCH ×2 (08:42→20:58)
[2017-12-02] MEDS: BUDESONIDE-FORMOTEROL 160/4.5 MCG INHALER INH SCH ×2 (09:00→21:00)
--- NOTE | 2017-12-02 16:07 | HHI.PR ---
Subjective Remarks awake and alert cough dry gets short of breath without BIPAP states she has 02 at home denies any fever or chills Objective Vitals Vital Signs Date Time Temp Pulse Resp B/P (MAP) Pulse Ox O2 Delivery O2 Flow Rate FiO2 12/02/17 15:56 97.9 84 22 187/90 (122) 96 12/02/17 15:56 83 12/02/17 15:54 98 35 12/02/17 14:54 68 12/02/17 13:01 70 12/02/17 12:50 72 12/02/17 11:13 66 12/02/17 11:13 97.7 65 20 187/90 (122) 95 12/02/17 10:43 62 12/02/17 09:56 68 12/02/17 08:20 97.9 66 20 186/97 (126) 98 12/02/17 08:20 64 12/02/17 08:18 98 Bi-Pap 12/02/17 07:18 98 35 12/02/17 06:50 67 12/02/17 06:40 98.2 73 22 183/91 (121) 100 12/02/17 06:40 12/02/17 06:30 98 6.00 12/02/17 06:30 99 35 12/02/17 05:10 82 19 137/72 (93) 95 BiPAP 40 12/02/17 04:13 62 16 137/72 (93) 94 BiPAP 12/02/17 04:05 92 40 12/02/17 01:15 100 30 12/02/17 00:44 Nasal Cannula 12/02/17 00:44 122/56 (78) 12/02/17 00:39 93 Room Air 12/02/17 00:32 98.6 62 22 95 Result Diagram: 12/02/17 0055 12/02/17 0240 Imaging Last Impressions Chest X-Ray 12/02/17 0040 Signed Impressions: CONCLUSION: Artifact versus mild degree of pulmonary edema. Objective Remarks awake and alert, tachypneic when off BiPap, anicteric lungs- decrease breath sounds, few occasinal inspiraotry wheeze regular rhythm abdomen- flabby soft, nontender extremities no edema A/P Problem List: (1) COPD (chronic obstructive pulmonary disease) ICD Code: J44.9 - Chronic obstructive pulmonary disease, unspecified Status: Acute (2) Renal insufficiency ICD Code: N28.9 - Disorder of kidney and ureter, unspecified (3) DM (diabetes mellitus) ICD Code: E11.9 - Type 2 diabetes mellitus without complications Status: Acute Assessment and Plan 77 years old female Acute respiratory hypercapneic failure with underlying Obstructive and or restrictive lung disease- patient states 02 dependent - continue on BiPAP- current setting - IV steroids,breathing treatments - Pulmonary consult- seen in the past by Dr. Lua for further recommendation Hypertension- some elevated readings - BNP normal - resume her Amlodipine 5 mg daily. - Restart her Metorpolol - at 50 mg bid- at home was on 100 mg daily - clonidine prn for 170/90 and above Renal Insufficiency: Chronic. Creatinine 1.43, previously 1.56 on 11/29/17, monitor I/O, h/o CHF, CXR w/ mild congestion, hold diuresis for now, recheck labs in am. DM: Sliding scale w/ Accu-Cheks. Resume home Insulin History of Bipolar disorder- on Seroquel DVT Prophylaxis: Heparin sq PPI for GI prophylaxis Social work for d/c planning as needed. Case discussed w/ staff and RT Shin Enrique MD December 02, 2017 16:07
[2017-12-02] MEDS: cloNIDine HCL 0.1 MG TAB PO PRN (16:56)
[2017-12-02] MEDS: PANTOPRAZOLE SOD 40 MG DELAYED RELEASE TAB PO SCH (16:56)
[2017-12-02] MEDS: amLODIPine BESYLATE 5 MG TAB PO SCH (16:56)
[2017-12-02] MEDS: ACETAMINOPHEN/HYDROcodone 325 MG/10 MG TAB PO PRN (16:57)
[2017-12-02] MEDS: METOPROLOL TARTRATE 50 MG TAB PO SCH (20:58)
[2017-12-02] MEDS: QUEtiapine FUMARATE 100 MG TAB PO SCH (20:58)
--- NOTE | 2017-12-02 23:05 | MB ---
cc: Loco Lua MD DATE: 12/02/2017 REQUESTING PHYSICIAN: Dr. Enrique. REASON FOR CONSULTATION: COPD exacerbation. HISTORY OF PRESENT ILLNESS: This is a 77-year-old obese female who is known to me from the previous admission. She has a history of hypertension, COPD, bipolar disorder and obstructive sleep apnea. She uses CPAP machine off and on. She is not doing well for the last few weeks. She states that last month, she had a cold and after that, she had a flu shot and then she has not been doing well. She had a low-grade fever, did not have any chest pain. No nausea or vomiting. She saw her primary care physician, Dr. Gonzalez, for similar complaints without any improvement and she decided to come to the hospital. She had a workup done. Her chest x-ray shows possible mild pulmonary edema. Her CBC showed WBC 4.2, hemoglobin 9.7, hematocrit 30.5, MCV 79, platelet count 125. Sodium 140, potassium 3.5, chloride 107, CO2 25, BUN 17, creatinine 1.43. Blood gas, pH 7.38, pCO2 of 42, pO2 58 on 30% BiPAP. She gets very anxious and starts crying. PAST MEDICAL HISTORY: Significant for history of COPD, obstructive sleep apnea, hypertension, bipolar disorder, diabetes mellitus, history of loop recorder placement, tonsillectomy, hernia surgery and hysterectomy. MEDICATIONS: She is currently taking Seroquel 100 mg a day, Lopressor 50 mg q. 12 hours, Protonix 40 mg a day, amlodipine 5 mg a day, clonidine 0.1 mg p.r.n., guaifenesin 600 mg twice a day, Symbicort 160/4.5 two puffs twice a day, heparin 5000 q. 12 hours, Neurontin 100 mg 3 times a day, aspirin 81 mg a day, insulin detemir 18 units twice a day, Paxil 30 mg a day, Atrovent nebulizer treatments, Solu-Medrol 40 mg q. 6 hours, hydrocodone q. 4 hours for pain. ALLERGIES: ALLERGIC TO SULFA, ZITHROMAX, ROCEPHIN, CIPRO, METHADONE, MORPHINE, MOXIFLOXACIN, PENICILLIN, VANCOMYCIN AND EFFEXOR. SOCIAL HISTORY: She has a history of smoking, which she quit. No alcohol abuse. She used to work for [employer]. FAMILY HISTORY: She had 3 children, 1 with heart disease and possible brain infection. He had a brain biopsy done. The patient lives with her daughter and grandchildren. REVIEW OF SYSTEMS: She walks for a short distance, has gained some weight. PHYSICAL EXAMINATION: GENERAL: A morbidly obese female, anxious, mild short of breath. VITAL SIGNS: Blood pressure 189/92, heart rate 84, respirations 22, temperature 97.9. HEENT: Pupils are equal and reactive to light. Oral mucosa and nasal mucosa normal. NECK: Supple. JVP not raised. CHEST: She has expiratory rhonchi. CARDIOVASCULAR: S1, S2 normal. ABDOMEN: Benign. EXTREMITIES: Trace pedal edema. IMPRESSION: 1. Chronic obstructive pulmonary disease with exacerbation. 2. Obstructive sleep apnea. 3. Hypoxic respiratory failure. 4. Diabetes mellitus. 5. Renal insufficiency. 6. Hypertension. PLAN: Discussed with the patient. She will use CPAP at nighttime and daytime as needed. IV Solu-Medrol. Monitor her blood sugar. Continue antibiotic, aerosol treatment, albuterol and Atrovent, supplemental oxygen to keep the saturation between 88% and 92%. Further treatment pending the course in the hospital. Thank you, Dr. Enrique, for this consult. MD MARIE Vivas/KUSH/khadijah , 05:58 PM , 07:35 PM ROLANDO
[2017-12-03] VITALS (31 sets, daily range): BP systolic 133–198; BP diastolic 67–89; PULSE 54–72; RESP 20–22; TEMP 96.8–98.2; O2SAT 93–99
[2017-12-03] MEDS: cloNIDine HCL 0.1 MG TAB PO PRN ×2 (03:36→23:17)
[2017-12-03] MEDS: methylPREDNISolone SOD SUCC 40 MG/1 ML VIAL IV PUSH SCH ×4 (05:09→23:46)
[2017-12-03 06:18] LABS: AUTOMATED NEUTROPHIL # 3.2 TH/MM3 (1.8-7.7); BASOPHIL % 0.1 % (0.0-2.0); HEMATOCRIT 31.5 % (35.0-46.0); HEMOGLOBIN 10.1 GM/DL (11.6-15.3); LYMPH % 16.3 % (9.0-44.0); LYMPHOCYTE # 0.7 TH/MM3 (1.0-4.8); MEAN CELL VOLUME 79.6 FL (80.0-100.0); MEAN CORPUSCULAR HEMOGLOBIN 25.5 PG (27.0-34.0); MONO % 4.9 % (0.0-8.0); MONOCYTE # 0.2 TH/MM3 (0-0.9); NEUT % 78.7 % (16.0-70.0); PLATELET COUNT 128 TH/MM3 (150-450); RED BLOOD COUNT 3.95 MIL/MM3 (4.00-5.30); RED CELL DISTRIBUTION WIDTH 17.7 % (11.6-17.2)
[2017-12-03 06:54] LABS: ALBUMIN 3.4 GM/DL (3.4-5.0); ALKALINE PHOSPHATASE 119 U/L (45-117); ALT (GPT) 15 U/L (10-53); AST (GOT) 14 U/L (15-37); BICARBONATE 26.5 MEQ/L (21.0-32.0); BLOOD UREA NITROGEN 28 MG/DL (7-18); CHLORIDE 106 MEQ/L (98-107); CREATININE 1.54 MG/DL (0.50-1.00); GLOMERULAR FILTRATION RATE 40 ML/MIN (>89); GLUCOSE,RANDOM 271 MG/DL (74-106); SODIUM (NA) 139 MEQ/L (136-145); TOTAL BILIRUBIN ADULT 0.3 MG/DL (0.2-1.0); TOTAL PROTEIN 7.6 GM/DL (6.4-8.2)
[2017-12-03] MEDS: INSULIN ASPART SUPPLEMENTAL SCALE SQ SCH ×4 (08:00→21:42)
[2017-12-03] MEDS: RESP: ALBUTEROL 2.5 MG/IPRATROPIUM 0.5 MG NEB (SCH) NEB ×4 (08:12→19:29)
[2017-12-03] MEDS: INSULIN DETEMIR 100 UNITS/ML VIAL SQ SCH ×2 (09:00→21:42)
[2017-12-03] MEDS: BUDESONIDE-FORMOTEROL 160/4.5 MCG INHALER INH SCH ×2 (09:00→20:22)
[2017-12-03] MEDS: METOPROLOL TARTRATE 50 MG TAB PO SCH ×2 (09:38→20:18)
[2017-12-03] MEDS: PANTOPRAZOLE SOD 40 MG DELAYED RELEASE TAB PO SCH (09:38)
[2017-12-03] MEDS: DOCUSATE SODIUM 50 MG/SENNA 8.6 MG TAB PO SCH ×2 (09:38→20:19)
[2017-12-03] MEDS: PARoxetine HCL 20 MG TAB PO SCH (09:38)
[2017-12-03] MEDS: amLODIPine BESYLATE 5 MG TAB PO SCH (09:38)
[2017-12-03] MEDS: GABAPENTIN 100 MG CAP PO SCH ×3 (09:38→17:33)
[2017-12-03] MEDS: HEPARIN SODIUM - SQ 10,000 UNITS/ML VIAL SQ SCH ×2 (09:39→20:21)
[2017-12-03] MEDS: ASPIRIN 81 MG CHEW TAB PO SCH (09:39)
[2017-12-03] MEDS: SODIUM CHLORIDE 0.9% FLUSH 10 ML FLUSH IV FLUSH SCH ×2 (09:39→20:21)
[2017-12-03] MEDS: guaiFENesin E.R. 600 MG TAB PO SCH ×2 (09:39→20:19)
--- NOTE | 2017-12-03 12:06 | HHI.PR ---
Subjective Remarks This is a 77-year-old female with a PMH of HTN, COPD, Bipolar Disorder, CHF ( Echo 01/01/2016 with EF 55-60%), DM and Hypothyroidism who was brought to the ER by EMS with complaints of SOB. Has been following w/ PCP, Dr. Gonzalez, for similar complaints and was on Prednisone and MDI/Neb w/ no improvement, seen in ER on 11/29/17 s/p DuoNeb w/ improvement and discharged home. Returns now w/ ongoing complaints. S/p Solu-Medrol/DuoNeb by EMS. Denies fever, chills or cough. No complaints of chest pain. On arrival, BP 122/56, HR 93% on RA, Afebrile. While in the ER, patient with increased work of breathing, started on BiPAP. CBC unremarkable. Creatinine 1.43, previously 1.56 on 11/29/2017. Troponin negative. CXR with mild degree of pulmonary edema. S/p DuoNeb w/ some improvement. 12-02 awake and alert cough dry gets short of breath without BIPAP states she has 02 at home denies any fever or chills 12-03 has been seen by pulmonary medicine. Think she is breathing a little better Not currently on BiPAP Increase activity Physical therapy and Occupational Therapy Discussed with RN and patient Objective Vitals Vital Signs Date Time Temp Pulse Resp B/P (MAP) Pulse Ox O2 Delivery O2 Flow Rate FiO2 12/03/17 10:13 63 12/03/17 09:47 56 12/03/17 08:13 97 Nasal Cannula 4.00 12/03/17 08:02 99 Nasal Cannula 3.00 12/03/17 08:02 97.8 62 20 161/71 (101) 99 12/03/17 08:02 57 12/03/17 06:00 56 12/03/17 05:11 58 20 173/81 (111) 93 12/03/17 05:09 96 30 12/03/17 05:00 54 12/03/17 04:00 60 12/03/17 03:27 97.5 63 20 198/89 (125) 97 12/03/17 03:00 60 12/03/17 02:00 60 12/03/17 01:00 56 12/03/17 00:00 60 5/28/18 23:16 98.5 58 20 146/70 (95) 98 12/02/17 23:00 58 12/02/17 22:28 99 30 12/02/17 22:00 65 12/02/17 21:00 66 12/02/17 20:00 68 12/02/17 19:39 98 Nasal Cannula 3.00 12/02/17 19:00 Nasal Cannula 3.00 12/02/17 19:00 98.3 70 20 164/85 (111) 96 12/02/17 19:00 73 12/02/17 18:33 76 12/02/17 18:00 18 12/02/17 17:01 80 12/02/17 16:08 81 12/02/17 15:56 97.9 84 22 189/92 (124) 96 12/02/17 15:56 83 12/02/17 15:54 98 35 12/02/17 14:54 68 12/02/17 13:01 70 12/02/17 12:50 72 I/O 12/02/17 12/02/17 12/02/17 12/03/17 12/03/17 12/03/17 07:00 15:00 23:00 07:00 15:00 23:00 Intake Total 600 ml 120 ml Output Total 100 ml Balance 500 ml 120 ml Intake Oral 600 ml 120 ml Output Urine Total 100 ml # Voids 3 1 # Bowel Movements 0 0 Result Diagram: 12/03/17 0525 12/03/17 0525 Other Results Laboratory Tests Test 12/02/17 00:55 12/02/17 02:40 12/02/17 03:50 12/03/17 05:25 White Blood Count 4.2 TH/MM3 4.0 TH/MM3 Red Blood Count 3.82 MIL/MM3 3.95 MIL/MM3 Hemoglobin 9.7 GM/DL 10.1 GM/DL Hematocrit 30.5 % 31.5 % Mean Corpuscular Volume 79.7 FL 79.6 FL Mean Corpuscular Hemoglobin 25.5 PG 25.5 PG Mean Corpuscular Hemoglobin Concent 32.0 % 32.0 % Red Cell Distribution Width 17.7 % 17.7 % Platelet Count 125 TH/MM3 128 TH/MM3 Mean Platelet Volume 9.6 FL 10.0 FL Neutrophils (%) (Auto) 51.9 % 78.7 % Lymphocytes (%) (Auto) 28.6 % 16.3 % Monocytes (%) (Auto) 13.6 % 4.9 % Eosinophils (%) (Auto) 5.4 % 0.0 % Basophils (%) (Auto) 0.5 % 0.1 % Neutrophils # (Auto) 2.2 TH/MM3 3.2 TH/MM3 Lymphocytes # (Auto) 1.2 TH/MM3 0.7 TH/MM3 Monocytes # (Auto) 0.6 TH/MM3 0.2 TH/MM3 Eosinophils # (Auto) 0.2 TH/MM3 0.0 TH/MM3 Basophils # (Auto) 0.0 TH/MM3 0.0 TH/MM3 CBC Comment DIFF FINAL DIFF FINAL Differential Comment Prothrombin Time 10.5 SEC Prothromb Time International Ratio 1.0 RATIO Activated Partial Thromboplast Time 27.2 SEC B-Type Natriuretic Peptide 62 PG/ML Blood Urea Nitrogen 17 MG/DL 28 MG/DL Creatinine 1.43 MG/DL 1.54 MG/DL Random Glucose 106 MG/DL 271 MG/DL Total Protein 7.5 GM/DL 7.6 GM/DL Albumin 3.5 GM/DL 3.4 GM/DL Calcium Level 8.6 MG/DL 9.0 MG/DL Magnesium Level 1.8 MG/DL Alkaline Phosphatase 113 U/L 119 U/L Aspartate Amino Transf (AST/SGOT) 17 U/L 14 U/L Alanine Aminotransferase (ALT/SGPT) 15 U/L 15 U/L Total Bilirubin 0.3 MG/DL 0.3 MG/DL Sodium Level 141 MEQ/L 139 MEQ/L Potassium Level 3.5 MEQ/L 4.0 MEQ/L Chloride Level 107 MEQ/L 106 MEQ/L Carbon Dioxide Level 25.5 MEQ/L 26.5 MEQ/L Anion Gap 9 MEQ/L 7 MEQ/L Estimat Glomerular Filtration Rate 43 ML/MIN 40 ML/MIN Total Creatine Kinase 105 U/L Creatine Kinase MB 1.1 NG/ML Troponin I LESS THAN 0.02 NG/ML Blood Gas Puncture Site LT RADIAL Blood Gas Patient Temperature 98.6 Blood Gas HCO3 25 mmol/L Blood Gas Base Excess 0.1 mmol/L Blood Gas Oxygen Saturation 89 % Arterial Blood pH 7.38 Arterial Blood Partial Pressure CO2 42 mmHg Arterial Blood Partial Pressure O2 58 mmHG Arterial Blood Oxygen Content 12.5 Vol % Arterial Blood Carboxyhemoglobin 1.5 % Arterial Blood Methemoglobin 0.2 % Blood Gas Hemoglobin 9.9 G/DL Oxygen Delivery Device BiPAP Blood Gas Ventilator Setting 12IPAP/5EPAP Blood Gas Inspired Oxygen 30 % Imaging Last Impressions Chest X-Ray 12/02/17 0040 Signed Impressions: CONCLUSION: Artifact versus mild degree of pulmonary edema. Objective Remarks GENERAL: Awake alert and oriented 3 talkative and cooperative SKIN: Warm and dry. HEAD: Atraumatic. Normocephalic. EYES: Pupils equal and round. No scleral icterus. No injection or drainage. Extraocular muscles intact ENT: No nasal bleeding or discharge. Mucous membranes pink and moist. NECK: Trachea midline. No JVD. CARDIOVASCULAR: Regular rate and rhythm. S1-S2 no S3 or S4 RESPIRATORY: No accessory muscle use. Decreased breath sounds bilaterally scattered rhonchi. Breath sounds equal bilaterally. GASTROINTESTINAL: Abdomen soft, non-tender, nondistended. Hepatic and splenic margins not palpable. Morbid obesity MUSCULOSKELETAL: Extremities without clubbing, cyanosis, or edema. No obvious deformities. NEUROLOGICAL: Awake and alert. No obvious cranial nerve deficits. Motor grossly within normal limits. 4 out of 5 muscle strength in the arms and legs. Normal speech. PSYCHIATRIC: Appropriate mood and affect; insight and judgment normal. Medications and IVs Current Medications Sodium Chloride (NS Flush) 2 ml UNSCH PRN IVF FLUSH AFTER USING IV ACCESS; Start 12/02/17 at 00:45; Stop 12/02/17 at 04:40; Status DC Albuterol/ Ipratropium (Duoneb Neb) 1 ampule Q15M INH Last administered on 12/02at 01:10; Start 12/02/17 at 00:45; Stop 12/02/17 at 01:16; Status DC Methylprednisolone Sodium Succinate (SoluMEDROL INJ) 40 mg Q6HR IV PUSH Last administered on 12/03/17at 05:09; Start 12/02/17 at 06:00 Albuterol/ Ipratropium (Duoneb Neb) 1 ampule Q4HR WHILE AWAKE NEB NEB Last administered on 12/03/17at 11:47; Start 12/02/17 at 08:00 Albuterol/ Ipratropium (Duoneb Neb) 1 ampule Q2HR NEB PRN NEB SOB/WHEEZING; Start 12/02/17 at 04:30 Guaifenesin (Mucinex Er) 600 mg BID PO Last administered on 12/03/17 09:39; Start 12/02/17 at 09:00 Budesonide/ Formoterol Fumarate (Symbicort 160-4.5 Mcg Inh) 2 puff Q12HR INH Last administered on 12/03/17at 09:00; Start 12/02/17 at 09:00 Dextrose (D50w (Vial) Inj) 50 ml UNSCH PRN IV PUSH HYPOGLYCEMIA-SEE COMMENTS; Start 12/02/17 at 04:30 Glucagon (Glucagon Inj) 1 mg UNSCH PRN OTHER HYPOGLYCEMIA-SEE COMMENTS; Start 12/02/17 at 04:30 Insulin Aspart (NovoLOG SUPPLEMENTAL SCALE) 1 ACHS SLIDING SCALE SQ Last administered on 12/03/17at 08:00; Start 12/02/17 at 08:00 Sodium Chloride (NS Flush) 2 ml UNSCH PRN IV FLUSH FLUSH AFTER USING IV ACCESS ; Start 12/02/17 at 04:30 Sodium Chloride (NS Flush) 2 ml BID IV FLUSH Last administered on 12/03/17at 09: 39; Start 12/02/17 at 09:00 Metoclopramide HCl (Reglan Inj) 5 mg Q6H PRN IV PUSH NAUSEA OR VOMITING; Start 12/02/17 at 04:30 Heparin Sodium (Porcine) (Heparin Inj) 5,000 units Q12H SQ Last administered on 12/03/17at 09:39; Start 12/02/17 at 09:00 Acetaminophen (Tylenol) 650 mg Q6H PRN PO FEVER/PAIN SCALE 1 TO 2; Start at 04:30 Acetaminophen/ Hydrocodone Bitart (E[place]ess 5-325 Mg) 1 tab Q4H PRN PO PAIN SCALE 3 TO 5; Start 12/02/17 at 04:30 Acetaminophen/ Hydrocodone Bitart ([place]ul[place] 10-325 Mg) 1 tab Q4H PRN PO PAIN SCALE 6 TO 10 Last administered on 12/02/17at 16:57; Start 12/02/17 at 04:30 Senna/Docusate Sodium (Irina-Colace) 1 tab BID PO Last administered on at 09:38; Start 12/02/17 at 09:00 Magnesium Hydroxide (Milk Of Magnesia Liq) 30 ml Q12H PRN PO Mild constipation ; Start 12/02/17 at 04:30 Sennosides (Senokot) 17.2 mg Q12H PRN PO Moderate constipation; Start 12/02/17 at 04:30 Bisacodyl (Dulcolax Supp) 10 mg DAILY PRN RECTAL SEVERE CONSITIPATION/ IF NPO ; Start 12/02/17 at 04:30 Lactulose (Lactulose Liq) 30 ml DAILY PRN PO SEVERE CONSITIPATION/ IF PO; Start 12/02/17 at 04:30 Aspirin (Aspirin Chew) 81 mg DAILY PO Last administered on 12/03/17at 09:39; Start 12/02/17 at 09:00 Gabapentin (Neurontin) 100 mg TID PO Last administered on 12/03/17 09:38; Start 12/02/17 at 09:00 Insulin Detemir (Levemir Inj) 18 units BID SQ Last administered on 12/03/17at 09 :00; Start 12/02/17 at 09:00 Quetiapine Fumarate (SEROquel) 100 mg HS PO Last administered on 12/02/17at 20: 58; Start 12/02/17 at 21:00 Paroxetine HCl (Paxil) 30 mg DAILY PO Last administered on 12/03/17at 09:38; Start 12/02/17 at 09:00 Pantoprazole Sodium (Protonix) 40 mg DAILY PO Last administered on 12/03/17at 09 :38; Start 12/02/17 at 16:30 Amlodipine Besylate (Norvasc) 5 mg DAILY PO Last administered on 12/03/17 09: 38; Start 12/02/17 at 16:30 Metoprolol Tartrate (Lopressor) 50 mg Q12HR PO Last administered on 12/03/17 09:38; Start 12/02/17 at 21:00 Clonidine (Catapres) 0.1 mg Q6H PRN PO SBP>170, DBP>90 Last administered on at 03:36; Start 12/02/17 at 16:30 A/P Problem List: (1) COPD (chronic obstructive pulmonary disease) ICD Code: J44.9 - Chronic obstructive pulmonary disease, unspecified Status: Acute (2) Renal insufficiency ICD Code: N28.9 - Disorder of kidney and ureter, unspecified (3) DM (diabetes mellitus) ICD Code: E11.9 - Type 2 diabetes mellitus without complications Status: Acute Assessment and Plan 77 years old female Acute respiratory hypercapnic failure with underlying Obstructive and or restrictive lung disease- patient states 02 dependent - continue on BiPAP- current setting - IV steroids,breathing treatments - Pulmonary consult- seen in the past by Dr. Lua for further recommendation Hypertension- some elevated readings - BNP normal - resume her Amlodipine 5 mg daily. - Restart her Metorpolol - at 50 mg bid- at home was on 100 mg daily - clonidine prn for 170/90 and above Renal Insufficiency: Chronic. Creatinine 1.43, previously 1.56 on 11/29/17, monitor I/O, h/o CHF, CXR w/ mild congestion, hold diuresis for now, recheck labs in am. DM: Sliding scale w/ Accu-Cheks. Resume home Insulin History of Bipolar disorder- on Seroquel DVT Prophylaxis: Heparin sq PPI for GI prophylaxis Social work for d/c planning as needed. Case discussed w/ staff and RT Discharge Planning Increase activity PT and OT Discussed with patient and RN Gerry Chen DO December 03, 2017 12:06
--- NOTE | 2017-12-03 20:00 | HHI.PR ---
Subjective Remarks 77 YOAA female with Obesity,COPD exac, Hyparcapnoea Up on the side of bed Breathing better No CP No Cough or sp Objective Vital Signs Vital Signs Date Time Temp Pulse Resp B/P (MAP) Pulse Ox O2 Delivery O2 Flow Rate FiO2 12/03/17 19:30 98 Nasal Cannula 4.00 12/03/17 18:22 61 12/03/17 17:23 64 12/03/17 16:01 59 12/03/17 15:26 97.9 72 20 133/73 (93) 98 12/03/17 15:26 72 12/03/17 14:25 56 12/03/17 13:15 60 12/03/17 11:59 59 12/03/17 11:59 97.8 57 20 163/67 (99) 98 12/03/17 10:13 63 12/03/17 09:47 56 12/03/17 08:13 97 Nasal Cannula 4.00 12/03/17 08:02 99 Nasal Cannula 3.00 12/03/17 08:02 97.8 62 20 161/71 (101) 99 12/03/17 08:02 57 12/03/17 06:00 56 12/03/17 05:11 58 20 173/81 (111) 93 12/03/17 05:09 96 30 12/03/17 05:00 54 12/03/17 04:00 60 12/03/17 03:27 97.5 63 20 198/89 (125) 97 12/03/17 03:00 60 12/03/17 02:00 60 12/03/17 01:00 56 12/03/17 00:00 60 12/02/17 23:16 98.5 58 20 146/70 (95) 98 12/02/17 23:00 58 12/02/17 22:28 99 30 12/02/17 22:00 65 12/02/17 21:00 66 12/02/17 20:00 68 I/O 12/02/17 12/02/17 12/02/17 12/03/17 12/03/17 12/03/17 07:00 15:00 23:00 07:00 15:00 23:00 Intake Total 600 ml 120 ml 850 ml Output Total 100 ml 1350 ml Balance 500 ml 120 ml -500 ml Intake Oral 600 ml 120 ml 850 ml Output Urine Total 100 ml 1350 ml # Voids 3 1 # Bowel Movements 0 0 0 Result Diagram: 12/03/1752412/03/17524 Objective Remarks GENERAL: Obese AA female, Mild SOB SKIN: Warm and dry. HEAD: Normocephalic. EYES: No scleral icterus. No injection or drainage. NECK: Supple, trachea midline. No JVD or lymphadenopathy. CARDIOVASCULAR: Regular rate and rhythm without murmurs, gallops, or rubs. RESPIRATORY: Breath sounds equal bilaterally. No accessory muscle use. GASTROINTESTINAL: Abdomen soft, non-tender, nondistended. MUSCULOSKELETAL: No cyanosis, or edema. BACK: Nontender without obvious deformity. No CVA tenderness. A/P Assessment and Plan IMPRESSION: 1. Chronic obstructive pulmonary disease with exacerbation. 2. Obstructive sleep apnea. 3. Hypoxic respiratory failure. 4. Diabetes mellitus. 5. Renal insufficiency. 6. Hypertension. PLAN: IV Solumedrol Aerosol nebs monitor BS CPAP at Night Supplement 02 to keep sat 88-92% SQ Heparin. Loco Lua MD December 03, 2017 20:00
[2017-12-03] MEDS: QUEtiapine FUMARATE 100 MG TAB PO SCH (20:19)
[2017-12-04] VITALS (33 sets, daily range): BP systolic 174–207; BP diastolic 75–92; PULSE 50–74; RESP 16–24; TEMP 97.4–98.2; O2SAT 97–100
[2017-12-04] MEDS: methylPREDNISolone SOD SUCC 40 MG/1 ML VIAL IV PUSH SCH ×3 (05:04→18:00)
[2017-12-04 06:32] LABS: AUTOMATED NEUTROPHIL # 5.2 TH/MM3 (1.8-7.7); BASOPHIL % 0.2 % (0.0-2.0); HEMATOCRIT 31.9 % (35.0-46.0); HEMOGLOBIN 10.2 GM/DL (11.6-15.3); LYMPH % 13.4 % (9.0-44.0); LYMPHOCYTE # 0.8 TH/MM3 (1.0-4.8); MEAN CELL VOLUME 79.3 FL (80.0-100.0); MEAN CORPUSCULAR HEMOGLOBIN 25.3 PG (27.0-34.0); MEAN PLATELET VOLUME 10.2 FL (7.0-11.0); MONO % 4.7 % (0.0-8.0); MONOCYTE # 0.3 TH/MM3 (0-0.9); NEUT % 81.7 % (16.0-70.0); PLATELET COUNT 148 TH/MM3 (150-450); RED BLOOD COUNT 4.02 MIL/MM3 (4.00-5.30); RED CELL DISTRIBUTION WIDTH 17.8 % (11.6-17.2); WHITE BLOOD COUNT 6.3 TH/MM3 (4.0-11.0)
[2017-12-04 06:55] LABS: ALBUMIN 3.4 GM/DL (3.4-5.0); AST (GOT) 14 U/L (15-37); BLOOD UREA NITROGEN 35 MG/DL (7-18); CALCIUM 9.4 MG/DL (8.5-10.1); CHLORIDE 104 MEQ/L (98-107); CREATININE 1.66 MG/DL (0.50-1.00); GLOMERULAR FILTRATION RATE 36 ML/MIN (>89); GLUCOSE,RANDOM 234 MG/DL (74-106); MAGNESIUM 2.1 MG/DL (1.5-2.5); SODIUM (NA) 139 MEQ/L (136-145)
[2017-12-04 07:06] LABS: ALKALINE PHOSPHATASE 121 U/L (45-117); ALT (GPT) 15 U/L (10-53); FREE T4 0.66 NG/DL (0.76-1.46); PHOSPHORUS 2.7 MG/DL (2.5-4.9); TOTAL BILIRUBIN ADULT 0.3 MG/DL (0.2-1.0); TOTAL PROTEIN 7.6 GM/DL (6.4-8.2)
[2017-12-04] MEDS: RESP: ALBUTEROL 2.5 MG/IPRATROPIUM 0.5 MG NEB (SCH) NEB ×4 (07:34→19:29)
[2017-12-04] MEDS: INSULIN ASPART SUPPLEMENTAL SCALE SQ SCH ×4 (08:00→21:56)
[2017-12-04] MEDS: GABAPENTIN 100 MG CAP PO SCH ×3 (08:16→18:00)
[2017-12-04] MEDS: ASPIRIN 81 MG CHEW TAB PO SCH (08:16)
[2017-12-04] MEDS: PARoxetine HCL 20 MG TAB PO SCH (08:17)
[2017-12-04] MEDS: HEPARIN SODIUM - SQ 10,000 UNITS/ML VIAL SQ SCH ×2 (08:17→21:56)
[2017-12-04] MEDS: PANTOPRAZOLE SOD 40 MG DELAYED RELEASE TAB PO SCH (08:17)
[2017-12-04] MEDS: amLODIPine BESYLATE 5 MG TAB PO SCH ×2 (08:17→21:56)
[2017-12-04] MEDS: guaiFENesin E.R. 600 MG TAB PO SCH ×2 (08:17→21:55)
[2017-12-04] MEDS: METOPROLOL TARTRATE 50 MG TAB PO SCH ×2 (08:17→21:55)
[2017-12-04] MEDS: SODIUM CHLORIDE 0.9% FLUSH 10 ML FLUSH IV FLUSH SCH ×2 (08:18→21:00)
[2017-12-04] MEDS: BUDESONIDE-FORMOTEROL 160/4.5 MCG INHALER INH SCH ×2 (08:18→21:00)
[2017-12-04] MEDS: INSULIN DETEMIR 100 UNITS/ML VIAL SQ SCH ×2 (08:18→21:56)
[2017-12-04] MEDS: DOCUSATE SODIUM 50 MG/SENNA 8.6 MG TAB PO SCH ×3 (08:35→21:55)
[2017-12-04] MEDS: ACETAMINOPHEN/HYDROcodone 325 MG/10 MG TAB PO PRN (11:53)
--- NOTE | 2017-12-04 14:49 | HHI.PR ---
Subjective Remarks This is a 77-year-old female with a PMH of HTN, COPD, Bipolar Disorder, CHF ( Echo 01/01/2016 with EF 55-60%), DM and Hypothyroidism who was brought to the ER by EMS with complaints of SOB. Has been following w/ PCP, Dr. Gonzalez, for similar complaints and was on Prednisone and MDI/Neb w/ no improvement, seen in ER on 11/29/17 s/p DuoNeb w/ improvement and discharged home. Returns now w/ ongoing complaints. S/p Solu-Medrol/DuoNeb by EMS. Denies fever, chills or cough. No complaints of chest pain. On arrival, BP 122/56, HR 93% on RA, Afebrile. While in the ER, patient with increased work of breathing, started on BiPAP. CBC unremarkable. Creatinine 1.43, previously 1.56 on 11/29/2017. Troponin negative. CXR with mild degree of pulmonary edema. S/p DuoNeb w/ some improvement. 5 awake and alert cough dry gets short of breath without BIPAP states she has 02 at home denies any fever or chills 5 has been seen by pulmonary medicine. Think she is breathing a little better Not currently on BiPAP Increase activity Physical therapy and Occupational Therapy Discussed with RN and patient 12-04 BREATHING A LITTLE BETTER TODAY HAD BIPAP AT NIGHT INCREASE ACTIVITY WILL NEED PT AND OT AND HHC AT [facility] RN AND PT AND CASE MANAGEMENT Objective Vitals Vital Signs Date Time Temp Pulse Resp B/P (MAP) Pulse Ox O2 Delivery O2 Flow Rate FiO2 12/04/17 14:07 Nasal Cannula 4.00 12/04/17 11:15 98.0 56 18 190/75 (113) 99 12/04/17 11:01 56 12/04/17 10:01 52 12/04/17 09:01 54 12/04/17 08:15 97.8 58 22 191/92 (125) 98 12/04/17 08:15 98 Nasal Cannula 4.00 12/04/17 08:00 58 12/04/17 07:37 97 30 12/04/17 07:37 97 BiPAP 30 12/04/17 07:00 53 12/04/17 06:00 54 12/04/17 05:20 52 12/04/17 04:19 55 12/04/17 03:17 54 12/04/17 03:15 97.6 56 24 180/82 (114) 98 12/04/17 02:00 58 12/04/17 01:00 50 12/04/17 00:40 175/82 (113) 12/04/17 00:08 55 12/03/17 23:45 187/85 (119) 12/03/17 23:15 96.8 64 22 190/75 (113) 97 12/03/17 23:00 62 12/03/17 22:00 58 12/03/17 21:52 98 30 12/03/17 21:30 18 12/03/17 21:00 58 12/03/17 20:25 98 Nasal Cannula 4.00 12/03/17 20:25 98.2 61 20 195/84 (121) 98 12/03/17 20:00 62 12/03/17 19:30 98 Nasal Cannula 4.00 12/03/17 19:00 59 12/03/17 18:22 61 12/03/17 17:23 64 12/03/17 16:01 59 12/03/17 15:26 97.9 72 20 133/73 (93) 98 12/03/17 15:26 72 I/O 12/03/17 12/03/17 12/03/17 12/04/17 12/04/17 12/04/17 07:00 15:00 23:00 07:00 15:00 23:00 Intake Total 120 ml 850 ml 240 ml Output Total 1350 ml 300 ml Balance 120 ml -500 ml -60 ml Intake Oral 120 ml 850 ml 240 ml Output Urine Total 1350 ml 300 ml # Voids 1 # Bowel Movements 0 0 0 Result Diagram: 12/04/17 0516 12/04/17 0516 Other Results Laboratory Tests Test 12/02/17 00:55 12/02/17 02:40 12/02/17 03:50 12/03/17 05:25 White Blood Count 4.2 TH/MM3 4.0 TH/MM3 Red Blood Count 3.82 MIL/MM3 3.95 MIL/MM3 Hemoglobin 9.7 GM/DL 10.1 GM/DL Hematocrit 30.5 % 31.5 % Mean Corpuscular Volume 79.7 FL 79.6 FL Mean Corpuscular Hemoglobin 25.5 PG 25.5 PG Mean Corpuscular Hemoglobin Concent 32.0 % 32.0 % Red Cell Distribution Width 17.7 % 17.7 % Platelet Count 125 TH/MM3 128 TH/MM3 Mean Platelet Volume 9.6 FL 10.0 FL Neutrophils (%) (Auto) 51.9 % 78.7 % Lymphocytes (%) (Auto) 28.6 % 16.3 % Monocytes (%) (Auto) 13.6 % 4.9 % Eosinophils (%) (Auto) 5.4 % 0.0 % Basophils (%) (Auto) 0.5 % 0.1 % Neutrophils # (Auto) 2.2 TH/MM3 3.2 TH/MM3 Lymphocytes # (Auto) 1.2 TH/MM3 0.7 TH/MM3 Monocytes # (Auto) 0.6 TH/MM3 0.2 TH/MM3 Eosinophils # (Auto) 0.2 TH/MM3 0.0 TH/MM3 Basophils # (Auto) 0.0 TH/MM3 0.0 TH/MM3 CBC Comment DIFF FINAL DIFF FINAL Differential Comment Prothrombin Time 10.5 SEC Prothromb Time International Ratio 1.0 RATIO Activated Partial Thromboplast Time 27.2 SEC B-Type Natriuretic Peptide 62 PG/ML Blood Urea Nitrogen 17 MG/DL 28 MG/DL Creatinine 1.43 MG/DL 1.54 MG/DL Random Glucose 106 MG/DL 271 MG/DL Total Protein 7.5 GM/DL 7.6 GM/DL Albumin 3.5 GM/DL 3.4 GM/DL Calcium Level 8.6 MG/DL 9.0 MG/DL Magnesium Level 1.8 MG/DL Alkaline Phosphatase 113 U/L 119 U/L Aspartate Amino Transf (AST/SGOT) 17 U/L 14 U/L Alanine Aminotransferase (ALT/SGPT) 15 U/L 15 U/L Total Bilirubin 0.3 MG/DL 0.3 MG/DL Sodium Level 141 MEQ/L 139 MEQ/L Potassium Level 3.5 MEQ/L 4.0 MEQ/L Chloride Level 107 MEQ/L 106 MEQ/L Carbon Dioxide Level 25.5 MEQ/L 26.5 MEQ/L Anion Gap 9 MEQ/L 7 MEQ/L Estimat Glomerular Filtration Rate 43 ML/MIN 40 ML/MIN Total Creatine Kinase 105 U/L Creatine Kinase MB 1.1 NG/ML Troponin I LESS THAN 0.02 NG/ML Blood Gas Puncture Site LT RADIAL Blood Gas Patient Temperature 98.6 Blood Gas HCO3 25 mmol/L Blood Gas Base Excess 0.1 mmol/L Blood Gas Oxygen Saturation 89 % Arterial Blood pH 7.38 Arterial Blood Partial Pressure CO2 42 mmHg Arterial Blood Partial Pressure O2 58 mmHG Arterial Blood Oxygen Content 12.5 Vol % Arterial Blood Carboxyhemoglobin 1.5 % Arterial Blood Methemoglobin 0.2 % Blood Gas Hemoglobin 9.9 G/DL Oxygen Delivery Device BiPAP Blood Gas Ventilator Setting [id number] Blood Gas Inspired Oxygen 30 % Test 12/04/17 05:16 White Blood Count 6.3 TH/MM3 Red Blood Count 4.02 MIL/MM3 Hemoglobin 10.2 GM/DL Hematocrit 31.9 % Mean Corpuscular Volume 79.3 FL Mean Corpuscular Hemoglobin 25.3 PG Mean Corpuscular Hemoglobin Concent 32.0 % Red Cell Distribution Width 17.8 % Platelet Count 148 TH/MM3 Mean Platelet Volume 10.2 FL Neutrophils (%) (Auto) 81.7 % Lymphocytes (%) (Auto) 13.4 % Monocytes (%) (Auto) 4.7 % Eosinophils (%) (Auto) 0.0 % Basophils (%) (Auto) 0.2 % Neutrophils # (Auto) 5.2 TH/MM3 Lymphocytes # (Auto) 0.8 TH/MM3 Monocytes # (Auto) 0.3 TH/MM3 Eosinophils # (Auto) 0.0 TH/MM3 Basophils # (Auto) 0.0 TH/MM3 CBC Comment DIFF FINAL Differential Comment Blood Urea Nitrogen 35 MG/DL Creatinine 1.66 MG/DL Random Glucose 234 MG/DL Total Protein 7.6 GM/DL Albumin 3.4 GM/DL Calcium Level 9.4 MG/DL Phosphorus Level 2.7 MG/DL Magnesium Level 2.1 MG/DL Alkaline Phosphatase 121 U/L Aspartate Amino Transf (AST/SGOT) 14 U/L Alanine Aminotransferase (ALT/SGPT) 15 U/L Total Bilirubin 0.3 MG/DL Sodium Level 139 MEQ/L Potassium Level 3.9 MEQ/L Chloride Level 104 MEQ/L Carbon Dioxide Level 25.0 MEQ/L Anion Gap 10 MEQ/L Estimat Glomerular Filtration Rate 36 ML/MIN Free Thyroxine 0.66 NG/DL Thyroid Stimulating Hormone 3rd Gen 0.179 uIU/ML Imaging Last Impressions Chest X-Ray 12/02/17 0040 Signed Impressions: CONCLUSION: Artifact versus mild degree of pulmonary edema. Objective Remarks GENERAL: Awake alert and oriented 3 talkative and cooperative SKIN: Warm and dry. HEAD: Atraumatic. Normocephalic. EYES: Pupils equal and round. No scleral icterus. No injection or drainage. Extraocular muscles intact ENT: No nasal bleeding or discharge. Mucous membranes pink and moist. NECK: Trachea midline. No JVD. CARDIOVASCULAR: Regular rate and rhythm. S1-S2 no S3 or S4 RESPIRATORY: No accessory muscle use. Decreased breath sounds bilaterally scattered rhonchi. Breath sounds equal bilaterally. GASTROINTESTINAL: Abdomen soft, non-tender, nondistended. Hepatic and splenic margins not palpable. Morbid obesity MUSCULOSKELETAL: Extremities without clubbing, cyanosis, or edema. No obvious deformities. NEUROLOGICAL: Awake and alert. No obvious cranial nerve deficits. Motor grossly within normal limits. 4 out of 5 muscle strength in the arms and legs. Normal speech. PSYCHIATRIC: Appropriate mood and affect; insight and judgment normal. Medications and IVs Current Medications Sodium Chloride (NS Flush) 2 ml UNSCH PRN IVF FLUSH AFTER USING IV ACCESS; Start 12/02/17 at 00:45; Stop 12/02/17 at 04:40; Status DC Albuterol/ Ipratropium (Duoneb Neb) 1 ampule Q15M INH Last administered on 12/02at 01:10; Start 12/02/17 at 00:45; Stop 12/02/17 at 01:16; Status DC Methylprednisolone Sodium Succinate (SoluMEDROL INJ) 40 mg Q6HR IV PUSH Last administered on 12/04/17at 11:53; Start 12/02/17 at 06:00 Albuterol/ Ipratropium (Duoneb Neb) 1 ampule Q4HR WHILE AWAKE NEB NEB Last administered on 12/04/17at 14:05; Start 12/02/17 at 08:00 Albuterol/ Ipratropium (Duoneb Neb) 1 ampule Q2HR NEB PRN NEB SOB/WHEEZING; Start 12/02/17 at 04:30 Guaifenesin (Mucinex Er) 600 mg BID PO Last administered on 12/04/17at 08:17; Start 12/02/17 at 09:00 Budesonide/ Formoterol Fumarate (Symbicort 160-4.5 Mcg Inh) 2 puff Q12HR INH Last administered on 12/04/17at 08:18; Start 12/02/17 at 09:00 Dextrose (D50w (Vial) Inj) 50 ml UNSCH PRN IV PUSH HYPOGLYCEMIA-SEE COMMENTS; Start 12/02/17 at 04:30 Glucagon (Glucagon Inj) 1 mg UNSCH PRN OTHER HYPOGLYCEMIA-SEE COMMENTS; Start 12/02/17 at 04:30 Insulin Aspart (NovoLOG SUPPLEMENTAL SCALE) 1 ACHS SLIDING SCALE SQ Last administered on 12/04/17at 11:59; Start 12/02/17 at 08:00 Sodium Chloride (NS Flush) 2 ml UNSCH PRN IV FLUSH FLUSH AFTER USING IV ACCESS ; Start 12/02/17 at 04:30 Sodium Chloride (NS Flush) 2 ml BID IV FLUSH Last administered on 12/04/17at 08: 18; Start 12/02/17 at 09:00 Metoclopramide HCl (Reglan Inj) 5 mg Q6H PRN IV PUSH NAUSEA OR VOMITING; Start 12/02/17 at 04:30 Heparin Sodium (Porcine) (Heparin Inj) 5,000 units Q12H SQ Last administered on 12/04/17at 08:17; Start 12/02/17 at 09:00 Acetaminophen (Tylenol) 650 mg Q6H PRN PO FEVER/PAIN SCALE 1 TO 2; Start at 04:30 Acetaminophen/ Hydrocodone Bitart ([place] 5-325 Mg) 1 tab Q4H PRN PO PAIN SCALE 3 TO 5 Last administered on 12/03/17at 20:23; Start 12/02/17 at 04:30 Acetaminophen/ Hydrocodone Bitart ([place] 10-325 Mg) 1 tab Q4H PRN PO PAIN SCALE 6 TO 10 Last administered on 12/04/17at 11:53; Start 12/02/17 at 04:30 Senna/Docusate Sodium (Irina-Colace) 1 tab BID PO Last administered on at 09:38; Start 12/02/17 at 09:00 Magnesium Hydroxide (Milk Of Magnesia Liq) 30 ml Q12H PRN PO Mild constipation ; Start 12/02/17 at 04:30 Sennosides (Senokot) 17.2 mg Q12H PRN PO Moderate constipation; Start 12/02/17 at 04:30 Bisacodyl (Dulcolax Supp) 10 mg DAILY PRN RECTAL SEVERE CONSITIPATION/ IF NPO ; Start 12/02/17 at 04:30 Lactulose (Lactulose Liq) 30 ml DAILY PRN PO SEVERE CONSITIPATION/ IF PO; Start 12/02/17 at 04:30 Aspirin (Aspirin Chew) 81 mg DAILY PO Last administered on 12/04/17at 08:16; Start 12/02/17 at 09:00 Gabapentin (Neurontin) 100 mg TID PO Last administered on 12/04/17at 11:53; Start 12/02/17 at 09:00 Insulin Detemir (Levemir Inj) 18 units BID SQ Last administered on 12/04/17at 08 :18; Start 12/02/17 at 09:00 Quetiapine Fumarate (SEROquel) 100 mg HS PO Last administered on 12/03/17at 20: 19; Start 12/02/17 at 21:00 Paroxetine HCl (Paxil) 30 mg DAILY PO Last administered on 12/04/17at 08:17; Start 12/02/17 at 09:00 Pantoprazole Sodium (Protonix) 40 mg DAILY PO Last administered on 12/04/17 08 :17; Start 12/02/17 at 16:30 Amlodipine Besylate (Norvasc) 5 mg DAILY PO Last administered on 12/04/17 08: 17; Start 12/02/17 at 16:30 Metoprolol Tartrate (Lopressor) 50 mg Q12HR PO Last administered on 12/04/17 08:17; Start 12/02/17 at 21:00 Clonidine (Catapres) 0.1 mg Q6H PRN PO SBP>170, DBP>90 Last administered on at 23:17; Start 12/02/17 at 16:30 A/P Problem List: (1) COPD (chronic obstructive pulmonary disease) ICD Code: J44.9 - Chronic obstructive pulmonary disease, unspecified Status: Acute (2) Renal insufficiency ICD Code: N28.9 - Disorder of kidney and ureter, unspecified (3) DM (diabetes mellitus) ICD Code: E11.9 - Type 2 diabetes mellitus without complications Status: Acute Assessment and Plan 77 years old female Acute respiratory hypercapnic failure with underlying Obstructive and or restrictive lung disease- patient states 02 dependent - continue on BiPAP- current setting - IV steroids,breathing treatments - Pulmonary consult- seen in the past by Dr. Lua for further recommendation Hypertension- some elevated readings - BNP normal - resume her Amlodipine 5 mg daily. - Restart her Metorpolol - at 50 mg bid- at home was on 100 mg daily - clonidine prn for 170/90 and above Renal Insufficiency: Chronic. Creatinine 1.43, previously 1.56 on 11/29/17, monitor I/O, h/o CHF, CXR w/ mild congestion, hold diuresis for now, recheck labs in am. DM: Sliding scale w/ Accu-Cheks. Resume home Insulin History of Bipolar disorder- on Seroquel DVT Prophylaxis: Heparin sq PPI for GI prophylaxis BLOOD PRESSURE NOT AT GOAL- ADJUST MEDS INCREASE NORVASC AND HYDRALAZINE FOR UNCONTROLLED BLOOD PRESSURE Social work for d/c planning as needed. Case discussed w/ staff and RT Discharge Planning Increase activity PT and OT Discussed with patient and RN Gerry Chen DO December 04, 2017 14:49
[2017-12-04 16:25] LABS: HEMOGLOBIN A1C 7.1 % (4.3-6.0)
--- NOTE | 2017-12-04 20:09 | HHI.PR ---
Subjective Remarks 77 YOAA female with Obesity,COPD exac, Hyparcapnoea Up on the side of bed Breathing better No CP No Cough or sp Worked with PT today, feels better Objective Vital Signs Vital Signs Date Time Temp Pulse Resp B/P (MAP) Pulse Ox O2 Delivery O2 Flow Rate FiO2 12/04/17 19:32 98 Nasal Cannula 4.00 12/04/17 18:00 58 12/04/17 17:00 56 12/04/17 16:00 56 12/04/17 15:45 98.2 60 16 207/80 (122) 98 12/04/17 15:00 54 12/04/17 14:07 Nasal Cannula 4.00 12/04/17 14:00 60 12/04/17 13:00 58 12/04/17 12:00 60 12/04/17 11:15 98.0 56 18 190/75 (113) 99 12/04/17 11:01 56 12/04/17 10:01 52 12/04/17 09:01 54 12/04/17 08:15 97.8 58 22 191/92 (125) 98 12/04/17 08:15 98 Nasal Cannula 4.00 12/04/17 08:00 58 12/04/17 07:37 97 30 12/04/17 07:37 97 BiPAP 30 12/04/17 07:00 53 12/04/17 06:00 54 12/04/17 05:20 52 12/04/17 04:19 55 12/04/17 03:17 54 12/04/17 03:15 97.6 56 24 180/82 (114) 98 12/04/17 02:00 58 12/04/17 01:00 50 12/04/17 00:40 175/82 (113) 12/04/17 00:08 55 12/03/17 23:45 187/85 (119) 12/03/17 23:15 96.8 64 22 190/75 (113) 97 12/03/17 23:00 62 12/03/17 22:00 58 12/03/17 21:52 98 30 12/03/17 21:30 18 12/03/17 21:00 58 12/03/17 20:25 98 Nasal Cannula 4.00 12/03/17 20:25 98.2 61 20 195/84 (121) 98 I/O 12/03/17 12/03/17 12/03/17 12/04/17 12/04/17 12/04/17 07:00 15:00 23:00 07:00 15:00 23:00 Intake Total 120 ml 850 ml 240 ml 720 ml Output Total 1350 ml 300 ml 1000 ml Balance 120 ml -500 ml -60 ml -280 ml Intake Oral 120 ml 850 ml 240 ml 720 ml Output Urine Total 1350 ml 300 ml 1000 ml # Voids 1 2 # Bowel Movements 0 0 0 Result Diagram: 12/04/1716 12/04/17515 Objective Remarks GENERAL: Obese AA female, Mild SOB SKIN: Warm and dry. HEAD: Normocephalic. EYES: No scleral icterus. No injection or drainage. NECK: Supple, trachea midline. No JVD or lymphadenopathy. CARDIOVASCULAR: Regular rate and rhythm without murmurs, gallops, or rubs. RESPIRATORY: Breath sounds equal bilaterally. No accessory muscle use. GASTROINTESTINAL: Abdomen soft, non-tender, nondistended. MUSCULOSKELETAL: No cyanosis, or edema. BACK: Nontender without obvious deformity. No CVA tenderness. A/P Assessment and Plan IMPRESSION: 1. Chronic obstructive pulmonary disease with exacerbation. 2. Obstructive sleep apnea. 3. Hypoxic respiratory failure. 4. Diabetes mellitus. 5. Renal insufficiency. 6. Hypertension. PLAN: DC Solumedrol Pred 20 mg bid Aerosol nebs monitor BS CPAP at Night Supplement 02 to keep sat 88-92% SQ Heparin. Loco Lua MD December 04, 2017 20:09
[2017-12-04] MEDS: hydrALAZINE HCL 50 MG TAB PO SCH (21:55)
[2017-12-04] MEDS: QUEtiapine FUMARATE 100 MG TAB PO SCH (21:55)
[2017-12-04] MEDS: predniSONE 20 MG TAB PO SCH (21:55)
[2017-12-05] VITALS (14 sets, daily range): BP systolic 121–132; BP diastolic 54–85; PULSE 48–60; RESP 20; TEMP 97.6–97.7; O2SAT 96–100
[2017-12-05] MEDS: cloNIDine HCL 0.1 MG TAB PO PRN (00:36)
[2017-12-05] MEDS: hydrALAZINE HCL 50 MG TAB PO SCH (06:14)
[2017-12-05 07:05] LABS: ALBUMIN 3.3 GM/DL (3.4-5.0); ALT (GPT) 18 U/L (10-53); AST (GOT) 15 U/L (15-37); BICARBONATE 25.5 MEQ/L (21.0-32.0); BLOOD UREA NITROGEN 31 MG/DL (7-18); CALCIUM 8.7 MG/DL (8.5-10.1); CHLORIDE 104 MEQ/L (98-107); CREATININE 1.44 MG/DL (0.50-1.00); GLOMERULAR FILTRATION RATE 43 ML/MIN (>89); GLUCOSE,RANDOM 239 MG/DL (74-106); MAGNESIUM 2.2 MG/DL (1.5-2.5); PHOSPHORUS 2.6 MG/DL (2.5-4.9); SODIUM (NA) 139 MEQ/L (136-145)
[2017-12-05 07:07] LABS: ALKALINE PHOSPHATASE 147 U/L (45-117); TOTAL BILIRUBIN ADULT 0.3 MG/DL (0.2-1.0); TOTAL PROTEIN 7.6 GM/DL (6.4-8.2)
[2017-12-05 07:09] LABS: AUTOMATED NEUTROPHIL # 5.7 TH/MM3 (1.8-7.7); BASOPHIL % 0.2 % (0.0-2.0); EOSINOPHIL % 0.1 % (0.0-4.0); HEMATOCRIT 31.8 % (35.0-46.0); HEMOGLOBIN 10.3 GM/DL (11.6-15.3); MEAN CELL VOLUME 78.8 FL (80.0-100.0); MEAN CORPUSCULAR HEMOGLOBIN 25.4 PG (27.0-34.0); MEAN CORPUSCULAR HGB CONC 32.2 % (32.0-36.0); MEAN PLATELET VOLUME 10.5 FL (7.0-11.0); MONO % 4.9 % (0.0-8.0); MONOCYTE # 0.4 TH/MM3 (0-0.9); NEUT % 80.8 % (16.0-70.0); PLATELET COUNT 150 TH/MM3 (150-450); RED BLOOD COUNT 4.04 MIL/MM3 (4.00-5.30); RED CELL DISTRIBUTION WIDTH 17.5 % (11.6-17.2); WHITE BLOOD COUNT 7.1 TH/MM3 (4.0-11.0)
[2017-12-05] MEDS: RESP: ALBUTEROL 2.5 MG/IPRATROPIUM 0.5 MG NEB (SCH) NEB ×2 (07:43→11:45)
--- NOTE | 2017-12-05 08:13 | RSPPFT ---
DATE OF PROCEDURE: 12/04/17 COMMENTS: Spirometry shows FVC of 0.9 at 35% of predicted, FEV1 of 0.6 at 34%, FEV1/FVC ratio is normal. Flow is decreased at FEF 25, FEF 50, FEF 75 and FEF 25-75. There is no response after bronchodilator treatment. Flow volume loop indicates a restrictive pattern. IMPRESSION: 1. Mild small airways obstructive lung disease. 2.. Study suggests significant restrictive lung disease. 3. No response after bronchodilator treatment. 4. Patient will need a complete pulmonary function study for evaluation.
[2017-12-05] MEDS: DOCUSATE SODIUM 50 MG/SENNA 8.6 MG TAB PO SCH ×2 (09:00→09:03)
[2017-12-05] MEDS: GABAPENTIN 100 MG CAP PO SCH (09:03)
[2017-12-05] MEDS: amLODIPine BESYLATE 5 MG TAB PO SCH (09:04)
[2017-12-05] MEDS: PANTOPRAZOLE SOD 40 MG DELAYED RELEASE TAB PO SCH (09:04)
[2017-12-05] MEDS: METOPROLOL TARTRATE 50 MG TAB PO SCH (09:04)
[2017-12-05] MEDS: guaiFENesin E.R. 600 MG TAB PO SCH (09:04)
[2017-12-05] MEDS: ASPIRIN 81 MG CHEW TAB PO SCH (09:04)
[2017-12-05] MEDS: predniSONE 20 MG TAB PO SCH (09:04)
[2017-12-05] MEDS: PARoxetine HCL 20 MG TAB PO SCH (09:04)
[2017-12-05] MEDS: INSULIN DETEMIR 100 UNITS/ML VIAL SQ SCH (09:05)
[2017-12-05] MEDS: HEPARIN SODIUM - SQ 10,000 UNITS/ML VIAL SQ SCH (09:05)
[2017-12-05] MEDS: BUDESONIDE-FORMOTEROL 160/4.5 MCG INHALER INH SCH (09:06)
[2017-12-05] MEDS: INSULIN ASPART SUPPLEMENTAL SCALE SQ SCH (09:06)
[2017-12-05] MEDS: SODIUM CHLORIDE 0.9% FLUSH 10 ML FLUSH IV FLUSH SCH (09:07)
[2017-12-05 10:42] LABS: ACANTHOCYTES OCC (NORMAL); KERATOCYTES OCC (NORMAL); OVALOCYTES 2+ (NORMAL)
--- NOTE | 2017-12-05 11:14 | HHI.PR ---
Subjective Remarks This is a 77-year-old female with a PMH of HTN, COPD, Bipolar Disorder, CHF ( Echo 01/01/2016 with EF 55-60%), DM and Hypothyroidism who was brought to the ER by EMS with complaints of SOB. Has been following w/ PCP, Dr. Gonzalez, for similar complaints and was on Prednisone and MDI/Neb w/ no improvement, seen in ER on 11/29/17 s/p DuoNeb w/ improvement and discharged home. Returns now w/ ongoing complaints. S/p Solu-Medrol/DuoNeb by EMS. Denies fever, chills or cough. No complaints of chest pain. On arrival, BP 122/56, HR 93% on RA, Afebrile. While in the ER, patient with increased work of breathing, started on BiPAP. CBC unremarkable. Creatinine 1.43, previously 1.56 on 11/29/2017. Troponin negative. CXR with mild degree of pulmonary edema. S/p DuoNeb w/ some improvement. 5- awake and alert cough dry gets short of breath without BIPAP states she has 02 at home denies any fever or chills 5 has been seen by pulmonary medicine. Think she is breathing a little better Not currently on BiPAP Increase activity Physical therapy and Occupational Therapy Discussed with RN and patient 5 BREATHING A LITTLE BETTER TODAY HAD BIPAP AT NIGHT INCREASE ACTIVITY WILL NEED PT AND OT AND HHC AT DC SLOW IMPROVEMENT DW RN AND PT AND CASE MANAGEMENT 12-05 BREATHING BETTER WANTS TO GO HOME RESUME HOME OXYGEN AT 2 TO 3 LITER SHE IS SUPPOSED TO USE DW RN AND PT AND CM HHC FOR RN AND PT AND COMPLIANCE SWITCH TO PO MEDS DC TO HOME TODAY Objective Vitals Vital Signs Date Time Temp Pulse Resp B/P (MAP) Pulse Ox O2 Delivery O2 Flow Rate FiO2 12/05/17 07:45 Nasal Cannula 3.00 12/05/17 07:45 97.7 60 20 132/85 (101) 100 12/05/17 07:45 96 Nasal Cannula 3.00 12/05/17 07:15 56 12/05/17 06:00 48 12/05/17 05:00 50 12/05/17 04:06 97.6 56 20 121/54 (76) 98 12/05/17 04:00 53 12/05/17 03:00 50 12/05/17 02:00 57 12/05/17 01:00 57 12/05/17 00:44 98 30 12/05/17 00:00 60 12/04/17 23:51 97.4 63 20 185/89 (121) 97 12/04/17 23:00 66 12/04/17 22:19 98 30 12/04/17 22:00 74 12/04/17 21:00 68 12/04/17 20:00 60 12/04/17 20:00 100 Nasal Cannula 4.00 12/04/17 20:00 98.0 61 20 174/91 (118) 100 12/04/17 19:32 98 Nasal Cannula 4.00 12/04/17 19:00 58 12/04/17 18:00 58 12/04/17 17:00 56 12/04/17 16:00 56 12/04/17 15:45 98.2 60 16 207/80 (122) 98 12/04/17 15:00 54 12/04/17 14:07 Nasal Cannula 4.00 12/04/17 14:00 60 12/04/17 13:00 58 12/04/17 12:00 60 12/04/17 11:15 98.0 56 18 190/75 (113) 99 I/O 12/04/17 12/04/17 12/04/17 12/05/17 12/05/17 12/05/17 07:00 15:00 23:00 07:00 15:00 23:00 Intake Total 240 ml 720 ml 240 ml Output Total 300 ml 1000 ml Balance -60 ml -280 ml 240 ml Intake Oral 240 ml 720 ml 240 ml Output Urine Total 300 ml 1000 ml # Voids 2 # Bowel Movements 0 Result Diagram: 12/05/17 0554 12/05/17 0554 Other Results Laboratory Tests Test 12/03/17 05:25 12/04/17 05:16 12/05/17 05:54 White Blood Count 4.0 TH/MM3 6.3 TH/MM3 7.1 TH/MM3 Red Blood Count 3.95 MIL/MM3 4.02 MIL/MM3 4.04 MIL/MM3 Hemoglobin 10.1 GM/DL 10.2 GM/DL 10.3 GM/DL Hematocrit 31.5 % 31.9 % 31.8 % Mean Corpuscular Volume 79.6 FL 79.3 FL 78.8 FL Mean Corpuscular Hemoglobin 25.5 PG 25.3 PG 25.4 PG Mean Corpuscular Hemoglobin Concent 32.0 % 32.0 % 32.2 % Red Cell Distribution Width 17.7 % 17.8 % 17.5 % Platelet Count 128 TH/MM3 148 TH/MM3 150 TH/MM3 Mean Platelet Volume 10.0 FL 10.2 FL 10.5 FL Neutrophils (%) (Auto) 78.7 % 81.7 % 80.8 % Lymphocytes (%) (Auto) 16.3 % 13.4 % 14.0 % Monocytes (%) (Auto) 4.9 % 4.7 % 4.9 % Eosinophils (%) (Auto) 0.0 % 0.0 % 0.1 % Basophils (%) (Auto) 0.1 % 0.2 % 0.2 % Neutrophils # (Auto) 3.2 TH/MM3 5.2 TH/MM3 5.7 TH/MM3 Lymphocytes # (Auto) 0.7 TH/MM3 0.8 TH/MM3 1.0 TH/MM3 Monocytes # (Auto) 0.2 TH/MM3 0.3 TH/MM3 0.4 TH/MM3 Eosinophils # (Auto) 0.0 TH/MM3 0.0 TH/MM3 0.0 TH/MM3 Basophils # (Auto) 0.0 TH/MM3 0.0 TH/MM3 0.0 TH/MM3 CBC Comment DIFF FINAL DIFF FINAL AUTO DIFF Differential Comment AUTO DIFF CONFIRMED Blood Urea Nitrogen 28 MG/DL 35 MG/DL 31 MG/DL Creatinine 1.54 MG/DL 1.66 MG/DL 1.44 MG/DL Random Glucose 271 MG/DL 234 MG/DL 239 MG/DL Total Protein 7.6 GM/DL 7.6 GM/DL 7.6 GM/DL Albumin 3.4 GM/DL 3.4 GM/DL 3.3 GM/DL Calcium Level 9.0 MG/DL 9.4 MG/DL 8.7 MG/DL Alkaline Phosphatase 119 U/L 121 U/L 147 U/L Aspartate Amino Transf (AST/SGOT) 14 U/L 14 U/L 15 U/L Alanine Aminotransferase (ALT/SGPT) 15 U/L 15 U/L 18 U/L Total Bilirubin 0.3 MG/DL 0.3 MG/DL 0.3 MG/DL Sodium Level 139 MEQ/L 139 MEQ/L 139 MEQ/L Potassium Level 4.0 MEQ/L 3.9 MEQ/L 3.8 MEQ/L Chloride Level 106 MEQ/L 104 MEQ/L 104 MEQ/L Carbon Dioxide Level 26.5 MEQ/L 25.0 MEQ/L 25.5 MEQ/L Anion Gap 7 MEQ/L 10 MEQ/L 10 MEQ/L Estimat Glomerular Filtration Rate 40 ML/MIN 36 ML/MIN 43 ML/MIN Phosphorus Level 2.7 MG/DL 2.6 MG/DL Magnesium Level 2.1 MG/DL 2.2 MG/DL Hemoglobin A1c 7.1 % Free Thyroxine 0.66 NG/DL Thyroid Stimulating Hormone 3rd Gen 0.179 uIU/ML Platelet Estimate LOW Platelet Morphology Comment ENLARGED Ovalocytes 2+ Acanthocytes OCC Keratocytes OCC Imaging Last Impressions Chest X-Ray 12/02/17 0040 Signed Impressions: CONCLUSION: Artifact versus mild degree of pulmonary edema. Objective Remarks GENERAL: Awake alert and oriented 3 talkative and cooperative SKIN: Warm and dry. HEAD: Atraumatic. Normocephalic. EYES: Pupils equal and round. No scleral icterus. No injection or drainage. Extraocular muscles intact ENT: No nasal bleeding or discharge. Mucous membranes pink and moist. NECK: Trachea midline. No JVD. CARDIOVASCULAR: Regular rate and rhythm. S1-S2 no S3 or S4 RESPIRATORY: No accessory muscle use. Decreased breath sounds LESS scattered rhonchi. Breath sounds equal bilaterally. GASTROINTESTINAL: Abdomen soft, non-tender, nondistended. Hepatic and splenic margins not palpable. Morbid obesity MUSCULOSKELETAL: Extremities without clubbing, cyanosis, or edema. No obvious deformities. NEUROLOGICAL: Awake and alert. No obvious cranial nerve deficits. Motor grossly within normal limits. 4 out of 5 muscle strength in the arms and legs. Normal speech. PSYCHIATRIC: Appropriate mood and affect; insight and judgment normal. Procedures NONE Medications and IVs Current Medications Sodium Chloride (NS Flush) 2 ml UNSCH PRN IVF FLUSH AFTER USING IV ACCESS; Start 12/02/17 at 00:45; Stop 12/02/17 at 04:40; Status DC Albuterol/ Ipratropium (Duoneb Neb) 1 ampule Q15M INH Last administered on 12/02at 01:10; Start 12/02/17 at 00:45; Stop 12/02/17 at 01:16; Status DC Methylprednisolone Sodium Succinate (SoluMEDROL INJ) 40 mg Q6HR IV PUSH Last administered on 12/04/17at 18:00; Start 12/02/17 at 06:00; Stop 12/04/17 at 20:10 ; Status DC Albuterol/ Ipratropium (Duoneb Neb) 1 ampule Q4HR WHILE AWAKE NEB NEB Last administered on 12/05/17at 07:43; Start 12/02/17 at 08:00 Albuterol/ Ipratropium (Duoneb Neb) 1 ampule Q2HR NEB PRN NEB SOB/WHEEZING; Start 12/02/17 at 04:30 Guaifenesin (Mucinex Er) 600 mg BID PO Last administered on 12/05/17at 09:04; Start 12/02/17 at 09:00 Budesonide/ Formoterol Fumarate (Symbicort 160-4.5 Mcg Inh) 2 puff Q12HR INH Last administered on 12/05/17at 09:06; Start 12/02/17 at 09:00 Dextrose (D50w (Vial) Inj) 50 ml UNSCH PRN IV PUSH HYPOGLYCEMIA-SEE COMMENTS; Start 12/02/17 at 04:30 Glucagon (Glucagon Inj) 1 mg UNSCH PRN OTHER HYPOGLYCEMIA-SEE COMMENTS; Start 12/02/17 at 04:30 Insulin Aspart (NovoLOG SUPPLEMENTAL SCALE) 1 ACHS SLIDING SCALE SQ Last administered on 12/05/17at 09:06; Start 12/02/17 at 08:00 Sodium Chloride (NS Flush) 2 ml UNSCH PRN IV FLUSH FLUSH AFTER USING IV ACCESS ; Start 12/02/17 at 04:30 Sodium Chloride (NS Flush) 2 ml BID IV FLUSH Last administered on 12/05/17at 09: 07; Start 12/02/17 at 09:00 Metoclopramide HCl (Reglan Inj) 5 mg Q6H PRN IV PUSH NAUSEA OR VOMITING; Start 12/02/17 at 04:30 Heparin Sodium (Porcine) (Heparin Inj) 5,000 units Q12H SQ Last administered on 12/05/17at 09:05; Start 12/02/17 at 09:00 Acetaminophen (Tylenol) 650 mg Q6H PRN PO FEVER/PAIN SCALE 1 TO 2; Start at 04:30 Acetaminophen/ Hydrocodone Bitart (Franklin 5-325 Mg) 1 tab Q4H PRN PO PAIN SCALE 3 TO 5 Last administered on 12/03/17 20:23; Start 12/02/17 at 04:30 Acetaminophen/ Hydrocodone Bitart (Franklin 10-325 Mg) 1 tab Q4H PRN PO PAIN SCALE 6 TO 10 Last administered on 12/04/17at 11:53; Start 12/02/17 at 04:30 Senna/Docusate Sodium (Irina-Colace) 1 tab BID PO Last administered on 09:38; Start 12/02/17 at 09:00 Magnesium Hydroxide (Milk Of Magnesia Liq) 30 ml Q12H PRN PO Mild constipation ; Start 12/02/17 at 04:30 Sennosides (Senokot) 17.2 mg Q12H PRN PO Moderate constipation; Start 12/02/17 at 04:30 Bisacodyl (Dulcolax Supp) 10 mg DAILY PRN RECTAL SEVERE CONSITIPATION/ IF NPO ; Start 12/02/17 at 04:30 Lactulose (Lactulose Liq) 30 ml DAILY PRN PO SEVERE CONSITIPATION/ IF PO; Start 12/02/17 at 04:30 Aspirin (Aspirin Chew) 81 mg DAILY PO Last administered on 12/05/17 09:04; Start 12/02/17 at 09:00 Gabapentin (Neurontin) 100 mg TID PO Last administered on 12/05/17 09:03; Start 12/02/17 at 09:00 Insulin Detemir (Levemir Inj) 18 units BID SQ Last administered on 12/05/17 09 :05; Start 12/02/17 at 09:00 Quetiapine Fumarate (SEROquel) 100 mg HS PO Last administered on 12/04/17 21: 55; Start 12/02/17 at 21:00 Paroxetine HCl (Paxil) 30 mg DAILY PO Last administered on 12/05/17 09:04; Start 12/02/17 at 09:00 Pantoprazole Sodium (Protonix) 40 mg DAILY PO Last administered on 12/05/17 09 :04; Start 12/02/17 at 16:30 Amlodipine Besylate (Norvasc) 5 mg DAILY PO Last administered on 5/30/18at 08: 17; Start 12/02/17 at 16:30; Stop 12/04/17 at 14:43; Status DC Metoprolol Tartrate (Lopressor) 50 mg Q12HR PO Last administered on 12/05/17at 09:04; Start 12/02/17 at 21:00 Clonidine (Catapres) 0.1 mg Q6H PRN PO SBP>170, DBP>90 Last administered on at 00:36; Start 12/02/17 at 16:30 Amlodipine Besylate (Norvasc) 5 mg BID PO Last administered on 12/05/17at 09:04 ; Start 12/04/17 at 21:00 Hydralazine HCl (Apresoline) 50 mg Q8HR PO Last administered on 12/05/17at 06:14 ; Start 12/04/17 at 22:00 Prednisone (Deltasone) 20 mg BID PO Last administered on 12/05/17at 09:04; Start 12/04/17 at 21:00 A/P Problem List: (1) COPD (chronic obstructive pulmonary disease) ICD Code: J44.9 - Chronic obstructive pulmonary disease, unspecified Status: Acute (2) Renal insufficiency ICD Code: N28.9 - Disorder of kidney and ureter, unspecified (3) DM (diabetes mellitus) ICD Code: E11.9 - Type 2 diabetes mellitus without complications Status: Acute Assessment and Plan 77 years old female Acute respiratory hypercapnic failure with underlying Obstructive and or restrictive lung disease- patient states 02 dependent - continue on BiPAP- current setting - IV steroids,breathing treatments - Pulmonary consult- seen in the past by Dr. Lua for further recommendation Hypertension- some elevated readings - BNP normal - resume her Amlodipine 5 mg daily. - Restart her Metorpolol - at 50 mg bid- at home was on 100 mg daily - clonidine prn for 170/90 and above Renal Insufficiency: Chronic. Creatinine 1.43, previously 1.56 on 11/29/17, monitor I/O, h/o CHF, CXR w/ mild congestion, hold diuresis for now, recheck labs in am. DM: Sliding scale w/ Accu-Cheks. Resume home Insulin History of Bipolar disorder- on Seroquel DVT Prophylaxis: Heparin sq PPI for GI prophylaxis BLOOD PRESSURE NOT AT GOAL- ADJUST MEDS INCREASE NORVASC AND HYDRALAZINE FOR UNCONTROLLED BLOOD PRESSURE DC TO HOME WITH HHC TODAY Social work for d/c planning as needed. Case discussed w/ staff and RT Discharge Planning DC TO HOME TODAY WITH HHC AND HOME OXYGEN Gerry Chen DO December 05, 2017 11:14
[2017-12-05] MEDS ORDERED: PRED20 PO (11:22)
[2017-12-05] MEDS ORDERED: PERI PO (11:22)
[2017-12-05] MEDS ORDERED: NEBULIZER1 MI1 (11:22)
[2017-12-05] MEDS ORDERED: AMLO5 PO (11:22)
[2017-12-05] MEDS ORDERED: GABA100C4 PO (11:22)
[2017-12-05] MEDS ORDERED: METO-309 PO (11:22)
[2017-12-05] MEDS ORDERED: LEVO.15 PO (11:22)
[2017-12-05] MEDS ORDERED: Albuterol-Ipratropium Neb NEB (11:22)
[2017-12-05] MEDS ORDERED: SERO100T PO (11:22)
[2017-12-05] MEDS ORDERED: PAXI30TA7 PO (11:22)
[2017-12-05] MEDS ORDERED: ASPI81CH6 PO (11:22)
[2017-12-05] MEDS ORDERED: PANT40TA3 PO (11:22)
[2017-12-05] MEDS ORDERED: guaiFENesin ER PO (11:22)
[2017-12-05] MEDS ORDERED: Budeson-Formot 160-4.5 Mcg Inh INH (11:22)
[2017-12-05] MEDS ORDERED: ALBUAER3 INH (11:22)
[2017-12-05] MEDS ORDERED: PERC10TA27 PO (11:22)
[2017-12-05] MEDS ORDERED: LANTUS2P SQ (11:22)
--- NOTE | 2017-12-05 11:23 | HHI.FF ---
Face to Face Verification Diagnosis: (1) Hypertensive urgency (2) DM (diabetes mellitus) (3) Renal insufficiency (4) COPD (chronic obstructive pulmonary disease) (5) Hyperglycemia (6) Cough (7) Bipolar disorder (8) Failure of outpatient treatment (9) Morbid obesity Physical Therapy Order: Evaluate and Treat, Improve ambulation, Strength and gait training Occupational Therapy Order: Evaluate and Treat, Improve ADL, Gross motor coordination, Fine motor coordination Home Health Nursing Order: Medical education Signs/symptoms of disease process Diabetic education Oxygen administration education Medication education-adverse effect Nursing assessment with vital signs Home Health Aide Order: To Assist In: Bathing and personal care, pad extraction tender and meal prep I have seen patient Rylee Nava on 12/05/17. My clinical findings support the need for the requested home health care services because: Ltd mobility - disease progression Patient has SOB Deconditioned w/ increased weakness I certify that my clinical findings support that this patient is homebound because: Hx COPD- exertion dyspnea/weakness Gerry Chen DO December 05, 2017 11:23
--- NOTE | 2017-12-05 11:25 | HHI.DS ---
Discharge Summary Admission Date December 02, 2017 at 04:21 Discharge Date: December 05, 2017 Admitting Diagnosis COPD exacerbation, on Bipap (1) COPD (chronic obstructive pulmonary disease) ICD Code: J44.9 - Chronic obstructive pulmonary disease, unspecified Diagnosis: Principal Status: Acute (2) Renal insufficiency ICD Code: N28.9 - Disorder of kidney and ureter, unspecified Diagnosis: Secondary (3) DM (diabetes mellitus) ICD Code: E11.9 - Type 2 diabetes mellitus without complications Diagnosis: Secondary Status: Acute (4) Hypertensive urgency ICD Code: I16.0 - Hypertensive urgency Diagnosis: Principal Status: Acute (5) Failure of outpatient treatment ICD Code: Z78.9 - Other specified health status Diagnosis: Principal (6) Cough ICD Code: R05 - Cough Diagnosis: Principal Status: Acute (7) Bipolar disorder ICD Code: F31.9 - Bipolar disorder, unspecified Diagnosis: Secondary (8) Morbid obesity ICD Code: E66.01 - Morbid (severe) obesity due to excess calories Diagnosis: Secondary Status: Acute Procedures NONE Brief History - From Admission This is a 77-year-old female with a PMH of HTN, COPD, Bipolar Disorder, CHF ( Echo 01/01/2016 with EF 55-60%), DM and Hypothyroidism who was brought to the ER by EMS with complaints of SOB. Has been following w/ PCP, Dr. Gonzalez, for similar complaints and was on Prednisone and MDI/Neb w/ no improvement, seen in ER on 11/29/17 s/p DuoNeb w/ improvement and discharged home. Returns now w/ ongoing complaints. S/p Solu-Medrol/DuoNeb by EMS. Denies fever, chills or cough. No complaints of chest pain. On arrival, BP 122/56, HR 93% on RA, Afebrile. While in the ER, patient with increased work of breathing, started on BiPAP. CBC unremarkable. Creatinine 1.43, previously 1.56 on 11/29/2017. Troponin negative. CXR with mild degree of pulmonary edema. S/p DuoNeb w/ some improvement. CBC/BMP: 12/05/17 0554 12/05/17 0554 Significant Findings Laboratory Tests Test 12/03/17 05:25 12/04/17 05:16 12/05/17 05:54 Red Blood Count 3.95 MIL/MM3 (4.00-5.30) Hemoglobin 10.1 GM/DL (11.6-15.3) 10.2 GM/DL (11.6-15.3) 10.3 GM/DL (11.6-15.3) Hematocrit 31.5 % (35.0-46.0) 31.9 % (35.0-46.0) 31.8 % (35.0-46.0) Mean Corpuscular Volume 79.6 FL (80.0-100.0) 79.3 FL (80.0-100.0) 78.8 FL (80.0-100.0) Mean Corpuscular Hemoglobin 25.5 PG (27.0-34.0) 25.3 PG (27.0-34.0) 25.4 PG (27.0-34.0) Red Cell Distribution Width 17.7 % (11.6-17.2) 17.8 % (11.6-17.2) 17.5 % (11.6-17.2) Platelet Count 128 TH/MM3 (150-450) 148 TH/MM3 (150-450) Neutrophils (%) (Auto) 78.7 % (16.0-70.0) 81.7 % (16.0-70.0) 80.8 % (16.0-70.0) Lymphocytes # (Auto) 0.7 TH/MM3 (1.0-4.8) 0.8 TH/MM3 (1.0-4.8) Blood Urea Nitrogen 28 MG/DL (7-18) 35 MG/DL (7-18) 31 MG/DL (7-18) Creatinine 1.54 MG/DL (0.50-1.00) 1.66 MG/DL (0.50-1.00) 1.44 MG/DL (0.50-1.00) Random Glucose 271 MG/DL (74-106) 234 MG/DL (74-106) 239 MG/DL (74-106) Alkaline Phosphatase 119 U/L (45-117) 121 U/L (45-117) 147 U/L (45-117) Aspartate Amino Transf (AST/SGOT) 14 U/L (15-37) 14 U/L (15-37) Estimat Glomerular Filtration Rate 40 ML/MIN (>89) 36 ML/MIN (>89) 43 ML/MIN (>89) Hemoglobin A1c 7.1 % (4.3-6.0) Free Thyroxine 0.66 NG/DL (0.76-1.46) Thyroid Stimulating Hormone 3rd Gen 0.179 uIU/ML (0.358-3.740) Platelet Estimate LOW (NORMAL) Platelet Morphology Comment ENLARGED (NORMAL) Ovalocytes 2+ (NORMAL) Acanthocytes OCC (NORMAL) Keratocytes OCC (NORMAL) Albumin 3.3 GM/DL (3.4-5.0) Imaging Last Impressions Chest X-Ray 12/02/17 0040 Signed Impressions: CONCLUSION: Artifact versus mild degree of pulmonary edema. PE at Discharge GENERAL: Awake alert and oriented 3 talkative and cooperative SKIN: Warm and dry. HEAD: Atraumatic. Normocephalic. EYES: Pupils equal and round. No scleral icterus. No injection or drainage. Extraocular muscles intact ENT: No nasal bleeding or discharge. Mucous membranes pink and moist. NECK: Trachea midline. No JVD. CARDIOVASCULAR: Regular rate and rhythm. S1-S2 no S3 or S4 RESPIRATORY: No accessory muscle use. Decreased breath sounds LESS scattered rhonchi. Breath sounds equal bilaterally. GASTROINTESTINAL: Abdomen soft, non-tender, nondistended. Hepatic and splenic margins not palpable. Morbid obesity MUSCULOSKELETAL: Extremities without clubbing, cyanosis, or edema. No obvious deformities. NEUROLOGICAL: Awake and alert. No obvious cranial nerve deficits. Motor grossly within normal limits. 4 out of 5 muscle strength in the arms and legs. Normal speech. PSYCHIATRIC: Appropriate mood and affect; insight and judgment normal. Hospital Course This is a 77-year-old female with a PMH of HTN, COPD, Bipolar Disorder, CHF ( Echo 01/01/2016 with EF 55-60%), DM and Hypothyroidism who was brought to the ER by EMS with complaints of SOB. Has been following w/ PCP, Dr. Gonzalez, for similar complaints and was on Prednisone and MDI/Neb w/ no improvement, seen in ER on 11/29/17 s/p DuoNeb w/ improvement and discharged home. Returns now w/ ongoing complaints. S/p Solu-Medrol/DuoNeb by EMS. Denies fever, chills or cough. No complaints of chest pain. On arrival, BP 122/56, HR 93% on RA, Afebrile. While in the ER, patient with increased work of breathing, started on BiPAP. CBC unremarkable. Creatinine 1.43, previously 1.56 on 11/29/2017. Troponin negative. CXR with mild degree of pulmonary edema. S/p DuoNeb w/ some improvement. 5 awake and alert cough dry gets short of breath without BIPAP states she has 02 at home denies any fever or chills 5 has been seen by pulmonary medicine. Think she is breathing a little better Not currently on BiPAP Increase activity Physical therapy and Occupational Therapy Discussed with RN and patient 5 BREATHING A LITTLE BETTER TODAY HAD BIPAP AT NIGHT INCREASE ACTIVITY WILL NEED PT AND OT AND HHC AT DC SLOW IMPROVEMENT DW RN AND PT AND CASE MANAGEMENT 5 BREATHING BETTER WANTS TO GO HOME RESUME HOME OXYGEN AT 2 TO 3 LITER SHE IS SUPPOSED TO USE DW RN AND PT AND CM HHC FOR RN AND PT AND COMPLIANCE SWITCH TO PO MEDS DC TO HOME TODAY Pt Condition on Discharge: Good Discharge Disposition: Disch w/ Home Health Serv Discharge Time: > 30 minutes Discharge Instructions DIET: Follow Instructions for: Heart Healthy Diet, Diabetic Diet Speech Therapy-Diet Recommends: Regular Activities you can perform: Regular-No Restrictions, Weight Bearing as Jackie Follow up Referrals: PCP Follow-up - 3-5 Days with Ghassan Gonzalez MD Pulmonology - 1 Week with Loco Lua MD New Medications: Levothyroxine (Synthroid) 150 Mcg Tab 150 MCG PO DAILY for Thyroid, #30 TAB 0 Refills Amlodipine (Norvasc) 5 Mg Tab 5 MG PO BID for Blood Pressure Management, #60 TAB Metoprolol Tartrate (Lopressor) 50 Mg Tab 50 MG PO Q12HR for Blood Pressure Management, #62 TAB Pantoprazole (Pantoprazole) 40 Mg Tab 40 MG PO DAILY for Manage Heartburn, #30 TAB Prednisone (Prednisone) 20 Mg Tab 20 MG PO BID for Inflammation, #60 TAB TAKE WITH FOOD Sennosides-Docusate Sodium (Gnp Senna Plus 8.6-50 mg) 8.6 Mg-50 Mg Tab 1 TAB PO BID for Constipation, #60 TAB [Albuterol-Ipratropium Neb] () 1 AMPULE NEBU 1 AMPULE NEB Q4HR WHILE AWAKE NEB for Breathing Treatment, #180 [Budeson-Formot 160-4.5 Mcg Inh] () 60 PUFF AERO 2 PUFF INH Q12HR for Breathing Treatment, #1 INH [guaiFENesin ER] () 600 MG TABCR 600 MG PO BID for Cough, #60 TAB Continued Medications: Albuterol 8.5 GM Inh (Proair Hfa 8.5 GM Inh) 90 Mcg/Act Aer 2 PUFF INH Q4-6H PRN for SHORTNESS OF BREATH, #1 INHALER 1 Refill (This prescription has been renewed) 108 mcg/actuation Aspirin (Aspirin Low Dose) 81 Mg Chew 81 MG PO DAILY for Blood Clot Prevention, #31 TAB 0 Refills (This prescription has been renewed) Gabapentin (Gabapentin) 100 Mg Cap 100 MG PO TID for NEUROPATHY, #90 CAP 0 Refills (This prescription has been renewed) Insulin Glargine Inj (Lantus Inj) 1,000 Unit/10 Ml Vial 18 UNITS SQ BID for Blood Sugar Management, #1 VIAL 0 Refills (This prescription has been renewed) Lorazepam (Lorazepam) 0.5 Mg Tab 0.5 MG PO DAILY PRN for ANXIETY, TAB 0 Refills Nebulizer (Nebulizer) 1 Mis Mis EA .XX DIRECTED for Breathing Treatment, #1 0 Refills (This prescription has been renewed) Nitroglycerin SL (Nitroglycerin SL) 0.4 Mg Subl 0.4 MG SL DIRECTED PRN for CHEST PAIN, #100 TAB.SL 0 Refills ONE TABLET UNDER THE TONGUE NEEDED FOR CHEST PAIN, MAY REPEAT EVERY FIVE MINUTES FOR A TOTAL OF 3 DOSES OR CALL 911 IF NO RELIEF Oxycodone-Acetaminophen (Percocet) 10-325 mg Tab 1 TAB PO Q4H PRN for PAIN, #30 TAB 0 Refills (This prescription has been renewed ) Paroxetine (Paxil) 30 Mg Tab 30 MG PO DAILY for Anxiety, #30 TAB 0 Refills (This prescription has been renewed) Quetiapine (Seroquel) 100 Mg Tab 100 MG PO HS for Anxiety, #30 TAB 0 Refills (This prescription has been renewed) Discontinued Medications: Albuterol Neb (Albuterol Neb) 2.5 Mg/3 Ml Neb 2.5 MG NEB Q4HR NEB PRN for SHORTNESS OF BREATH, #60 NEBULE 0 Refills Amlodipine (Norvasc) 5 Mg Tab 5 MG PO DAILY for Blood Pressure Management, #30 TAB 0 Refills Ipratropium Neb (Ipratropium Neb) 0.5 Mg/2.5 Ml Amp 0.5 MG NEB Q6HR NEB PRN for SHORTNESS OF BREATH, #120 NEBULE 0 Refills Levothyroxine (Synthroid) 25 Mcg Tab 150 PO DAILY for Thyroid, #30 TAB 0 Refills Metoprolol Tartrate (Metoprolol Tartrate) 100 Mg Tab 100 MG PO DAILY, #30 TAB 0 Refills Prednisone (Prednisone) 50 Mg Tab 50 MG PO DAILY, #4 TAB 0 Refills Gerry Chen DO December 05, 2017 11:25
== END 2017-12-05 13:17 | disposition home health service (06) | DRG 190 ==
LOC: NEPE 00:25 → NEDA 04:21 → HCIS 06:30
PROVIDERS: ADMIT Hospitalist; ATTEND Hospitalist
PROC: 5A09457 Assistance with Respiratory Ventilation, 24-96 Consecutive Hours, Continuous Positive Airway Pressure (ICD-10-PCS; principal; 2017-12-02)
DX: J44.1 Chronic obstructive pulmonary disease with (acute) exacerbation (principal); J96.21 Acute and chronic respiratory failure with hypoxia; E11.22 Type 2 diabetes mellitus with diabetic chronic kidney disease; Z68.42 Body mass index [BMI] 45.0-49.9, adult; I13.0 Hypertensive heart and chronic kidney disease with heart failure and stage 1 through stage 4 chronic kidney disease, or unspecified chronic kidney disease; I50.9 Heart failure, unspecified; E03.9 Hypothyroidism, unspecified; E66.01 Morbid (severe) obesity due to excess calories; N18.9 Chronic kidney disease, unspecified; I16.0 Hypertensive urgency; G47.33 Obstructive sleep apnea (adult) (pediatric); F31.9 Bipolar disorder, unspecified; E78.00 Pure hypercholesterolemia, unspecified; R07.9 Chest pain, unspecified; I25.10 Atherosclerotic heart disease of native coronary artery without angina pectoris; Z87.891 Personal history of nicotine dependence; Z90.710 Acquired absence of both cervix and uterus; Z98.1 Arthrodesis status; Z99.81 Dependence on supplemental oxygen; Z79.82 Long term (current) use of aspirin; Z79.4 Long term (current) use of insulin; Z88.0 Allergy status to penicillin; Z88.1 Allergy status to other antibiotic agents; Z88.5 Allergy status to narcotic agent; Z88.8 Allergy status to other drugs, medicaments and biological substances; Z88.2 Allergy status to sulfonamides
CPT/HCPCS: 36600; 71045; 80053; 82550; 82552; 82805; 82948; 83036; 83690; 83735; 83880; 84100; 84439; 84443; 84484; 85025; 85610; 85730; 87804; 93005; 94002; 94003; 94060; 94640; 94664; 99285; J1644; J1815; J2920; J7512